=== PATIENT | male | born 1960 | race Caucasian/White ===

== ENCOUNTER → 2018-02-25 07:02 | Outpatient (CLI) | payer OTHER, SELFPAY ==
[2018-02-25 09:12] LABS: ALB/GLOB Ratio 1.3 RATIO (0.9-2.4); AST(SGOT) 16 U/L (15-37); Alanine Aminotransfer ALT/SGPT 35 U/L (16-61); Albumin, Serum 4.1 g/dL (3.2-5.0); Alkaline Phosphatase 63 U/L (45-117); Anion Gap 10 (5-15); BUN 18 mg/dL (7-18); BUN/Creat Ratio 20.6 RATIO (10-20); Calcium,Total 9.1 mg/dL (8.5-10.1); Chloride 106 mmol/L (98-107); Cholesterol 161 mg/dL (200); Creatinine, Serum 0.88 mg/dL (0.70-1.30); EST Glomerular Filtration Rate 96 mL/min (>60); Est Glom Filt Rate - Afr Amer 116 mL/min (>60); Globulin 3.2 g/dL (2.2-4.2); Glucose 109 mg/dL (74-106); High Density Lipoprotein 58 mg/dL; PSA,Total - Annual Screen 0.62 ng/mL (0.00-4.00); Potassium 5.1 mmol/L (3.5-5.1); Protein, Total 7.3 g/dL (6.4-8.2); Sodium Level 142 mmol/L (136-145); Triglycerides 114 mg/dL; Very Low Density Lipoprotein 23 mg/dL (5-40)
[2018-02-25 09:39] LABS: Hemoglobin A1c 5.7 % (4.2-6.3)
== END ==
PROVIDERS: Family Provider Family Medicine; PCP Family Medicine; Visit Provider Family Medicine
DX: Z00.00 Encounter for general adult medical examination without abnormal findings (principal); I10 Essential (primary) hypertension; E78.5 Hyperlipidemia, unspecified; Z12.5 Encounter for screening for malignant neoplasm of prostate
CPT/HCPCS: 36415; 80053; 80061; 83036; 84153; G0103

== ENCOUNTER → 2019-04-07 | Outpatient (CLI) | payer OTHER, SELFPAY ==
[2019-03-20 17:53] VITALS: BMI 33.5
[2019-04-07 08:08] LABS: Hematocrit 45.7 % (40-54); Hemoglobin 15.4 g/dL (13.0-16.5); Mean Corp Hgb Conc 33.7 g/dL (32-36); Mean Corpuscular Hgb 31.1 pg (27.0-32.0); Mean Corpuscular Volume 92.3 fL (80-94); Mean Platelet Vol. 11.2 fl (6.2-12.0); Platelet Count 204 K/mm3 (150-450); RBC Distribution Width CV 11.9 % (11.6-14.6); RBC Distribution Width SD 40.5 fl (35.1-43.9); Red Blood Count 4.95 M/mm3 (4.6-6.2); White Blood Count 7.2 K/mm3 (4.4-11.0)
[2019-04-07 08:38] LABS: Microalbumin,Random Urine 10.6 mg/L (NO RANGE EST.); Microalbumin:Creatinine Ratio 7.9 mg/g CRE (<30 mg/g CRE)
[2019-04-07 08:48] LABS: ALB/GLOB Ratio 1.3 RATIO (0.9-2.4); AST(SGOT) 27 U/L (15-37); Alanine Aminotransfer ALT/SGPT 35 U/L (16-61); Alkaline Phosphatase 69 U/L (45-117); Anion Gap 7 (5-15); BUN 19 mg/dL (7-18); BUN/Creat Ratio 19.2 RATIO (10-20); Calcium,Total 8.6 mg/dL (8.5-10.1); Chloride 108 mmol/L (98-107); Cholesterol 158 mg/dL (200); Creatinine, Serum 0.99 mg/dL (0.70-1.30); EST Glomerular Filtration Rate 83 mL/min (>60); Est Glom Filt Rate - Afr Amer 100 mL/min (>60); Glucose 118 mg/dL (74-106); High Density Lipoprotein 66 mg/dL; Potassium 4.7 mmol/L (3.5-5.1); Sodium Level 142 mmol/L (136-145); Triglycerides 162 mg/dL; Very Low Density Lipoprotein 32 mg/dL (5-40)
== END | disposition home or self-care (01) ==
LOC: LAB 07:10
PROVIDERS: Family Provider Family Medicine; PCP Family Medicine; Referring Provider Nurse Practitioner Family; Visit Provider Nurse Practitioner Family
DX: E11.9 Type 2 diabetes mellitus without complications (principal)
CPT/HCPCS: 36415; 80053; 80061; 82043; 82570; 84153; 84443; 85027; G0103

== ENCOUNTER → 2019-07-18 16:34 | Outpatient (CLI) | payer OTHER, SELFPAY ==
[2019-07-18 16:26] VITALS: BMI 34.7
[2019-07-18 17:34] LABS: Anion Gap 4 (5-15); BUN 19 mg/dL (7-18); Calcium,Total 9.8 mg/dL (8.5-10.1); Chloride 109 mmol/L (98-107); EST Glomerular Filtration Rate 82 mL/min (>60); Est Glom Filt Rate - Afr Amer 99 mL/min (>60); Glucose 89 mg/dL (74-106); Potassium 4.7 mmol/L (3.5-5.1); Sodium Level 141 mmol/L (136-145)
== END ==
PROVIDERS: PCP Family Medicine; Referring Provider Nurse Practitioner Family; Visit Provider Nurse Practitioner Family
DX: I10 Essential (primary) hypertension (principal)
CPT/HCPCS: 36415; 80048

== ENCOUNTER → 2020-08-13 11:33 | Outpatient (CLI) | payer OTHER, SELFPAY ==
[2020-08-13 13:22] LABS: ALB/GLOB Ratio 1.3 RATIO (0.9-2.4); AST(SGOT) 24 U/L (15-37); Alanine Aminotransfer ALT/SGPT 49 U/L (16-61); Albumin, Serum 4.4 g/dL (3.2-5.0); Alkaline Phosphatase 67 U/L (45-117); Anion Gap 6 (5-15); BUN 15 mg/dL (7-18); BUN/Creat Ratio 15.1 RATIO (10-20); Calcium,Total 9.4 mg/dL (8.5-10.1); Chloride 108 mmol/L (98-107); Cholesterol 182 mg/dL (200); Creatinine, Serum 0.99 mg/dL (0.70-1.30); EST Glomerular Filtration Rate 82 mL/min (>60); Est Glom Filt Rate - Afr Amer 100 mL/min (>60); Globulin 3.3 g/dL (2.2-4.2); Glucose 107 mg/dL (74-106); High Density Lipoprotein 68 mg/dL; Potassium 4.9 mmol/L (3.5-5.1); Protein, Total 7.7 g/dL (6.4-8.2); Sodium Level 140 mmol/L (136-145); Triglycerides 150 mg/dL; Very Low Density Lipoprotein 30 mg/dL (5-40)
== END ==
PROVIDERS: PCP Family Medicine; Referring Provider Family Medicine; Visit Provider Family Medicine
DX: E11.9 Type 2 diabetes mellitus without complications (principal); E78.5 Hyperlipidemia, unspecified
CPT/HCPCS: 36415; 80053; 80061

== ENCOUNTER 2021-06-30 12:37 | Outpatient (CLI) | payer OTHER, SELFPAY | END 2021-06-30 23:59 | disposition short-term general hospital (02) | LOC: LABSPEC 12:38 | PROVIDERS: PCP Family Medicine; Referring Provider Physician Assistant Surgical; Visit Provider Physician Assistant Surgical | DX: Z11.52 Encounter for screening for COVID-19 (principal) | CPT/HCPCS: 87635; U0003; U0005 ==

== ENCOUNTER 2021-08-05 09:23 | Outpatient (CLI) | payer OTHER, SELFPAY ==
[2021-08-05 13:07] LABS: ALB/GLOB Ratio 1.3 RATIO (0.9-2.4); AST(SGOT) 55 U/L (15-37); Alanine Aminotransfer ALT/SGPT 103 U/L (16-61); Albumin, Serum 4.1 g/dL (3.2-5.0); Alkaline Phosphatase 78 U/L (45-117); Anion Gap 4 (5-15); BUN 15 mg/dL (7-18); BUN/Creat Ratio 17.1 RATIO (10-20); Calcium,Total 9.3 mg/dL (8.5-10.1); Chloride 108 mmol/L (98-107); Cholesterol 131 mg/dL (200); Creatinine, Serum 0.88 mg/dL (0.70-1.30); EST Glomerular Filtration Rate 94 mL/min (>60); Est Glom Filt Rate - Afr Amer 114 mL/min (>60); Globulin 3.1 g/dL (2.2-4.2); Glucose 156 mg/dL (74-106); High Density Lipoprotein 49 mg/dL; Potassium 4.8 mmol/L (3.5-5.1); Protein, Total 7.2 g/dL (6.4-8.2); Sodium Level 139 mmol/L (136-145); Triglycerides 125 mg/dL
[2021-08-05 13:08] LABS: Very Low Density Lipoprotein 25 mg/dL (5-40)
== END 2021-08-05 23:59 | disposition home or self-care (01) ==
LOC: BIMLAB 09:24
PROVIDERS: PCP Family Medicine; Referring Provider Family Medicine; Visit Provider Family Medicine
DX: E11.9 Type 2 diabetes mellitus without complications (principal)
CPT/HCPCS: 36415; 80053; 80061

== ENCOUNTER 2021-09-16 09:20 | Outpatient (CLI) | payer OTHER, SELFPAY ==
[2021-09-16 13:09] LABS: AST(SGOT) 58 U/L (15-37); Alanine Aminotransfer ALT/SGPT 112 U/L (16-61); Albumin, Serum 4.3 g/dL (3.2-5.0); Alkaline Phosphatase 69 U/L (45-117); Bilirubin, Direct 0.14 mg/dL (0.00-0.30); Globulin 3.1 g/dL (2.2-4.2); Protein, Total 7.4 g/dL (6.4-8.2)
== END 2021-09-16 23:59 | disposition home or self-care (01) ==
LOC: BIMLAB 09:21
PROVIDERS: PCP Family Medicine; Referring Provider Family Medicine; Visit Provider Family Medicine
DX: R74.8 Abnormal levels of other serum enzymes (principal)
CPT/HCPCS: 36415; 80076

== ENCOUNTER 2021-10-07 11:05 | Outpatient (CLI) | payer OTHER, SELFPAY ==
--- NOTE | 2021-10-07 09:31 | US_ITS ---
STUDY: ABDOMINAL ULTRASOUND - RIGHT UPPER QUADRANT REASON FOR VISIT: Male, 61 years old ABN LEVELS OF OTHER SERUM ENZYMES TECHNIQUE: Ultrasound evaluation of the right upper quadrant was performed with real-time and static julian-scale imaging. TECHNICAL QUALITY: Adequate. COMPARISON: None. FINDINGS: Liver: The liver measures 16.8 cm. There is increased echogenicity consistent with fatty infiltration. Focal fatty sparing is seen adjacent to the gallbladder fossa. The bile ducts are within normal limits. There is hepatic color flow. The direction of portal flow is hepatopetal. There is no demonstrated mass lesion. Gallbladder: Normal distended gallbladder. The gallbladder wall measures 2.1 mm. There is a negative sonographic Kathleen''s sign. There is no pericholecystic fluid. There are no gallstones. A small amount of sludge is seen in the gallbladder lumen. Common Bile Duct (C.B.D.): The common bile duct measures 5.7 mm. Pancreas: Normal size of the head, body and tail of the pancreas. There is increased echogenicity of the pancreas. There is no demonstrated pancreatic mass or cyst. Right Kidney: Normal size of the right kidney. The right kidney measures 11.3 cm x 6.6 cm x 6.7 cm. Normal renal cortex. The right cortex measures 1.5 cm. There is no demonstrated renal mass or cyst. There is no right hydronephrosis. US/Abdomen Limited IMPRESSION: Borderline hepatomegaly with fatty infiltration of the liver and focal fatty sparing adjacent to the gallbladder fossa. A small amount of sludge is seen in the gallbladder lumen. Electronically Signed: Viet Roberts MD at 12:28 EDT ,
== END 2021-10-07 23:59 | disposition home or self-care (01) ==
PROVIDERS: PCP Family Medicine; Referring Provider Family Medicine; Visit Provider Family Medicine
DX: R74.9 Abnormal serum enzyme level, unspecified (principal)
CPT/HCPCS: 76705

== ENCOUNTER → 2022-03-04 | Outpatient (CLI) | payer OTHER, SELFPAY ==
[2022-03-04 12:43] LABS: ALB/GLOB Ratio 1.1 RATIO (0.9-2.4); AST(SGOT) 15 U/L (15-37); Alanine Aminotransfer ALT/SGPT 37 U/L (16-61); Alkaline Phosphatase 63 U/L (45-117); Anion Gap 7 (5-15); BUN 17 mg/dL (7-18); BUN/Creat Ratio 16.5 RATIO (10-20); Calcium,Total 9.4 mg/dL (8.5-10.1); Chloride 105 mmol/L (98-107); Cholesterol 202 mg/dL (200); Creatinine, Serum 1.03 mg/dL (0.70-1.30); EST Glomerular Filtration Rate 78 mL/min (>60); Est Glom Filt Rate - Afr Amer 95 mL/min (>60); Globulin 3.5 g/dL (2.2-4.2); Glucose 126 mg/dL (74-106); High Density Lipoprotein 59 mg/dL; Potassium 5.9 mmol/L (3.5-5.1); Protein, Total 7.5 g/dL (6.4-8.2); Sodium Level 139 mmol/L (136-145); Triglycerides 172 mg/dL; Very Low Density Lipoprotein 34 mg/dL (5-40)
== END | disposition home or self-care (01) ==
LOC: BIMLAB 08:53
PROVIDERS: PCP Family Medicine; Referring Provider Family Medicine; Visit Provider Family Medicine
DX: R74.8 Abnormal levels of other serum enzymes (principal)
CPT/HCPCS: 36415; 80053; 80061

== ENCOUNTER → 2023-03-03 | Outpatient (CLI) | payer OTHER, SELFPAY ==
[2023-03-03 12:55] LABS: ALB/GLOB Ratio 1.1 RATIO (0.9-2.4); AST(SGOT) 19 U/L (15-37); Alanine Aminotransfer ALT/SGPT 31 U/L (16-61); Albumin, Serum 3.9 g/dL (3.2-5.0); Alkaline Phosphatase 63 U/L (45-117); Anion Gap 6 (5-15); BUN 20 mg/dL (7-18); BUN/Creat Ratio 21.7 RATIO (10-20); Calcium,Total 9.5 mg/dL (8.5-10.1); Chloride 109 mmol/L (98-107); Creatinine, Serum 0.92 mg/dL (0.70-1.30); EST Glomerular Filtration Rate 89 mL/min (>60); Est Glom Filt Rate - Afr Amer 108 mL/min (>60); Globulin 3.6 g/dL (2.2-4.2); Glucose 118 mg/dL (74-106); Potassium 4.8 mmol/L (3.5-5.1); Protein, Total 7.5 g/dL (6.4-8.2); Sodium Level 141 mmol/L (136-145)
== END | disposition home or self-care (01) ==
LOC: BIMLAB 08:51
PROVIDERS: PCP Family Medicine; Visit Provider Family Medicine
DX: R74.8 Abnormal levels of other serum enzymes (principal)
CPT/HCPCS: 36415; 80053

== ENCOUNTER → 2023-09-09 | Outpatient (CLI) | payer OTHER, SELFPAY ==
--- OUTSIDE RECORDS SUMMARY | 2023-09-09 09:18 | XMS RPT_ITS | CCD ---
Author Name Unknown Address [address] [place] [id number] Organization [facility] Care Team Providers Care Inspector Publications Name Role Phone MIRTHA BOLES R Unavailable Unavailable BROWN, MIRTHA R Unavailable Unavailable BROWN, MIRTHA R Unavailable Unavailable BROWN, MIRTHA R Unavailable Unavailable BROWN, MIRTHA R Unavailable Unavailable Problems Active Problems Problem Classification Problem Date Documented Da te Episodic/Chronic Unclassified (1 source) Unknown / UNK(Unknown) Onset: 01-06-2017 Past or Other Problems Problem Classification Problem Date Documented Da te Episodic/Chronic Unclassified (1 source) E78.5 Onset: 01-06-2017 Results Test Name Value Interpretation Reference Range Facil ity Encounters Encounter Date Encounter Type Care Provider Facility Start: 01-06-2017 End: 01-07-2017 Ambulatory MIRTHA BOLES Facility:[facility] Payers Date Payer Category Payer Private Health Insurance [id number] Summary Purpose Family History No Family History Records FoundNo Family History Records Found Advance Directives No Advanced Directives Records FoundNo Advanced Directives Records Found Additional Source Comments (unrecognized sect ion and content) No Status Records FoundNo Status Records Found INFORMATION SOURCE (unrecogn ized section and content) DATE CREATED AUTHOR AUTHOR'S ORGANIZ ATION 12/21/2017 [facility] [employer] FOR RECORDS PERTAINING TO PATIENTS WHO ARE OR HAVE BEEN ENROLLED IN A CHEMICAL DEPENDENCY/SUBSTANCEABUSE PROGRAM, SOME INFORMATION MAY BE OMITTED. This clinical summary was aggregated from multiple sources. Caution should be exercised in using it in the provision of clinical care. This summary normalizes information from multiple sources, and as a consequence, information in this document may materially change the coding, format and clinical context of patient data. In addition, data may be omitted in some cases. CLINICAL DECISIONS SHOULD BE BASED ON THE PRIMARY CLINICAL RECORDS. [facility] [employer] [facility]. provides no warranty or guarantee of the accuracy or completeness of information in this document.
[2023-09-09 13:04] LABS: Cholesterol 183 mg/dL (200); High Density Lipoprotein 52 mg/dL; PSA,Total - Annual Screen 0.63 ng/mL (0.00-4.00); Triglycerides 169 mg/dL; Very Low Density Lipoprotein 34 mg/dL (5-40)
== END | disposition home or self-care (01) ==
LOC: BIMLAB 08:55
PROVIDERS: PCP Family Medicine; Visit Provider Family Medicine
DX: Z00.00 Encounter for general adult medical examination without abnormal findings (principal); E78.5 Hyperlipidemia, unspecified
CPT/HCPCS: 36415; 80061; 84153; G0103

== ENCOUNTER → 2024-03-09 | Outpatient (CLI) | payer OTHER, SELFPAY ==
[2024-03-09 12:44] LABS: Absolute Neutrophil Count 5.1 X10^3/uL (2.0-7.7); Basophil# 0.09 X10^3/uL; Basophil% 1.1 % (0-1); Eosinophil# 0.15 X10^3/uL; Eosinophils% 1.8 % (0-5); Hematocrit 45.8 % (40-54); Hemoglobin 15.8 g/dL (13.0-16.5); Mean Corp Hgb Conc 34.5 g/dL (32-36); Mean Corpuscular Hgb 31.3 pg (27.0-32.0); Mean Corpuscular Volume 90.7 fL (80-94); Mean Platelet Vol. 12.1 fl (6.2-12.0); Monocyte# 0.77 X10^3/uL; NRBC Flagged by Analyzer 0 % (0-5); Neutrophil # 5.13 X10^3/uL (2.7-7.7); Neutrophil % 59.7 % (47-70); Platelet Count 226 K/mm3 (150-450); RBC Distribution Width CV 11.8 % (11.6-14.6); Red Blood Count 5.05 M/mm3 (4.6-6.2); White Blood Count 8.6 K/mm3 (4.4-11.0)
[2024-03-09 13:09] LABS: ALB/GLOB Ratio 1.1 RATIO (0.9-2.4); AST(SGOT) 34 U/L (15-37); Alanine Aminotransfer ALT/SGPT 79 U/L (16-61); Alkaline Phosphatase 78 U/L (45-117); Anion Gap 7 (5-15); BUN 17 mg/dL (7-18); BUN/Creat Ratio 16.7 RATIO (10-20); Calcium,Total 9.8 mg/dL (8.5-10.1); Chloride 104 mmol/L (98-107); Cholesterol 201 mg/dL (200); Creatinine, Serum 1.02 mg/dL (0.70-1.30); EST Glomerular Filtration Rate 79 mL/min (>60); Est Glom Filt Rate - Afr Amer 95 mL/min (>60); Globulin 3.5 g/dL (2.2-4.2); Glucose 179 mg/dL (74-106); High Density Lipoprotein 53 mg/dL; Potassium 4.5 mmol/L (3.5-5.1); Protein, Total 7.5 g/dL (6.4-8.2); Sodium Level 137 mmol/L (136-145); Triglycerides 271 mg/dL; Very Low Density Lipoprotein 54 mg/dL (5-40)
== END | disposition home or self-care (01) ==
LOC: BIMLAB 08:54
PROVIDERS: PCP Family Medicine; Referring Provider Family Medicine; Visit Provider Family Medicine
DX: E11.9 Type 2 diabetes mellitus without complications (principal)
CPT/HCPCS: 36415; 80053; 80061; 84443; 85025

== ENCOUNTER 2024-06-30 16:39 | Emergency (ER) | payer OTHER, SELFPAY ==
[2024-06-30 16:40] VITALS: BP 151/92; PULSE 115; RESP 16; TEMP 37.1; O2SAT 99; BMI 33.8
--- NOTE | 2024-06-30 16:43 | EKG12_ITS ---
Test Reason : CP Blood Pressure : */* mmHG Vent. Rate : 101 BPM Atrial Rate : 101 BPM P-R Int : 216 ms QRS Dur : 82 ms QT Int : 322 ms P-R-T Axes : 30 -19 13 degrees QTcB Int : 417 ms Sinus tachycardia with 1st degree A-V block Otherwise normal ECG Confirmed by ROSS CASON, JOY ([id number]), non linear editor DAWN LOGAN ([id number]) on 07/02/2024 7:01:31 AM Referred By: Confirmed By: JOY HAWKINS MD
--- NOTE | 2024-06-30 17:08 | ED.VIS.CHEST ---
HPI <REGGIE Calixto - Last Filed: 06/30/24 19:43> History of Present Illness Chief Complaint: Palpitations Narrative Narrative: Patient presenting today due to palpitations and dyspnea on exertion he has had over the past week intermittently. Nothing seems to trigger the palpitations. He reports that he can sometimes feel the palpitations radiate into his neck. He denies having chest pain with this. He denies any history of arrhythmia or a cardiac history. He denies fevers, chills, orthopnea, and lower extremity edema. He has a PMH of T2DM and HTN. PE Risk Factors: Negative for Recent Travel/Surgery, Recent Immobilization, Prior DVT or PE or Cancer PFSH <REGGIE Calixto - Last Filed: 06/30/24 19:43> PFSH Medical History GERD (gastroesophageal reflux disease) Kidney stones Hyperlipidemia Hypertension Hearing problem Diabetes Seasonal allergies Home Medications ?Medication ?Instructions ?Recorded ?Last Taken ?Type lisinopril 40 mg tablet 40 mg PO DAILY #90 TABLETS 05/08/24 Unknown Rx metformin 500 mg tablet,extended 500 mg PO BID 90 days #180 tabs 05/11/24 Unknown Rx release 24 hr Allergy/AdvReac Type Severity Reaction Status Date / Time bee venom protein (honey Allergy Unknown Swelling Verified 06/30/24 16:40 bee) (bee stings) Family History Father Lung cancer Mother Heart disease COPD (chronic obstructive pulmonary disease) Sister Thyroid disorder Surgical History History of tonsillectomy Social History Smoking Status: Former smoker alcohol intake: current alcohol intake frequency: holidays/special occasions only substance use type: does not use what type of physical activity do you participate in: walking ROS <REGGIE Calixto - Last Filed: 06/30/24 19:43> ROS ED Constitutional Constitutional ED: Denies chills or fever(s) Cardiovascular Cardiovascular: Reports palpitations; Denies chest pain Respiratory/Chest Respiratory/Chest: Reports dyspnea on exertion; Denies cough or sputum Gastrointestinal Gastrointestinal: Denies abdominal pain, nausea or vomiting Musculoskeletal Musculoskeletal: Denies arthralgias or myalgias Integumentary Denies rash Neurologic Neurologic: Denies weakness EXAM <REGGIE Calixto - Last Filed: 06/30/24 19:43> Physical Exam Const Vital Signs: 06/30/24 16:40 06/30/24 16:43 06/30/24 17:03 Temperature 98.7 F Temperature Source Oral Pulse Rate 115 H Respiratory Rate 16 Respiratory Effort Normal Blood Pressure 151/92 H Blood Pressure Mean 111 Pulse Ox 99 Oxygen Delivery Method Room Air Room Air 06/30/24 17:40 06/30/24 18:00 06/30/24 19:00 Temperature Temperature Source Pulse Rate 99 104 H 89 Respiratory Rate 16 16 17 Respiratory Effort Blood Pressure 134/95 H 150/98 H 134/95 H Blood Pressure Mean 108 115 108 Pulse Ox 100 100 96 Oxygen Delivery Method Room Air Room Air 06/30/24 19:40 Temperature 97.9 F Temperature Source Pulse Rate 73 Respiratory Rate 16 Respiratory Effort Blood Pressure 134/78 H Blood Pressure Mean 96 Pulse Ox 99 Oxygen Delivery Method Positive well nourished, well developed and no apparent distress General Appearance ED: well developed HEENT Reports normocephalic and head/scalp atraumatic Mouth ED: Yes moist mucous membranes normal Eyes PERRL and EOMs intact bilaterally Neck full ROM and supple Chest Wall inspection of chest normal Resp normal respiratory effort and clear to auscultation bilaterally Cardio regular rate and regular rhythm GI soft to palpation, non-tender, non-distended and no masses Back/Spine normal ROM and normal to inspection Extremity normal to inspection and full ROM General Extremety ED: Negative for edema General Extremity: Negative for edema Neuro oriented x3, CN's II-XII intact bilaterally, moves all extremities, no focal motor deficits and no sensory deficits noted Sensorium / Orientation: awake and alert Psych mental status grossly normal and thought process normal Skin no rashes or lesions noted and no wounds <Dr. Zi Oglesby MD - Last Filed: 06/30/24 22:40> Physical Exam Const Vital Signs: 06/30/24 16:40 06/30/24 16:43 06/30/24 17:03 Temperature 98.7 F Temperature Source Oral Pulse Rate 115 H Respiratory Rate 16 Respiratory Effort Normal Blood Pressure 151/92 H Blood Pressure Mean 111 Pulse Ox 99 Oxygen Delivery Method Room Air Room Air 06/30/24 17:40 06/30/24 18:00 06/30/24 19:00 Temperature Temperature Source Pulse Rate 99 104 H 89 Respiratory Rate 16 16 17 Respiratory Effort Blood Pressure 134/95 H 150/98 H 134/95 H Blood Pressure Mean 108 115 108 Pulse Ox 100 100 96 Oxygen Delivery Method Room Air Room Air 06/30/24 19:40 Temperature 97.9 F Temperature Source Pulse Rate 73 Respiratory Rate 16 Respiratory Effort Blood Pressure 134/78 H Blood Pressure Mean 96 Pulse Ox 99 Oxygen Delivery Method [facility] <REGGIE Calixto - Last Filed: 06/30/24 19:43> [facility] Narrative Medical decision making narrative: Patient presenting today due to intermittent palpitations and dyspnea on exertion he has had over the past week. He is well-appearing and in no acute distress. Initially he was tachycardic but his heart rate did improve. He does not have any history of arrhythmia. He does not appear to be fluid overloaded. Cardiac workup obtained, CBC, BMP, troponin, D-dimer, and BNP unremarkable aside from a glucose of 216. EKG is sinus rhythm. We will give him a Holter monitor here and a referral for cardiology. I recommended close outpatient follow-up. Return instructions discussed and patient discharged home in stable condition. Lab Data Attestation: I reviewed the patient's lab results. Labs: Laboratory Results - last 24 hr 06/30/24 17:00 WBC 11.0 RBC 4.85 Hgb 15.2 Hct 42.6 MCV 87.8 MCH 31.3 MCHC 35.7 RDW Std Deviation 38.3 RDW Coeff of Brent 11.9 Plt Count 233 MPV 11.1 Immature Gran % (Auto) 0.600 Neut % (Auto) 61.3 Lymph % (Auto) 27.2 Leake % (Auto) 8.5 Eos % (Auto) 1.6 Baso % (Auto) 0.8 Absolute Neuts (auto) 6.7 Absolute Lymphs (auto) 3.00 Nucleated RBC % 0 D-Dimer Quant (PE/DVT) 0.27 Sodium 138 Potassium 3.9 Chloride 106 Carbon Dioxide 24.0 Anion Gap 7 BUN 15 Creatinine 0.97 Estim Creat Clear Calc 85.23 Est GFR (MDRD) Af Amer 101 Est GFR (MDRD) Non-Af 83 BUN/Creatinine Ratio 15.4 Glucose 216 H Calcium 9.0 Troponin I High Sens 7 B-Natriuretic Peptide 5.7 Radiography X-Ray: Read by ED Physician Diagnostic Testing: Clinical Impression(s) from Imaging Studies Chest X-Ray 06/30/24 17:10 IMPRESSION: No definite acute or significant abnormality seen. Electronically Signed: Chema Hilliard MD at 18:02 EST , EKG Initial EKG: Comments: 101 bpm, sinus tachycardia, no ST elevation, interpreted by attending ED physician <Dr. Zi Oglesby MD - Last Filed: 06/30/24 22:40> [facility] Lab Data Labs: Laboratory Results - last 24 hr 06/30/24 17:00 WBC 11.0 RBC 4.85 Hgb 15.2 Hct 42.6 MCV 87.8 MCH 31.3 MCHC 35.7 RDW Std Deviation 38.3 RDW Coeff of Brent 11.9 Plt Count 233 MPV 11.1 Immature Gran % (Auto) 0.600 Neut % (Auto) 61.3 Lymph % (Auto) 27.2 Leake % (Auto) 8.5 Eos % (Auto) 1.6 Baso % (Auto) 0.8 Absolute Neuts (auto) 6.7 Absolute Lymphs (auto) 3.00 Nucleated RBC % 0 D-Dimer Quant (PE/DVT) 0.27 Sodium 138 Potassium 3.9 Chloride 106 Carbon Dioxide 24.0 Anion Gap 7 BUN 15 Creatinine 0.97 Estim Creat Clear Calc 85.23 Est GFR (MDRD) Af Amer 101 Est GFR (MDRD) Non-Af 83 BUN/Creatinine Ratio 15.4 Glucose 216 H Calcium 9.0 Troponin I High Sens 7 B-Natriuretic Peptide 5.7 Radiography Diagnostic Testing: Clinical Impression(s) from Imaging Studies Chest X-Ray 06/30/24 17:10 IMPRESSION: No definite acute or significant abnormality seen. Electronically Signed: Chema Hilliard MD at 18:02 EST , Treatment and Re-Evaluation Comments:: I have personally performed a face to face assessment of the patient and have reviewed the STEFANIE Note. I performed a substantive portion of the visit including all aspects of the following. My schmid findings include: History is dyspnea with exertion for weeks, palpitations off and on for about a week, feels like a flutter at its worst, sometimes radiates up to his throat, other times feels less than that. Sometimes associated with lightheadedness no near-syncope or syncope. No chest pain or dyspnea associated with the episodes. Never had this before no history of heart problems that he knows of. Exam is clear to auscultation, heart regular no murmurs, occasional PACs on monitor patient occasionally feels but not always. No calf tenderness or pedal edema. Medical Decison Making patient has no risk factors for DVT or PE nor history of, or known clotting disorder. We did a D-dimer since he has a low Wells score, it is negative ruling out DVT/PE as etiology of this. He had some atrial ectopy on the monitor but no dysrhythmias or major fluttering/lightheadedness symptoms here. His workup otherwise is normal, no anemia, two-view chest x-ray normal, BNP normal ruling out acute decompensated congestive heart failure, and his troponin is normal after having a week of symptoms. Our plan is to discharge him home on a Holter monitor if available and have him follow-up after the weekend. Other additions or changes: [None] Discharge Plan Triage Chief Complaint: Palpitations ED Midlevel Provider: Amparo Drake ED Provider: Zi Oglesby Dx/Rx/DC Orders Clinical Impression: Heart palpitations, HORTON (dyspnea on exertion), Accelerated hypertension Instructions: ED Dyspnea, ED Holter Monitor, ED Palpitations Prescriptions: No Action lisinopril 40 mg tablet 40 mg PO DAILY Qty: 90 3RF metformin 500 mg tablet extended release 24 hr 500 mg PO BID 90 Days Qty: 180 1RF Primary Care Provider: George Galeana Referrals: Sudhakar Quinn MD [Med Staff - Active Staff] - As soon as possible (after holter finished/turned in ) George Galeana, DO [Primary Care Provider] - 5-7 Days Activity Restrictions/Additional Instructions: Please follow-up with cardiology and your PCP. Return for any worsening of your symptoms. Print Language: Citizen Of [place] Disposition Disposition: Home, Self Care Discharge Date/Time: 06/30/24 19:41
--- NOTE | 2024-06-30 17:10 | RAD_ITS ---
STUDY: X-RAY CHEST REASON FOR EXAM: Male, 64 years old. chest pain TECHNIQUE: Frontal and lateral views of the chest. COMPARISON: None. FINDINGS: The lungs are clear and expanded. There is no demonstrated pleural abnormality. Normal size heart. Normal mediastinum and raudel. Normal visualized pulmonary arteries. Normal visualized aortic arch and descending thoracic aorta. There are diffuse degenerative changes of the visualized thoracic spine. Normal visualized ribs, clavicles, and shoulders. There is no demonstrated abnormality of the visualized soft tissue structures of the upper abdomen. RAD/Chest PA and Lateral IMPRESSION: No definite acute or significant abnormality seen. Electronically Signed: Chema Hilliard MD at 18:02 EST ,
[2024-06-30 17:19] LABS: Absolute Neutrophil Count 6.7 X10^3/uL (2.0-7.7); Basophil# 0.09 X10^3/uL; Basophil% 0.8 % (0-1); Eosinophil# 0.18 X10^3/uL; Eosinophils% 1.6 % (0-5); Hematocrit 42.6 % (40-54); Hemoglobin 15.2 g/dL (13.0-16.5); Lymphocyte % 27.2 % (19-41); Mean Corp Hgb Conc 35.7 g/dL (32-36); Mean Corpuscular Hgb 31.3 pg (27.0-32.0); Mean Corpuscular Volume 87.8 fL (80-94); Mean Platelet Vol. 11.1 fl (6.2-12.0); Monocyte# 0.94 X10^3/uL; Monocyte% 8.5 % (0-10); NRBC Flagged by Analyzer 0 % (0-5); Neutrophil # 6.74 X10^3/uL (2.7-7.7); Neutrophil % 61.3 % (47-70); Platelet Count 233 K/mm3 (150-450); RBC Distribution Width CV 11.9 % (11.6-14.6); RBC Distribution Width SD 38.3 fl (35.1-43.9); Red Blood Count 4.85 M/mm3 (4.6-6.2)
[2024-06-30 17:31] LABS: D-Dimer Quantitative (DVT/PE) 0.27 FEU/ug/m (0.27-0.49)
[2024-06-30 17:37] LABS: Anion Gap 7 (5-15); BUN 15 mg/dL (7-18); BUN/Creat Ratio 15.4 RATIO (10-20); Chloride 106 mmol/L (98-107); Creatinine, Serum 0.97 mg/dL (0.70-1.30); EST Glomerular Filtration Rate 83 mL/min (>60); Est Glom Filt Rate - Afr Amer 101 mL/min (>60); Estimated Creatinine Clearance 85.23 ml/min; Glucose 216 mg/dL (74-106); Potassium 3.9 mmol/L (3.5-5.1); Sodium Level 138 mmol/L (136-145); Troponin-I HS (w/2H Reflex) 7 pg/mL (3.0-78.0)
[2024-06-30 17:39] LABS: BNP,B-Type NATRIURETIC PEPTIDE 5.7 pg/mL (0-100)
[2024-06-30 17:40] VITALS: BP 134/95; PULSE 99; RESP 16; O2SAT 100
[2024-06-30 18:00] VITALS: BP 150/98; PULSE 104; RESP 16; O2SAT 100
[2024-06-30 19:00] VITALS: BP 134/95; PULSE 89; RESP 17; O2SAT 96
[2024-06-30 19:15] LABS: Reflex Troponin-HS? (from REC) Y
[2024-06-30 19:40] VITALS: BP 134/78; PULSE 73; RESP 16; TEMP 36.6; O2SAT 99
== END 2024-06-30 19:41 | disposition home or self-care (01) ==
PROVIDERS: Physician Assistant; Emergency Provider Emergency Medicine; PCP Family Medicine; Visit Provider Emergency Medicine
DX: R00.2 Palpitations (principal); E11.9 Type 2 diabetes mellitus without complications; I10 Essential (primary) hypertension; Z87.891 Personal history of nicotine dependence; E78.5 Hyperlipidemia, unspecified; K21.9 Gastro-esophageal reflux disease without esophagitis; R06.09 Other forms of dyspnea
CPT/HCPCS: 71046; 80048; 83880; 84484; 85025; 85379; 93005; 99284; A4216

== ENCOUNTER → 2024-06-30 | Outpatient (CLI) | payer OTHER, SELFPAY | END | disposition home or self-care (01) | LOC: CVS 19:17 | PROVIDERS: PCP Family Medicine; Referring Provider Emergency Medicine; Visit Provider Emergency Medicine | DX: Z00.00 Encounter for general adult medical examination without abnormal findings (principal) ==

== ENCOUNTER → 2024-07-04 | Outpatient (CLI) | payer OTHER, SELFPAY | END | disposition home or self-care (01) | LOC: PSN 07:17 | PROVIDERS: PCP Family Medicine; Referring Provider Emergency Medicine; Visit Provider Emergency Medicine | DX: R00.2 Palpitations (principal) | CPT/HCPCS: 93225; 93226 ==

== ENCOUNTER → 2024-08-17 | Outpatient (CLI) | payer OTHER, SELFPAY ==
--- NOTE | 2024-08-17 07:17 | CT_ITS ---
PROCEDURE: LIMITED CHEST CT CARDIAC ONLY REASON FOR EXAM: Hyperlipidemia. TECHNIQUE: Multiple axial tomographic images were obtained without intravenous contrast administration. Cardiac over-read examination. COMPARISON: None. FINDINGS: CHEST: Lines and tubes: None. Mediastinum: No evidence of mediastinal hemorrhage. Heart: Normal heart size. No pericardial effusion. Coronary artery calcification. 1 Thoracic Aorta: Atherosclerotic plaque formation of the aortic arch. Lungs and Airways: The lungs are normally expanded and clear. Pleura: No pleural effusion. No pneumothorax. Bones: Degenerative changes of the spine. CT/Limited Chest CT Cardiac Only IMPRESSION: Coronary artery calcification. The visualized portions of the lungs are unrema rkable. One or more dose reduction techniques were used (e.g., Automated exposure contr ol, adjustment of the mA and/or kV according to patient size, use of iterative reconstruction technique). Reading Location: [id number]
--- NOTE | 2024-08-23 18:20 | CA.SCORE ---
Calcium Scoring Date of Study:: 08/17/24 Indications Indications: hyperlipidemia Coronary Calcium Scoring: High-resolution Computed Tomographic imaging of the chest was performed on [08/17/24 ], with particular attention paid to the coronary arteries. Images from the examination were analyzed for the presence and extent of coronary artery calcification , using coronary calcium quantification software. The patient tolerated the procedure well and there were no complications. The results of the coronary calcification analysis are provided below. Findings Coronary Artery Left Main (LM): 271 Left Anterior Descending (LAD): 386 Left Circumflex (LCX): 26.8 Right Coronary Artery (RCA): 47.9 Total Agatston Score: 731.7 Percentile Rankin-90th Calcium Scoring Interpretation: Different methods to categorize the overall amount of coronary plaque. Overall amount CAC SIS Visual of coronary plaque P1 Mild -100 <2 1-2 vessels with mild amount of plaque P2 Moderate 101-300 3-4 1-2 vessels with moderate amount, 3 vessels with mild amount of plaque P3 Severe 301-999 5-7 3 vessels with moderate amount, 1 vessel with severe amount of plaque P4 Extensive >1000 >8 2-3 vessels with severe amount of plaque Calcium Score: Extensive: 2-3 vessels w/severe amount of plaque Conclusion: 2 to 3 vessels with significant plaque noted
== END | disposition home or self-care (01) ==
LOC: CT 07:16
PROVIDERS: PCP Family Medicine; Referring Provider Internal Medicine Cardiovascular Disease; Visit Provider Internal Medicine Cardiovascular Disease
DX: E78.5 Hyperlipidemia, unspecified (principal)
CPT/HCPCS: 75571; 76380

== ENCOUNTER → 2024-09-03 | Outpatient (CLI) | payer OTHER, SELFPAY ==
[2024-09-03 07:50] LABS: Absolute Lymphocyte Count 2.36 X10^3/uL (0.83-4.51); Absolute Neutrophil Count 4.5 X10^3/uL (2.0-7.7); Basophil# 0.08 X10^3/uL; Eosinophil# 0.21 X10^3/uL; Eosinophils% 2.7 % (0-5); Hematocrit 45.5 % (40-54); Hemoglobin 16.1 g/dL (13.0-16.5); Lymphocyte # 2.36 X10^3/ul (0.83-4.51); Mean Corp Hgb Conc 35.4 g/dL (32-36); Mean Corpuscular Hgb 31.4 pg (27.0-32.0); Mean Corpuscular Volume 88.9 fL (80-94); Mean Platelet Vol. 11.7 fl (6.2-12.0); Monocyte# 0.71 X10^3/uL; NRBC Flagged by Analyzer 0 % (0-5); Neutrophil # 4.49 X10^3/uL (2.7-7.7); Platelet Count 221 K/mm3 (150-450); RBC Distribution Width CV 11.9 % (11.6-14.6); RBC Distribution Width SD 38.8 fl (35.1-43.9); Red Blood Count 5.12 M/mm3 (4.6-6.2); White Blood Count 7.9 K/mm3 (4.4-11.0)
[2024-09-03 08:31] LABS: Partial Thromboplast Time 24.8 Seconds (24.1-36.2)
[2024-09-03 08:35] LABS: Prothrombin Time (Protime)PT. 13.4 SECONDS (11.7-14.9)
[2024-09-03 08:50] LABS: Anion Gap 13 (5-15); BUN 16 mg/dL (4-19); BUN/Creat Ratio 17.9 RATIO (10-20); Calcium,Total 9.3 mg/dL (7.6-11.0); Carbon Dioxide 22.6 mmol/L (21.0-32.0); Chloride 106 mmol/L (98-108); EST Glomerular Filtration Rate 96 (>60); Glucose 165 mg/dL (70-99); Potassium 4.1 mmol/L (3.3-5.1); Sodium Level 141 mmol/L (133-145)
== END | disposition home or self-care (01) ==
LOC: LAB 07:11
PROVIDERS: PCP Family Medicine; Referring Provider Physician Assistant Medical; Visit Provider Physician Assistant Medical
DX: I20.0 Unstable angina (principal); R93.1 Abnormal findings on diagnostic imaging of heart and coronary circulation
CPT/HCPCS: 36415; 80048; 85025; 85610; 85730

== ENCOUNTER → 2024-09-10 | Outpatient (CLI) | payer OTHER, SELFPAY ==
--- NOTE | 2024-09-10 07:55 | ECHOD_ITS ---
Reason For Study Reason For Study: Arrhythmia Procedure This was a 2D Doppler, Color Flow transthoracic echocardiogram. Exam performed in department. Left Ventricle Normal LV size. The left ventricular ejection fraction is 55 %. No regional wall motion abnormalities noted. Right Ventricle Normal RV size. Normal systolic function. Atria Normal left atrium. Normal right atrium. Mitral Valve Bileaflet diffuse mitral valve thickening. Mild (1+) eccentric mitral valve insufficiency. Tricuspid Valve Normal tricuspid valve. Mild tricuspid valve insufficiency. Pulmonary artery systolic pressure is 20 mmHg. Aortic Valve Trisinus/trileaflet aortic valve. Pulmonic Valve Normal pulmonic valve. Great Vessels Normal aortic root. The pulmonary artery is normal size. Inferior vena cava collapse with respiration. Pericardium/Pleural No pericardial effusion. MMode/2D Measurements & Calculations LVIDd: 4.5 cm IVSd: 0.99 cm Ao root diam: 3.9 cm LVIDs: 3.0 cm LVPWd: 0.99 cm RVDd: 3.8 cm FS: 34.1 % LAV(MOD-bp): 27.5 ml LVAd ap4: 26.2 cm2 SV(MOD-sp4): 37.6 ml LAV(MOD-bp) Indexed: 13.6 ml/m2 LVLd ap4: 8.2 cm SI(MOD-sp4): 18.6 ml/m2 LAV(MOD-sp2): 27.1 ml EDV(MOD-sp4): 71.0 ml LAV(MOD-sp4): 26.4 ml EDV(sp4-el): 71.0 ml LVAs ap4: 16.6 cm2 LVLs ap4: 7.2 cm ESV(MOD-sp4): 33.4 ml ESV(sp4-el): 32.7 ml EF(MOD-sp4): 52.9 % EF(sp4-el): 54.0 % SV(sp4-el): 38.3 ml LA A4 area: 12.4 cm2 LA dimension(2D): 4.2 cm RA A4 area: 13.6 cm2 TAPSE: 2.2 cm Time Measurements MV dec time: 0.23 sec Doppler Measurements & Calculations MV E max montrell: 62.8 cm/sec Lat Peak E' Montrell: 9.3 cm/sec Med Peak E' Montrell: 6.9 cm/sec MV A max montrell: 96.2 cm/sec E/E' lat: 6.8 E/E' med: 9.1 MV E/A: 0.65 MV V2 max: 99.0 cm/sec MV P1/2t max montrell: 63.1 cm/sec Ao V2 max: 97.4 cm/sec MV max P.9 mmHg MV P1/2t: 71.4 msec Ao max P.8 mmHg MV V2 mean: 54.6 cm/sec Ao V2 mean: 63.6 cm/sec MV mean P.4 mmHg MV dec slope: 258.8 cm/sec2 Ao mean P.9 mmHg MV V2 VTI: 17.4 cm MVA(P1/2t): 3.1 cm2 Ao V2 VTI: 18.2 cm AV (velocity ratio): 0.89 LV V1 max: 88.6 cm/sec PA V2 max: 75.9 cm/sec TR max montrell: 210.5 cm/sec LV V1 max P.1 mmHg TR max P.7 mmHg LV V1 mean P.3 mmHg LV V1 mean: 49.6 cm/sec LV V1 VTI: 16.2 cm ECHO/Echo Complete Interpretation Summary The left ventricular ejection fraction is 55 %. No regional wall motion abnormalities noted. Bileaflet diffuse mitral valve thickening. Normal LV size. Pulmonary artery systolic pressure is 20 mmHg. Ordering Physician: Sudhakar Quinn Referring Physician: Sudhakar Quinn Performed By: Jose Wong RCS
== END | disposition home or self-care (01) ==
LOC: CVS 07:55
PROVIDERS: PCP Family Medicine; Referring Provider Internal Medicine Cardiovascular Disease; Visit Provider Internal Medicine Cardiovascular Disease
DX: R00.2 Palpitations (principal); E78.5 Hyperlipidemia, unspecified
CPT/HCPCS: 93306

== ENCOUNTER 2024-09-18 09:24 | Observation (INO) | payer OTHER, SELFPAY ==
--- NOTE | 2024-09-13 13:27 | HP.PCM_ITS ---
History and Physical Date of Admission: 09/18/24 64-year-old man with no previous cardiac history other than hypertension and diabetes mellitus who presents with palpitations. He says that this has been going on for a few weeks. He denies any chest pain no shortness of breath no pedal edema no paroxysmal nocturnal dyspnea. These palpitations occur at a variety of times he presented to the emergency room was evaluated electrolytes were noted to be normal TSH was normal. A 48-hour Holter monitor demonstrated an average heart rate of 94 bpm and maximal heart rate 152 bpm in sinus rhythm with an artery interval of 1.3 seconds. There was 0.3% of the total QRS complexes noted to be PACs. He has otherwise been doing well. His physical exam today is unremarkable his electrocardiogram demonstrates sinus rhythm with a rate of 97 bpm and frequent premature atrial complexes noted. Echocardiogram demonstrated an ejection fraction of 55%. No regional wall motion abnormalities. Patient had a coronary calcium score which did demonstrate significant plaque. Because of the significance of his plaque he is to undergo a diagnostic heart catheterization. [facility] Medical History Palpitations HORTON (dyspnea on exertion) Heart palpitations Fatigue Elevated liver enzymes Headache GERD (gastroesophageal reflux disease) Kidney stones Hyperlipidemia Hypertension Hearing problem Diabetes Seasonal allergies Surgical History History of tonsillectomy Family History Father Lung cancer Mother Heart disease COPD (chronic obstructive pulmonary disease) Sister Thyroid disorder Social History Smoking Status: Former smoker alcohol intake: current alcohol intake frequency: holidays/special occasions only substance use type: does not use what type of physical activity do you participate in: walking ROS Const Const: Negative for fatigue, weakness, headache(s), daytime sleepiness or difficulty sleeping ENT ENT: Negative for headache(s), dizziness or Nosebleed/epistaxis Cardio Chest Pain: No Palpitations: Yes feels like its: fast and pounding Edema: None Resp Respiratory: Negative for SOB with activity, SOB at rest, SOB orthopnea\SOB lying down or Cough GI GI: Negative nausea, vomiting or heartburn Neuro Neuro: Positive for lightheadedness (prior to hospitalization ) and near syncope; Negative for dizziness, headache(s) or weakness Endo Endo: Negative for fatigue Cardiology Exam Const Appearance: cooperative, healthy appearing, no acute distress, well developed and well groomed Nutritional Appearance: average body habitus and well nourished Orientation: alert, awake and oriented x3 Head Head: normal to inspection, normocephalic and atraumatic Ears: hearing grossly normal bilaterally and external ears normal Nose: external nose normal, nares normal, nasal mucous membranes and turbinates normal, septum normal and no nasal discharge Face and Sinus: face symmetric Mouth: oral mucosae normal, tongue normal, oropharynx normal and moist mucous membranes Teeth and gingiva: dentition normal Throat: posterior oropharynx normal, tonsils normal and uvula midline Eyes General: appearance normal, both eyes and all related structures Eyelids: eyelids normal Conjunctivae: conjunctivae normal Pupils: PERRL, normal by confrontation and accommodation normal EOM: EOM intact bilaterally Neck Neck: normal visual inspection, trachea midline and no JVD JVD: +5 Carotids: normal carotid upstroke and bounding pulses Chest Chest inspection: normal inspection of the chest, symmetric chest movement and normal respiratory effort Auscultation: Bilateral: Clear to Auscultation Cardio Palpation: normal PMI Rate: regular rate Rhythm: regular rhythm Heart sounds: S1 normal, S2 normal and normal, physiologic split S2; Negative rub, gallop or murmur GI GI: normal to inspection, soft, no hepatosplenomegaly and bowel sounds present Neuro General: patient alert, patient awake, patient oriented x3, gait normal, moves a ll extremities and no focal sensory deficit Skin Skin: no rashes or lesions noted Extremities Pulses: Normal: Right Femoral Pulse, Left Femoral Pulse, Right Dorsalis Pedis Pulse, Left Dorsalis Pedis Pulse, Right Posterior Tibial Pulse, Left Posterior Tibial Pulse, Right Radial Pulse and Left Radial Pulse Lower Extremity Edema: None: Bilateral Musculoskel Musculoskeletal: No joint tenderness Psych Psychological: normal affect Assessment & Plan Assessment/Plan (1) Abnormal cardiac CT angiography: (2) Palpitations: (3) Hypertension: (4) Hyperlipidemia: PLAN: Plan Patient is scheduled to undergo a diagnostic heart catheterization for his abnormal coronary calcium score. Based on findings further recommendations will be made.
[2024-09-17 10:14] VITALS: BMI 33.2
[2024-09-18] VITALS (11 sets, daily range): BP systolic 101–144; BP diastolic 66–106; PULSE 72–95; RESP 12–20; TEMP 36.6–36.7; O2SAT 96–99; BMI 33.2
--- NOTE | 2024-09-18 08:37 | CL.D_ITS ---
Patient Name: MIRTHA LUCAS Study Date: 09/18/2024 Performing: Sudhakar Quinn MD Ht: 167.64 inches 425.8056 cm : 1960 Wt: 93.44 lbs 42.384 kg Age: 64 Gender: male BSA: 2.85 PROCEDURE(S) PERFORMED DC01-([id number])LHC/COR/LV CLINICAL PROFILE AND INDICATIONS Indications: Suspected CAD Heart Failure: None Stress/Imaging Coronary Calcium Score: Yes Calcium Score: 783Calcium Score: 783 CAD Presentations: Stable angina. CONCLUSIONS Coronary artery calcification with moderately severe disease noted in the proximal right coronary artery RECOMMENDATIONS Referred for immediate PCI DESCRIPTION OF PROCEDURE The patient arrived to the procedure lab. The risks and benefits of the procedure as well as a full description of our services here and current unavailability of surgical backup were fully explained to the patient and/or their significant other prior to the catheterization. The Timeout was completed, verifying the correct patient and procedure. The patient's procedural site was prepped and draped in the usual fashion. Local anesthetic was given subcutaneously to right radial region with Lidocaine 2%. Using a modified Seldinger technique, arterial access was obtained via the right radial artery, a 6Fr sheath was inserted. Right Coronary Artery selective angiography was then performed in multiple views using a 5 Fr. 4.0 [place] catheter. Left Coronary Artery selective angiography was performed in multiple views using a 5 Fr. 4.0 [place] catheter. Left Ventriculography was performed in MORENO projection using a 5 Fr. Pigtail catheter. LV to AO pullback pressures were then recorded. CORONARY ANGIOGRAPHY DOMINANCE: Co- Dominant LEFT HEART ASSESSMENT Left Ventricular Ejection Fraction: by LV Gram 60 % Normal LV wall motion Normal Left Ventricular systolic function LEFT MAIN: Moderate calcification, Mild luminal irregularities LEFT ANTERIOR DESCENDING ARTERY: Mild luminal irregularities less than 30% DIAGONAL 1: Proximal - Mild luminal irregularities CIRCUMFLEX ARTERY: Mild luminal irregularities, Codominant vessel with no significant stenosis present LT PDA: Left PDA: Mid - No significant disease noted RIGHT CORONARY ARTERY: Codominant vessel with proximal 70 to 80% stenosis present COMPLICATIONS PROCEDURE MEDICATIONS Fentanyl 50 mcg IV Versed 1 mg IV Versed 1 mg IV Oxygen: 2 L/min via nasal cannula Brilinta 180 mg PO @ 09/18/2024 08:23:21 Heparin given IA 09/18/2024 08:03:13 Heparin 6000 unit(s) IV 09/18/2024 08:34:34 Verapamil 2.5mg, Ntg 100mcgs, 3000 units of Heparin given IA 09/18/2024 08:03:13 SUMMARY OF HEMODYNAMIC DATA Time AIR REST ECG 07:08:52 AO 111/76 (93) SA 08:10:11 LV 100/7, 12 08:16:40 LV 93/9, 15 08:16:48 LV 104/10, 16 08:17:29 LVp 105/11, 16 08:17:32 AOp 0/0 (85) 08:17:39 08:31:46 Signed By Sudhakar Quinn MD On 09/18/2024 08:36:44 Sudhakar Quinn MD
--- NOTE | 2024-09-18 09:32 | CL.I_ITS ---
Patient Name: MIRTHA GAMEZ Study Date: 09/18/2024 Performing: Joselo Chavira MD Ht: 168 inches 425.8056 cm : 1960 Wt: 93.6 lbs 42.384 kg Age: 64 Gender: male BSA: 2.85 PROCEDURE(S) PERFORMED IC12-(38824/[id number])ANOOP W/WO PTCA, SINGLE CORONARY ARTERY CLINICAL PROFILE AND CO-MORBIDITIES Indications: Suspected CAD Heart Failure: None Stress/Imaging Coronary Calcium Score: Yes Calcium Score: 783 Calcium Score: 783 CAD Presentations: Stable angina. CONCLUSIONS Successful ANOOP Mid RCA using [place] Carney 3.0x15 mm Successful ANOOP prox RCA using [place] Carney 3.0x30 mm, optimized proximally using 4.0 mm balloon RECOMMENDATIONS ASA Indefinitley P2Y12 inhibitors for atleast 6 months DESCRIPTION OF PROCEDURE The patient arrived to the procedure lab. The risks and benefits of the procedure as well as a full description of our services here and current unavailability of surgical backup were fully explained to the patient and/or their significant other prior to the catheterization. The Timeout was completed, verifying the correct patient and procedure. The patient's procedural site was prepped and draped in the usual fashion. Local anesthetic was given subcutaneously to right radial region with Lidocaine 2% Using a modified Seldinger technique,arterial access was obtained via the right radial artery, a 6Fr sheath was inserted. Right Coronary Artery selective angiography was then performed in multiple views using a 5 Fr. 4.0 [place] catheter. Left Coronary Artery selective angiography was performed in multiple views using a 5 Fr. 4.0 [place] catheter. Left Ventriculography was performed in MORENO projection using a 5 Fr. Pigtail catheter. LV to AO pullback pressures were then recorded.The images were reviewed and options discussed. A decision was then made to proceed with an Intervention, IVUS or other adjunct procedure. JR 4.0 Guide catheter was inserted and engaged into the RCA. Runthrough Guide wire was advanced to the RCA. 3 x 15 Marybeth Drug Eluting stent was inserted. Drug Eluting stent was advanced across the lesion in the right coronary, mid. 3 x 12 [place] Balloon catheter was inserted post stent. Angiogram performed post stent deployment. 3 x 30 [place] Drug Eluting stent was inserted. Drug Eluting stent was advanced across the lesion in the right coronary, proximal. Angiogram performed post stent deployment. 3 x 12 [place] Balloon catheter was inserted post stent. 3.5 x 6 NC [place] Balloon catheter was inserted post stent. Angiogram performed post balloon dilatation. 4 x 6 NC [place] Balloon catheter was inserted post stent. Angiogram performed post balloon dilatation. The arterial sheath was pulled and a TR Band was applied for hemostasis. 10cc air INTERVENTION INFORMATION LESION SITE: RCA (Mid) Lesion Complexity: Non-High/Non-C, lesion length: 13 mm Pre Stenosis: 70 % Pre intervention KRUPA flow: 3 PROCEDURE: Drug Eluting Stent with post dilatation Post Stenosis: 0 % Post intervention KRUPA flow: 3 Lesion Devices: Terumo .014 180cm Runthrough Extra Floppy straight Cordis 6 Fr JR4 100cm Guide Catheter Medtronic 3.0 x 15 MARYBETH FRONTIER ANOOP Medtronic NC EUPHORA RX 3.0x12 BALLOON LESION SITE: RCA (Proximal) Lesion Complexity: High/C, lesion length: 28 mm Pre Stenosis: 80 % Pre intervention KRUPA flow: 3 PROCEDURE: Drug Eluting Stent with post dilatation Post Stenosis: 0 % Post intervention KRUPA flow: 3 Lesion Devices: Medtronic NC EUPHORA RX 3.0x12 BALLOON Medtronic 3.0 x 30 MARYBETH FRONTIER ANOOP Medtronic NC EUPHORA RX 3.5x06 BALLOON Medtronic NC EUPHORA RX 4.0x06 BALLOON COMPLICATIONS No Complications PROCEDURE MEDICATIONS Fentanyl 50 mcg IV Versed 1 mg IV Versed 1 mg IV Oxygen: 2 L/min via nasal cannula Brilinta 180 mg PO @ 09/18/2024 08:23:21 Heparin given IA 09/18/2024 08:03:13 Heparin 6000 unit(s) IV 09/18/2024 08:34:34 Heparin 2000 unit(s) IV 09/18/2024 08:40:32 Nitro 200 mcg IC 09/18/2024 08:44:32 Nitro 200 mcg IC 09/18/2024 08:44:32 Nitro 200 mcg IC 09/18/2024 08:59:01 Verapamil 2.5mg, Ntg 100mcgs, 3000 units of Heparin given IA 09/18/2024 08:03:13 SUMMARY OF HEMODYNAMIC DATA Time AIR REST ECG 07:08:52 AO 111/76 (93) SA 08:10:11 LV 100/7, 12 08:16:40 LV 93/9, 15 08:16:48 LV 104/10, 16 08:17:29 LVp 105/11, 16 08:17:32 AOp 0/0 (85) 08:17:39 09:28:19 Signed By Joselo Chavira MD On 09/18/2024 09:32:15 Joselo Chavira MD
--- NOTE | 2024-09-18 10:41 | EKG12_ITS ---
Test Reason : POST PCI Blood Pressure : */* mmHG Vent. Rate : 79 BPM Atrial Rate : 79 BPM P-R Int : 204 ms QRS Dur : 82 ms QT Int : 350 ms P-R-T Axes : 37 -23 32 degrees QTcB Int : 401 ms Normal sinus rhythm Inferior infarct , age undetermined Abnormal ECG Confirmed by SUDHAKAR QUINN MD ([id number]), bilingual executive assistant DAWN LOGAN ([id number]) on 09/19/2024 7:17:40 AM Referred By: Sudhakar Quinn Confirmed By: SUDHAKAR QUINN MD
[2024-09-18] MEDS: 0.9% Normal Saline (1000mL) 1,000 ML 150 ML IV (12:19)
--- NOTE | 2024-09-18 13:31 | CRPHASE1 ---
Patient Communication Patient Information PHII Cardiac Rehab Discussed with Patient:: Yes Guide to Cardiac Rehab Given to Patient:: Yes Communication to Cardiac Rehab Choice Program [facility] CR PHII:: Communication Given to CR Table Machine Operator:: Joselo Chavira Phase II Cardiac Rehab:: Yes Sessions:: 36 sessions - 3 days/wk, 12 weeks Cardiac Rehabilitation Info Program Information Cardiac Rehabilitation Program Information: Cardiac Rehab The cardiac rehab team at [facility] consists of highly skilled exercise physiologists, nurses, respiratory therapists and physicians working together with you. Our purpose is to help you have a full recovery and achieve the goals you set for yourself. Over the years many of our patients have returned to activities they assumed they would never do again! We can help restore your confidence and motivation to make lifestyle changes that can have a significant impact on your health and quality of life! We can help answer questions and concerns you may have about exercise, lifestyle, medications, diet, stress and anxiety which are common following a hospitalization. WE monitor ECG and vital signs during exercise and discuss your progress with you and report to your physician(s). Cardiac Rehab is proven to help reduce readmissions, improve functional capacity and lower recurrence of problems with your heart. Our Cardiac Rehab program is Certified by the [place] [employer] Pulmonary [employer] (AACVPR) and Accredited by the [place] [employer] through our [facility]. You can contact us at . We invite you to call us with your questions or to get started in our program. If you have other questions or concerns be sure to ask your physician/provider during your follow-up visit. WE look forward to seeing you!
--- NOTE | 2024-09-18 13:34 | CRPH1.INSTRU ---
General Education Discussed with Patient CAD and cardiac anatomy and function:: Patient communicates acknowledgment Explanation of diagnoses and procedures:: Patient communicates acknowledgment Sign/Symptoms of DE:: Patient communicates acknowledgment Antiplatelet therapy: Patient communicates acknowledgment Proper use of NTG-SL: Patient communicates acknowledgment Emergency procedures and activation of EMS: Patient communicates acknowledgment Compliance of all prescribed medications: Patient communicates acknowledgment Smoking Recommendations Recommendations Include:: Previous smoker; encourage continued cessation Response Code Nicotine/Smoking Response Code:: Patient communicates acknowledgment Dyslipidemia Risk Factors Patient Dyslipidemia Risk Factors Are:: Total Cholesterol, Triglycerides, HDL and LDL Recommendations Recommendations Include:: Lipid profile provided, Reviewed NCEP/ATP guidelines and Therapeutic Lifestyle Change dietary guidelines Response Code Dyslipidemia Response Code:: Patient communicates acknowledgment Overweight/Obesity Risk Factors Patient Overweight/Obesity Risk Factors Are:: Obesity - > or = 30 Recommendations Recommendations Include:: Weight loss of 5-10%, Reduced calorie diet and Exercise 5-7 times/week Response Code Overweight/Obesity:: Patient communicates acknowledgment Hypertension Recommendations Recommendations Include:: BP <130/80 if diabetic, DASH dietary guidelines, Decrease/maintain normal body weight and Moderation of ETOH Diabetes Risk Factors Patient Diabetes Risk Factors Are:: Elevated blood sugars Recommendations Recommendations Include:: Maintain fasting blood sugars 70-110 md/dL, Maintain HgbA1c of 6% or less, Monitor blood sugar as prescribed, Diabetic dietary guidelines and Decrease/maintain body weight Response Code Diabetes:: Patient communicates acknowledgment Metabolic Syndrome Risk Factors Patient Metabolic Syndrome Risk Factors Are [3 of 5]:: Fasting blood sugar > 100 mg/dL, Waist circumference > 35 [female] or 40 [male], High triglyceride >150, Hypertension and Low HDL <40 [male] or < 50 [female] Recommendations Recommendations Include:: Patient is diabetic Response Code Metabolic Syndrome Response Code:: Patient communicates acknowledgment Sedentary Risk Factors Patient Sedentary Risk Factors Are:: Lack of regular exercise Recommendations Recommendations Include:: Aerobic exercise 5-7 times/week for 20-30 minutes continuously, Benefits of regular exercise, Discussed home walking program and Monitored Outpatient Cardiac Rehab Response Code Sedentary Response Code:: Patient communicates acknowledgment Stress Risk Factors Patient Stress Risk Factors Are:: Patient denies stress as a risk factor Recommendations Recommendations Include:: Identification of stressors, and assessment of coping skills and Stress management techniques Response Code Stress Response Code:: Patient communicates acknowledgment
[2024-09-18] MEDS: Clopidogrel Bisulfate 300 MG Tablet PO (17:02)
[2024-09-18 19:55] LABS: Microalbumin,Random Urine < 12.0 mg/L (NO RANGE EST.)
[2024-09-18 21:48] LABS: ACT Activated Clotting Time 250 sec (74-137)
[2024-09-18 21:49] LABS: ACT Activated Clotting Time 233 sec (74-137)
[2024-09-18 21:51] LABS: Hemoglobin A1c 7.4 % (<=5.6)
[2024-09-19 04:00] VITALS: BP 128/76; PULSE 85; RESP 16; TEMP 36.6; O2SAT 98
[2024-09-19 06:03] LABS: Hematocrit 39.3 % (40-54); Hemoglobin 13.9 g/dL (13.0-16.5); Mean Corp Hgb Conc 35.4 g/dL (32-36); Mean Corpuscular Hgb 31.7 pg (27.0-32.0); Mean Corpuscular Volume 89.5 fL (80-94); Mean Platelet Vol. 11.6 fl (6.2-12.0); Platelet Count 181 K/mm3 (150-450); RBC Distribution Width CV 11.9 % (11.6-14.6); RBC Distribution Width SD 38.8 fl (35.1-43.9); Red Blood Count 4.39 M/mm3 (4.6-6.2); White Blood Count 8.8 K/mm3 (4.4-11.0)
[2024-09-19 06:29] LABS: ALB/GLOB Ratio 1.9 RATIO (0.9-2.4); AST(SGOT) 29 U/L (<=37); Alanine Aminotransfer ALT/SGPT 47 U/L (<=46); Alkaline Phosphatase 66 U/L (40-129); Anion Gap 11 (5-15); BUN 12 mg/dL (4-19); Calcium,Total 8.8 mg/dL (7.6-11.0); Carbon Dioxide 19.7 mmol/L (21.0-32.0); Chloride 107 mmol/L (98-108); Creatinine, Serum 0.73 mg/dL (0.70-1.20); EST Glomerular Filtration Rate 103 (>60); Estimated Creatinine Clearance 112.27 ml/min (50-250); Globulin 2.1 g/dL (2.2-4.2); Glucose 144 mg/dL (70-99); Protein, Total 6.1 g/dL (5.9-8.4); Sodium Level 138 mmol/L (133-145); Total Bilirubin 0.33 mg/dL (0.00-1.30)
--- NOTE | 2024-09-19 07:25 | PN.CARD_ITS ---
Subjective Subjective Patient seen and evaluated Objective Data Vital Signs: Vital Signs Temp Pulse Resp BP Pulse Ox O2 Del Method 98 F 85 16 128/76 H 98 Room Air 09/19/24 04:00 09/19/24 04:00 09/19/24 04:00 09/19/24 04:00 09/19/24 04:00 09/19/24 04:00 Oxygen Delivery Method Room Air Weight: 206 lb Body Mass Index (BMI) 33.2 Intake & Output: Intake and Output for Last 24 Hours 09/17/24 09/18/24 09/19/24 23:59 23:59 23:59 Intake Total 1900 / 2260 360 / 360 Balance 1900 / 2260 360 / 360 Lab / Micro Data 09/19/24 05:26 09/19/24 05:26 Labs: Laboratory Results - last 24 hr 09/18/24 07:43: Activated Clotting Time 250 H 09/18/24 08:21: Activated Clotting Time 233 H 09/18/24 18:09: Ur Random Microalbumin < 12.0 09/18/24 18:29: Hemoglobin A1c 7.4 09/19/24 05:26: WBC 8.8, RBC 4.39 L, Hgb 13.9, Hct 39.3 L, MCV 89.5, MCH 31.7, MCHC 35.4, RDW Std Deviation 38.8, RDW Coeff of Brent 11.9, Plt Count 181, MPV 11.6, Sodium 138, Potassium 4.0, Chloride 107, Carbon Dioxide 19.7 L, Anion Gap 11, BUN 12, Creatinine 0.73, Estim Creat Clear Calc 112.27, Est GFR (MDRD) Non- Af 103, BUN/Creatinine Ratio 17.0, Glucose 144 H, Calcium 8.8, Total Bilirubin 0.33, AST 29, ALT 47, Alkaline Phosphatase 66, Total Protein 6.1, Albumin 4.0, G lobulin 2.1 L, Albumin/Globulin Ratio 1.9 Cardiology Labs/Tests 09/18/24 18:29: Hemoglobin A1c 7.4 09/19/24 05:26: WBC 8.8, RBC 4.39 L, Hgb 13.9, Hct 39.3 L, MCV 89.5, MCH 31.7, MCHC 35.4, Plt Count 181, MPV 11.6, Sodium 138, Potassium 4.0, Chloride 107, C arbon Dioxide 19.7 L, Anion Gap 11, BUN 12, Creatinine 0.73, Est GFR (MDRD) Non- Af 103, BUN/Creatinine Ratio 17.0, Glucose 144 H, Calcium 8.8, Total Bilirubin 0.33 Rhythm: EKG: ECHO: Stress Test: Cardiac Cath: PCI: CT Surgery: Holter monitor: EPS: PPM: CXR: Chest CT Scan: Physical Exam Const alert, oriented x3 and no apparent distress General Appearance: cooperative HEENT hearing grossly normal bilaterally Head and Scalp: atraumatic Eyes EOMs intact bilaterally Neck General: normal visual inspection Chest inspection of chest normal and palpation of chest normal Resp normal respiratory effort Auscultation: clear to auscultation bilaterally Cardio regular rate, regular rhythm, S1 normal heart sound and S2 normal heart sound Jugular Venous Distention: JVD GI normal to inspection, nondistended, normoactive bowel sounds Extremity normal capillary refill and no pedal edema Peripheral Pulses: Yes pulses 2+ throughout and femoral pulses present Skin no rashes or lesions noted Neuro oriented x3 and CN's II-XII intact bilaterally Psych Appearance: grossly normal and appropriate Assessment & Plan Assessment/Plan (1) CAD (coronary artery disease): PLAN: Patient underwent PCI and stenting of the right coronary artery successfully. The plan is to continue current medical therapy and follow-up as an outpatient.
--- NOTE | 2024-09-19 07:30 | DCINST_ITS ---
Discharge Instructions Diet Discharge Diet: No restrictions (You may continue your normal diet.) DC O2, CPAP, BIPAP needs Home O2 Discharge instructions: No Dressing / Incision Discharge Activity: Return to Normal Activity Lifting Restrictions: 10 pounds and also avoid any pushing or pulling for 3 days after your test. Additional Activity Instructions:: You must have someone drive you home. Do not drive until instructed by your doctor. You must have someone stay with you all night after your test. Rest in bed or on the couch until the next morning. Limit the number of times you go up and down stairs the day of your test. Apply pressure to the puncture site if you sneeze or cough. Dressing / Incision Call your doctor if your incision/area has: Increased Pain/ Swelling, Increased Redness, Foul Smelling Discharge and Swelling at the incision site Call your doctor if you observe: Fever of 101 or Higher Additional Dressing/Incision Instructions:: Keep the dressing (bandage) on until the next morning. You may then shower, but do not take a tub bath for 5 days after your test. It is normal to have some tenderness and discomfort at the puncture site. Sometimes bruising also occurs. However, if pain, numbness, or coldness occurs below the puncture site (in your leg, toes, arms or fingers) call your doctor at once. You may have a small, marble sized knot at the puncture site. This is normal. Do not rub it. It will go away in 4-6 weeks. Bleeding can occur from the area where the puncture was done. Blood may spurt or drip from the site. If blood spurts, apply pressure right away to stop bleeding and call 911. Although rare, bleeding into the tissue (hematoma) can also occur. If this happens, a large, firm area goose egg under the skin will appear. If any of these occur, lie down as flat as you can and have someone apply firm pressure to the cath site with a gauze pad or a clean washcloth for 10-15 minutes. Call 911 or go to the Emergency Department. Follow Up Care When: Office visit. They will call you from the office. Test Results: Test results from this visit will be discussed in further detail at your follow- up appointment, if applicable. Discharge Plan Admission Admit Date/Time: 09/18/24 09:24 Attending Provider: Joselo Chavira Primary Care Provider: George Galeana Discharge Orders/Prescriptions Prescriptions: New clopidogrel 75 mg Tablet 75 mg PO DAILY Qty: 90 3RF Continued aspirin 81 mg capsule 81 mg PO DAILY lisinopril 40 mg tablet 40 mg PO DAILY Qty: 90 3RF metformin 500 mg tablet extended release 24 hr 500 mg PO BID 90 Days Qty: 180 1RF metoprolol succinate [Toprol XL] 25 mg tablet extended release 24 hr 25 mg PO QDAY Qty: 60 6RF Referrals / Follow Up: George Galeana DO [Primary Care Provider] - Disposition Disposition (needs filled in before D/C Order can be placed): Home, Self Care
[2024-09-19 08:54] VITALS: BP 135/93; PULSE 81; RESP 16; TEMP 37.1; O2SAT 95
[2024-09-19 08:58] VITALS: PULSE 81
[2024-09-19] MEDS: Metoprolol(XL)Succ 25 MG Tablet PO (08:58)
[2024-09-19] MEDS: Aspirin 81 MG TAB.CHEW PO (08:58)
[2024-09-19] MEDS: Lisinopril 40 MG Tablet PO (08:59)
[2024-09-19] MEDS: Clopidogrel Bisulfate 75 MG Tablet PO (08:59)
--- NOTE | 2024-09-19 09:46 | CASEMGMT ---
Patient has order for discharge. RN CM in to discuss needs at discharge. Patient denies needs or help at discharge. Patient had no further questions or concerns.
--- NOTE | 2024-09-19 11:49 | PHA.DC.MR.R ---
[facility] [place] [facility] has performed discharge medication reconciliation for this patient. Medication education papers prepared, patient discharged when counseling was attempted. The patient's discharge medication list was reviewed for discrepancies and discrepancies were resolved. Medications at Discharge Home Medications lisinopril 40 mg tablet 40 mg PO DAILY #90 TABLETS 05/08/24 metformin 500 mg tablet,extended release 24 hr 500 mg PO BID 90 days #180 tabs 05/11/24 metoprolol succinate 25 mg tablet,extended release 24 hr (Toprol XL) 25 mg PO QDAY #60 tabs 09/17/24 aspirin 81 mg capsule 81 mg PO DAILY 09/18/24 atorvastatin 20 mg tablet (Lipitor) 20 mg PO DAILY #90 tabs 09/19/24 clopidogrel 75 mg tablet 75 mg PO DAILY #90 tabs 09/19/24 dapagliflozin propanediol 10 mg tablet (Farxiga) 10 mg PO DAILY #30 tabs 09/19/24 semaglutide 0.25 mg or 0.5 mg (2 mg/3 mL) subcutaneous pen injector (Ozempic) 0.25 mg (0.368 mL) subcut QWEEK 4 weeks #3 mL 09/19/24
== END 2024-09-19 10:55 | disposition home or self-care (01) ==
LOC: PCU 09:46
PROVIDERS: Admitting Provider Internal Medicine Cardiovascular Disease; PCP Family Medicine; Referring Provider Internal Medicine Cardiovascular Disease; Visit Provider Internal Medicine Cardiovascular Disease
DX: I25.118 Atherosclerotic heart disease of native coronary artery with other forms of angina pectoris (principal); E11.9 Type 2 diabetes mellitus without complications; Z87.891 Personal history of nicotine dependence; E78.5 Hyperlipidemia, unspecified; R00.2 Palpitations; I10 Essential (primary) hypertension; K21.9 Gastro-esophageal reflux disease without esophagitis; R93.1 Abnormal findings on diagnostic imaging of heart and coronary circulation
CPT/HCPCS: 36415; 80053; 82043; 83036; 85027; 85347; 92928; 93005; 93458; 96360; 96361; 99152; 99153; 99221; C1725; Q9967; C1769; C1874; C1887; C1894; C9600; G0378

== ENCOUNTER → 2024-10-08 | Outpatient (CLI) | payer OTHER, SELFPAY ==
[2024-10-08 18:21] LABS: Microalbumin,Random Urine 14.1 mg/L (NO RANGE EST.); Microalbumin:Creatinine Ratio 71.9 mg/g CRE
[2024-10-08 18:26] LABS: AST(SGOT) 35 U/L (<=37); Alanine Aminotransfer ALT/SGPT 56 U/L (<=46); Albumin, Serum 4.7 g/dL (3.4-4.8); Alkaline Phosphatase 70 U/L (40-129); Cholesterol 142 mg/dL (<=200); Globulin 2.6 g/dL (2.2-4.2); High Density Lipoprotein 51 mg/dL; Low Density Lipoprotein Calc. 56 mg/dL; Protein, Total 7.3 g/dL (5.9-8.4); Total Bilirubin 0.49 mg/dL (0.00-1.30); Triglycerides 173 mg/dL; Very Low Density Lipoprotein 35 mg/dL (5-40); cholesterol:hdl ratio screen 2.77
== END | disposition home or self-care (01) ==
LOC: LAB 16:07
PROVIDERS: PCP Family Medicine; Referring Provider Nurse Practitioner Family; Visit Provider Nurse Practitioner Family
DX: E11.9 Type 2 diabetes mellitus without complications (principal); E78.2 Mixed hyperlipidemia; I10 Essential (primary) hypertension; R00.2 Palpitations; Z95.5 Presence of coronary angioplasty implant and graft
CPT/HCPCS: 36415; 80061; 80076; 82043; 82570

== ENCOUNTER → 2025-04-15 | Outpatient (CLI) | payer OTHER, SELFPAY ==
--- OUTSIDE RECORDS SUMMARY | 2025-04-15 07:08 | XMS RPT_ITS | CCD ---
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 Mirtha Galeana Primary Care Provider [phone] Dr. Mirtha Galeana Referring Provider Dr. Brendan Cristina Attending Provider Dr. Mirtha Galeana Attending Provider Dr. Mirtha Galeana Primary Care Provider [phone] Dr. Mirtha Galeana Attending Provider Dr. Mirtha Galeana Referring Provider Dr. Mirtha Galeana Primary Care Provider Dr. Mirtha Galeana Attending Provider Dr. Mirtha Galeana Referring Provider Dr. Mirtha Galeana Primary Care Provider Dr. Mirtha Galeana Attending Provider Dr. Mirtha Galeana Referring Provider Dr. Mirtha Galeana DO Primary Care Provider Mendel CASON, Dr. Pinon Attending Provider Mendel CASON, Dr. Pinon Emergency Provider Mendel CASON, Dr. Pinon Referring Provider Lisbeth CASON, Dr. Mcknight Attending Provider Dr. Mirtha Galeana DO Referring Provider [phone] Cheyenne CASON, Dr. De La Fuente Attending Provider [phone] Cheyenne CASON, Dr. De La Fuente Referring Provider [phone] Cheyenne CASON, Dr. De La Fuente Other Provider Sandra Schwab Attending Provider [phone] Sandra Schwab Referring Provider [phone] Dr. Mirtha Galeana DO Attending Provider [phone] Fan CASON, Dr. Josue Admit Provider [phone] Fan CASON, Dr. Josue Attending Provider [phone] Fan CASON, Dr. Josue Other Provider [phone] Roof COMPREHENSIVE OPHTHALMOLOGIST-C, Federico H Attending Provider [phone] Roof COMPREHENSIVE OPHTHALMOLOGIST-C, Federico H Referring Provider [phone] [phone] BHATT, Dr. Mirtha Alford Primary Care Provider [phone] Dr. Mirtha Galeana DO Attending Provider [phone] Dr. Mirtha Galeana DO Referring Provider [phone] Brown, Mirtha R Primary Care Unavailable Mendel, Zi Attending Unavailable Mendel, Zi Referring Unavailable Brown, Mirtha R Primary Care Unavailable Mendel, Zi Attending Unavailable Brown, Mirtha R Primary Care Unavailable Mendel, Zi Attending Unavailable Mendel, Zi Referring Unavailable Brown, Mirtha R Referring Unavailable Brown, Mirtha R Attending Unavailable Brown, Mirtha R Primary Care Unavailable Roxanna Bob Attending Unavailabl e Brown, Mirtha R Primary Care Unavailable Mendel, Zi Referring Unavailable Roof COMPREHENSIVE OPHTHALMOLOGIST, Federico H Referring Unavailable Roof COMPREHENSIVE OPHTHALMOLOGIST, Federico H Attending Unavailable Brown, Mirtha R Primary Care Unavailable Joselo Chavira Attending Unavailable Joselo Chavira Admitting Unavailable Cheyenne, Sudhakar Referring Unavailable Brown, Mirtha R Primary Care Unavailable Albert COMPREHENSIVE OPHTHALMOLOGIST, Tierney Referring Unavailable Albert COMPREHENSIVE OPHTHALMOLOGIST, Tierney Attending Unavailable Brown, Mirtha R Primary Care Unavailable Cheyenne, [place] Referring Unavailable Brown, Mirtha R Primary Care Unavailable Cheyenne, Sudhakar Attending Unavailable Brown, Mirtha R Primary Care Unavailable Cheyenne, Sudhakar Attending Unavailable Brown, Mirtha R Referring Unavailable Cheyenne, Sudhakar Referring Unavailable Brown, Mirtha R Primary Care Unavailable Cheyenne, Sudhakar Attending Unavailable Brown, Mirtha R Primary Care Unavailable Sandra Schwab Referring Unavail able Sandra Schwab Attending Unavail able Brown, Mirtha R Attending Unavailable Brown, Mirtha R Primary Care Unavailable Brown, Mirtha R Referring Unavailable Brown, Mirtha R Referring Unavailable Federico Martinez NP Attending Unavailable Brown, Mirtha R Primary Care Unavailable Tierney Albert NP Attending Unavailable Brown, Mirtha R Primary Care Unavailable Brown, Mirtha R Referring Unavailable Brown, Mirtha R Primary Care Unavailable Cheyenne, Sudhakar Attending Unavailable FanSheridand Attending Unavailable Brown, Mirtha R Primary Care Unavailable Cheyenne, Sudhakar Referring Unavailable Fan, Joselo Consulting Unavailable Fan, Joselo Admitting Unavailable Cheyenne, Sudhakar Attending Unavailable Cheyenne, Sudhakar Referring Unavailable Brown, Mirtha R Primary Care Unavailable Cheyenne, Sudhakar Attending Unavailable Cheyenne, Sudhakar Consulting Unavailable Cheyenne, [place] Referring Unavailable Brown, Mirtha R Primary Care Unavailable Cheyenne, [place] Consulting Unavailable Sandra Schwab Attending Unavail able FanJoselo kate Attending Unavailable Brown, Mirtha R Primary Care Unavailable Allergies Allergy Classification Reported Allergen(s) Allergy Type Date of Onset Reaction(s) Facility (7 sources) bee venom protein (honey bee) Allergy to substance 03-03-2023 Swelling [facility] (1 source) bee venom protein (honey bee) Drug allergy (disorder) 04-11-2025 [facility] Repository Medications Current Medications Medication Drug Class(es) Dates Sig (Normalized) Sig (Original) aspirin 81 mg oral tablet (4 sources) Platelet Aggregation Inhibitor, Nonsteroidal Anti-inflammatory Drug Start: 09-18-2024 take 1 capsule by mouth once daily Aspirin 81 mg capsule Active 81 mg PO DAILY September 18, 2024 12:00am atorvastatin 20 mg oral tablet (3 sources) HMG-CoA Reductase Inhibitor Start: 09-19-2024 take 1 tablet by mouth once daily Atorvastatin (Lipitor) 20 mg tablet Active 20 mg PO DAILY 90 September 19, 2024 12:00am clopidogrel 75 mg oral tablet (3 sources) P2Y12 Platelet Inhibitor Start: 09-19-2024 take 1 tablet by mouth once daily Clopidogrel 75 mg Tablet Active 75 mg PO DAILY 90 September 19, 2024 12:00am 24 hr metFORMIN hydrochloride 500 mg extended release oral tablet (20 sources) Biguanide Start: 05-11-2024 End: 10-31-2024 take 1 tablet by mouth twice daily Metformin 500 mg tablet extended release 24 hr Active 500 mg PO TWICE A DAY 180 1 October 31, 2024 8:15am Diabetes mellitus Type 2 diabetes mellitus without complications Start: 02-08-2024 End: 05-08-2024 take 1 tablet by mouth twice daily Metformin 500 mg tablet extended release 24 hr Discontinued 500 mg PO TWICE A DAY 180 90 0 February 08, 2024 2:15pm May 07, 2024 1:00am May 08, 2024 1:08am Diabetes mellitus Type 2 diabetes mellitus without complications Start: 08-15-2023 End: 02-06-2024 take 1 tablet by mouth twice daily Metformin 500 mg tablet extended release 24 hr Discontinued 500 mg PO TWICE A DAY 180 90 0 November 08, 2023 8:18am February 05, 2024 12:00am February 06, 2024 12:04am Diabetes mellitus Type 2 diabetes mellitus without complications Start: 08-18-2021 End: 08-15-2023 take 1 tablet by mouth twice daily Metformin 500 mg tablet extended release 24 hr Discontinued 500 mg PO TWICE A DAY 180 August 03, 2023 9:25am August 15, 2023 1:26pm Start: 03-28-2019 End: 06-12-2019 take 1 tablet by mouth once daily Metformin 500 mg tablet Discontinued 500 mg PO DAILY 90 March 28, 2019 12:00am June 12, 2019 1:56pm Start: 10-19-2017 End: 08-18-2021 take 1 tablet by mouth once daily Metformin 500 mg tablet extended release 24hr Discontinued 500 mg PO daily 90 3 June 09, 2021 2:57pm August 18, 2021 12:40pm 24 hr metoprolol succinate 25 mg extended release oral tablet (11 sources) beta-Adrenergic Wily Start: 09-20-2024 Metopr olol Succinate (Toprol Xl) 25 mg tablet extended release 24 hr Active 25 mg PO daily 180 3 September 20, 2024 11:38am Please give 90 day supply Start: 07-27-2024 End: 09-20-2024 take 1 tablet by mouth once daily Metoprolol Succinate (Toprol Xl) 25 mg tablet extended release 24 hr Discontinued 25 mg PO daily 60 September 17, 2024 8:49am September 20, 2024 11:38am Semaglutide (6 sources) Start: 11-05-2024 Semaglutide (O zempic) 0.25 mg or 0.5 mg (2 mg/3 mL) pen injector Active 0.5 mg SC EVERY WEEK 3 24 07November 05, 2024 10:32am for 4 weeks Start: 10-08-2024 End: 11-05-2024 Semaglutide (Ozempic) 0.25 m g or 0.5 mg (2 mg/3 mL) pen injector Discontinued 0.25 mg SC EVERY WEEK 3 23 06October 08, 2024 3:51pm November 05, 2024 10:33am for 4 weeks Start: 10-08-2024 Semaglutide (O zempic) 0.25 mg or 0.5 mg (2 mg/3 mL) pen injector Active 0.25 mg SC EVERY WEEK 3 October 08, 2024 3:51pm for 4 weeks Start: 09-19-2024 End: 10-08-2024 Semaglutide (Ozempic) 0.25 m g or 0.5 mg (2 mg/3 mL) pen injector Discontinued 0.25 mg SC EVERY WEEK 3 23 06September 19, 2024 12:00am October 08, 2024 3:51pm for 4 weeks Start: 09-19-2024 End: 10-08-2024 Semaglutide (Ozempic) 0.25 m g or 0.5 mg (2 mg/3 mL) pen injector Discontinued 0.25 mg SC EVERY WEEK 3 September 19, 2024 12:00am October 08, 2024 3:51pm for 4 weeks Start: 09-19-2024 Semaglutide (O zempic) 0.25 mg or 0.5 mg (2 mg/3 mL) pen injector Active 0.25 mg SC EVERY WEEK 3 September 19, 2024 12:00am for 4 weeks Completed/Discontinued Medications Medication Drug Class(es) Dates Sig (Normalized) Sig (Original) dapagliflozin 10 mg oral tablet (3 sources) Sodium-Glucose Cotransporter 2 Inhibitor Start: 09-19-2024 End: 10-08-2024 take 1 tablet by mouth once daily Dapagliflozin Propanediol (Farxiga) 10 mg tablet Discontinued 10 mg PO DAILY 30 September 19, 2024 12:00am October 08, 2024 3:51pm lisinopril 40 mg oral tablet (20 sources) Angiotensin Converting Enzyme Inhibitor Start: 07-04-2019 End: 05-08-2024 take 1 tablet by mouth once daily Lisinopril 40 mg tablet Discontinued 40 mg PO daily 90 3 May 23, 2023 5:04pm May 08, 2024 9:19am Start: 03-20-2019 End: 07-04-2019 take 1 tablet by mouth once daily Lisinopril 20 mg tablet Discontinued 20 mg PO daily 90 March 20, 2019 5:18pm July 04, 2019 9:26am Start: 01-18-2018 End: 03-20-2019 take 1 tablet by mouth once daily Lisinopril 10 mg tablet Discontinued 10 mg PO daily 90 February 08, 2019 11:40am March 20, 2019 5:20pm Start: 01-18-2018 End: 01-18-2018 take 1 tablet by mouth once daily Lisinopril 20 mg tablet Discontinued 20 mg PO daily January 18, 2018 12:00am January 18, 2018 1:22pm simvastatin 20 mg oral tablet (20 sources) HMG-CoA Reductase Inhibitor Start: 10-19-2017 End: 03-04-2022 take 1 tablet by mouth once daily in the morning Simvastatin (Zocor) 20 mg tablet Discontinued 20 mg PO EVERY MORNING 90 April 20, 2021 8:53am March 04, 2022 8:34am Problems Active Problems Problem Classification Problem Date Documented Date Episodic/Chronic Blindness and vision defects (10 sources) Blurring of visual image; Translations: [Other visual disturbances] 05-22-2018 Episodic Calculus of urinary tract (10 sources) Kidney stone; Translations: [Calculus of kidney] 02-21-2018 Episodic Cardiac dysrhythmias (20 sources) Palpitations; Translations: [Palpitations] Onset: 09-28-2024 07-27-2024 Episodic Coronary atherosclerosis and other heart disease (8 sources) Coronary arteriosclerosis; Translations: [Atherosclerotic heart disease of eek coronary artery without angina pectoris] Onset: 09-13-2024 09-18-2024 Chronic Diabetes mellitus without complication (20 sources) Diabetes mellitus; Translations: [Type 2 diabetes mellitus without complications] Onset: 03-06-2025 Chronic Disorders of lipid metabolism (20 sources) Hyperlipidemia; Translations: [Hyperlipidemia, unspecified] Onset: 09-04-2024 02-21-2018 Chronic Esophageal disorders (10 sources) Gastroesophageal reflux disease; Translations: [Gastro-esophageal reflux disease without esophagitis] 02-21-2018 Chronic Essential hypertension (20 sources) Hypertensive disorder; Translations: [Essential (primary) hypertension] Onset: 07-27-2024 Chronic Comment on above: Blood pressure is we ll controlled. Headache; including migraine (10 sources) Headache; Translations: [Headache] 05-22-2018 Episodic Other ear and sense organ disorders (10 sources) Hearing disorder; Translations: [Unspecified hearing loss, unspecified ear] 02-21-2018 Chronic Other liver diseases (10 sources) Elevated liver enzymes level; Translations: [Abnormal levels of other serum enzymes] 08-05-2021 Episodic Other liver diseases (2 sources) Abnormal levels of other serum enzymes; Translations: [Other nonspecific abnormal serum enzyme levels] Episodic Other lower respiratory disease (5 sources) Dyspnea on exertion; Translations: [Other forms of dyspnea] 07-16-2024 Episodic Other upper respiratory disease (10 sources) Seasonal allergy; Translations: [Other seasonal allergic rhinitis] 02-21-2018 Chronic Unclassified (1 source) Unknown / UNK(Unknown) Onset: 01-06-2017 Unclassified (4 sources) after holter finished/turned in Unclassified (1 source) I25.10 - Atherosclerotic heart disease of eek coronary artery without angina pectoris,R00.2 - Palpitations,R93.1 - Abnormal findings on diagnostic imaging of heart and coronary circulation Past or Other Problems Problem Classification Problem Date Documented Date Episodic/Chronic Malaise and fatigue (6 sources) Fatigue; Translations: [Other fatigue] Onset: 07-27-2024 07-16-2024 Episodic Other screening for suspected conditions (not mental disorders or infectious disease) (9 sources) Coronary arteriography abnormal; Translations: [Abnormal findings on diagnostic imaging of heart and coronary circulation] Onset: 09-28-2024 08-31-2024 Episodic Unclassified (1 source) E78.5 Onset: 01-06-2017 Results Test Name Value Interpretation Reference Range Facility Cardiology Visit Reporton Cardiology Visit Report [facility] [address] [place] [address] OFFICE VISIT Date of Service: 04/11/25 MR#: [id number] Acct: [id number] Name: MIRTHA GAMEZ Rep #: [id number] : 1960 Provider: SUSSY albert Age/Sex: 64/M Location: [facility] Status: Signed HPI HPI History of Present Illness Details: This is a 64-year-old man who presents to the office today for a cardiovascular follow-up visit. He had no previous cardiac history other than hypertension and diabetes mellitus who presented with palpitations. These palpitations occurred at a variety of times; he presented to the emergency room and was evaluated-electrolytes were noted to be normal, TSH was normal. A 48-hour Holter monitor demonstrated an average heart rate of 94 bpm and maximal heart rate 152 bpm in sinus rhythm with an artery interval of 1.3 seconds. There was 0.3% of the total QRS complexes noted to be PACs. Coronary calcium score in July 2024 was noted to be 731.7. Echocardiogram in August 2024 showed LV function 55%. He underwent heart catheterization on 09/18/2024 that resulted in drug-eluting stent to mid and proximal RCA. He has been enrolled in [employer] research trial with randomization to GLP???1 medication. From a cardiac standpoint, the patient is doing well. He denies any palpitations, chest pain, pressure or heaviness. He denies SOB, Orthopnea, and PND. He does not have bleeding issues; no blood in urine, stool, or nosebleeds. He denies any decrease in energy level, myalgias, or claudication. He does not have edema, or sudden weight gain. He denies lightheadedness, dizziness, syncopal or near syncopal episodes, and headaches. He states his palpitations have improved. Intake Vital Signs 10/08/24 14:33 03/06/25 16:22 04/11/25 08:12 Height 5 ft 6 in 5 ft 6 in 5 ft 6 in Weight: 198 lb BMI 31.9 BP 128/88 H Blood Pressure Location Lt brachial Position Sitting Respiration 18 Pulse 103 H Pulse Source Monitor Pulse Oximetry (%) 98 Intake Visit Reasons: 6 M FU Planer Setup Operator Required: No Is patient in pain?: No Allergies bee venom protein (honey bee) (bee stings) Allergy (Unknown, Verified 04/11/25 08:59) Swelling Medications ???Medication ???Instructions ???Recorded ???Confirmed ???Type lisinopril 40 mg tablet 40 mg PO DAILY #90 TABLETS 4 04/11/25 Rx aspirin 81 mg capsule 81 mg PO DAILY 09/18/24 04/11/25 H istory clopidogrel 75 mg tablet 75 mg PO DAILY #90 tabs 09/19/24 1 Rx metoprolol succinate 25 mg 25 mg PO QDAY Please give 90 day 0 09/20/24 04/11/25 Rx tablet,extended release 24 hr supply #180 tabs (Toprol XL) metformin 500 mg tablet,extended 500 mg PO BID #180 TABLETS 5 04/11/25 Rx release 24 hr semaglutide 0.25 mg or 0.5 mg (2 0.5 mg (0.736 mL) subcut QWEEK 4 0 11/05/24 04/11/25 Rx mg/3 mL) subcutaneous pen injector weeks #3 mL (Ozempic) simvastatin 20 mg tablet 20 mg PO QDAY 04/11/25 04/11/25 Hi story Ejection fraction %: 55 Have you fallen in the past year?: No PFSH Medical History (Reviewed 04/14/25 @ 20:36 by Tierney Albert COMPREHENSIVE OPHTHALMOLOGIST, COMPREHENSIVE OPHTHALMOLOGIST-C) Palpitations HORTON (dyspnea on exertion) Heart palpitations Fatigue Elevated liver enzymes Headache GERD (gastroesophageal reflux disease) Kidney stones Hyperlipidemia Hypertension Hearing problem Diabetes Seasonal allergies Surgical History History of coronary artery stent placement (09/18/24) History of tonsillectomy Family History Father Lung cancer Mother Heart disease COPD (chronic obstructive pulmonary disease) Sister Thyroid disorder Social History Smoking Status: Former smoker how long ago did patient quit smokin-20 years ago alcohol intake: current alcohol intake frequency: holidays/special occasions only substance use type: does not use caffeine: Yes Type: coffee Number of servings: 2 what type of physical activity do you participate in: walking ROS Const Const: Negative for fatigue, weakness, headache(s) or frequent falls Eyes Eyes: Negative for blurry vision ENT ENT: Negative for headache(s), dizziness or Nosebleed/epistaxis Cardio Chest Pain: No Palpitations: No Edema: None Muscle aches with walking: None Resp Respiratory: Negative for SOB with activity, SOB at rest or SOB orthopnea SOB lying down GI GI: Negative nausea, vomiting, heartburn, bright, red blood in stools or black,tarry stools : Negative for hematuria Neuro Neuro: Negative for dizziness, lightheadedness, near syncope, syncope, frequent falls, headache(s), weakness or blurry vision Endo Endo: Negative (more content not included)... Normal [facility] Office Vis iton 03-06-2025 Internal Medicine Office Visit [facility] [address] [place] [address] [place] [address] OFFICE VISIT Date of Service: 03/06/25 MR#: [id number] Acct: [id number] Name: MIRTHA GAMEZ Rep #: [id number] : 1960 Provider: Dr. 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 Operator Required: No Accompanied by: Self Is patient in pain?: No Allergies bee venom protein (honey bee) (bee stings) Allergy (Unknown, Verified 03/06/25 16:10) Swelling Medications ???Medication ???Instructions ???Recorded ???Confirmed ???Type lisinopril 40 mg tablet 40 mg PO DAILY #90 TABLETS 11/12/2 4 03/06/25 Rx aspirin 81 mg capsule 81 mg PO DAILY 09/18/24 03/06/25 H istory atorvastatin 20 mg tablet (Lipitor) 20 mg PO DAILY #90 tabs 5 03/06/25 Rx clopidogrel 75 mg tablet 75 mg PO DAILY #90 tabs 09/19/24 0 03/06/25 Rx metoprolol succinate 25 mg 25 mg PO QDAY Please give 90 day 0 09/20/24 03/06/25 Rx tablet,extended release 24 hr supply #180 tabs (Toprol XL) metformin 500 mg tablet,extended 500 mg PO BID #180 TABLETS 5 03/06/25 Rx release 24 hr semaglutide 0.25 mg or 0.5 mg (2 0.5 mg (0.736 mL) subcut QWEEK 4 0 11/05/24 03/06/25 Rx mg/3 mL) subcutaneous pen injector weeks #3 mL (Ozempic) Nurse's Note: check blood sugar [facility] Medical History Palpitations HORTON (dyspnea on exertion) Heart palpitations Fatigue Elevated liver enzymes Headache GERD (gastroesophageal reflux disease) Kidney stones Hyperlipidemia Hypertension Hearing problem Diabetes Seasonal allergies Surgical History History of coronary artery stent placement (09/18/24) History of tonsillectomy Family History Father Lung cancer Mother Heart disease COPD (chronic obstructive pulmonary disease) Sister Thyroid disorder Social History Smoking Status: Former smoker how long ago did patient quit smokin-20 years ago alcohol intake: current alcohol intake frequency: holidays/special occasions only substance use type: does not use caffeine: Yes Type: coffee Number of servings: 2 what type of physical activity do you participate in: walking HPI HPI Chief Complaint: routine diabetic recheck Details: MIRTHA GAMEZ, is a 64 M who presents to the office today for routine check of his diabetes. He says the Ozempic makes him feel like he is full all the time kind of a bloated feeling but not unpleasant. He has lost a few pounds nothing drastic but it is in the right direction. He has not had any trouble with constipation or heartburn ROS Const Constitutional: No body ache, excessive sweating, fatigue, fever(s), frequent falls, headache(s), snoring, weakness, weight change, sleep problems or change in appetite Eyes Eyes: No blurry vision, change in vision, eye pain or Light sensitivity ENT ENT: No abnormal hearing, ear or mastoid pain, tinnitus, nasal congestion, headache(s), neck pain or sore throat Resp Respiratory: No cough, shortness of breath, snoring or wheezing Cardio Cardiology: No chest pain at rest, chest pain with exertion, excessive sweating, shortness of breath, dyspnea on exertion, lightheadedness, orthopnea or palpitations Gastro GI: No abdominal pain, change in bowel habits, constipation, cramping, diarrhea, nausea/dyspepsia or vomiting Genitourinary Male: No burning urination, painful urination, urinary incontinence, urinary frequency or blood in urine Musc Musculoskeletal: No abnormal gait, joint pain, back pain, limited range of motion, neck pain, numbness, stiffness, tingling or Arthritis Skin Skin: No dry skin, redness, lesions, itchy eyes, rash or wounds Neuro Neurology: No abnormal gait, abnormal hearing, abnormal speech, dizziness, weakness, frequent falls, headache(s), memory loss, numbness or tingling Psych Psychiatric: No anxiety, No change in appetite, No depression, No memory loss and No Thoughts of harming yourself/Others Endo Endocrine: No cold intolerance, excessive sweating, fatigue, flushing, heat intolerance, increased thirst/drinking, increased hunger or weight change Aller/Imm Allergy/Immunologic: No itchy eyes, seasonal allergy symptoms (more content not included)... Normal [facility] Microalb:Creat Ratio,Random URon 12-13-2024 MALB:CREAT 7.2 mg/g CRE Normal [facility] Comment on above: Result Comment: AMENDED REPORT 12/13/24 1238 MALB:CREAT previously reported as: 71.9 mg/g CRE Performed By: #### L 502.0250, L500.4100, L500.3400 #### [facility] [address] [place], [address] Albumin DL <= 20 mg/L (U) [M ass/Vol]Ordered By: Federico Martinez on 10-08-2024 Urine Random Microalbumin 14.1 mg/L NO RANGE EST. [facility] Bilirubin directOrdered By: Federico Martinez on 10-08-2024 Bilirubin.direct [Mass/Vol] 0.20 mg/dL 0.00-0.30 [facility] Bilirubin, totalOrdered By: Federico Martinez on 10-08-2024 Bilirubin [Mass/Vol] 0.49 mg/dL 0.00-1.30 [facility] Calculated very low density lipoprotein (VLDL) cholesterol measurementOrdered By: Federico Martinez on 10-08-2024 VLDL Cholesterol 35 mg/dL 5-40 [facility] Cardiology Visit Reporton Cardiology Visit Report [facility] [address] [place] [address] OFFICE VISIT Date of Service: 10/08/24 MR#: [id number] Acct: [id number] Name: MIRTHA GAMEZ Rep #: [id number] : 1960 Provider: SUSSY banuelos Age/Sex: 64/M Location: [facility] Status: Signed HPI HPI History of Present Illness Details: 64-year-old man with no previous cardiac history other than hypertension and diabetes mellitus who presents with palpitations. He says that this has been going on for a few weeks. He denies any chest pain no shortness of breath no pedal edema no paroxysmal nocturnal dyspnea. These palpitations occur at a variety of times he presented to the emergency room was evaluated electrolytes were noted to be normal TSH was normal. A 48-hour Holter monitor demonstrated an average heart rate of 94 bpm and maximal heart rate 152 bpm in sinus rhythm with an artery interval of 1.3 seconds. There was 0.3% of the total QRS complexes noted to be PACs. Coronary calcium score in July 2024 was noted to be 731.7. Echocardiogram in August 2024 showed LV function 55%. He underwent heart catheterization on 09/18/2024 that resulted in drug-eluting stent to mid and proximal RCA. He has been enrolled in [facility] research trial with randomization to GLP???1 medication. He denies chest, arm, jaw, or neck discomfort. He states occasional palpitations that he describes as a flutter. He denies bilateral lower extremity edema. He denies claudication. He denies shortness of breath with activity, shortness of breath at rest, orthopnea, or PND. He denies chronic cough. He denies significant, sudden weight gain. He denies lightheadedness, dizziness, near-syncope, or syncope. He denies blood in urine, blood in stool, or epistaxis. He denies fever with chills. He denies myalgia. He denies fatigue. His exercise level has remained stable. 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 Is patient in pain?: No Allergies bee venom protein (honey bee) (bee stings) Allergy (Unknown, Verified 10/08/24 14:42) Swelling Medications ???Medication ???Instructions ???Recorded ???Confirmed ???Type lisinopril 40 mg tablet 40 mg PO DAILY #90 TABLETS 4 10/08/24 Rx metformin 500 mg tablet,extended 500 mg PO BID 90 days #180 tabs 10/08/24 Rx release 24 hr aspirin 81 mg capsule 81 mg PO DAILY 09/18/24 10/08/24 H istory atorvastatin 20 mg tablet (Lipitor) 20 mg PO DAILY #90 tabs 5 10/08/24 Rx clopidogrel 75 mg tablet 75 mg PO DAILY #90 tabs 09/19/24 0 10/08/24 Rx metoprolol succinate 25 mg 25 mg PO QDAY Please give 90 day 0 09/20/24 10/08/24 Rx tablet,extended release 24 hr supply #180 tabs (Toprol XL) semaglutide 0.25 mg or 0.5 mg (2 0.25 mg (0.368 mL) subcut QWEEK 4 10/08/24 10/08/24 Rx mg/3 mL) subcutaneous pen injector weeks #3 mL (Ozempic) Ejection fraction %: 55 Have you fallen in the past year?: No PFSH Medical History Palpitations HORTON (dyspnea on exertion) Heart palpitations Fatigue Elevated liver enzymes Headache GERD (gastroesophageal reflux disease) Kidney stones Hyperlipidemia Hypertension Hearing problem Diabetes Seasonal allergies Surgical History History of coronary artery stent placement (09/18/24) History of tonsillectomy Family History Father Lung cancer Mother Heart disease COPD (chronic obstructive pulmonary disease) Sister Thyroid disorder Social History Smoking Status: Former smoker how long ago did patient quit smokin-20 years ago alcohol intake: current alcohol intake frequency: holidays/special occasions only substance use type: does not use caffeine: Yes Type: coffee Number of servings: 2 what type of physical activity do you participate in: walking ROS Const Const: Negative for fatigue or weakness Eyes Eyes: Negative for change in vision ENT ENT: Negative for dizziness or balance problems Cardio Chest Pain: No Palpitations: Yes (Occasionally) feels like its: other (Flutter) Edema: None Muscle aches with walking: None Resp Respiratory: Negative for SOB with activity, SOB at rest or SOB orthopnea SOB lying down GI GI: Negative nausea or heartburn : Negative for hematuria or frequent nighttime urination/ nocturia Musc Musc: Negative for balance problems Skin Skin: Negative non-healing lesions or rash Ne (more content not included)... Normal [facility] Creatinine Unsp time (U) [Ma ss/Vol]Ordered By: Federico Martinez on 10-08-2024 Creatinine (U) [Mass/Vol] 196.00 mg/dL 39.00-259.00 [facility] LDL calc ser/plasOrdered By: Federico Martinez on 10-08-2024 LDL Cholesterol, Calculated 56 mg/dL [facility] Comment on above: Okqwzyiche=269-261 m g/dL & Higher Fcek=397 mg/dL or greater Laboratory - Chemistry and C hemistry - challengeOrdered By: Federico Martinez on 10-08-2024 AST [Catalytic activity/Vol] 35 U/L <38 [facility] Lipid Profileon 10-08-2024 CHOL:HDL 2.77 Normal [facility] Comment on above: Performed By: #### L 502.0250, L500.4100, L500.3400 #### [facility] [address] [place], [address] Cholesterol [Mass/Vol] 142 mg/dL Normal <=200 [facility] Comment on above: Result Comment: Chol esterol level, Desirable <200 mg/dL Borderline high cholesterol 200-239 mg/dL High cholesterol >=240 mg/dL Recommendations of the NCEP Adult Treatment Panel for the following risk-cutoff thresholds for the [place] population. Performed By: #### L 502.0250, L500.4100, L500.3400 #### [facility] [address] [place], [address] Cholesterol in HDL [Mass/Vol] 51 mg/dL Normal [facility] Comment on above: Result Comment: Ana Luisa onal Cholesterol Education Program (NCEP) guidelines: <40 mg/dL: Low HDL-cholesterol (major risk factor for CHD) >= 60 mg/dL: High HDL-cholesterol (negative risk factor for CHD) HDL-cholesterol is affected by a number of factors, e.g. smoking, exercise, hormones, sex and age. Performed By: #### L 502.0250, L500.4100, L500.3400 #### [facility] [address] [place], [address] Cholesterol in LDL [Mass/Vol] 56 mg/dL Normal [facility] Comment on above: Result Comment: Bord xknyce=789-537 mg/dL Higher Ibah=081 mg/dL or greater Performed By: #### L 502.0250, L500.4100, L500.3400 #### [facility] [address] [place], [address] Cholesterol in VLDL [Mass/Vol] 35 mg/dL Normal 5-40 [facility] Comment on above: Performed By: #### L 502.0250, L500.4100, L500.3400 #### [facility] [address] [place], [address] Triglyceride [Mass/Vol] 173 mg/dL Normal [facility] Comment on above: Result Comment: The drugs N-Acetylcysteine and Metamizole may falsely depress this assay. Normal range: <150 mg/dL Borderline High: 150-199 mg/dL High: 200-499 mg/dL Very High: >500 mg/dL Performed By: #### L 502.0250, L500.4100, L500.3400 #### [facility] [address] [place], [address] Liver Profileon 10-08-2024 Albumin [Mass/Vol] 4.7 g/dL Normal 3.4-4.8 [facility] Comment on above: Performed By: #### L 502.0250, L500.4100, L500.3400 #### [facility] [address] [place], [address] ALK PHOS 70 U/L Normal 40-129 [facility] Comment on above: Performed By: #### L 502.0250, L500.4100, L500.3400 #### [facility] [address] [place], [address] ALT [Catalytic activity/Vol] 56 U/L High <=46 [facility] Comment on above: Performed By: #### L 502.0250, L500.4100, L500.3400 #### [facility] [address] [place], [address] AST [Catalytic activity/Vol] 35 U/L Normal <=37 [facility] Comment on above: Performed By: #### L 502.0250, L500.4100, L500.3400 #### [facility] [address] [place], [address] Bilirubin [Mass/Vol] 0.49 mg/dL Normal 0.00-1.30 [facility] Comment on above: Performed By: #### L 502.0250, L500.4100, L500.3400 #### [facility] [address] [place], [address] Bilirubin.direct [Mass/Vol] 0.20 mg/dL Normal 0.00-0.30 [facility] Comment on above: Performed By: #### L 502.0250, L500.4100, L500.3400 #### [facility] [address] [place], [address] Globulin (S) [Mass/Vol] 2.6 g/dL Normal 2.2-4.2 [facility] Comment on above: Performed By: #### L 502.0250, L500.4100, L500.3400 #### [facility] [address] [place], [address] T PROT 7.3 g/dL Normal 5.9-8.4 [facility] Comment on above: Performed By: #### L 502.0250, L500.4100, L500.3400 #### [facility] [address] [place], [address] Microalbumin/creat ratio urO rdered By: Federico Martinez on 10-08-2024 Urine Microalbumin/Creatinine Ratio 71.9 mg/g CRE [facility] Screening total cholesterol/ high density lipoprotein (HDL) cholesterol ratioOrdered By: Federico Martinez on 10-08-2024 Cholesterol.total/Lorie sterol in HDL [Mass ratio] 2.77 {ratio} [facility] Serum globulin measurementOr dered By: Federico Martinez on 10-08-2024 Globulin (S) [Mass/Vol] 2.6 g/dL 2.2-4.2 [facility] Serum or plasma alanine ponce otransferase (ALT) measurementOrdered By: Federico Martinez on 10-08-2024 ALT [Catalytic activity/Vol] 56 U/L High <47 [facility] Serum or plasma albumin dillon urement (mass/volume)Ordered By: Federico Martinez on 10-08-2024 Albumin [Mass/Vol] 4.7 g/dL 3.4-4.8 [facility] Serum or plasma alkaline paulette sphatase measurementOrdered By: Federico Martinez on 10-08-2024 ALP [Catalytic activity/Vol] 70 U/L 40-129 [facility] Serum or plasma cholesterol in HDL measurement (mass/volume)Ordered By: Federico Martinez on 10-08-2024 Cholesterol in HDL [Mass/Vol] 51 mg/dL >40 [facility] Comment on above: National Cholesterol Education Program (NCEP) guidelines:<40 mg/dL: Low HDL-cholesterol (major risk factor for CHD)>= 60 mg/dL: High HDL-cholesterol (negative risk factor for CHD)HDL-cholesterol is affected by a number of factors, e.g. smoking, exercise, hormones, sex and age. Serum or plasma cholesterol measurement (mass/volume)Ordered By: Fedeirco Martinez on 10-08-2024 Cholesterol [Mass/Vol] 142 mg/dL <201 [facility] Comment on above: Cholesterol level, D esirable <200 mg/dLBorderline high cholesterol 200-239 mg/dLHigh cholesterol >=240 mg/dLRecommendations of the NCEP Adult Treatment Panel for the following risk-cutoff thresholds for the [place] population. Total proteinOrdered By: Serge Martinez on 10-08-2024 Protein [Mass/Vol] 7.3 g/dL 5.9-8.4 [facility] Triglycerides measurementOrd ered By: Federico Martinez on 10-08-2024 Triglyceride [Mass/Vol] 173 mg/dL <199 [facility] Comment on above: The drugs N-Acetylcy steine and Metamizole may falsely depress this assay. Normal range: <150 mg/dLBorderline High: 150-199 mg/dLHigh: 200-499 mg/dLVery High: >500 mg/dL Anion gap in Serum or Plasma Ordered By: Joselo Chavira on 09-19-2024 Anion gap [Moles/Vol] 11 mmol/L 5-15 [facility] BUN/creatinine ratioOrdered By: Joselo Chavira on 09-19-2024 Urea nitrogen/Creatinine [Mass ratio] 17.0 mg/mg 10-20 [facility] Bilirubin, totalOrdered By: Joselo Chavira on 09-19-2024 Bilirubin [Mass/Vol] 0.33 mg/dL 0.00-1.30 [facility] CBC-Complete Blood Cnt No Di ffon 09-19-2024 Erythrocyte distribution width (RBC) [Ratio] 11.9 % Normal 11.6-14.6 [facility] Comment on above: Performed By: #### L 100.0500, L500.4050 ####[facility] [address] [place], [address] Hematocrit (Bld) [Volume fraction] 39.3 % Low 40-54 [facility] Comment on above: Performed By: #### L 100.0500, L500.4050 ####[facility] [address] [place], [address] Hemoglobin (Bld) [Mass/Vol] 13.9 g/dL Normal 13.0-16.5 [facility] Comment on above: Performed By: #### L 100.0500, L500.4050 ####[facility] [address] [place], [address] MCH (RBC) [Entitic mass] 31.7 pg Normal 27.0-32.0 [facility] Comment on above: Performed By: #### L 100.0500, L500.4050 ####[facility] [address] [place], [address] MCHC (RBC) [Mass/Vol] 35.4 g/dL Normal 32-36 [facility] Comment on above: Performed By: #### L 100.0500, L500.4050 ####[facility] [address] [place], [address] MCV (RBC) [Entitic vol] 89.5 fL Normal 80-94 [facility] Comment on above: Performed By: #### L 100.0500, L500.4050 ####[facility] [address] [place], [address] Platelet mean volume (Bld) [Entitic vol] 11.6 fL Normal 6.2-12.0 [facility] Comment on above: Performed By: #### L 100.0500, L500.4050 ####[facility] [address] [place], [address] Platelets (Bld) [#/Vol] 181 10*3/uL Normal 150-450 [facility] Comment on above: Performed By: #### L 100.0500, L500.4050 ####[facility] [address] [place], [address] RBC (Bld) [#/Vol] 4.39 10*6/uL Low 4.6-6.2 [facility] Comment on above: Performed By: #### L 100.0500, L500.4050 ####[facility] [address] [place], [address] RDW SD 38.8 fl Normal 35.1-43.9 [facility] Comment on above: Performed By: #### L 100.0500, L500.4050 ####[facility] [address] [place], [address] WBC (Bld) [#/Vol] 8.8 10*3/uL Normal 4.4-11.0 [facility] Comment on above: Performed By: #### L 100.0500, L500.4050 ####[facility] [address] [place], [address] Carbon dioxide, total [Moles /volume] in Central venous bloodOrdered By: Joselo Chavira on 09-19-2024 CO2 [Moles/Vol] 19.7 mmol/L Low 21.0-32.0 [facility] Chloride assayOrdered By: Arnulfo Chavira on 09-19-2024 Chloride [Moles/Vol] 107 mmol/L 98-108 [facility] Comprehensive Metabolic Prof ilon 09-19-2024 Albumin [Mass/Vol] 4.0 g/dL Normal 3.4-4.8 [facility] Comment on above: Performed By: #### L 100.0500, L500.4050 ####[facility] [address] [place], [address] Albumin/Globulin [Mass ratio] 1.9 {ratio} Normal 0.9-2.4 [facility] Comment on above: Performed By: #### L 100.0500, L500.4050 ####[facility] [address] [place], [address] ALK PHOS 66 U/L Normal 40-129 [facility] Comment on above: Performed By: #### L 100.0500, L500.4050 ####[facility] [address] [place], [address] ALT [Catalytic activity/Vol] 47 U/L Normal <=46 [facility] Comment on above: Performed By: #### L 100.0500, L500.4050 ####[facility] [address] [place], [address] AST [Catalytic activity/Vol] 29 U/L Normal <=37 [facility] Comment on above: Performed By: #### L 100.0500, L500.4050 ####[facility] [address] [place], [address] Bilirubin [Mass/Vol] 0.33 mg/dL Normal 0.00-1.30 [facility] Comment on above: Performed By: #### L 100.0500, L500.4050 ####[facility] [address] [place], [address] BUN/CRE 17.0 RATIO Normal 10-20 [facility] Comment on above: Performed By: #### L 100.0500, L500.4050 ####[facility] [address] [place], [address] Calcium [Mass/Vol] 8.8 mg/dL Normal 7.6-11.0 [facility] Comment on above: Performed By: #### L 100.0500, L500.4050 ####[facility] [address] [place], [address] Chloride [Moles/Vol] 107 mmol/L Normal 98-108 [facility] Comment on above: Performed By: #### L 100.0500, L500.4050 ####[facility] [address] [place], [address] CO2 [Moles/Vol] 19.7 mmol/L Low 21.0-32.0 [facility] Comment on above: Performed By: #### L 100.0500, L500.4050 ####[facility] [address] [place], [address] Creatinine [Mass/Vol] 0.73 mg/dL Normal 0.70-1.20 [facility] Comment on above: Performed By: #### L 100.0500, L500.4050 ####[facility] [address] [place], [address] ECRCL 112.27 ml/min Normal 50-250 [facility] Comment on above: Performed By: #### L 100.0500, L500.4050 ####[facility] [address] [place], [address] GAP 11 Normal 5-15 [facility] Comment on above: Performed By: #### L 100.0500, L500.4050 ####[facility] [address] [place], [address] GFR/1.73 sq M.predicted among non-blacks MDRD (S/P/Bld) [Vol rate/Area] 103 mL/min/{1.73_m2} Normal >60 [facility] Comment on above: Result Comment: mL/m in/1.73m2 CKD-EPI Creatinine Equation (2020) Performed By: #### L 100.0500, L500.4050 ####[facility] [address] [place], [address] Globulin (S) [Mass/Vol] 2.1 g/dL Low 2.2-4.2 [facility] Comment on above: Performed By: #### L 100.0500, L500.4050 ####[facility] [address] [place], [address] Glucose [Mass/Vol] 144 mg/dL High 70-99 [facility] Comment on above: Performed By: #### L 100.0500, L500.4050 ####[facility] [address] [place], [address] Potassium [Moles/Vol] 4.0 mmol/L Normal 3.3-5.1 [facility] Comment on above: Performed By: #### L 100.0500, L500.4050 ####[facility] [address] [place], [address] Sodium [Moles/Vol] 138 mmol/L Normal 133-145 [facility] Comment on above: Performed By: #### L 100.0500, L500.4050 ####[facility] [address] [place], [address] T PROT 6.1 g/dL Normal 5.9-8.4 [facility] Comment on above: Performed By: #### L 100.0500, L500.4050 ####[facility] [address] [place], [address] Urea nitrogen [Mass/Vol] 12 mg/dL Normal - [facility] Comment on above: Performed By: #### L 100.0500, L500.4050 ####[facility] [address] [place], [address] Discharge Instructionon 08-26 Discharge Instruction [facility] Medical Records Department [address] [place] [address] Instructions for Home/Discharge Instructions 09/19/24 0730 MR#: [id number] Acct: [id number] Name: MIRTHA GAMEZ Rep #: [id number] : 1960 64 From: Sudhakar Quinn MD PCP: Dr. Mirtha Galeana, DO Status:ADM NILSA Discharge Instructions Diet Discharge Diet: No restrictions (You may continue your normal diet.) DC O2, CPAP, BIPAP needs Home O2 Discharge instructions: No Dressing / Incision Discharge Activity: Return to Normal Activity Lifting Restrictions: 10 pounds and also avoid any pushing or pulling for 3 days after your test. Additional Activity Instructions:: You must have someone drive you home. Do not drive until instructed by your doctor. You must have someone stay with you all night after your test. Rest in bed or on the couch until the next morning. Limit the number of times you go up and down stairs the day of your test. Apply pressure to the puncture site if you sneeze or cough. Dressing / Incision Call your doctor if your incision/area has: Increased Pain/ Swelling, Increased Redness, Foul Smelling Discharge and Swelling at the incision site Call your doctor if you observe: Fever of 101 or Higher Additional Dressing/Incision Instructions:: Keep the dressing (bandage) on until the next morning. You may then shower, but do not take a tub bath for 5 days after your test. It is normal to have some tenderness and discomfort at the puncture site. Sometimes bruising also occurs. However, if pain, numbness, or coldness occurs below the puncture site (in your leg, toes, arms or fingers) call your doctor at once. You may have a small, marble sized knot at the puncture site. This is normal. Do not rub it. It will go away in 4-6 weeks. Bleeding can occur from the area where the puncture was done. Blood may spurt or drip from the site. If blood spurts, apply pressure right away to stop bleeding and call 911. Although rare, bleeding into the tissue (hematoma) can also occur. If this happens, a large, firm area goose egg under the skin will appear. If any of these occur, lie down as flat as you can and have someone apply firm pressure to the cath site with a gauze pad or a clean washcloth for 10-15 minutes. Call 911 or go to the Emergency Department. Follow Up Care When: Office visit. They will call you from the office. Test Results: Test results from this visit will be discussed in further detail at your follow-up appointment, if applicable. Discharge Plan Admission Admit Date/Time: 09/18/24 09:24 Attending Provider: Joselo Chavira Primary Care Provider: Mirtha Galeana Discharge Orders/Prescriptions Prescriptions: New clopidogrel 75 mg Tablet 75 mg PO DAILY Qty: 90 3RF Continued aspirin 81 mg capsule 81 mg PO DAILY lisinopril 40 mg tablet 40 mg PO DAILY Qty: 90 3RF metformin 500 mg tablet extended release 24 hr 500 mg PO BID 90 Days Qty: 180 1RF metoprolol succinate [Toprol XL] 25 mg tablet extended release 24 hr 25 mg PO QDAY Qty: 60 6RF Referrals / Follow Up: Mirtha Galeana DO [Primary Care Provider] - Disposition Disposition (needs filled in before D/C Order can be placed): Home, Self Care 09/19/24 0730 Sudhakar Quinn MD CC: Dr. Mirtha Galeana DO Signed Normal [facility] Electrocardiogram reportOrde red By: Sudhakar Quinn on 09-19-2024 EKG study [facility] [address] [place] [address] 12 Lead EKG 09/18/24 1100 MR#: [id number] Acct: [id number] Name: MIRTHA GAMEZ Rep #:[id number] : 1960 64 From: Sudhakar Quinn MD Attending Dr: Dr. Joselo Chavira MD Status: ADM NILSA Ordering Dr: Joselo Chavira MD Date: Location: [facility] Sex: M C Admitted: 09/18/24 Test Reason : POST PCI Blood Pressure : */* mmHG Vent. Rate : 79 BPM Atrial Rate : 79 BPM P-R Int : 204 ms QRS Dur : 82 ms QT Int : 350 ms P-R-T Axes : 37 -23 32 degrees QTcB Int : 401 ms Normal sinus rhythm Inferior infarct , age undetermined Abnormal ECG Confirmed by SUDHAKAR QUINN MD ([id number]), city editor DAWN LOGAN ([id number]) on 09/19/2024 7:17:40 AM Referred By: Sudhakar Quinn Confirmed By: SUDHAKAR QUINN MD 09/19/24 0717 Date _ Sudhakar Quinn MD CC: Dr. Joselo Chavira MD; Dr. Sudhakar Quinn MD; Dr. Mirtha Galeana DO ~ Signed [facility] Work Phone: Erythrocyte distribution wid th ratioOrdered By: Joselo Chavira on 09-19-2024 Erythrocyte distribution width (RBC) [Ratio] 11.9 % 11.6-14.6 [facility] Erythrocyte distribution wid th standard deviationOrdered By: Joselo Chavira on 09-19-2024 Erythrocyte distribution width (RBC) [Entitic vol] 38.8 fL 35.1-43.9 [facility] Estimation of creatinine jacque aranceOrdered By: Joselo Chavira on 09-19-2024 Estimated Creatinine Clearance Calc 112.27 ml/min 50-250 [facility] GFR/1.73 sq M.predicted qign g non-blacks MDRD (S/P/Bld) [Vol rate/Area]Ordered By: Joselo Chavira on 09-19-2024 Estimated GFR (MDRD) Non-Af Amer 103 >60 [facility] Comment on above: mL/min/1.73m2 CKD-EP I Creatinine Equation (2020) Hematocrit Auto (Bld) [Volum e fraction]Ordered By: Joselo Chavira on 09-19-2024 Hematocrit (Bld) [Volume fraction] 39.3 % Low 40-54 [facility] Hemoglobin measurementOrdere d By: Joselo Chavira on 09-19-2024 Hemoglobin (Bld) [Mass/Vol] 13.9 g/dL 13.0-16.5 [facility] Laboratory - Chemistry and C hemistry - challengeOrdered By: Joselo Chavira on 09-19-2024 AST [Catalytic activity/Vol] 29 U/L <38 [facility] MCV (mean corpuscular volume ) determinationOrdered By: Joselo Chavira on 09-19-2024 MCV (RBC) [Entitic vol] 89.5 fL 80-94 [facility] Mean corpuscular hemoglobin (MCH) determinationOrdered By: Joselo Chavira on 09-19-2024 MCH (RBC) [Entitic mass] 31.7 pg 27.0-32.0 [facility] Mean corpuscular hemoglobin concentration (MCHC) determinationOrdered By: Joselo Chavira on 09-19-2024 MCHC (RBC) [Mass/Vol] 35.4 g/dL 32-36 [facility] Mean platelet volume determi nationOrdered By: Joselo Chavira on 09-19-2024 Platelet mean volume (Bld) [Entitic vol] 11.6 fL 6.2-12.0 [facility] Platelet countOrdered By: Arnulfo Chavira on 09-19-2024 Platelets (Bld) [#/Vol] 181 10*3/uL 150-450 [facility] Potassium (Unsp spec) [Mass/ Vol]Ordered By: Joselo Chavira on 09-19-2024 Potassium [Moles/Vol] 4.0 mmol/L 3.3-5.1 [facility] RBC Auto (Bld) [#/Vol]Ordere d By: Joselo Chavira on 09-19-2024 RBC (Bld) [#/Vol] 4.39 10*6/uL Low 4.6-6.2 [facility] Serum creatinine measurement (mass/volume)Ordered By: Joselo Chavira on 09-19-2024 Creatinine [Mass/Vol] 0.73 mg/dL 0.70-1.20 [facility] Serum globulin measurementOr dered By: Joselo Chavira on 09-19-2024 Globulin (S) [Mass/Vol] 2.1 g/dL Low 2.2-4.2 [facility] Serum glucose measurement (m ass/volume)Ordered By: Joselo Chavira on 09-19-2024 Glucose [Mass/Vol] 144 mg/dL High 70-99 [facility] Serum or plasma alanine ponce otransferase (ALT) measurementOrdered By: Joselo Chavira on 09-19-2024 ALT [Catalytic activity/Vol] 47 U/L <47 [facility] Serum or plasma albumin dillon urement (mass/volume)Ordered By: Joselo Chavira on 09-19-2024 Albumin [Mass/Vol] 4.0 g/dL 3.4-4.8 [facility] Serum or plasma albumin/glob ulin mass ratioOrdered By: Joselo Chavira on 09-19-2024 Albumin/Globulin [Mass ratio] 1.9 {ratio} 0.9-2.4 [facility] Serum or plasma alkaline paulette sphatase measurementOrdered By: Joselo Chavira on 09-19-2024 ALP [Catalytic activity/Vol] 66 U/L 40-129 [facility] Serum or plasma calcium dillon urement (mass/volume)Ordered By: Joselo Chavira on 09-19-2024 Calcium [Mass/Vol] 8.8 mg/dL 7.6-11.0 [facility] Serum or plasma urea nitroge n measurement (mass/volume)Ordered By: Joselo Chavira on 09-19-2024 Urea nitrogen [Mass/Vol] 12 mg/dL 4-19 [facility] Sodium levelOrdered By: Charles Chavira on 09-19-2024 Sodium [Moles/Vol] 138 mmol/L 133-145 [facility] Total proteinOrdered By: Clyde Chavira on 09-19-2024 Protein [Mass/Vol] 6.1 g/dL 5.9-8.4 [facility] White blood cell (WBC) count Ordered By: Joselo Chavira on 09-19-2024 WBC (Bld) [#/Vol] 8.8 10*3/uL 4.4-11.0 [facility] 12 Lead EKGon 09-18-2024 12 Lead EKG [facility] Cardi[facility] Services [address] [place] [address] 12 Lead EKG 09/18/24 1100 MR#: [id number] Acct: [id number] Name: MIRTHA GAMEZ Rep #: [id number] : 1960 64 From: Sudhakar Quinn MD Attending Dr: Dr. Joselo Chavira MD Status: ADM NILSA Ordering Dr: Joselo Chavira MD Date: 09/18/24 Location: [facility] Sex: M C Admitted: 09/18/24 Test Reason : POST PCI Blood Pressure : */* mmHG Vent. Rate : 79 BPM Atrial Rate : 79 BPM P-R Int : 204 ms QRS Dur : 82 ms QT Int : 350 ms P-R-T Axes : 37 -23 32 degrees QTcB Int : 401 ms Normal sinus rhythm Inferior infarct , age undetermined Abnormal ECG Confirmed by SUDHAKAR QUINN MD ([id number]), city editor DAWN LOGAN ([id number]) on 09/19/2024 7:17:40 AM Referred By: Sudhakar Quinn Confirmed By: SUDHAKAR QUINN MD 09/19/24 0717 Date Sudhakar Quinn MD CC: Dr. Joselo Chavira MD; Dr. Sudhakar Quinn MD; Dr. Mirtha Galeana DO Signed Normal [facility] ACT Activated Clotting Timeo n 09-18-2024 ACTk CLOT TIME 233 sec High 74-137 [facility] Comment on above: Performed By: #### L 9100.0100 #### [facility] [address] [place], [address] ACTk CLOT TIME 250 sec High 74-137 [facility] Comment on above: Performed By: #### L 9100.0100 #### [facility] [address] [place], [address] Activated clotting timeOrder ed By: Joselo Chavira on 09-18-2024 Activated Clotting Time 233 sec High 74-137 [facility] Albumin DL <= 20 mg/L (U) [M ass/Vol]Ordered By: Sudhakar Quinn on 09-18-2024 Urine Random Microalbumin < 12.0 mg/L NO RANGE EST. [facility] Cardiac Cath Diagnosticon Cardiac Cath Diagnostic [facility] Imaging Services [address] [place] [address] Cardiac Cath Diagnostic MR#: [id number] Acct: [id number] Name: MIRTHA GAMEZ Rep #: [id number] : 1960 64 From: Sudhakar Quinn MD PCP: Dr. Mirtha Galeana, DO Status:[facility] [place] Patient Name: MIRTHA LUCAS Study Date: 09/18/2024 Performing: Sudhakar Quinn MD Ht: 167.64 inches 425.8056 cm : 1960 Wt: 93.44 lbs 42.384 kg Age: 64 Gender: male BSA: 2.85 PROCEDURE(S) PERFORMED DC01-(69445)LHC/COR/LV CLINICAL PROFILE AND INDICATIONS Indications: Suspected CAD Heart Failure: None Stress/Imaging Coronary Calcium Score: Yes Calcium Score: 783Calcium Score: 783 CAD Presentations: Stable angina. CONCLUSIONS Coronary artery calcification with moderately severe disease noted in the proximal right coronary artery RECOMMENDATIONS Referred for immediate PCI DESCRIPTION OF PROCEDURE The patient arrived to the procedure lab. The risks and benefits of the procedure as well as a full description of our services here and current unavailability of surgical backup were fully explained to the patient and/or their significant other prior to the catheterization. The Timeout was completed, verifying the correct patient and procedure. The patient's procedural site was prepped and draped in the usual fashion. Local anesthetic was given subcutaneously to right radial region with Lidocaine 2%. Using a modified Seldinger technique, arterial access was obtained via the right radial artery, a 6Fr sheath was inserted. Right Coronary Artery selective angiography was then performed in multiple views using a 5 Fr. 4.0 [facility] catheter. Left Coronary Artery selective angiography was performed in multiple views using a 5 Fr. 4.0 [facility] catheter. Left Ventriculography was performed in MORENO projection using a 5 Fr. Pigtail catheter. LV to AO pullback pressures were then recorded. CORONARY ANGIOGRAPHY DOMINANCE: Co- Dominant LEFT HEART ASSESSMENT Left Ventricular Ejection Fraction: by LV Gram 60 % Normal LV wall motion Normal Left Ventricular systolic function LEFT MAIN: Moderate calcification, Mild luminal irregularities LEFT ANTERIOR DESCENDING ARTERY: Mild luminal irregularities less than 30% DIAGONAL 1: Proximal - Mild luminal irregularities CIRCUMFLEX ARTERY: Mild luminal irregularities, Codominant vessel with no significant stenosis present LT PDA: Left PDA: Mid - No significant disease noted RIGHT CORONARY ARTERY: Codominant vessel with proximal 70 to 80% stenosis present COMPLICATIONS PROCEDURE MEDICATIONS Fentanyl 50 mcg IV Versed 1 mg IV Versed 1 mg IV Oxygen: 2 L/min via nasal cannula Brilinta 180 mg PO @ 09/18/2024 08:23:21 Heparin given IA 09/18/2024 08:03:13 Heparin 6000 unit(s) IV 09/18/2024 08:34:34 Verapamil 2.5mg, Ntg 100mcgs, 3000 units of Heparin given IA 09/18/2024 08:03:13 SUMMARY OF HEMODYNAMIC DATA Time AIR REST ECG 07:08:52 AO 111/76 (93) SA 08:10:11 LV 100/7, 12 08:16:40 LV 93/9, 15 08:16:48 LV 104/10, 16 08:17:29 LVp 105/11, 16 08:17:32 AOp 0/0 (85) 08:17:39 08:31:46 Signed By Sudhakar Quinn MD On 09/18/2024 08:36:44 Sudhakar Quinn MD 09/18/24 0837 Date [facility] Signature: Date (if indicated) CC: Dr. Sudhakar Quinn MD; Dr. Mirtha Galeana, DO Date Dictated: 09/18/24 0755 Date Transcribed: 09/18/24 0836 Gear Grinder: CO Signed Normal [facility] Cardiac Cath Interventionon 09-18-2024 Cardiac Cath Intervention [facility] Imaging Services [address] [place] [address] Cardiac Cath Intervention MR#: [id number] Acct: [id number] Name: MIRTHA GAMEZ Rep #: [id number] : 1960 64 From: Sudhakar Quinn MD PCP: Dr. Mirtha Galeana, DO Status:[facility] [place] Patient Name: MIRTHA GAMEZ Study Date: 09/18/2024 Performing: Joselo Chavira MD Ht: 168 inches 425.8056 cm : 1960 Wt: 93.6 lbs 42.384 kg Age: 64 Gender: male BSA: 2.85 PROCEDURE(S) PERFORMED IC12-(05722/C9600)ANOOP W/WO PTCA, SINGLE CORONARY ARTERY CLINICAL PROFILE AND CO-MORBIDITIES Indications: Suspected CAD Heart Failure: None Stress/Imaging Coronary Calcium Score: Yes Calcium Score: 783 Calcium Score: 783 CAD Presentations: Stable angina. CONCLUSIONS Successful ANOOP Mid RCA using [place] Radford 3.0x15 mm Successful ANOOP prox RCA using [place] Rad[place] 3.0x30 mm, optimized proximally using 4.0 mm balloon RECOMMENDATIONS ASA Indefinitley P2Y12 inhibitors for atleast 6 months DESCRIPTION OF PROCEDURE The patient arrived to the procedure lab. The risks and benefits of the procedure as well as a full description of our services here and current unavailability of surgical backup were fully explained to the patient and/or their significant other prior to the catheterization. The Timeout was completed, verifying the correct patient and procedure. The patient's procedural site was prepped and draped in the usual fashion. Local anesthetic was given subcutaneously to right radial region with Lidocaine 2% Using a modified Seldinger technique,arterial access was obtained via the right radial artery, a 6Fr sheath was inserted. Right Coronary Artery selective angiography was then performed in multiple views using a 5 Fr. 4.0 [facility] catheter. Left Coronary Artery selective angiography was performed in multiple views using a 5 Fr. 4.0 [facility] catheter. Left Ventriculography was performed in MORENO projection using a 5 Fr. Pigtail catheter. LV to AO pullback pressures were then recorded.The images were reviewed and options discussed. A decision was then made to proceed with an Intervention, IVUS or other adjunct procedure. JR 4.0 Guide catheter was inserted and engaged into the RCA. Runthrough Guide wire was advanced to the RCA. 3 x 15 Michael Drug Eluting stent was inserted. Drug Eluting stent was advanced across the lesion in the right coronary, mid. 3 x 12 NC Euphora Balloon catheter was inserted post stent. Angiogram performed post stent deployment. 3 x 30 Michael Drug Eluting stent was inserted. Drug Eluting stent was advanced across the lesion in the right coronary, proximal. Angiogram performed post stent deployment. 3 x 12 NC Euphora Balloon catheter was inserted post stent. 3.5 x 6 NC Euphora Balloon catheter was inserted post stent. Angiogram performed post balloon dilatation. 4 x 6 NC Euphora Balloon catheter was inserted post stent. Angiogram performed post balloon dilatation. The arterial sheath was pulled and a TR Band was applied for hemostasis. 10cc air INTERVENTION INFORMATION LESION SITE: RCA (Mid) Lesion Complexity: Non-High/Non-C, lesion length: 13 mm Pre Stenosis: 70 % Pre intervention KRUPA flow: 3 PROCEDURE: Drug Eluting Stent with post dilatation Post Stenosis: 0 % Post intervention KRUPA flow: 3 Lesion Devices: Terumo .014 180cm Runthrough Extra Floppy straight Cordis 6 Fr JR4 100cm Guide Catheter Medtronic 3.0 x 15 MICHAEL FRONTIER ANOOP Medtronic NC EUPHORA RX 3.0x12 BALLOON LESION SITE: RCA (Proximal) Lesion Complexity: High/C, lesion length: 28 mm Pre Stenosis: 80 % Pre intervention KRUPA flow: 3 PROCEDURE: Drug Eluting Stent with post dilatation Post Stenosis: 0 % Post intervention KRUPA flow: 3 Lesion Devices: Medtronic NC EUPHORA RX 3.0x12 BALLOON Medtronic 3.0 x 30 MICHAEL FRONTIER ANOOP Medtronic NC EUPHORA RX 3.5x06 BALLOON Medtronic NC EUPHORA RX 4.0x06 BALLOON COMPLICATIONS No Complications PROCEDURE MEDICATIONS Fentanyl 50 mcg IV Versed 1 mg IV Versed 1 mg IV Oxygen: 2 L/min via nasal cannula Brilinta 180 mg PO @ 09/18/2024 08:23:21 Heparin given IA 09/18/2024 08:03:13 Heparin 6000 unit(s) IV 09/18/2024 08:34:34 Heparin 2000 unit(s) IV 09/18/2024 08:40:32 Nitro 200 mcg IC 09/18/2024 08:44:32 Nitro 200 mcg IC 09/18/2024 08:44:32 Nitro 200 mcg IC 09/18/2024 08:59:01 Verapamil 2.5mg, Ntg 100mcgs, 3000 units of Heparin given IA 09/18/2024 08:03:13 SUMMARY OF HEMODYNAMIC DATA Time AIR REST ECG 07:08:52 AO 111/76 (93) SA 08:10:11 LV 100/7, 12 08:16:40 LV 93/9, 15 08:16:48 LV 104/10, 16 08:17:29 LVp 105/11, 16 08:17:32 AOp 0/0 (85) 08:17:39 09:28:19 Signed By Joselo Chavira MD On 09/18/2024 09:32:15 Joselo Chavira MD 09/18/24 0932 Date (more content not included)... Normal [facility] Cardiac catheterization repo rtOrdered By: Sudhakar Quinn on 09-18-2024 Cardiac catheterization study [facility] Imaging Services [address] [place] [address] Cardiac Cath Intervention MR#: [id number] Acct: [id number] Name: MIRTHA GAMEZ Rep #:[id number] : 1960 64 From: Sudhakar Quinn MD PCP: Dr. Mirtha Galeana, DO Status:[facility] [place] Patient Name: MIRTHA GAMEZ Study Date: 09/18/2024 Performing: Joselo Chavira MD Ht: 168 inches 425.8056 cm : 1960 Wt: 93.6 lbs 42.384 kg Age: 64 Gender: male BSA: 2.85 PROCEDURE(S) PERFORMED IC12-(32073/C9600)ANOOP W/WO PTCA, SINGLE CORONARY ARTERY CLINICAL PROFILE AND CO-MORBIDITIES Indications: Suspected CAD Heart Failure: None Stress/Imaging Coronary Calcium Score: Yes Calcium Score: 783 Calcium Score: 783 CAD Presentations: Stable angina. CONCLUSIONS Successful ANOOP Mid RCA using Michael Radford 3.0x15 mm Successful ANOOP prox RCA using Michael Radford 3.0x30 mm, optimized proximally using 4.0 mm balloon RECOMMENDATIONS ASA Indefinitley P2Y12 inhibitors for atleast 6 months DESCRIPTION OF PROCEDURE The patient arrived to the procedure lab. The risks and benefits of the procedure as well as a full description of our services here and current unavailability of surgical backup were fully explained to the patient and/or their significant other prior to the catheterization. The Timeout was completed, verifying the correct patient and procedure. The patient's procedural site was prepped and draped in the usual fashion. Local anesthetic was given subcutaneously to right radial region with Lidocaine 2% Using a modified Seldinger technique,arterial access was obtained via the right radial artery, a 6Fr sheath was inserted. Right Coronary Artery selective angiography was then performed in multiple views using a 5 Fr. 4.0 [facility] catheter. Left Coronary Artery selective angiography was performed in multiple views using a 5 Fr. 4.0 [facility] catheter. Left Ventriculography was performed in MORENO projection using a 5 Fr. Pigtail catheter. LV to AO pullback pressures were then recorded.The images were reviewed and options discussed. A decision was then made to proceed with an Intervention, IVUS or other adjunct procedure. JR 4.0 Guide catheter was inserted and engaged into the RCA. Runthrough Guide wire was advanced to the RCA. 3 x 15 Michael Drug Eluting stent was inserted. Drug Eluting stent was advanced across the lesion in the right coronary, mid. 3 x 12 NC Euphora Balloon catheter was inserted post stent. Angiogram performed post stent deployment. 3 x 30 Michael Drug Eluting stent was inserted. Drug Eluting stent was advanced across the lesion in the right coronary, proximal. Angiogram performed post stent deployment. 3 x 12 NC Euphora Balloon catheter was inserted post stent. 3.5 x 6 NC Euphora Balloon catheter was inserted post stent. Angiogram performed post balloon dilatation. 4 x 6 NC Euphora Balloon catheter was inserted post stent. Angiogram performed post balloon dilatation. The arterial sheath was pulled and a TR Band was applied for hemostasis. 10cc air INTERVENTION INFORMATION LESION SITE: RCA (Mid) Lesion Complexity: Non-High/Non-C, lesion length: 13 mm Pre Stenosis: 70 % Pre intervention KRUPA flow: 3 PROCEDURE: Drug Eluting Stent with post dilatation Post Stenosis: 0 % Post intervention KRUPA flow: 3 Lesion Devices: Terumo .014 180cm Runthrough Extra Floppy straight Cordis 6 Fr JR4 100cm Guide Catheter Medtronic 3.0 x 15 MICHAEL FRONTIER ANOOP Medtronic NC EUPHORA RX 3.0x12 BALLOON LESION SITE: RCA (Proximal) Lesion Complexity: High/C, lesion length: 28 mm Pre Stenosis: 80 % Pre intervention KRUPA flow: 3 PROCEDURE: Drug Eluting Stent with post dilatation Post Stenosis: 0 % Post intervention KRUPA flow: 3 Lesion Devices: Medtronic NC EUPHORA RX 3.0x12 BALLOON Medtronic 3.0 x 30 MICHAEL FRONTIER ANOOP Medtronic NC EUPHORA RX 3.5x06 BALLOON Medtronic NC EUPHORA RX 4.0x06 BALLOON COMPLICATIONS No Complications PROCEDURE MEDICATIONS Fentanyl 50 mcg IV Versed 1 mg IV Versed 1 mg IV Oxygen: 2 L/min via nasal cannula Brilinta 180 mg PO @ 09/18/2024 08:23:21 Heparin given IA 09/18/2024 08:03:13 Heparin 6000 unit(s) IV 09/18/2024 08:34:34 Heparin 2000 unit(s) IV 09/18/2024 08:40:32 Nitro 200 mcg IC 09/18/2024 08:44:32 Nitro 200 mcg IC 09/18/2024 08:44:32 Nitro 200 mcg IC 09/18/2024 08:59:01 Verapamil 2.5mg, Ntg 100mcgs, 3000 units of Heparin given IA 09/18/2024 08:03:13 SUMMARY OF HEMODYNAMIC DATA Time AIR REST ECG 07:08:52 AO 111/76 (93) SA 08:10:11 LV 100/7, 12 08:16:40 LV 93/9, 15 08:16:48 LV 104/10, 16 08:17:29 LVp 105/11, 16 08:17:32 AOp 0/0 (85) 08:17:39 09:28:19 Signed By Joselo Chavira MD On 09/18/2024 09:32:15 Joselo Chavira MD 09/18/24 0932 Date _ [facility]ak[facility] MD [facility] Signature: Date (if indicated) CC: Dr. Sudhakar Quinn MD; Dr. Mirtha Galeana, DO ~ Date Dictated: 09/18/24 3614 (more content not included)... [facility] Work Phone: Cardiac catheterization study [facility] Imaging Services [address] [place] [address] Cardiac Cath Diagnostic MR#: [id number] Acct: [id number] Name: MIRTHA GAMEZ Rep #:[id number] : 1960 64 From: Sudhakar Quinn MD PCP: Dr. Mirtha Galeana, DO Status:[facility] Patient Name: MIRTHA LUCAS Study Date: 09/18/2024 Performing: Sudhakar Quinn MD Ht: 167.64 inches 425.8056 cm : 1960 Wt: 93.44 lbs 42.384 kg Age: 64 Gender: male BSA: 2.85 PROCEDURE(S) PERFORMED DC01-(60949)LHC/COR/LV CLINICAL PROFILE AND INDICATIONS Indications: Suspected CAD Heart Failure: None Stress/Imaging Coronary Calcium Score: Yes Calcium Score: 783Calcium Score: 783 CAD Presentations: Stable angina. CONCLUSIONS Coronary artery calcification with moderately severe disease noted in the proximal right coronary artery RECOMMENDATIONS Referred for immediate PCI DESCRIPTION OF PROCEDURE The patient arrived to the procedure lab. The risks and benefits of the procedure as well as a full description of our services here and current unavailability of surgical backup were fully explained to the patient and/or their significant other prior to the catheterization. The Timeout was completed, verifying the correct patient and procedure. The patient's procedural site was prepped and draped in the usual fashion. Local anesthetic was given subcutaneously to right radial region with Lidocaine 2%. Using a modified Seldinger technique, arterial access was obtained via the right radial artery, a 6Fr sheath was inserted. Right Coronary Artery selective angiography was then performed in multiple views using a 5 Fr. 4.0 [facility] catheter. Left Coronary Artery selective angiography was performed in multiple views using a 5 Fr. 4.0 [facility] catheter. Left Ventriculography was performed in MORENO projection using a 5 Fr. Pigtail catheter. LV to AO pullback pressures were then recorded. CORONARY ANGIOGRAPHY DOMINANCE: Co- Dominant LEFT HEART ASSESSMENT Left Ventricular Ejection Fraction: by LV Gram 60 % Normal LV wall motion Normal Left Ventricular systolic function LEFT MAIN: Moderate calcification, Mild luminal irregularities LEFT ANTERIOR DESCENDING ARTERY: Mild luminal irregularities less than 30% DIAGONAL 1: Proximal - Mild luminal irregularities CIRCUMFLEX ARTERY: Mild luminal irregularities, Codominant vessel with no significant stenosis present LT PDA: Left PDA: Mid - No significant disease noted RIGHT CORONARY ARTERY: Codominant vessel with proximal 70 to 80% stenosis present COMPLICATIONS PROCEDURE MEDICATIONS Fentanyl 50 mcg IV Versed 1 mg IV Versed 1 mg IV Oxygen: 2 L/min via nasal cannula Brilinta 180 mg PO @ 09/18/2024 08:23:21 Heparin given IA 09/18/2024 08:03:13 Heparin 6000 unit(s) IV 09/18/2024 08:34:34 Verapamil 2.5mg, Ntg 100mcgs, 3000 units of Heparin given IA 09/18/2024 08:03:13 SUMMARY OF HEMODYNAMIC DATA Time AIR REST ECG 07:08:52 AO 111/76 (93) SA 08:10:11 LV 100/7, 12 08:16:40 LV 93/9, 15 08:16:48 LV 104/10, 16 08:17:29 LVp 105/11, 16 08:17:32 AOp 0/0 (85) 08:17:39 08:31:46 Signed By Sudhakar Quinn MD On 09/18/2024 08:36:44 Sudhakar Quinn MD 09/18/24 0837 Date _ Sudhakar Quinn MD Cosigner Signature: Date (if indicated) CC: Dr. Sudhakar Quinn MD; Dr. Mirtha Galeana DO ~ Date Dictated: 09/18/245 Date Transcribed: 09/18/24 0836 Gear Grinder: CO Signed [facility] Work Phone: Cardiac rehabilitation repor tOrdered By: Tierney Hoang on 09-18-2024 Study report [facility] Cardiac Rehab [address] [place] [address] CR: Phase I Assessment MR#: [id number] Acct: [id number] Name: MIRTHA GAMEZ Rep #:[id number] : 1960 64 From: Tierney Hoang PCP: Dr. Mirtha Galeana DO DOS: Patient Communication Patient Information PHII Cardiac Rehab Discussed with Patient:: Yes Guide to Cardiac Rehab Given to Patient:: Yes Communication to Cardiac Rehab Choice Program [facility] CR PHII:: Communication Given to CR Physician Vice President:: Fan,Joselo Refer Phase II Cardiac Rehab:: Yes Sessions:: 36 sessions - 3 days/wk, 12 weeks Cardiac Rehabilitation Info Program Information Cardiac Rehabilitation Program Information: Cardiac Rehab The cardiac rehab team at [facility] consists of highly skilled exercise physiologists, nurses, respiratory therapists and physicians working together with you. Our purpose is to help you have a full recovery and achieve the goals you set for yourself. Over the years many of our patients have returned to activities they assumed they would never do again! We can help restore your confidence and motivation to make lifestyle changes that can have a significant impact on your health and quality of life! We can help answer questions and concerns you may have about exercise, lifestyle, medications, diet, stress and anxiety which are common following a hospitalization. WE monitor ECG and vital signs during exercise and discuss your progress with you and report toyour physician(s). Cardiac Rehab is proven to help reduce readmissions, improve functional capacityand lower recurrence of problems with your heart. Our Cardiac Rehab program is Certified by the [place] [employer]-Vascular and Pulmonary [employer] (AACVPR) and Accredited by the [employer] through our [facility]. You can contact us at . We invite you to call us with your questions or to get started in our program. If you have other questions or concerns be sure to ask your physician/provider during your follow-up visit. WE look forward to seeing you! 09/18/24 1332 Date Miguel Hoang Outcome assessment reviewed. Exercise plan approved as documented. Treatment plan and goals support patient needs/abilities. Continue with current plan. I certify the patient demonstrates improvement and remains willing and capable of participation. the patient continues to benefit from cardiac rehab services/training. The patient may continue at current intensity, endurance andmodality and progress per protocol. Gabo Signature: Date CC: ~ Signed [facility] Hemoglobin A1con 09-18-2024 HbA1c (Bld) [Mass fraction] 7.4 % Normal <=5.6 [facility] Comment on above: Performed By: #### L 501.9985 ####[facility] [address] [place], [address] Hemoglobin A1c percentageOrd ered By: Sudhakar Quinn on 09-18-2024 HbA1c (Bld) [Mass fraction] 7.4 % >5.7 [facility] Microalbumin,Random Urineon 09-18-2024 MICROALBUMIN,UR < 12.0 Normal NO RANGE EST. [facility] Comment on above: Performed By: #### L 502.0500 ####[facility] [address] [place], [address] Echo Completeon 09-10-2024 Echo Complete [facility] [address] [place] [address] Echo Complete 09/10/24 0809 MR#: [id number] Acct: [id number] Name: MIRTHA GAMEZ Rep #: [id number] : 1960 64 From: Sudhakar Quinn MD Attending Dr: Dr. Sudhakar Quinn MD Status: [facility] Ordering Dr: Sudhakar Quinn MD Date: 09/10/24 Location: [facility] Sex: M C Admitted: Reason For Study Reason For Study: Arrhythmia Procedure This was a 2D Doppler, Color Flow transthoracic echocardiogram. Exam performed in department. Left Ventricle Normal LV size. The left ventricular ejection fraction is 55 %. No regional wall motion abnormalities noted. Right Ventricle Normal RV size. Normal systolic function. Atria Normal left atrium. Normal right atrium. Mitral Valve Bileaflet diffuse mitral valve thickening. Mild (1+) eccentric mitral valve insufficiency. Tricuspid Valve Normal tricuspid valve. Mild tricuspid valve insufficiency. Pulmonary artery systolic pressure is 20 mmHg. Aortic Valve Trisinus/trileaflet aortic valve. Pulmonic Valve Normal pulmonic valve. Great Vessels Normal aortic root. The pulmonary artery is normal size. Inferior vena cava collapse with respiration. Pericardium/Pleural No pericardial effusion. MMode/2D Measurements Calculations LVIDd: 4.5 cm IVSd: 0.99 cm Ao root diam: 3.9 cm LVIDs: 3.0 cm LVPWd: 0.99 cm RVDd: 3.8 cm FS: 34.1 % LAV(MOD-bp): 27.5 ml LVAd ap4: 26.2 cm2 SV(MOD-sp4): 37.6 ml LAV(MOD-bp) Indexed: 13.6 ml/m2 LVLd ap4: 8.2 cm SI(MOD-sp4): 18.6 ml/m2 LAV(MOD-sp2): 27.1 ml EDV(MOD-sp4): 71.0 ml LAV(MOD-sp4): 26.4 ml EDV(sp4-el): 71.0 ml LVAs ap4: 16.6 cm2 LVLs ap4: 7.2 cm ESV(MOD-sp4): 33.4 ml ESV(sp4-el): 32.7 ml EF(MOD-sp4): 52.9 % EF(sp4-el): 54.0 % SV(sp4-el): 38.3 ml LA A4 area: 12.4 cm2 LA dimension(2D): 4.2 cm RA A4 area: 13.6 cm2 TAPSE: 2.2 cm Time Measurements MV dec time: 0.23 sec Doppler Measurements Calculations MV E max tracy: 62.8 cm/sec Lat Peak E' Tracy: 9.3 cm/sec Med Peak E' Tracy: 6.9 cm/sec MV A max tracy: 96.2 cm/sec E/E' lat: 6.8 E/E' med: 9.1 MV E/A: 0.65 MV V2 max: 99.0 cm/sec MV P1/2t max tracy: 63.1 cm/sec Ao V2 max: 97.4 cm/sec MV max P.9 mmHg MV P1/2t: 71.4 msec Ao max P.8 mmHg MV V2 mean: 54.6 cm/sec Ao V2 mean: 63.6 cm/sec MV mean P.4 mmHg MV dec slope: 258.8 cm/sec2 Ao mean P.9 mmHg MV V2 VTI: 17.4 cm MVA(P1/2t): 3.1 cm2 Ao V2 VTI: 18.2 cm AV (velocity ratio): 0.89 LV V1 max: 88.6 cm/sec PA V2 max: 75.9 cm/sec TR max tracy: 210.5 cm/sec LV V1 max P.1 mmHg TR max P.7 mmHg LV V1 mean P.3 mmHg LV V1 mean: 49.6 cm/sec LV V1 VTI: 16.2 cm ECHO/Echo Complete Interpretation Summary The left ventricular ejection fraction is 55 %. No regional wall motion abnormalities noted. Bileaflet diffuse mitral valve thickening. Normal LV size. Pulmonary artery systolic pressure is 20 mmHg. Ordering Physician: Sudhakar Quinn Referring Physician: Sudhakar Quinn Performed By: Jose Wong RCS 09/10/24 1008 Date Sudhakar Quinn MD CC: Dr. Sudhakar Quinn MD; Dr. Mirtha Galeana DO Date Dictated: 09/10/24 0809 Date Transcribed: 09/10/24 1008 Gear Grinder: Signed Normal [facility] Echocardiogram study reportO rdered By: Sudhakar Quinn on 09-10-2024 Study report [facility] [address] [place] [address] Echo Complete 09/10/24 0809 MR#: [id number] Acct: [id number] Name: VERALEEANNAMIRTHAMYRIAM LANZA Rep #:[id number] 1960 64 From: Sudhakar Nagel Attending Dr: Dr. Sudhakar Quinn MD S tatus: REG CLI Ordering Dr: Sudhakar Quinn MD Date: Location: CVS Sex: M C Admitted: Reason For Study Reason For Study: Arrhythmia Procedure This was a 2D Doppler, Color Flow transthoracic echocardiogram. Exam performed in department. Left Ventricle Normal LV size. The left ventricular ejection fraction is 55 %. No regional wallmotion abnormalities noted. Right Ventricle Normal RV size. Normal systolic function. Atria Normal left atrium. Normal right atrium. Mitral Valve Bileaflet diffuse mitral valve thickening. Mild (1+) eccentric mitral valve insufficiency. Tricuspid Valve Normal tricuspid valve. Mild tricuspid valve insufficiency. Pulmonary artery systolic pressure is 20 mmHg. Aortic Valve Trisinus/trileaflet aortic valve. Pulmonic Valve Normal pulmonic valve. Great Vessels Normal aortic root. The pulmonary artery is normal size. Inferior vena cava collapse with respiration. Pericardium/Pleural No pericardial effusion. MMode/2D Measurements & Calculations LVIDd: 4.5 cm IVSd: 0.99 cm Ao root diam: 3.9 cm LVIDs: 3.0 cm LVPWd: 0.99 cm RVDd: 3.8 cm FS: 34.1 % LAV(MOD-bp): 27.5 ml LVAd ap4: 26.2 cm2 SV(MOD-sp4): 37.6 ml LAV(MOD-bp) Indexed: 13.6 ml/m2 LVLd ap4: 8.2 cm SI(MOD-sp4): 18.6 ml/m2 LAV(MOD-sp2): 27.1 ml EDV(MOD-sp4): 71.0 ml LAV(MOD-sp4): 26.4 ml EDV(sp4-el): 71.0 ml LVAs ap4: 16.6 cm2 LVLs ap4: 7.2 cm ESV(MOD-sp4): 33.4 ml ESV(sp4-el): 32.7 ml EF(MOD-sp4): 52.9 % EF(sp4-el): 54.0 % SV(sp4-el): 38.3 ml LA A4 area: 12.4 cm2 LA dimension(2D): 4.2 cm RA A4 area: 13.6 cm2 TAPSE: 2.2 cm Time Measurements MV dec time: 0.23 sec Doppler Measurements & Calculations MV E max tracy: 62.8 cm/sec Lat Peak E' Tracy: 9.3 cm/sec Med Peak E' Tracy: 6.9 cm/sec MV A max tracy: 96.2 cm/sec E/E' lat: 6.8 E/E' med: 9.1 MV E/A: 0.65 MV V2 max: 99.0 cm/sec MV P1/2t max tracy: 63.1 cm/sec Ao V2 max: 97.4 cm/sec MV max P.9 mmHg MV P1/2t: 71.4 msec Ao max P.8 mmHg MV V2 mean: 54.6 cm/sec Ao V2 mean: 63.6 cm/sec MV mean P.4 mmHg MV dec slope: 258.8 cm/sec2 Ao mean P.9 mmHg MV V2 VTI: 17.4 cm MVA(P1/2t): 3.1 cm2 Ao V2 VTI: 18.2 cm AV (velocity ratio): 0.89 LV V1 max: 88.6 cm/sec PA V2 max: 75.9 cm/sec TR max tracy: 210.5 cm/sec LV V1 max P.1 mmHg TR max P.7 mmHg LV V1 mean P.3 mmHg LV V1 mean: 49.6 cm/sec LV V1 VTI: 16.2 cm ECHO/Echo Complete Interpretation Summary The left ventricular ejection fraction is 55 %. No regional wall motion abnormalities noted. Bileaflet diffuse mitral valve thickening. Normal LV size. Pulmonary artery systolic pressure is 20 mmHg. Ordering Physician: Sudhakar Quinn Referring Physician: Sudhakar Quinn Performed By: Jose Wong RCS 09/10/24 1008 Date _ Sudhakar Quinn MD CC: Dr. Sudhakar Quinn MD; DO Declan Geronimo Date Dictated: 09/10/24 0809 Date Transcribed: 09/10/24 1008 Gear Grinder: Signed [facility] Work Phone: Internal Medicine Office Vis adilene 09-05-2024 Internal Medicine Office Visit [facility] [address] [place] [address] [place] [address] OFFICE VISIT Date of Service: 09/05/24 MR#: [id number] Acct: [id number] Name: MIRTHA GAMEZ Rep #: [id number] : 1960 Provider: Dr. 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 [facility] Medical History Palpitations HORTON (dyspnea on exertion) Heart palpitations Fatigue Elevated liver enzymes Headache GERD (gastroesophageal reflux disease) Kidney stones Hyperlipidemia Hypertension Hearing problem Diabetes Seasonal allergies Surgical History History of tonsillectomy Family History Father Lung cancer Mother Heart disease COPD (chronic obstructive pulmonary disease) Sister Thyroid disorder Social History Smoking Status: Former smoker alcohol intake: current alcohol intake frequency: holidays/special occasions only substance use type: does not use what type of physical activity do you participate in: walking HPI HPI Chief Complaint: routine diabetic recheck Details: MIRTHA GAMEZ, is a 64 M who presents to the office today for a recheck on his diabetes. He has been seen by cardiology for frequent PVCs. He was placed on metoprolol and that is helped to some extent. Because of his history of diabetes even though he has been on a statin they have suggested he gets a cardiac calcium score. That test has not been completed as of yet. ROS Const Constitutional: No body ache, chills, excessive sweating, fatigue, fever(s), frequent falls, headache(s), snoring, weakness, sleep problems or change in appetite Eyes Eyes: No blurry vision, change in vision, eye pain or Light sensitivity ENT ENT: No abnormal hearing, ear or mastoid pain, tinnitus, nasal congestion, headache(s), neck pain or sore throat Resp Respiratory: No cough, shortness of breath, snoring or wheezing Cardio Cardiology: No chest pain at rest, chest pain with exertion, excessive sweating, shortness of breath, dyspnea on exertion, lightheadedness, orthopnea or palpitations Gastro GI: No abdominal pain, change in bowel habits, constipation, cramping, diarrhea, nausea/dyspepsia or vomiting Genitourinary Male: No burning urination, painful urination, urinary incontinence or urinary frequency Musc Musculoskeletal: No abnormal gait, joint pain, back pain, limited range of motion, neck pain or numbness Skin Skin: No dry skin, redness, lesions, itchy eyes, rash or wounds Neuro Neurology: No abnormal gait, abnormal hearing, weakness, frequent falls, headache(s), memory loss or numbness Psych Psychiatric: No anxiety, No change in appetite, No depression, No memory loss and No Thoughts of harming yourself/Others Endo Endocrine: No cold intolerance, excessive sweating, fatigue, flushing, heat intolerance, increased thirst/drinking or increased hunger Aller/Imm Allergy/Immunologic: No itchy eyes, seasonal allergy symptoms, hives or wheezing Mitch/Lymp Hematologic/Lymphatic: No easy bleeding, easy bruising, enlarged lymph nodes or other Exam Const General: cooperative and healthy appearing Nutritional Appearance: average body habitus HENAL Head: normal to inspection Face and sinus: normal facial exam Mouth: oral mucosae normal Teeth and gingiva: dentition normal Eyes General: appearance normal, both eyes and all related structures Neck Neck: normal visual inspection Neck mass: Yes Resp Effort Inspection: normal respiratory effort Auscultation: Bilateral: Clear to Auscultation Cardio Rate: reg (more content not included)... Normal [facility] - Hematology and Cell countsOrdered By: Mirtha Galeana on 09-05-2024 HbA1c (Bld) [Mass fraction] 7.7 % High 4.2-6.3 [facility] Absolute neutrophil countOrd ered By: Sandra Zepeda on 09-03-2024 Neutrophils (Bld) [#/Vol] 4.5 10*3/uL 2.0-7.7 [facility] Anion gap in Serum or Plasma Ordered By: Sandra Zepeda on 09-03-2024 Anion gap [Moles/Vol] 13 mmol/L 11-08 [facility] BUN/creatinine ratioOrdered By: Sandra Zepeda on 09-03-2024 Urea nitrogen/Creatinine [Mass ratio] 17.9 mg/mg 04-15 [facility] Basic Metabolic Profile (BMP )on 09-03-2024 BUN/CRE 17.9 RATIO Normal 04-15 [facility] Comment on above: Performed By: #### L 500.2500, L300.4310, L300.3900, L100.0100 ####[facility] [address] [place], [address] Calcium [Mass/Vol] 9.3 mg/dL Normal 7.6-11.0 [facility] Comment on above: Performed By: #### L 500.2500, L300.4310, L300.3900, L100.0100 ####[facility] [address] [place], [address] Chloride [Moles/Vol] 106 mmol/L Normal 98-108 [facility] Comment on above: Performed By: #### L 500.2500, L300.4310, L300.3900, L100.0100 ####[facility] [address] [place], [address] CO2 [Moles/Vol] 22.6 mmol/L Normal 21.0-32.0 [facility] Comment on above: Performed By: #### L 500.2500, L300.4310, L300.3900, L100.0100 ####[facility] [address] [place], [address] Creatinine [Mass/Vol] 0.90 mg/dL Normal 0.70-1.20 [facility] Comment on above: Performed By: #### L 500.2500, L300.4310, L300.3900, L100.0100 ####[facility] [address] [place], [address] GAP 13 Normal 5-15 [facility] Comment on above: Performed By: #### L 500.2500, L300.4310, L300.3900, L100.0100 ####[facility] [address] [place], [address] GFR/1.73 sq M.predicted among non-blacks MDRD (S/P/Bld) [Vol rate/Area] 96 mL/min/{1.73_m2} Normal >60 [facility] Comment on above: Result Comment: mL/m in/1.73m2 CKD-EPI Creatinine Equation (2020) Performed By: #### L 500.2500, L300.4310, L300.3900, L100.0100 ####[facility] [address] [place], [address] Glucose [Mass/Vol] 165 mg/dL High 70-99 [facility] Comment on above: Performed By: #### L 500.2500, L300.4310, L300.3900, L100.0100 ####[facility] [address] [place], [address] Potassium [Moles/Vol] 4.1 mmol/L Normal 3.3-5.1 [facility] Comment on above: Performed By: #### L 500.2500, L300.4310, L300.3900, L100.0100 ####[facility] [address] [place], [address] Sodium [Moles/Vol] 141 mmol/L Normal 133-145 [facility] Comment on above: Performed By: #### L 500.2500, L300.4310, L300.3900, L100.0100 ####[facility] [address] [place], [address] Urea nitrogen [Mass/Vol] 16 mg/dL Normal 4-19 [facility] Comment on above: Performed By: #### L 500.2500, L300.4310, L300.3900, L100.0100 ####[facility] [address] [place], [address] Basophil percentageOrdered B y: Sandra Zepeda on 09-03-2024 Basophils/100 WBC (Bld) 1.0 % 0-1 [facility] CBC W/Diff, Automatedon 08-25 Absolute Lymph 2.36 X10 3/uL Normal 0.83-4.51 [facility] Comment on above: Performed By: #### L 500.2500, L300.4310, L300.3900, L100.0100 ####[facility] [address] [place], [address] Absolute Neut 4.5 X10 3/uL Normal 2.0-7.7 [facility] Comment on above: Performed By: #### L 500.2500, L300.4310, L300.3900, L100.0100 ####[facility] [address] [place], [address] Basophils/100 WBC (Bld) 1.0 % Normal 0-1 [facility] Comment on above: Performed By: #### L 500.2500, L300.4310, L300.3900, L100.0100 ####[facility] [address] [place], [address] Eosinophils/100 WBC (Bld) 2.7 % Normal 0-5 [facility] Comment on above: Performed By: #### L 500.2500, L300.4310, L300.3900, L100.0100 ####[facility] [address] [place], [address] Erythrocyte distribution width (RBC) [Ratio] 11.9 % Normal 11.6-14.6 [facility] Comment on above: Performed By: #### L 500.2500, L300.4310, L300.3900, L100.0100 ####[facility] [address] [place], [address] Hematocrit (Bld) [Volume fraction] 45.5 % Normal 40-54 [facility] Comment on above: Performed By: #### L 500.2500, L300.4310, L300.3900, L100.0100 ####[facility] [address] [place], [address] Hemoglobin (Bld) [Mass/Vol] 16.1 g/dL Normal 13.0-16.5 [facility] Comment on above: Performed By: #### L 500.2500, L300.4310, L300.3900, L100.0100 ####[facility] [address] [place], [address] IG% 0.300 Normal 0.0-0.9 [facility] Comment on above: Result Comment: IG% - Immature Granulocytes (promyelocytes, myelocytes and metamyelocytes) > 1% indicates that a LEFT SHIFT is Present. Performed By: #### L 500.2500, L300.4310, L300.3900, L100.0100 ####[facility] [address] [place], [address] Lymphocytes/100 WBC (Bld) 30.0 % Normal 19-41 [facility] Comment on above: Performed By: #### L 500.2500, L300.4310, L300.3900, L100.0100 ####[facility] [address] [place], [address] MCH (RBC) [Entitic mass] 31.4 pg Normal 27.0-32.0 [facility] Comment on above: Performed By: #### L 500.2500, L300.4310, L300.3900, L100.0100 ####[facility] [address] [place], [address] MCHC (RBC) [Mass/Vol] 35.4 g/dL Normal 32-36 [facility] Comment on above: Performed By: #### L 500.2500, L300.4310, L300.3900, L100.0100 ####[facility] [address] [place], [address] MCV (RBC) [Entitic vol] 88.9 fL Normal 80-94 [facility] Comment on above: Performed By: #### L 500.2500, L300.4310, L300.3900, L100.0100 ####[facility] [address] [place], [address] Monocytes/100 WBC (Bld) 9.0 % Normal 0-10 [facility] Comment on above: Performed By: #### L 500.2500, L300.4310, L300.3900, L100.0100 ####[facility] [address] [place], [address] Neutrophils/100 WBC (Bld) 57.0 % Normal 47-70 [facility] Comment on above: Performed By: #### L 500.2500, L300.4310, L300.3900, L100.0100 ####[facility] [address] [place], [address] Nucleated RBC (Bld) [#/Vol] 0 10*3/uL Normal 0-5 [facility] Comment on above: Performed By: #### L 500.2500, L300.4310, L300.3900, L100.0100 ####[facility] [address] [place], [address] Platelet mean volume (Bld) [Entitic vol] 11.7 fL Normal 6.2-12.0 [facility] Comment on above: Performed By: #### L 500.2500, L300.4310, L300.3900, L100.0100 ####[facility] [address] [place], [address] Platelets (Bld) [#/Vol] 221 10*3/uL Normal 150-450 [facility] Comment on above: Performed By: #### L 500.2500, L300.4310, L300.3900, L100.0100 ####[facility] [address] [place], [address] RBC (Bld) [#/Vol] 5.12 10*6/uL Normal 4.6-6.2 [facility] Comment on above: Performed By: #### L 500.2500, L300.4310, L300.3900, L100.0100 ####[facility] [address] [place], [address] RDW SD 38.8 fl Normal 35.1-43.9 [facility] Comment on above: Performed By: #### L 500.2500, L300.4310, L300.3900, L100.0100 ####[facility] [address] [place], [address] WBC (Bld) [#/Vol] 7.9 10*3/uL Normal 4.4-11.0 [facility] Comment on above: Performed By: #### L 500.2500, L300.4310, L300.3900, L100.0100 ####[facility] [address] [place], [address] Carbon dioxide, total [Moles /volume] in Central venous bloodOrdered By: Sandra Zepeda on 09-03-2024 CO2 [Moles/Vol] 22.6 mmol/L 21.0-32.0 [facility] Chloride assayOrdered By: Andreea Zepeda on 09-03-2024 Chloride [Moles/Vol] 106 mmol/L 98-108 [facility] Eosinophil percentageOrdered By: Sandra Zepeda on 09-03-2024 Eosinophils/100 WBC (Bld) 2.7 % 0-5 [facility] Erythrocyte distribution wid th ratioOrdered By: Sandra Zepeda on 09-03-2024 Erythrocyte distribution width (RBC) [Ratio] 11.9 % 11.6-14.6 [facility] Erythrocyte distribution wid th standard deviationOrdered By: Sandra Zepeda on 09-03-2024 Erythrocyte distribution width (RBC) [Entitic vol] 38.8 fL 35.1-43.9 [facility] GFR/1.73 sq M.predicted qing g non-blacks MDRD (S/P/Bld) [Vol rate/Area]Ordered By: Sandra Zepeda on 09-03-2024 Estimated GFR (MDRD) Non-Af Amer 96 >60 [facility] Comment on above: mL/min/1.73m2 CKD-EP I Creatinine Equation (2020) Hematocrit Auto (Bld) [Volum e fraction]Ordered By: Sandra Zepeda on 09-03-2024 Hematocrit (Bld) [Volume fraction] 45.5 % 40-54 [facility] Hemoglobin measurementOrdere d By: Sandra Zepeda on 09-03-2024 Hemoglobin (Bld) [Mass/Vol] 16.1 g/dL 13.0-16.5 [facility] Immature granulocytes/100 WB C Auto (Bld)Ordered By: Sandra Zepeda on 09-03-2024 Immature granulocytes/100 WBC (Bld) 0.300 % 0.0-0.9 [facility] Comment on above: IG% - Immature Granu locytes (promyelocytes, myelocytes and metamyelocytes) > 1% indicates that a LEFT SHIFT is Present. International normalized rat io (INR) calculationOrdered By: Sandra Zepeda on 09-03-2024 INR Coag (Bld) [Relative time] 1.0 {INR} [facility] Lymphocytes Auto (Unsp spec) [#/Vol]Ordered By: Sandra Zepeda on 09-03-2024 Lymphocytes (Bld) [#/Vol] 2.36 10*3/uL 0.83-4.51 [facility] Lymphocytes/100 WBC Auto (Un sp spec)Ordered By: Sandra Zepeda on 09-03-2024 Lymphocytes/100 WBC (Bld) 30.0 % 19-41 [facility] MCV (mean corpuscular volume ) determinationOrdered By: Sandra Zepeda on 09-03-2024 MCV (RBC) [Entitic vol] 88.9 fL 80-94 [facility] Mean corpuscular hemoglobin (MCH) determinationOrdered By: Sandra Zepeda on 09-03-2024 MCH (RBC) [Entitic mass] 31.4 pg 27.0-32.0 [facility] Mean corpuscular hemoglobin concentration (MCHC) determinationOrdered By: Sandra Zepeda on 09-03-2024 MCHC (RBC) [Mass/Vol] 35.4 g/dL 32-36 [facility] Mean platelet volume determi nationOrdered By: Sandra Zepeda on 09-03-2024 Platelet mean volume (Bld) [Entitic vol] 11.7 fL 6.2-12.0 [facility] Monocyte percentageOrdered B y: Sandra Zepeda on 09-03-2024 Monocytes/100 WBC (Bld) 9.0 % 0-10 [facility] Neutrophil percentageOrdered By: Sandra Zepeda on 09-03-2024 Neutrophils/100 WBC (Bld) 57.0 % 47-70 [facility] Nucleated red blood cell per centageOrdered By: Sandra Zepeda on 09-03-2024 Nucleated RBC/100 WBC (Bld) [Ratio] 0 % 0-5 [facility] Partial Thromboplast Timeon 09-03-2024 aPTT Coag (Bld) [Time] 24.8 s Normal 24.1-36.2 [facility] Comment on above: Performed By: #### L 500.2500, L300.4310, L300.3900, L100.0100 ####[facility] [address] [place], [address] Platelet countOrdered By: Andreea Zepeda on 09-03-2024 Platelets (Bld) [#/Vol] 221 10*3/uL 150-450 [facility] Potassium (Unsp spec) [Mass/ Vol]Ordered By: Sandra Zepeda on 09-03-2024 Potassium [Moles/Vol] 4.1 mmol/L 3.3-5.1 [facility] Prothrombin Time w/INRon INR Coag (PPP) [Relative time] 1.0 {INR} Normal [facility] Comment on above: Performed By: #### L 500.2500, L300.4310, L300.3900, L100.0100 ####[facility] [address] [place], [address] PT Coag (PPP) [Time] 13.4 s Normal 11.7-14.9 [facility] Comment on above: Performed By: #### L 500.2500, L300.4310, L300.3900, L100.0100 ####[facility] [address] [place], [address] Prothrombin timeOrdered By: Sandra Zepeda on 09-03-2024 PT Coag (PPP) [Time] 13.4 s 11.7-14.9 [facility] RBC Auto (Bld) [#/Vol]Ordere d By: Sandra Zepeda on 09-03-2024 RBC (Bld) [#/Vol] 5.12 10*6/uL 4.6-6.2 [facility] Serum creatinine measurement (mass/volume)Ordered By: Sandra Zepeda on 09-03-2024 Creatinine [Mass/Vol] 0.90 mg/dL 0.70-1.20 [facility] Serum glucose measurement (m ass/volume)Ordered By: Sandra Zepeda on 09-03-2024 Glucose [Mass/Vol] 165 mg/dL High 70-99 [facility] Serum or plasma calcium dillon urement (mass/volume)Ordered By: Sandra Zepeda on 09-03-2024 Calcium [Mass/Vol] 9.3 mg/dL 7.6-11.0 [facility] Serum or plasma urea nitroge n measurement (mass/volume)Ordered By: Sandra Zepeda on 09-03-2024 Urea nitrogen [Mass/Vol] 16 mg/dL 4-19 [facility] Sodium levelOrdered By: Nikolas Zepeda on 09-03-2024 Sodium [Moles/Vol] 141 mmol/L 133-145 [facility] White blood cell (WBC) count Ordered By: Sandra Zepeda on 09-03-2024 WBC (Bld) [#/Vol] 7.9 10*3/uL 4.4-11.0 [facility] aPTT Coag (PPP) [Time]Ordere d By: Sandra Zepeda on 09-03-2024 aPTT Coag (Bld) [Time] 24.8 s 24.1-36.2 [facility] Coronary Angiography CTon Coronary Angiography CT [facility] Imaging Services [address] [place] [address] 08/23/24 1820 MR#: [id number] Acct: [id number] Name: MIRTHA GAMEZ Rep #: [id number] : 1960 64 From: Sudhakar Quinn MD PCP: Dr. Mirtha Galeana DO Status:REG CLI Y Location: CT Calcium Scoring Date of Study:: 08/17/24 Indications Indications: hyperlipidemia Coronary Calcium Scoring: High-resolution Computed Tomographic imaging of the chest was performed on [08/17/24 ], with particular attention paid to the coronary arteries. Images from the examination were analyzed for the presence and extent of coronary artery calcification , using coronary calcium quantification software. The patient tolerated the procedure well and there were no complications. The results of the coronary calcification analysis are provided below. Findings Coronary Artery Left Main (LM): 271 Left Anterior Descending (LAD): 386 Left Circumflex (LCX): 26.8 Right Coronary Artery (RCA): 47.9 Total Agatston Score: 731.7 Percentile Rankin-90th Calcium Scoring Interpretation: Different methods to categorize the overall amount of coronary plaque. Overall amount CAC SIS Visual of coronary plaque P1 Mild -100 <2 1-2 vessels with mild amount of plaque P2 Moderate 101-300 3-4 1-2 vessels with moderate amount, 3 vessels with mild amount of plaque P3 Severe 301-999 5-7 3 vessels with moderate amount, 1 vessel with severe amount of plaque P4 Extensive >1000 >8 2-3 vessels with severe amount of plaque Calcium Score: Extensive: 2-3 vessels w/severe amount of plaque Conclusion: 2 to 3 vessels with significant plaque noted 08/23/24 1824 Date Sudhakar Quinn MD Cosigner Signature (if applicable): Date CC: Dr. Sudhakar Quinn MD; Dr. Mirtha Galaena DO Signed Normal [facility] Limited Chest CT Cardiac Onl yon 08-17-[address] Cardiac Only [facility] Imaging Services [address] [place] [id number] Cardiac Only MR#: [id number] Acct: [id number] Name: MIRTHA GAMEZ Rep #: [id number] : 1960 M 64 From: Viet wu MD PCP: Dr. Mirtha Galeana, DO Status: REG CLI Study: Limited Chest CT Cardiac Only Date of Exam: Exam# [id number] Ordering Dr: Sudhakar Quinn MD PROCEDURE: LIMITED CHEST CT CARDIAC ONLY REASON FOR EXAM: Hyperlipidemia. TECHNIQUE: Multiple axial tomographic images were obtained without intravenous contrast administration. Cardiac over-read examination. COMPARISON: None. FINDINGS: CHEST: Lines and tubes: None. Mediastinum: No evidence of mediastinal hemorrhage. Heart: Normal heart size. No pericardial effusion. Coronary artery calcification. 1 Thoracic Aorta: Atherosclerotic plaque formation of the aortic arch. Lungs and Airways: The lungs are normally expanded and clear. Pleura: No pleural effusion. No pneumothorax. Bones: Degenerative changes of the spine. CT/Limited Chest CT Cardiac Only IMPRESSION: Coronary artery calcification. The visualized portions of the lungs are unremarkable. One or more dose reduction techniques were used (e.g., Automated exposure control, adjustment of the mA and/or kV according to patient size, use of iterative reconstruction technique). Reading Location: [id number] CC: Dr. Sudhakar Quinn MD; Dr. Mirtha Galeana, Gear Grinder: Signed Normal [facility] 12 Lead EKG performed by [facility] [place] 07-27-2024 12 Lead EKG performed by [facility] [address] [place] [address] 12 Lead EKG performed by [facility] 07/27/24 0847 MR#: [id number] Acct: [id number] Name: MIRTHA GAMEZ Rep #: [id number] : 1960 64 From: Sudhakar Quinn MD Attending Dr: Dr. Sudhakar Quinn MD Status: DEP A VARSHA Ordering Dr: Sudhakar Quinn MD Date: 07/27/24 [place] [facility] [place] Sex: M C Admitted: BMS/12 Lead EKG performed by [facility] ECG Report Interpretation ---Sinus Rhythm - frequent PAC s # PACs = 3.WITHIN NORMAL LIMITSElectronically signed on 07/28/2024 at 17:07 by Sudhakar Quinnwood Software Version [id number] 07/28/24 1713 Date Sudhakar Quinn MD CC: Dr. Mirtha Galeana DO Date Dictated: 07/27/24846 Date Transcribed: 07/27/24846 Gear Grinder: CO Signed Normal [facility] Cardiology Visit Reporton Cardiology Visit Report [facility]. [address] [place] [address] OFFICE VISIT Date of Service: 07/27/24 MR#: [id number] Acct: [id number] Name: CASEYMIRTHA FORBES POOL Rep #: [id number] : 1960 Provider: Dr. Sudhakar Quinn MD Age/Sex: 64/M [place] [facility] [place]: Signed HPI HPI History of Present Illness Details: 64-year-old man with no previous cardiac history other than hypertension and diabetes mellitus who presents with palpitations. He says that this has been going on for a few weeks. He denies any chest pain no shortness of breath no pedal edema no paroxysmal nocturnal dyspnea. These palpitations occur at a variety of times he presented to the emergency room was evaluated electrolytes were noted to be normal TSH was normal. A 48-hour Holter monitor demonstrated an average heart rate of 94 bpm and maximal heart rate 152 bpm in sinus rhythm with an artery interval of 1.3 seconds. There was 0.3% of the total QRS complexes noted to be PACs. He has otherwise been doing well. His physical exam today is unremarkable his electrocardiogram demonstrates sinus rhythm with a rate of 97 bpm and frequent premature atrial complexes noted. Intake Vital Signs 06/30/24 16:40 07/27/24 08:46 Height 5 ft 6 in 5 ft 6 in Weight: 206 lb BMI 33.2 BP 122/63 H Blood Pressure Location Lt brachial Position Sitting Respiration 16 Pulse 90 Pulse Source Monitor Intake Visit Reasons: S/P [facility] 06/30 Planer Setup Operator Required: No Accompanied by: Significant Other Is patient in pain?: No Allergies bee venom protein (honey bee) (bee stings) Allergy (Unknown, Verified 07/27/24 08:53) Swelling Medications ???Medication ???Instructions ???Recorded ???Confirmed ???Type lisinopril 40 mg tablet 40 mg PO DAILY #90 TABLETS 4 07/16/24 Rx metformin 500 mg tablet,extended 500 mg PO BID 90 days #180 tabs 07/16/24 Rx release 24 hr metoprolol succinate 25 mg 25 mg PO QDAY #60 tabs 07/27/24 Rx tablet,extended release 24 hr (Toprol XL) Have you fallen in the past year?: No PFSH Medical History Palpitations HORTON (dyspnea on exertion) Heart palpitations Fatigue Elevated liver enzymes Headache GERD (gastroesophageal reflux disease) Kidney stones Hyperlipidemia Hypertension Hearing problem Diabetes Seasonal allergies Surgical History History of tonsillectomy Family History Father Lung cancer Mother Heart disease COPD (chronic obstructive pulmonary disease) Sister Thyroid disorder Social History Smoking Status: Former smoker alcohol intake: current alcohol intake frequency: holidays/special occasions only substance use type: does not use what type of physical activity do you participate in: walking ROS Const Const: Negative for fatigue, weakness, headache(s), daytime sleepiness or difficulty sleeping ENT ENT: Negative for headache(s), dizziness or Nosebleed/epistaxis Cardio Chest Pain: No Palpitations: Yes feels like its: fast and pounding Edema: None Resp Respiratory: Negative for SOB with activity, SOB at rest, SOB orthopnea SOB lying down or Cough GI GI: Negative nausea, vomiting or heartburn Neuro Neuro: Positive for lightheadedness (prior to hospitalization ) and near syncope; Negative for dizziness, headache(s) or weakness Endo Endo: Negative for fatigue Cardiology Exam Const Appearance: cooperative, healthy appearing, no acute distress, well developed and well groomed Nutritional Appearance: average body habitus and well nourished Orientation: alert, awake and oriented x3 Head Head: normal to inspection, normocephalic and atraumatic Ears: hearing grossly normal bilaterally and external ears normal Nose: external nose normal, nares normal, nasal mucous membranes and turbinates normal, septum normal and no nasal discharge Face and Sinus: face symmetric Mouth: oral mucosae normal, tongue normal, oropharynx normal and moist mucous membranes Teeth and gingiva: dentition normal Throat: posterior oropharynx normal, tonsils normal and uvula midline Eyes General: appearance normal, both eyes and all related structures Eyelids: eyelids normal Conjunctivae: conjunctivae normal Pupils: PERRL, normal by confrontation and accommodation normal EOM: EOM intact bilaterally Neck Neck: normal visual inspection, trachea midline and no JVD JVD: +5 Carotids: normal carotid upstroke and bounding pulses Chest Chest inspection: normal inspection of the chest, symmetric chest movement and normal respiratory effort Auscultation: Bilateral: Tiara (more content not included)... Normal [facility] 12 Lead EKGon 06-30-2024 12 Lead EKG [facility] [address] [place] [address] 12 Lead EKG 06/30/24 1649 MR#: [id number] Acct: [id number] Name: MIRTHA GAMEZ Rep #: [id number] : 1960 64 From: Sudhakar Quinn MD Attending Dr: Status: DEP ER Ordering Dr: Zi Oglesby MD Date: 06/30/24 Location: ED Sex: M C Admitted: Test Reason : CP Blood Pressure : */* mmHG Vent. Rate : 101 BPM Atrial Rate : 101 BPM P-R Int : 216 ms QRS Dur : 82 ms QT Int : 322 ms P-R-T Axes : 30 -19 13 degrees QTcB Int : 417 ms Sinus tachycardia with 1st degree A-V block Otherwise normal ECG Confirmed by SUDHAKAR QUINN MD ([id number]), city editor DAWN LOGAN ([id number]) on 07/02/2024 7:01:31 AM Referred By: Confirmed By: SUDHAKAR QUINN MD 07/02/24 0701 Date Sudhakar Quinn MD CC: Dr. Zi Oglesby MD; Dr. Mirtha Galeana DO Signed Normal [facility] Absolute neutrophil countOrd ered By: Zi Oglesby on 06-30-2024 Neutrophils (Bld) [#/Vol] 6.7 10*3/uL 2.0-7.7 [facility] Automated blood erythrocyte countOrdered By: Zi Oglesby on 06-30-2024 RBC (Bld) [#/Vol] 4.85 10*6/uL Normal 4.6-6.2 [facility] Comment on above: Performed By: #### L 500.2500, L100.0100, L501.5425 ####[facility] [address] [place], [address] Automated blood hematocrit ( percentage)Ordered By: Zi Oglesby on 06-30-2024 Hematocrit (Bld) [Volume fraction] 42.6 % Normal 40-54 [facility] Comment on above: Performed By: #### L 500.2500, L100.0100, L501.5425 ####[facility] [address] [place], [address] Automated lymphocyte count a s percentage of total leukocytesOrdered By: Zi Oglesby on 06-30-2024 Lymphocytes/100 WBC (Bld) 27.2 % Normal 19-41 [facility] Comment on above: Performed By: #### L 500.2500, L100.0100, L501.5425 ####[facility] [address] [place], [address] BNP (brain natriuretic pepti de measurement)Ordered By: Amparo Drake on 06-30-2024 Natriuretic peptide B (Bld) [Mass/Vol] 5.7 pg/mL Normal 0-100 [facility] Comment on above: Performed By: #### L 300.8000, L503.6620 #### [facility] [address] [place], [address] Basic Metabolic Profile (BMP )on 06-30-2024 BUN/CRE 15.4 RATIO Normal 10-20 [facility] Comment on above: Order Comment: 1Y Performed By: #### L 500.2500, L100.0100, L501.5425 ####[facility] [address] [place], [address] CA,Total 9.0 mg/dL Normal 8.5-10.1 [facility] Comment on above: Order Comment: 1Y Performed By: #### L 500.2500, L100.0100, L501.5425 ####[facility] [address] [place], [address] ECRCL 85.23 ml/min Normal [facility] Comment on above: Order Comment: 1Y Performed By: #### L 500.2500, L100.0100, L501.5425 ####[facility] [address] [place], [address] EST GFR - AA 101 mL/min Normal >60 [facility] Comment on above: Order Comment: 1Y Result Comment: Afri can Ukrainian GFR Calc Performed By: #### L 500.2500, L100.0100, L501.5425 ####[facility] [address] [place], [address] GAP 7 Normal 5-15 [facility] Comment on above: Order Comment: 1Y Performed By: #### L 500.2500, L100.0100, L501.5425 ####[facility] [address] [place], [address] GFR/1.73 sq M.predicted among non-blacks MDRD (S/P/Bld) [Vol rate/Area] 83 mL/min/{1.73_m2} Normal >60 [facility] Comment on above: Order Comment: 1Y Result Comment: Non- GFR Calc Performed By: #### L 500.2500, L100.0100, L501.5425 ####[facility] [address] [place], [address] Basophil percentageOrdered B y: Zi Oglesby on 06-30-2024 Basophils/100 WBC (Bld) 0.8 % Normal 0-1 [facility] Comment on above: Performed By: #### L 500.2500, L100.0100, L501.5425 ####[facility] [address] [place], [address] Blood urea nitrogen (BUN)/cr eatinine ratioOrdered By: Zi Oglesby on 06-30-2024 Urea nitrogen/Creatinine [Mass ratio] 15.4 mg/mg 10-20 [facility] CBC W/Diff, Automatedon Absolute Lymph 3.00 X10 3/uL Normal 0.83-4.51 [facility] Comment on above: Performed By: #### L 500.2500, L100.0100, L501.5425 ####[facility] [address] [place], [address] Absolute Neut 6.7 X10 3/uL Normal 2.0-7.7 [facility] Comment on above: Performed By: #### L 500.2500, L100.0100, L501.5425 ####[facility] [address] [place], [address] IG% 0.600 Normal 0.0-0.9 [facility] Comment on above: Result Comment: IG% - Immature Granulocytes (promyelocytes, myelocytes and metamyelocytes) > 1% indicates that a LEFT SHIFT is Present. Performed By: #### L 500.2500, L100.0100, L501.5425 ####[facility] [address] [place], [address] Nucleated RBC (Bld) [#/Vol] 0 10*3/uL Normal 0-5 [facility] Comment on above: Performed By: #### L 500.2500, L100.0100, L501.5425 ####[facility] [address] [place], [address] RDW SD 38.3 fl Normal 35.1-43.9 [facility] Comment on above: Performed By: #### L 500.2500, L100.0100, L501.5425 ####[facility] [address] [place], [address] Carbon dioxide measurementOr dered By: Zi Oglesby on 06-30-2024 CO2 [Moles/Vol] 24.0 mmol/L Normal 21.0-32.0 [facility] Comment on above: Order Comment: 1Y Performed By: #### L 500.2500, L100.0100, L501.5425 ####[facility] [address] [place], [address] Chest PA and Lateralon 06-30 Chest PA and Lateral [facility] [address] [place] [address] Chest PA and Lateral MR#: [id number] Acct: [id number] Name: MIRTHA GAMEZ Rep #: [id number] : 1960 M 64 From: Chema danielle MD PCP: Dr. Mirtha Galeana, DO Status: REG ER Study: Chest PA and Lateral Date of Exam: 06/30/24 Exam# [id number] Ordering Dr: Amparo Drake [id number] STUDY: X-RAY CHEST REASON FOR EXAM: Male, 64 years old. chest pain TECHNIQUE: Frontal and lateral views of the chest. COMPARISON: None. FINDINGS: The lungs are clear and expanded. There is no demonstrated pleural abnormality. Normal size heart. Normal mediastinum and raudel. Normal visualized pulmonary arteries. Normal visualized aortic arch and descending thoracic aorta. There are diffuse degenerative changes of the visualized thoracic spine. Normal visualized ribs, clavicles, and shoulders. There is no demonstrated abnormality of the visualized soft tissue structures of the upper abdomen. RAD/Chest PA and Lateral IMPRESSION: No definite acute or significant abnormality seen. Electronically Signed: Chema Hilliard MD at 18:02 EST , CC: Dr. Mirtha Galeana, DO; REGGIE Calixto Gear Grinder: Signed Normal [facility] Chloride measurementOrdered By: Zi Oglesby on 06-30-2024 Chloride [Moles/Vol] 106 mmol/L Normal 98-107 [facility] Comment on above: Order Comment: 1Y Performed By: #### L 500.2500, L100.0100, L501.7546 ####[facility] [address] [place], [address] D-Dimer Quantitative (DVT/PE )on 06-30-2024 D-DIMER QUANT 0.27 FEU/ug/m Normal 0.27-0.49 [facility] Comment on above: Result Comment: NORM AL D-Dimer level (<0.50) indicates no DVT or PE. Performed By: #### L 300.8000, L503.6620 #### [facility] [address] [place], [address] D-dimer measurement for deep venous thrombosisOrdered By: Amparo Drake on 06-30-2024 D-Dimer Quantitative (PE/DVT) 0.27 FEU/ug/m 0.27-0.49 [facility] Comment on above: NORMAL D-Dimer level (<0.50) indicates no DVT or PE. Emergency Department Summary on 06-30-2024 Emergency Department Summary [facility] Medical Records Department [address] [place] [address] Emergency Department Summary 06/30/24 MR#: [id number] Acct: [id number] Name: MIRTHA GAMEZ Rep #: [id number] : 1960 64 From: Amparo PAREDES PCP: Dr. Mirtha Galeana, DO Status:DEP ER Location: ED HPI History of Present Illness Chief Complaint: Palpitations Narrative Narrative: Patient presenting today due to palpitations and dyspnea on exertion he has had over the past week intermittently. Nothing seems to trigger the palpitations. He reports that he can sometimes feel the palpitations radiate into his neck. He denies having chest pain with this. He denies any history of arrhythmia or a cardiac history. He denies fevers, chills, orthopnea, and lower extremity edema. He has a PMH of T2DM and HTN. PE Risk Factors: Negative for Recent Travel/Surgery, Recent Immobilization, Prior DVT or PE or Cancer [facility] Medical History GERD (gastroesophageal reflux disease) Kidney stones Hyperlipidemia Hypertension Hearing problem Diabetes Seasonal allergies Home Medications ???Medication ???Instructions ???Recorded ???Last Taken ???Type lisinopril 40 mg tablet 40 mg PO DAILY #90 TABLETS 05/08/24 Unknown Rx metformin 500 mg tablet,extended 500 mg PO BID 90 days #180 tabs 05/11/24 Unknown Rx release 24 hr Allergy/AdvReac Type Severity Reaction Status Date / Time bee venom protein (honey Allergy Unknown Swelling Verified 06/30/24 16:40 bee) (bee stings) Family History Father Lung cancer Mother Heart disease COPD (chronic obstructive pulmonary disease) Sister Thyroid disorder Surgical History History of tonsillectomy Social History Smoking Status: Former smoker alcohol intake: current alcohol intake frequency: holidays/special occasions only substance use type: does not use what type of physical activity do you participate in: walking ROS ROS ED Constitutional Constitutional ED: Denies chills or fever(s) Cardiovascular Cardiovascular: Reports palpitations; Denies chest pain Respiratory/Chest Respiratory/Chest: Reports dyspnea on exertion; Denies cough or sputum Gastrointestinal Gastrointestinal: Denies abdominal pain, nausea or vomiting Musculoskeletal Musculoskeletal: Denies arthralgias or myalgias Integumentary Denies rash Neurologic Neurologic: Denies weakness EXAM Physical Exam Const Vital Signs: 06/30/24 16:40 06/30/24 16:43 06/30/24 17:03 Temperature 98.7 F Temperature Source Oral Pulse Rate 115 H Respiratory Rate 16 Respiratory Effort Normal Blood Pressure 151/92 H Blood Pressure Mean 111 Pulse Ox 99 Oxygen Delivery Method Room Air Room Air 06/30/24 17:40 06/30/24 18:00 06/30/24 19:00 Temperature Temperature Source Pulse Rate 99 104 H 89 Respiratory Rate 16 16 17 Respiratory Effort Blood Pressure 134/95 H 150/98 H 134/95 H Blood Pressure Mean 108 115 108 Pulse Ox 100 100 96 Oxygen Delivery Method Room Air Room Air 06/30/24 19:40 Temperature 97.9 F Temperature Source Pulse Rate 73 Respiratory Rate 16 Respiratory Effort Blood Pressure 134/78 H Blood Pressure Mean 96 Pulse Ox 99 Oxygen Delivery Method Positive well nourished, well developed and no apparent distress General Appearance ED: well developed HEENT Reports normocephalic and head/scalp atraumatic Mouth ED: Yes moist mucous membranes normal Eyes PERRL and EOMs intact bilaterally Neck full ROM and supple Chest Wall inspection of chest normal Resp normal respiratory effort and clear to auscultation bilaterally Cardio regular rate and regular rhythm GI soft to palpation, non-tender, non-distended and no masses Back/Spine normal ROM and normal to inspection Extremity normal to inspection and full ROM General Extremety ED: Negative for edema General Extremity: Negative for edema Neuro oriented x3, CN's II-XII intact bilaterally, moves all extremities, no focal motor deficits and no sensory deficits noted Sensorium / Orientation: awake and alert Psych mental status grossly normal and thought process normal Skin no rashes or lesions noted and no wounds Physical Exam Const Vital Signs: 06/30/24 16:40 06/30/24 16:43 06/30/24 17:03 Temperature 98.7 F Temperature Source Oral Pulse Rate 115 H Respiratory Rate 16 Respiratory Effort Normal Blood Pressure 151/92 H Blood Pressure Mean 111 Pulse Ox 99 Oxygen Delivery Method Room Air Litzy (more content not included)... Normal [facility] Eosinophil percentageOrdered By: Zi Oglesby on 06-30-2024 Eosinophils/100 WBC (Bld) 1.6 % Normal 0-5 [facility] Comment on above: Performed By: #### L 500.2500, L100.0100, L501.5425 ####[facility] [address] [place], [place], [address] Erythrocyte distribution wid th ratioOrdered By: Zi Oglesby on 06-30-2024 Erythrocyte distribution width (RBC) [Ratio] 11.9 % Normal 11.6-14.6 [facility] Comment on above: Performed By: #### L 500.2500, L100.0100, L501.5425 ####[facility] [address] [place], [place], [address] Erythrocyte distribution wid th standard deviationOrdered By: Zi Oglesby on 06-30-2024 Erythrocyte distribution width (RBC) [Entitic vol] 38.3 fL 35.1-43.9 [facility] Estimated glomerular filtrat ion rate (GFR) AmericanOrdered By: Zi Oglesby on 06-30-2024 Estimated GFR (MDRD) Amer 101 mL/min >60 [facility] Comment on above: GFR Calc Estimation of creatinine jacque aranceOrdered By: Zi Oglesby on 06-30-2024 Estimated Creatinine Clearance Calc 85.23 ml/min [facility] Glomerular filtration rate ( GFR) estimationOrdered By: Zi Oglesby on 06-30-2024 Estimated GFR (MDRD) Non-Af Amer 83 mL/min >60 [facility] Comment on above: Non- GFR Calc Glucose measurementOrdered B y: Zi Oglesby on 06-30-2024 Glucose [Mass/Vol] 216 mg/dL High 74-106 [facility] Comment on above: Glucose result great er than or equal to 200 mg/dLsuggests DIABETES MELLITUS per A.D.A. criteria. Order Comment: 1Y Result Comment: Gluc ose result greater than or equal to 200 mg/dL suggests DIABETES MELLITUS per A.D.A. criteria. Performed By: #### L 500.2500, L100.0100, L501.5425 ####[facility] [address] [place], [address] Hemoglobin measurementOrdere d By: Zi Oglesby on 06-30-2024 Hemoglobin (Bld) [Mass/Vol] 15.2 g/dL Normal 13.0-16.5 [facility] Comment on above: Performed By: #### L 500.2500, L100.0100, L501.5425 ####[facility] [address] [place], [address] Immature granulocytes/100 WB C Auto (Bld)Ordered By: Zi Oglesby on 06-30-2024 Immature granulocytes/100 WBC (Bld) 0.600 % 0.0-0.9 [facility] Comment on above: IG% - Immature Granu locytes (promyelocytes, myelocytes and metamyelocytes) > 1% indicates that a LEFT SHIFT is Present. L501.5425on 06-30-2024 TROPONIN-I HS 7 pg/mL Normal 3.0-78.0 [facility] Comment on above: Order Comment: 1Y Result Comment: Plea se Note: New Test Units and Gender Specific Reference Ranges. For more information see Policy Stat Procedure [place] High Sensitivity Troponin (TNIH) and attachments. Performed By: #### L 500.2500, L100.0100, L501.5425 ####[facility] [address] [place], [address] Lymphocytes Auto (Unsp spec) [#/Vol]Ordered By: Zi Oglesby on 06-30-2024 Lymphocytes (Bld) [#/Vol] 3.00 10*3/uL 0.83-4.51 [facility] MCV (mean corpuscular volume ) determinationOrdered By: Zi Oglesby on 06-30-2024 MCV (RBC) [Entitic vol] 87.8 fL Normal 80-94 [facility] Comment on above: Performed By: #### L 500.2500, L100.0100, L501.5425 ####[facility] [address] [place], [address] Mean corpuscular hemoglobin (MCH) determinationOrdered By: Zi Oglesby on 06-30-2024 MCH (RBC) [Entitic mass] 31.3 pg Normal 27.0-32.0 [facility] Comment on above: Performed By: #### L 500.2500, L100.0100, L501.5425 ####[facility] [address] [place], [address] Mean corpuscular hemoglobin concentration (MCHC) determinationOrdered By: Zi Oglesby on 06-30-2024 MCHC (RBC) [Mass/Vol] 35.7 g/dL Normal 32-36 [facility] Comment on above: Performed By: #### L 500.2500, L100.0100, L501.5425 ####[facility] [address] [place], [address] Mean platelet volume determi nationOrdered By: Zi Oglesby on 06-30-2024 Platelet mean volume (Bld) [Entitic vol] 11.1 fL Normal 6.2-12.0 [facility] Comment on above: Performed By: #### L 500.2500, L100.0100, L501.5425 ####[facility] [address] [place], [address] Monocyte percentageOrdered B y: Zi Oglesby on 06-30-2024 Monocytes/100 WBC (Bld) 8.5 % Normal 0-10 [facility] Comment on above: Performed By: #### L 500.2500, L100.0100, L501.5425 ####[facility] [address] [place], [address] Neutrophil percentageOrdered By: Zi Oglesby on 06-30-2024 Neutrophils/100 WBC (Bld) 61.3 % Normal 47-70 [facility] Comment on above: Performed By: #### L 500.2500, L100.0100, L501.5425 ####[facility] [address] [place], [address] Nucleated red blood cell per centageOrdered By: Zi Oglesby on 06-30-2024 Nucleated RBC/100 WBC (Bld) [Ratio] 0 % 0-5 [facility] Platelet countOrdered By: Jone Oglesby on 06-30-2024 Platelets (Bld) [#/Vol] 233 10*3/uL Normal 150-450 [facility] Comment on above: Performed By: #### L 500.2500, L100.0100, L501.5425 ####[facility] [address] [place], [address] Potassium measurementOrdered By: Zi Oglesby on 06-30-2024 Potassium [Moles/Vol] 3.9 mmol/L Normal 3.5-5.1 [facility] Comment on above: Order Comment: 1Y Performed By: #### L 500.2500, L100.0100, L501.5425 ####[facility] [address] [place], [address] Serum anion gap measurementO rdered By: Zi Oglesby on 06-30-2024 Anion gap [Moles/Vol] 7 mmol/L 5-15 [facility] Serum or plasma calcium dillon urement (mass/volume)Ordered By: Zi Oglesby on 06-30-2024 Calcium [Mass/Vol] 9.0 mg/dL 8.5-10.1 [facility] Serum or plasma creatinine m easurement (mass/volume)Ordered By: Zi Oglesby on 06-30-2024 Creatinine [Mass/Vol] 0.97 mg/dL Normal 0.70-1.30 [facility] Comment on above: The validity of the calculated GFR & GFRAA in patients over 70 years has not been determined. Clinical correlation is essential. Order Comment: 1Y Result Comment: The validity of the calculated GFR GFRAA in patients over 70 years has not been determined. Clinical correlation is essential. Performed By: #### L 500.2500, L100.0100, L501.5425 ####[facility] [id number] [place], [address] Serum or plasma urea nitroge n measurement (mass/volume)Ordered By: Zi Oglesby on 06-30-2024 Urea nitrogen [Mass/Vol] 15 mg/dL Normal 7-18 [facility] Comment on above: Order Comment: 1Y Performed By: #### L 500.2500, L100.0100, L501.5425 ####[facility] [id number] [place], [address] Sodium levelOrdered By: Klever Oglesby on 06-30-2024 Sodium [Moles/Vol] 138 mmol/L Normal 136-145 [facility] Comment on above: Order Comment: 1Y Performed By: #### L 500.2500, L100.0100, L501.5425 ####[facility] [id number] [place], [place], [id number] Tropinin I.cardiac panel Hig h sensitivity methodOrdered By: Zi Oglesby on 06-30-2024 Troponin I High Sensitivity 7 pg/mL 3.0-78.0 [facility] Comment on above: Please Note: [place] t Units and Gender Specific Reference Ranges. For more information see Policy Stat Procedure [place] High Sensitivity Troponin (TNIH) and attachments. White blood cell (WBC) count Ordered By: Zi Oglesby on 06-30-2024 WBC (Bld) [#/Vol] 11.0 10*3/uL Normal 4.4-11.0 [facility] Comment on above: Performed By: #### L 500.2500, L100.0100, L501.5425 ####[facility] [address] [place], [address] Basophil percentageOrdered B y: Mirtha Galeana on 09-09-2023 Cholesterol [Mass/Vol] 183 mg/dL <200 [facility] Comment on above: <200 mg/dL Desirable 200-240 mg/dL Borderline >240 mg/dL High Risk Triglyceride [Mass/Vol] 169 mg/dL <199 [facility] Comment on above: The drugs N-Acetylcy steine and Metamizole may falsely depress this assay.Serum Triglycerides Reference Interval Normal <150 mg/dL Borderline high 150 - 199 mg/dL High 200 - 499 mg/dL Very High > or = 500 mg/dL Laboratory - Chemistry and C hemistry - challengeOrdered By: Mirtha Galeana on 09-09-2023 Cholesterol in HDL [Mass/Vol] 52 mg/dL >40 [facility] Comment on above: The drugs N-Acetylcy steine and Metamizole may falsely depress this assay. Reference Range HDL <40 mg/dL Low HDL Cholesterol HDL >or= 60 mg/dL High HDL Cholesterol Cholesterol in LDL [Mass/Vol] 97 mg/dL 0-130 [facility] No Panel InformationOrdered By: Mirtha Galeana on 09-09-2023 Prostate Specific Antigen Screen 0.63 ng/mL 0.00-4.00 [facility] Comment on above: This test was perfor med using the TPSA assay method for themension chemistry system. Values obtained with differentassay methods cannot be used interchangably.When changing PSA assays in the course of monitoring apatient, additional sequential testing should be carriedout to confirm baseline values. VLDL Cholesterol 34 mg/dL 5-40 [facility] Laboratory - Hematology and Cell countson 09-06-2023 HbA1c (Bld) [Mass fraction] 6.1 % 4.2-6.3 [facility] Basophil percentageOrdered B y: Mirtha Galeana on 03-03-2023 Bilirubin [Mass/Vol] 0.40 mg/dL 0.20-1.00 [facility] Comment on above: For patients on eltr ombopag therapy, use of Dimension [place] TBIL is not recommended. Chloride [Moles/Vol] 109 mmol/L 98-107 [facility] Glucose [Mass/Vol] 118 mg/dL 74-106 [facility] Comment on above: Fasting Glucose resu lt from 100 to 125 mg/dL suggests IMPAIRED HOMEOSTASIS per A.D.A. criteria. Potassium [Moles/Vol] 4.8 mmol/L 3.5-5.1 [facility] Protein [Mass/Vol] 7.5 g/dL 6.4-8.2 [facility] Sodium [Moles/Vol] 141 mmol/L 136-145 [facility] Laboratory - Chemistry and C hemistry - challengeOrdered By: Mirtha Galeana on 03-03-2023 ALP [Catalytic activity/Vol] 63 U/L 45-117 [facility] ALT [Catalytic activity/Vol] 31 U/L 16-61 [facility] CO2 [Moles/Vol] 26.0 mmol/L 21.0-32.0 [facility] Globulin (S) [Mass/Vol] 3.6 g/dL 2.2-4.2 [facility] Urea nitrogen/Creatinine [Mass ratio] 21.7 mg/mg 10-20 [facility] - Hematology and Cell countson 03-03-2023 HbA1c (Bld) [Mass fraction] 5.9 % 4.2-6.3 [facility] No Panel InformationOrdered By: Mirtha Galeana on 03-03-2023 Estimated GFR (MDRD) Amer 108 mL/min >60 [facility] Comment on above: GFR Calc Estimated GFR (MDRD) Non-Af Amer 89 mL/min >60 [facility] Comment on above: Non- GFR Calc Serum or plasma albumin dillon urement (mass/volume)Ordered By: Mirtha Galeana on 03-03-2023 Albumin [Mass/Vol] 3.9 g/dL 3.2-5.0 [facility] Serum or plasma albumin/glob ulin mass ratioOrdered By: Mirtha Galeana on 03-03-2023 Albumin/Globulin [Mass ratio] 1.1 {ratio} 0.9-2.4 [facility] Serum or plasma calcium dillon urement (mass/volume)Ordered By: Mirtha Galeana on 03-03-2023 Calcium [Mass/Vol] 9.5 mg/dL 8.5-10.1 [facility] Serum or plasma creatinine m easurement (mass/volume)Ordered By: Mirtha Galeana on 03-03-2023 Creatinine [Mass/Vol] 0.92 mg/dL 0.70-1.30 [facility] Comment on above: The validity of the calculated GFR & GFRAA in patients over 70 years has not been determined. Clinical correlation is essential. Serum or plasma urea nitroge n measurement (mass/volume)Ordered By: Mirtha Galeana on 03-03-2023 Urea nitrogen [Mass/Vol] 20 mg/dL 7-18 [facility] Thin prep Papanicolaou smear with manual screeningOrdered By: Mirtha Galeana on 03-03-2023 Thin prep Papanicolaou smear with manual screening 19 U/L 15-37 [facility] Thin prep Papanicolaou smear with manual screening 6 5-15 [facility] Basophil percentageon 2021 Bilirubin [Mass/Vol] 0.50 mg/dL 0.20-1.00 [facility] Work Phone: Comment on above: For patients on eltr ombopag therapy, use of Dimension [place] TBIL is not recommended. Chloride [Moles/Vol] 105 mmol/L 98-107 [facility] Work Phone: Cholesterol [Mass/Vol] 202 mg/dL <200 [facility] Work Phone: Comment on above: <200 mg/dL Desirable 200-240 mg/dL Borderline >240 mg/dL High Risk Glucose [Mass/Vol] 126 mg/dL 74-106 [facility] Work Phone: Comment on above: Fasting Glucose resu lt greater than or equal to 126 mg/dL suggests DIABETES MELLITUS per A.D.A. criteria. Potassium [Moles/Vol] 5.9 mmol/L 3.5-5.1 [facility] Work Phone: Protein [Mass/Vol] 7.5 g/dL 6.4-8.2 [facility] Work Phone: Sodium [Moles/Vol] 139 mmol/L 136-145 [facility] Work Phone: [phone] Triglyceride [Mass/Vol] 172 mg/dL <199 [facility] Work Phone: [phone] Comment on above: The drugs N-Acetylcy steine and Metamizole may falsely depress this assay.Serum Triglycerides Reference Interval Normal <150 mg/dL Borderline high 150 - 199 mg/dL High 200 - 499 mg/dL Very High > or = 500 mg/dL Laboratory - Chemistry and C hemistry - challengeon 03-04-2022 ALP [Catalytic activity/Vol] 63 U/L 45-117 [facility] Work Phone: [phone] ALT [Catalytic activity/Vol] 37 U/L 16-61 [facility] Work Phone: [phone] CO2 [Moles/Vol] 27.0 mmol/L 21.0-32.0 [facility] Work Phone: [phone] Globulin (S) [Mass/Vol] 3.5 g/dL 2.2-4.2 [facility] Work Phone: [phone] Urea nitrogen/Creatinine [Mass ratio] 16.5 mg/mg 10-20 [facility] Work Phone: [phone] Laboratory - Hematology and Cell countson 03-04-2022 HbA1c (Bld) [Mass fraction] 5.9 % 4.2-6.3 [facility] Work Phone: No Panel Informationon 03-04 Estimated GFR (MDRD) Amer 95 mL/min >60 [facility] Work Phone: [phone] Comment on above: GFR Calc Estimated GFR (MDRD) Non-Af Amer 78 mL/min >60 [facility] Work Phone: [phone] Comment on above: Non- GFR Calc Serum or plasma albumin dillon urement (mass/volume)on 03-04-2022 Albumin [Mass/Vol] 4.0 g/dL 3.2-5.0 [facility] Work Phone: [phone] Serum or plasma albumin/glob ulin mass ratioon 03-04-2022 Albumin/Globulin [Mass ratio] 1.1 {ratio} 0.9-2.4 [facility] Work Phone: Serum or plasma calcium dillon urement (mass/volume)on 03-04-2022 Calcium [Mass/Vol] 9.4 mg/dL 8.5-10.1 [facility] Work Phone: Serum or plasma cholesterol in HDL measurement (mass/volume)on 03-04-2022 Cholesterol in HDL [Mass/Vol] 59 mg/dL >40 [facility] Work Phone: Comment on above: The drugs N-Acetylcy steine and Metamizole may falsely depress this assay. Reference Range HDL <40 mg/dL Low HDL Cholesterol HDL >or= 60 mg/dL High HDL Cholesterol Serum or plasma cholesterol in VLDL measurement (mass/volume)on 03-04-2022 Cholesterol in VLDL [Mass/Vol] 34 mg/dL 5-40 [facility] Work Phone: [phone] Serum or plasma creatinine m easurement (mass/volume)on 03-04-2022 Creatinine [Mass/Vol] 1.03 mg/dL 0.70-1.30 [facility] Work Phone: Comment on above: The validity of the calculated GFR & GFRAA in patients over 70 years has not been determined. Clinical correlation is essential. Serum or plasma low density lipoprotein (LDL) cholesterol measurement (mass/volume)on 03-04-2022 Cholesterol in LDL [Mass/Vol] 109 mg/dL 0-130 [facility] Work Phone: [phone] Serum or plasma urea nitroge n measurement (mass/volume)on 03-04-2022 Urea nitrogen [Mass/Vol] 17 mg/dL 7-18 [facility] Work Phone: [phone] Thin prep Papanicolaou smear with manual screeningon 03-04-2022 Thin prep Papanicolaou smear with manual screening 15 U/L 15-37 [facility] Work Phone: [phone] Thin prep Papanicolaou smear with manual screening 7 5-15 [facility] Work Phone: [phone] Basophil percentageon 2021 Bilirubin [Mass/Vol] 0.60 mg/dL 0.20-1.00 [facility] Work Phone: [phone] Comment on above: For patients on eltr ombopag therapy, use of Dimension [place] TBIL is not recommended. Protein [Mass/Vol] 7.4 g/dL 6.4-8.2 [facility] Work Phone: [phone] Direct bilirubinon Bilirubin.direct [Mass/Vol] 0.14 mg/dL 0.00-0.30 [facility] Work Phone: [phone] Laboratory - Chemistry and C hemistry - challengeon 09-16-2021 ALP [Catalytic activity/Vol] 69 U/L 45-117 [facility] Work Phone: [phone] ALT [Catalytic activity/Vol] 112 U/L 16-61 [facility] Work Phone: [phone] Globulin (S) [Mass/Vol] 3.1 g/dL 2.2-4.2 [facility] Work Phone: [phone] Serum or plasma albumin dillon urement (mass/volume)on 09-16-2021 Albumin [Mass/Vol] 4.3 g/dL 3.2-5.0 [facility] Work Phone: Thin prep Papanicolaou smear with manual screeningon 09-16-2021 Thin prep Papanicolaou smear with manual screening 58 U/L 15-37 [facility] Work Phone: Basophil percentageon 2021 Bilirubin [Mass/Vol] 0.40 mg/dL 0.20-1.00 [facility] Work Phone: [phone] Comment on above: For patients on eltr ombopag therapy, use of Dimension [place] TBIL is not recommended. Chloride [Moles/Vol] 108 mmol/L 98-107 [facility] Work Phone: [phone] Cholesterol [Mass/Vol] 131 mg/dL <200 [facility] Work Phone: [phone] Comment on above: <200 mg/dL Desirable 200-240 mg/dL Borderline >240 mg/dL High Risk Glucose [Mass/Vol] 156 mg/dL 74-106 [facility] Work Phone: Comment on above: Fasting Glucose resu lt greater than or equal to 126 mg/dL suggests DIABETES MELLITUS per A.D.A. criteria. Potassium [Moles/Vol] 4.8 mmol/L 3.5-5.1 [facility] Work Phone: [phone] Protein [Mass/Vol] 7.2 g/dL 6.4-8.2 [facility] Work Phone: [phone] Sodium [Moles/Vol] 139 mmol/L 136-145 [facility] Work Phone: [phone] Triglyceride [Mass/Vol] 125 mg/dL [facility] Work Phone: Comment on above: The drugs N-Acetylcy steine and Metamizole may falsely depress this assay.Serum Triglycerides Reference Interval Normal <150 mg/dL Borderline high 150 - 199 mg/dL High 200 - 499 mg/dL Very High > or = 500 mg/dL Laboratory - Chemistry and C hemistry - challengeon 08-05-2021 ALP [Catalytic activity/Vol] 78 U/L 45-117 [facility] Work Phone: ALT [Catalytic activity/Vol] 103 U/L 16-61 [facility] Work Phone: [phone] CO2 [Moles/Vol] 27.0 mmol/L 21.0-32.0 [facility] Work Phone: [phone] Globulin (S) [Mass/Vol] 3.1 g/dL 2.2-4.2 [facility] Work Phone: [phone] Urea nitrogen/Creatinine [Mass ratio] 17.1 mg/mg 10-20 [facility] Work Phone: [phone] Laboratory - Hematology and Cell countson 08-05-2021 HbA1c (Bld) [Mass fraction] 7.4 % [facility] Work Phone: No Panel Informationon 08-05 Estimated GFR (MDRD) Amer 114 mL/min >60 [facility] Work Phone: Comment on above: GFR Calc Estimated GFR (MDRD) Non-Af Amer 94 mL/min >60 [facility] Work Phone: Comment on above: Non- GFR Calc Serum or plasma albumin dillon urement (mass/volume)on 08-05-2021 Albumin [Mass/Vol] 4.1 g/dL 3.2-5.0 [facility] Work Phone: Serum or plasma albumin/glob ulin mass ratioon 08-05-2021 Albumin/Globulin [Mass ratio] 1.3 {ratio} 0.9-2.4 [facility] Work Phone: Serum or plasma calcium dillon urement (mass/volume)on 08-05-2021 Calcium [Mass/Vol] 9.3 mg/dL 8.5-10.1 [facility] Work Phone: Serum or plasma cholesterol in HDL measurement (mass/volume)on 08-05-2021 Cholesterol in HDL [Mass/Vol] 49 mg/dL [facility] Work Phone: Comment on above: The drugs N-Acetylcy steine and Metamizole may falsely depress this assay. Reference Range HDL <40 mg/dL Low HDL Cholesterol HDL >or= 60 mg/dL High HDL Cholesterol Serum or plasma cholesterol in VLDL measurement (mass/volume)on 08-05-2021 Cholesterol in VLDL [Mass/Vol] 25 mg/dL 5-40 [facility] Work Phone: Serum or plasma creatinine m easurement (mass/volume)on 08-05-2021 Creatinine [Mass/Vol] 0.88 mg/dL 0.70-1.30 [facility] Work Phone: Comment on above: The validity of the calculated GFR & GFRAA in patients over 70 years has not been determined. Clinical correlation is essential. Serum or plasma low density lipoprotein (LDL) cholesterol measurement (mass/volume)on 08-05-2021 Cholesterol in LDL [Mass/Vol] 57 mg/dL 0-130 [facility] Work Phone: Serum or plasma urea nitroge n measurement (mass/volume)on 08-05-2021 Urea nitrogen [Mass/Vol] 15 mg/dL 7-18 [facility] Work Phone: Thin prep Papanicolaou smear with manual screeningon 08-05-2021 Thin prep Papanicolaou smear with manual screening 55 U/L 15-37 [facility] Work Phone: Thin prep Papanicolaou smear with manual screening 4 5-15 [facility] Work Phone: SARS coronavirus RNA [Presen ce] in Unspecified specimen by MARTHA with probe detectionon 06-30-2021 SARS-CoV RNA MARTHA+probe Ql (Unsp spec) Not detected Not Detected [facility] Work Phone: Comment on above: This nucleic acid am plification test was developed and itsperformance characteristics determined by [facility]. Nucleic acid amplification tests include RT-PCR and TMA. This test has not been FDA cleared orapproved. This test has been authorized by FDA under anEmergency Use Authorization (EUA). This test is onlyauthorized for the duration of time the declaration thatcircumstances exist justifying the authorization of theemergency use of in vitro diagnostic tests for detection [id number] virus and/or diagnosis of COVID-19 infectionunder section 564(b)(1) of the Act, 21 U.S.C. 360bbb-3(b)(1), unless the authorization is terminated or revokedsooner.When diagnostic testing is negative, the possibility of afalse negative result should be considered in the contextof a patient's recent exposures and the presence ofclinical signs and symptoms consistent with COVID-19. Anindividual without symptoms of COVID-19 and who is notshedding SARS-CoV-2 virus would expect to have a negative(not detected) result in this assay. Comp. Metabolic Panelon 12-25 Alanine aminotransferase (ALT) 16 U/L Normal 10-35 [facility] Comment on above: Performed By: #### C ####[address] [address] Albumin/Globulin Ratio 2.2 {ratio} Normal 1.1-2.5 [facility] Comment on above: Performed By: #### C MP ####[place] [address] Alk. Phosphatase 61 IU/L Normal 40-135 [facility] Comment on above: Performed By: #### C MP ####[place] [id number] Aspartate aminotransferase (AST) 14 U/L Normal 10-40 [facility] Comment on above: Performed By: #### C MP ####[place] [id number] Globulin 2.2 G/dL Normal [facility] Comment on above: Performed By: #### C MP ####[place] [id number] T. Protein 7.0 G/dL Normal 6.0-8.3 [facility] Comment on above: Performed By: #### C MP ####[place] [id number] Bilirubin (direct) 0.5 mg/dL Normal 0.2-1.0 [facility] Comment on above: Performed By: #### C MP ####[place] [id number] Glucose mass conc 109 mg/dL High 70-105 [facility] Comment on above: Performed By: #### C MP ####[place] [id number] Calcium 10.2 mg/dL Normal 8.4-10.2 [facility] Comment on above: Performed By: #### C MP ####[place] [id number] Albumin 4.8 G/dL Normal 3.5-5.0 [facility] Comment on above: Performed By: #### C MP ####[place] [id number] BUN/Creatinine Ratio 16 mg/mg Normal 7-27 [facility] Comment on above: Performed By: #### C MP ####[address] [address] CO2 29 mmol/L Normal 22-29 [facility] Comment on above: Performed By: #### C MP ####[address] [address] Creatinine 1.0 mg/dL Normal 0.6-1.2 [facility] Comment on above: Performed By: #### C MP ####[address] [address] Electrolyte Balance 6.0 mEq/L Normal [facility] Comment on above: Performed By: #### C MP ####[address] [address] Urea nitrogen 16 mg/dL Normal 7-18 [facility] Comment on above: Performed By: #### C MP ####[place] [id number] Chloride 104 mmol/L Normal 98-107 [facility] Comment on above: Performed By: #### C MP ####[address] [address] Potassium molar conc 5.1 mmol/L Normal 3.5-5.1 [facility] Comment on above: Performed By: #### C MP ####[address] [address] Sodium 139 mmol/L Normal 136-146 [facility] Comment on above: Performed By: #### C MP ####[address] [address] Glomerular Filtration Rate E stimateon 01-06-2017 eGFR (non-black) mL/min/{1.73_m2} Normal [facility] Comment on above: Performed By: #### G FR ####[address] [address] Result Comment: Esau lation mean GFR = 93 mL/min/1.73 sq.m. for ages 50-59 years. Chronic Kidney Disease: Less than 60 mL/min/1.73 square metersEnd Stage Renal Disease: Less than 15 mL/min/1.73 square meters HDL Cholesterol Profileon Cholesterol 155 mg/dL Normal 131-200 [facility] Comment on above: Result Comment: Chol esterol Reference Interval: Less than 200 Desirable 200-239 Borderline high risk 240 and above High risk ------ Performed By: #### L IPID ####[place] [address] [address] LDL Cholesterol 64 mg/dL Normal 0-130 [facility] Comment on above: Result Comment: LDL is a calculated result and requires a 12-hr fast. LDL Reference Interval: Less than 100 Optimal 100-129 Near or above optimal 130-159 Borderline high risk 160-189 High risk 190 and above Very high risk ------- Performed By: #### L IPID ####[place] [address] [address] HDL Cholesterol 65 mg/dL Normal 35-90 [facility] Comment on above: Result Comment: HDL Reference Interval: Less than 40 Low - high risk 60 or above Optimal/lowers risk ------ Performed By: #### L IPID ####[place] [address] [address] Triglyceride 132 mg/dL Normal 40-150 [facility] Comment on above: Result Comment: Trig lyceride Reference Interval: Less than 150 Normal 150-199 Borderline high risk 200-499 High risk 500 or higher Very high risk ------ Performed By: #### L IPID ####[address] [address] Vital Signs Date Time Vital Sign Value Performing Clinician Estefany vincent 03-06-2025 16:22-0400 Body height 167.[address] Mirtha Galeana DO Work Phone: [facility] 03-06-2025 16:22-0400 Body mass index (BMI) [Ratio] 32.8 kg/m2 Dr. Mirtha Galeana DO Work Phone: [facility] 03-06-2025 16:22-0400 Body temperature 97 [degF] Dr. Mirtha Galeana DO Work Phone: [facility] 03-06-2025 16:22-0400 Body weight 92.[address] Mirtha Galeana DO Work Phone: [facility] 03-06-2025 16:22-0400 Diastolic blood pressure 76 mm[Hg] Dr. Mirtha Galeana DO Work Phone: [facility] 03-06-2025 16:22-0400 Heart rate 112 /min Dr. Mirtha Galeana DO Work Phone: [facility] 03-06-2025 16:22-0400 Respiratory rate 16 /min Dr. Mirtha Galeana DO Work Phone: [facility] 03-06-2025 16:22-0400 SaO2% (BldA) [Mass fraction] 96 % Dr. Mirtha Galeana DO Work Phone: [facility] 03-06-2025 16:22-0400 Systolic blood pressure 136 mm[Hg] Dr. Mirtha Galeana DO Work Phone: [facility] 10-08-2024 14:33-0400 Body height 167.[address] Mirtha Galeana DO Work Phone: [facility] 10-08-2024 14:33-0400 Body mass index (BMI) [Ratio] 33 kg/m2 Dr. Mirtha Galeana DO Work Phone: [facility] 10-08-2024 14:33-0400 Body weight 92.[address] Mirtha Galeana DO Work Phone: [facility] 10-08-2024 14:33-0400 Diastolic blood pressure 82 mm[Hg] Dr. Mirtha Galeana DO Work Phone: [facility] 10-08-2024 14:33-0400 Heart rate 100 /min Dr. Mirtha Galeana DO Work Phone: [facility] 10-08-2024 14:33-0400 Respiratory rate 18 /min Dr. Mirtha Galeana DO Work Phone: [facility] 10-08-2024 14:33-0400 Systolic blood pressure 117 mm[Hg] Dr. Mirtha Galeana DO Work Phone: [facility] 09-19-2024 08:58-0400 Heart rate 81 /min Dr. Mirtha Galeana DO Work Phone: [facility] 09-19-2024 08:54-0400 Body temperature 98.8 [degF] Dr. Mirtha Galeana DO Work Phone: [facility] 09-19-2024 08:54-0400 Diastolic blood pressure 93 mm[Hg] Dr. Mirtha Galeana DO Work Phone: [facility] 09-19-2024 08:54-0400 Respiratory rate 16 /min Dr. Mirtha Galeana DO Work Phone: [facility] 09-19-2024 08:54-0400 SaO2% (BldA) [Mass fraction] 95 % Dr. Mirtha Galeana DO Work Phone: [facility] 09-19-2024 08:54-0400 Systolic blood pressure 135 mm[Hg] Dr. Mirtha Galeana DO Work Phone: [facility] 09-18-2024 17:44-0400 Body temperature 98 [degF] Dr. Mirtha Galeana DO Work Phone: [facility] 09-18-2024 17:44-0400 Diastolic blood pressure 83 mm[Hg] Dr. Mirtha Galeana DO Work Phone: [facility] 09-18-2024 17:44-0400 Heart rate 95 /min Dr. Mirtha Galeana DO Work Phone: [facility] 09-18-2024 17:44-0400 Respiratory rate 20 /min Dr. Mirtha Galeana DO Work Phone: [facility] 09-18-2024 17:44-0400 SaO2% (BldA) [Mass fraction] 96 % Dr. Mirtha Galeana DO Work Phone: [facility] 09-18-2024 17:44-0400 Systolic blood pressure 142 mm[Hg] Dr. Mirtha Galeana DO Work Phone: [facility] 09-18-2024 10:43-0400 Body height 167.[address] Mirtha Galeana DO Work Phone: [facility] 09-18-2024 10:43-0400 Body mass index (BMI) [Ratio] 33.2 kg/m2 Dr. Mirtha Galeana DO Work Phone: [facility] 09-18-2024 10:43-0400 Body weight 93.[address] Mirtha Galeana DO Work Phone: [facility] 09-05-2024 16:05-0400 Body height 167.[address] Mirtha Galeana DO Work Phone: [facility] 09-05-2024 16:05-0400 Body mass index (BMI) [Ratio] 32.9 kg/m2 Dr. Mirtha Galeana DO Work Phone: [facility] 09-05-2024 16:05-0400 Body temperature 97.6 [degF] Dr. Mirtha Galeana DO Work Phone: [facility] 09-05-2024 16:05-0400 Body weight 92.[address] Mirtha Galeana DO Work Phone: [facility] 09-05-2024 16:05-0400 Diastolic blood pressure 80 mm[Hg] Dr. Mirtha Galeana DO Work Phone: [facility] 09-05-2024 16:05-0400 Heart rate 98 /min Dr. Mirtha Galeana DO Work Phone: [facility] 09-05-2024 16:05-0400 Respiratory rate 16 /min Dr. Mirtha Galeana DO Work Phone: [facility] 09-05-2024 16:05-0400 SaO2% (BldA) [Mass fraction] 98 % Dr. Mirtha Galeana DO Work Phone: [facility] 09-05-2024 16:05-0400 Systolic blood pressure 120 mm[Hg] Dr. Mirtha Galeana DO Work Phone: [facility] 07-27-2024 08:46-0500 Body mass index (BMI) [Ratio] 33.2 kg/m2 Dr. Mirtha Galeana DO Work Phone: [facility] 07-27-2024 08:46-0500 Body weight 93.[address] Mirtha Galeana DO Work Phone: [facility] 07-27-2024 08:46-0500 Diastolic blood pressure 63 mm[Hg] Dr. Mirtha Galeana DO Work Phone: [facility] 07-27-2024 08:46-0500 Heart rate 90 /min Dr. Mirtha Galeana DO Work Phone: [facility] [facility] 07-27-2024 08:46-0500 Respiratory rate 16 /min Dr. Mirtha Galeana DO Work Phone: [facility] 07-27-2024 08:46-0500 Systolic blood pressure 122 mm[Hg] Dr. Mirtha Galeana DO Work Phone: [facility] 06-30-2024 19:40-0500 Body temperature 97.9 [degF] Dr. Mirtha Galeana DO Work Phone: [facility] 06-30-2024 19:40-0500 Diastolic blood pressure 78 mm[Hg] Dr. Mirtha Galeana DO Work Phone: [facility] 06-30-2024 19:40-0500 Heart rate 73 /min Dr. Mirtha Galeana DO Work Phone: [facility] 06-30-2024 19:40-0500 Respiratory rate 16 /min Dr. Mirtha Galeana DO Work Phone: [facility] 06-30-2024 19:40-0500 SaO2% (BldA) [Mass fraction] 99 % Dr. Mirtha Galeana DO Work Phone: [facility] 06-30-2024 19:40-0500 Systolic blood pressure 134 mm[Hg] Dr. Mirtha Galeana DO Work Phone: [facility] 06-30-2024 16:40-0500 Body mass index (BMI) [Ratio] 33.8 kg/m2 Dr. Mirtha Galeana DO Work Phone: [facility] 06-30-2024 16:40-0500 Body weight 95.[address] Mirtha Galeana DO Work Phone: [facility] 09-06-2023 16:19-0400 Body height 167.[address] Mirtha Galeana Work Phone: [facility] 09-06-2023 16:19-0400 Body mass index (BMI) [Ratio] 32.9 kg/m2 Dr. Mirtha Galeana Work Phone: [facility] 09-06-2023 16:19-0400 Body temperature 97.6 [degF] Dr. Mirtha Galeana Work Phone: [facility] 09-06-2023 16:19-0400 Body weight 92.[address] Mirtha Galeana Work Phone: [facility] 09-06-2023 16:19-0400 Diastolic blood pressure 86 mm[Hg] Dr. Mirtha Galeana Work Phone: [facility] 09-06-2023 16:19-0400 Heart rate 112 /min Dr. Mirtha Galeana Work Phone: [facility] 09-06-2023 16:19-0400 Respiratory rate 16 /min Dr. Mirtha Galeana Work Phone: [facility] 09-06-2023 16:19-0400 SaO2% (BldA) [Mass fraction] 96 % Dr. Mirtha Galeana Work Phone: [facility] 09-06-2023 16:19-0400 Systolic blood pressure 126 mm[Hg] Dr. Mirtha Galeana Work Phone: [facility] 03-03-2023 08:32-0400 Body height 167.[address] Mirtha Galeana Work Phone: [facility] 03-03-2023 08:32-0400 Body mass index (BMI) [Ratio] 31.4 kg/m2 Dr. Mirtha Galeana Work Phone: [facility] 03-03-2023 08:32-0400 Body temperature 95.9 [degF] Dr. Mirtha Galeana Work Phone: [facility] 03-03-2023 08:32-0400 Body weight 88.[address] Mirtha Galeana Work Phone: [facility] 03-03-2023 08:32-0400 Diastolic blood pressure 84 mm[Hg] Dr. Mirtha Galeana Work Phone: [facility] 03-03-2023 08:32-0400 Heart rate 94 /min Dr. Mirtha Galeana Work Phone: [facility] 03-03-2023 08:32-0400 Respiratory rate 18 /min Dr. Mirtha Galeana Work Phone: [facility] 03-03-2023 08:32-0400 SaO2% (BldA) [Mass fraction] 97 % Dr. Mirtha Galeana Work Phone: [facility] 03-03-2023 08:32-0400 Systolic blood pressure 122 mm[Hg] Dr. Mirtha Galeana Work Phone: [facility] 03-04-2022 08:29-0400 Body height 167.[address] Mirtha Galeana Work Phone: [facility] Work Phone: 03-04-2022 08:29-0400 Body mass index (BMI) [Ratio] 31.4 kg/m2 Dr. Mirtha Galeana Work Phone: [facility] Work Phone: 03-04-2022 08:29-0400 Body temperature 97.4 [degF] Dr. Mirtha Galeana Work Phone: [facility] Work Phone: 03-04-2022 08:29-0400 Body weight 88.[address] Mirtha Galeana Work Phone: [facility] Work Phone: 03-04-2022 08:29-0400 Diastolic blood pressure 76 mm[Hg] Dr. Mirtha aGleana Work Phone: [facility] Work Phone: 03-04-2022 08:29-0400 Heart rate 94 /min Dr. Mirtha Galeana Work Phone: [facility] Work Phone: 03-04-2022 08:29-0400 Respiratory rate 16 /min Dr. Mirtha Galeana Work Phone: [facility] Work Phone: 03-04-2022 08:29-0400 SaO2% (BldA) [Mass fraction] 97 % Dr. Mirtha Galeana Work Phone: [facility] Work Phone: 03-04-2022 08:29-0400 Systolic blood pressure 140 mm[Hg] Dr. Mirtha Galeana Work Phone: [facility] Work Phone: 08-05-2021 08:01-0500 Body height 167.[address] Mirtha Galeana Work Phone: [facility] Work Phone: 08-05-2021 08:01-0500 Body mass index (BMI) [Ratio] 35 kg/m2 Dr. Mirtha Galeana Work Phone: [facility] Work Phone: 08-05-2021 08:01-0500 Body temperature 96.9 [degF] Dr. Mirtha Galeana Work Phone: [facility] Work Phone: 08-05-2021 08:01-0500 Body weight 98.[address] Mirtha Galeana Work Phone: [facility] Work Phone: 08-05-2021 08:01-0500 Diastolic blood pressure 82 mm[Hg] Dr. Mirtha Galeana Work Phone: [facility] Work Phone: 08-05-2021 08:01-0500 Heart rate 94 /min Dr. Mirtha Galeana Work Phone: [facility] Work Phone: 08-05-2021 08:01-0500 Respiratory rate 16 /min Dr. Mirtha Galeana Work Phone: [facility] Work Phone: 08-05-2021 08:01-0500 SaO2% (BldA) [Mass fraction] 98 % Dr. Mirtha Galeana Work Phone: [facility] Work Phone: 08-05-2021 08:01-0500 Systolic blood pressure 128 mm[Hg] Dr. Mirtha Galeana Work Phone: [facility] Work Phone: Encounters Encounter Date Encounter Type Care Provider Facility Start: 04-15-2025 ambulatory Tierney Albert COMPREHENSIVE OPHTHALMOLOGIST Facili ty:[facility] Start: 04-11-2025 End: 04-11-2025 ambulatory Tierney Albert COMPREHENSIVE OPHTHALMOLOGIST Facility[place] Start: 03-06-2025 End: 03-06-[address] Mirtha Alford DO -[facility] Work Phone: Start: 03-06-2025 End: 03-06-[address] Mirtha Galeana DO Work Phone: -[facility] Start: 10-08-2024 End: 10-08-[address] Mirtha Galeana DO Work Phone: [facility] Work Phone: Start: 10-08-2024 End: 10-08-2024 Patient encounter procedure Federico Martinez COMPREHENSIVE OPHTHALMOLOGIST-C -Laboratory Work Phone: Start: 10-08-2024 End: 10-08-2024 Patient encounter procedure Federico Martinez COMPREHENSIVE OPHTHALMOLOGIST-C -[facility] Work Phone: Start: 10-08-2024 End: 10-08-2024 ambulatory Mirtha Galeana Facility:[facility] Start: 10-08-2024 End: 10-08-2024 ambulatory Federico Martinez NP Facility:[facility] Start: 09-21-2024 Non-patient / Non-visit Dr. Joselo hendrix MD -[facility] Start: 09-21-2024 [facility] Start: 09-19-2024 Non-patient / Non-visit Dr. Gatito CASON -[facility] Start: 09-18-2024 End: 09-19-2024 ambulatory Joselo Fan Facility:[facility] Start: 09-18-2024 End: 09-19-2024 Evaluation and management of inpatient Dr. Joselo Chavira MD -[facility] Work Phone: Start: 09-18-2024 End: 09-19-[address] Mirtha Galeana DO Work Phone: [facility] Work Phone: Start: 09-13-2024 ambulatory Sudhakar Quinn Facility:[facility] Start: 09-13-2024 Non-patient / Non-visit Anthony Ponce -[facility] Start: 09-10-2024 Non-patient / Non-visit Dr. Gatito CASON [facility] Start: 09-10-2024 End: 09-10-[address] Mirtha Galeana DO Work Phone: [facility] Work Phone: Start: 09-10-2024 End: 09-10-[address] Sudhakar Quinn MD -Cardiovascular Services Work Phone: Start: 09-10-2024 End: 09-10-2024 ambulatory Sudhakar Quinn Facility:[facility] Start: 09-05-2024 End: 09-05-[address] Mirtha Alford DO -[facility] Work Phone: Start: 09-05-2024 End: 09-05-2024 ambulatory Mirtha Galeana Facility:[facility] Start: 09-03-2024 End: 09-03-[address] Mirtha Galeana DO Work Phone: [facility] Work Phone: Start: 09-03-2024 End: 09-03-2024 Patient encounter procedure Sandra Zepeda PA -Laboratory Work Phone: Start: 09-03-2024 End: 09-03-2024 ambulatory Mirtha Galeana Facility:[facility] Start: 08-23-2024 ambulatory Sudhakar Quinn Facility:[facility] Start: 08-23-2024 Non-patient / Non-visit Dr. Gatito CASON [facility] Start: 08-17-2024 End: 08-17-[address] Sudhakar Quinn MD -[facility] Work Phone: Start: 08-17-2024 End: 08-17-2024 ambulatory Sudhakar Quinn Facility:[facility] Start: 07-27-2024 End: 07-27-[address] Sudhakar Quinn MD -[facility] Work Phone: Start: 07-27-2024 End: 07-27-2024 ambulatory Mirtha Alford [facility] Facility:[facility] Start: 07-23-2024 Encounter for genera l adult medical examination without abnormal findings Zi Oglesby [facility] Start: 07-04-2024 ambulatory Roxanna Bob Fa cility:[facility] Start: 07-04-2024 Non-patient / Non-visit Dr. Donna Bob MD -[facility] Work Phone: Start: 07-04-2024 End: 07-04-[address] Zi Oglesby MD -Pulmonary Services/Neurology Work Phone: Start: 07-04-2024 End: 07-04-2024 ambulatory Mirtha Galeana Facility:[facility] Start: 06-30-2024 End: 06-30-[address] Zi Oglesby MD -Cardiovascular Services Work Phone: Start: 06-30-2024 End: 06-30-2024 Emergency department patient visit Dr. Zi Oglesby MD -Emergency Department Work Phone: Start: 06-30-2024 End: 06-30-2024 ambulatory Mirtha Galeana Facility:[facility] Start: 09-09-2023 End: 09-09-[address] Mirtha Galeana Work Phone: [facility] Work Phone: Start: 09-09-2023 End: 09-09-[address] Mirtha Galeana Work Phone: [facility], [facility] Start: 09-06-2023 End: 09-06-[address] Mirtha Galeana Work Phone: [facility] Work Phone: Start: 03-03-2023 End: 03-03-[address] Mirtha Galeana Work Phone: [facility] Work Phone: Start: 03-03-2023 End: 03-03-[address] Mirtha Galeana Work Phone: [facility] Work Phone: Start: 03-04-2022 End: 03-04-[address] Mirtha Galeana Work Phone: [facility] Work Phone: Start: 03-04-2022 End: 03-04-[address] Mirtha Galeana Work Phone: [facility] Start: 10-07-2021 End: 10-07-[address] Mirtha Galeana Work Phone: [facility]-Ultrasound, [facility] Start: 09-16-2021 End: 09-16-[address] Mirtha Galeana Work Phone: [facility], [facility] Start: 08-05-2021 End: 08-05-[address] [facility] Start: 06-30-2021 End: 06-30-[address] [facility] Start: 06-30-2021 End: 06-30-[address] Mirtha Galeana Work Phone: [facility] Start: 01-06-2017 End: 01-07-2017 Ambulatory MIRTHA GALEANA Facility:[facility] Procedures Date Procedure Procedure Detail Performing Clinician Start: 09-18-2024 History of placement of stent for coronary artery disease History of coronary artery stent placement Federico Martinez COMPREHENSIVE OPHTHALMOLOGISTVeritoC Comment on above: Successful ANOOP Mid R CA using Michael Radford 3.0x15 mmSuccessful ANOOP prox RCA using Michael Radford 3.0x30 mm, optimized proximallyusing 4.0 mm balloon Start: 08-17-2024 CT angiography of co ronary arteries Dr. Mirtha Galeana DO Work Phone: Start: 07-27-2024 Evaluation of diagno stic study results Dr. Mirtha Galeana DO Work Phone: Start: 06-30-2024 X-ray of chest, PA a nd lateral views Dr. Mirtha Galeana DO Work Phone: Start: 10-07-[address] Mirtha Galeana Work Phone: Plan of Treatment Date Care Activity Detail Author Start: 09-24-2024 Patient referral [facility] Work Phone: Start: 09-19-2024 Patient discharge [facility] Start: 09-19-2024 Complete blood count [facility] Start: 09-18-2024 Following clinical pathway protocol [facility] Start: 09-18-2024 Ambulation without limitation [facility] Start: 09-18-2024 Admission procedure [facility] Start: 09-18-2024 Cardiac monitoring [facility] Start: 09-18-2024 Cardiac rehabilitation - phase 1 [facility] Start: 09-18-2024 Cardiac rehabilitation - phase 2 [facility] Start: 09-18-2024 Notification of physician [facility] Start: 09-18-2024 Oxygen therapy [facility] Start: 09-18-2024 Patient discharge [facility] Start: 09-18-2024 Systemic arterial pressure monitoring [facility] Start: 09-18-2024 Taking patient vital signs [facility] Start: 09-18-2024 Vascular disease risk assessment [facility] Start: 09-18-2024 Vital signs measurements [facility] Start: 09-18-2024 End: 09-18-2024 [facility] Start: 06-30-2024 [facility] Start: 06-30-2024 [facility] Alanine aminotransfe rase [Enzymatic activity/volume] in Serum or Plasma [facility] Albumin [Mass/volume ] in Serum or Plasma [facility] Alkaline phosphatase [Enzymatic activity/volume] in Serum or Plasma [facility] Anion gap in Serum o r Plasma [facility] Bilirubin, total measurement [facility] BUN/Creatinine ratio [facility] Calcium [Mass/volume ] in Serum or Plasma [facility] Carbon dioxide, tota l [Moles/volume] in Central venous blood [facility] Creatinine [Mass/vol ume] in Serum or Plasma [facility] Erythrocyte mean corpuscular volume determination [facility] Glucose [Mass/volume ] in Serum or Plasma [facility] Hematocrit [Volume Fraction] of Blood [facility] Hemoglobin [Mass/vol ume] in Blood [facility] Hemoglobin A1c/Hemoglobin.total in Blood [facility] Leukocytes [#/volume ] in Blood [facility] Mean corpuscular hem oglobin concentration determination [facility] Mean corpuscular hem oglobin determination [facility] Measurement of renal function [facility] Microalbumin [Mass/v olume] in Urine [facility] Patient Education ED Dyspnea ED Holter Monitor ED Palpitations [facility] Work Phone: Patient referral [facility] Work Phone: Platelets [#/volume] in Blood [facility] Potassium measurement [facility] Red blood cell count [facility] Red cell distributio n width determination [facility] Serum chloride measurement [facility] Sodium measurement [facility] Total protein measurement [facility] Urea nitrogen [Mass/ volume] in Serum or Plasma [facility] Immunizations Immunization Date Immunization Notes Care Provider Fa [facility] 03-24-2024 influenza, seasonal, injectable, preservative free Dr. Mirtha Galeana DO Work Phone: [facility] 02-03-2024 tetanus toxoid, redu wilfredo diphtheria toxoid, and acellular pertussis vaccine, adsorbed Dr. Mirtha Galeana DO Work Phone: [facility] 03-26-2023 influenza, injectabl e, quadrivalent, preservative free Dr. Mirtha Galeana DO Work Phone: [facility] 06-04-2021 Covid (Moderna) Dr. Mirtha Galeana DO Work Phone: [facility] 10-16-2020 Jonathanid (Moderna) Dr. Mirtha Galeana DO Work Phone: [facility] 09-18-2020 Covid (Moderna) Dr. iMrtha Galeana DO Work Phone: [facility] 08-13-2020 pneumococcal conjuga te vaccine, [address] Mirtha Galeana Work Phone: [facility] 08-13-2020 pneumococcal vaccine , unspecified formulation Dr. Mirtha Galeana Work Phone: [facility] Work Phone: 03-27-2017 influenza, injectabl e, quadrivalent, preservative free Dr. Mirtha Galeana DO Work Phone: [facility] 04-13-2016 influenza, high dose seasonal, preservative-free Dr. Mirtha Galeana DO Work Phone: [facility] Payers Date Payer Category Payer Unknown [id number] 2024 Self-pay [id number] 2024 Private Health Insurance [id number] 2015 Private Health Insurance [id number] Private Health Insurance [id number] Unknown [id number] 2.16.8 [id number] Unknown [id number] 2.16.8 [id number] Unknown [id number] 2.16.8 40.1.171205.3.579.2.462 Unknown [id number] 2.16.8 40.1.616273.3.579.2.462 Unknown [id number] 2.16.8 40.1.782353.3.579.2.462 Unknown [id number] 2.16.8 40.1.554824.3.579.2.462 Unknown [id number] 2.16.8 40.1.201109.3.579.2.462 Unknown [id number] 2.16.8 40.1.466346.3.579.2.462 Unknown [id number] 2.16.8 40.1.557714.3.579.2.462 Unknown [id number] 2.16.8 40.1.900743.3.579.2.462 Unknown [id number] 2.16.8 40.1.981304.3.579.2.462 Unknown [id number] 2.16.8 40.1.363618.3.579.2.462 Unknown [id number] 2.16.8 40.1.898518.3.579.2.462 Unknown [id number] 2.16.8 40.1.138008.3.579.2.462 Unknown [id number] 2.16.8 40.1.631265.3.579.2.462 Unknown [id number] 2.16.8 40.1.428959.3.579.2.462 Unknown [id number] 2.16.8 40.1.369398.3.579.2.462 Unknown [id number] 2.16.8 40.1.115141.3.579.2.462 Unknown [id number] 2.16.8 40.1.193372.3.579.2.462 Unknown [id number] 2.16.8 40.1.322804.3.579.2.462 Unknown [id number] 2.16.8 40.1.672504.3.579.2.462 Unknown [id number] 2.16.8 [id number] Social History Date Type Detail Facility Start: 08-05-2021 End: 09-06-2023 Tobacco smoking status NHIS Unknown if ever smoked [facility] Start: 1960 Sex Assigned At Male [facility] Start: 06-30-2024 End: 10-08-2024 Tobacco smoking status NHIS Ex-smoker (finding) [facility] Start: 09-13-2024 End: 10-11-2024 Sex Male (finding) [facility] Medical Equipment Procedure Code Equipment Code Equipment Origin al Text Equipment Identifier Dates Drug-eluting coronary artery stent, axk-[id number]-on lymer-coated ()[id number] FDA Start: 09-18-2024 Drug-eluting coronary artery stent, bod-hjaqukhtnnhlo-qu lymer-coated ()[id number] FDA Start: 09-18-2024 Goals Date Patient Goal Desired Activity /State Functional Status Date Assessment Result Facility 09-19-2024 Functional status Ambulates [facility] Work Phone: 09-18-2024 Functional status Ambulates;Bath room Privilege;Back to bed [facility] Work Phone: Mental Status Date Assessment Result Facility 09-19-2024 Cognitive function Voice/Name [facility] Work Phone: 09-18-2024 Cognitive function Voice/Name [facility] Work Phone: 06-30-2024 Cognitive function Voice/Name [facility] Work Phone: Clinical Notes 07-27-2024 to 09-19-2024 Note Date & Type Note Facility 09-19-2024 Discharge summary [facility] 09-19-2024 Discharge summary Note Date/Time September 19, 2024 10:55am [facility] Medical Records Department [address] [place] [address] Instructions for Home/Discharge Instructions 09/19/24 0730 MR#: [id number] Acct: [id number] Name: MIRTHA GAMEZ Rep #:[id number] : 1960 64 From: Sudhakar Quinn MD PCP: Dr. Mirtha Galeana, DO Status:AD M NILSA Discharge Instructions Diet Discharge Diet: No restrictions (You may continue your normal diet.) DC O2, CPAP, BIPAP needs Home O2 Discharge instructions: No Dressing / Incision Discharge Activity: Return to Normal Activity Lifting Restrictions: 10 pounds and also avoid any pushing or pulling for 3 daysafter your test. Additional Activity Instructions:: You must have someone drive you home. Do not drive until instructed by your doctor. You must have someone stay with you all night after your test. Rest in bed or onthe couch until the next morning. Limit the number of times you go up and down stairs the day of your test. Apply pressure to the puncture site if you sneeze or cough. Dressing / Incision Call your doctor if your incision/area has: Increased Pain/ Swelling, Increased Redness, Foul Smelling Discharge and Swelling at the incision site Call your doctor if you observe: Fever of 101 or Higher Additional Dressing/Incision Instructions:: Keep the dressing (bandage) on untilthe next morning. You may then shower, but do not take a tub bath for 5 days after your test. It is normal to have some tenderness and discomfort at the puncture site. Sometimes bruising also occurs. However, if pain, numbness, or coldness occurs below the puncture site (in your leg, toes, arms or fingers) call your doctor atonce. You may have a small, marble sized knot at the puncture site. This is normal. Donot rub it. It will go away in 4-6 weeks. Bleeding can occur from the area where the puncture was done. Blood may spurt ordrip from the site. If blood spurts, apply pressure right away to stop bleeding and call 911. Although rare, bleeding into the tissue (hematoma) can also occur.If this happens, a large, firm area goose egg under the skin will appear. If any of these occur, lie down as flat as you can and have someone apply firm pressure to the cath site with a gauze pad or a clean washcloth for 10-15 minutes. Call 911 or go to the Emergency Department. Follow Up Care When: Office visit. They will call you from the office. Test Results: Test results from this visit will be discussed in further detail at your follow-up appointment, if applicable. Discharge Plan Admission Admit Date/Time: 09/18/24 09:24 Attending Provider: Joselo Chavira Primary Care Provider: Mirtha Galeana Discharge Orders/Prescriptions Prescriptions: New clopidogrel 75 mg Tablet 75 mg PO DAILY Qty: 90 3RF Continued aspirin 81 mg capsule 81 mg PO DAILY lisinopril 40 mg tablet 40 mg PO DAILY Qty: 90 3RF metformin 500 mg tablet extended release 24 hr 500 mg PO BID 90 Days Qty: 180 1RF metoprolol succinate [Toprol XL] 25 mg tablet extended release 24 hr 25 mg PO QDAY Qty: 60 6RF Referrals / Follow Up: Mirtha Galeana DO [Primary Care Provider] - Disposition Disposition (needs filled in before D/C Order can be placed): Home, Self Care 09/19/24729<Electronically signed by Sudhakar Quinn MD>Sudhakar Quinn MD CC: Dr. Mirtha Galeana DO ~ Signed [facility] Work Phone: 1(937) 185-221303-26-2025 Progress note Author Sudhakar Quinn [facility] Note Date/Time September 19, 2024 7:2 6am [facility] Medical Records Department [address] [place] [id number] Progress Note - Cardiology 09/19/24724 MR#: [id number] Acct: [id number] Name: MIRTHA GAMEZ Rep #:[id number] : 1960 64 From: Sudhakar Quinn MD PCP: Dr. Mirtha Galeana DO Status:[facility] Location: [place] [address] Subjective Subjective Patient seen and evaluated Objective Data Vital Signs: Vital Signs Temp Pulse Resp BP Pulse Ox O2 Del Method 98 F 85 16 128/76 H 98 Room Air 09/19/24 04:00 09/19/24 04:00 09/19/24 04:00 09/19/24 04:00 09/19/24 04:00 09/19/24 04:00 Oxygen Delivery Method Room Air Weight: 206 lb Body Mass Index (BMI) 33.2 Intake & Output: Intake and Output for Last 24 Hours 09/17/24 09/18/24 09/19/24 23:59 23:59 23:59 Intake Total 1900 / 2260 360 / 360 Balance 1900 / 2260 360 / 360 Lab / Micro Data 09/19/24 05:26 09/19/24 05:26 Labs: Laboratory Results - last 24 hr 09/18/24 07:43: Activated Clotting Time 250 H 09/18/24 08:21: Activated Clotting Time 233 H 09/18/24 18:09: Ur Random Microalbumin < 12.0 09/18/24 18:29: Hemoglobin A1c 7.4 09/19/24 05:26: WBC 8.8, RBC 4.39 L, Hgb 13.9, Hct 39.3 L, MCV 89.5, MCH 31.7, MCHC 35.4, RDW Std Deviation 38.8, RDW Coeff of Brent 11.9, Plt Count 181, MPV 11.6, Sodium 138, Potassium 4.0, Chloride 107, Carbon Dioxide 19.7 L, Anion Gap 11, BUN 12, Creatinine 0.73, Estim Creat Clear Calc 112.27, Est GFR (MDRD) Non-Af 103, BUN/Creatinine Ratio 17.0, Glucose 144 H, Calcium 8.8, Total Bilirubin 0.33, AST 29, ALT 47, Alkaline Phosphatase 66, Total Protein 6.1, Albumin 4.0, Globulin 2.1 L, Albumin/Globulin Ratio 1.9 Cardiology Labs/Tests 09/18/24 18:29: Hemoglobin A1c 7.4 09/19/24 05:26: WBC 8.8, RBC 4.39 L, Hgb 13.9, Hct 39.3 L, MCV 89.5, MCH 31.7, MCHC 35.4, Plt Count 181, MPV 11.6, Sodium 138, Potassium 4.0, Chloride 107, Carbon Dioxide 19.7 L, Anion Gap 11, BUN 12, Creatinine 0.73, Est GFR (MDRD) Non-Af 103, BUN/Creatinine Ratio 17.0, Glucose 144 H, Calcium 8.8, Total Bilirubin 0.33 Rhythm: EKG: ECHO: Stress Test: Cardiac Cath: PCI: CT Surgery: Holter monitor: EPS: PPM: CXR: Chest CT Scan: Physical Exam Const alert, oriented x3 and no apparent distress General Appearance: cooperative HEENT hearing grossly normal bilaterally Head and Scalp: atraumatic Eyes EOMs intact bilaterally Neck General: normal visual inspection Chest inspection of chest normal and palpation of chest normal Resp normal respiratory effort Auscultation: clear to auscultation bilaterally Cardio regular rate, regular rhythm, S1 normal heart sound and S2 normal heart sound Jugular Venous Distention: JVD GI normal to inspection, nondistended, normoactive bowel sounds Extremity normal capillary refill and no pedal edema Peripheral Pulses: Yes pulses 2+ throughout and femoral pulses present Skin no rashes or lesions noted Neuro oriented x3 and CN's II-XII intact bilaterally Psych Appearance: grossly normal and appropriate Assessment & Plan Assessment/Plan (1) CAD (coronary artery disease): PLAN: Patient underwent PCI and stenting of the right coronary artery successfully. The plan is to continue current medical therapy and follow-up as an outpatient. 09/19/24725 <Electronically signed by Sudhakar Quinn MD> Cosigner Signature (if applicable): CC: ~ Signed [facility] Work Phone: 1(527) 309-647603-26-2025 Progress note [facility] Medical Records Department [address] [place] [address] Progress Note - Cardiology 09/19/24724 MR#: [id number] Acct: [id number] Name: MIRTHA GAMEZ Rep #:[id number] : 1960 64 From: Sudhakar Quinn MD PCP: Dr. Mirtha Galeana, DO Status:[facility] Location: [place] [address] Subjective Subjective Patient seen and evaluated Objective Data Vital Signs: Vital Signs Temp Pulse Resp BP Pulse Ox O2 Del Method 98 F 85 16 128/76 H 98 Room Air 09/19/24 04:00 09/19/24 04:00 09/19/24 04:00 09/19/24 04:00 09/19/24 04:00 09/19/24 04:00 Oxygen Delivery Method Room Air Weight: 206 lb Body Mass Index (BMI) 33.2 Intake & Output: Intake and Output for Last 24 Hours 09/17/24 09/18/24 09/19/24 23:59 23:59 23:59 Intake Total 1900 / 2260 360 / 360 Balance 1900 / 2260 360 / 360 Lab / Micro Data 09/19/24 05:26 09/19/24 05:26 Labs: Laboratory Results - last 24 hr 09/18/24 07:43: Activated Clotting Time 250 H 09/18/24 08:21: Activated Clotting Time 233 H 09/18/24 18:09: Ur Random Microalbumin < 12.0 09/18/24 18:29: Hemoglobin A1c 7.4 09/19/24 05:26: WBC 8.8, RBC 4.39 L, Hgb 13.9, Hct 39.3 L, MCV 89.5, MCH 31.7, MCHC 35.4, RDW Std Deviation 38.8, RDW Coeff of Brent 11.9, Plt Count 181, MPV 11.6, Sodium 138, Potassium 4.0, Chloride 107, Carbon Dioxide 19.7 L, Anion Gap 11, BUN 12, Creatinine 0.73, Estim Creat Clear Calc 112.27, EstGFR (MDRD) Non-Af 103, BUN/Creatinine Ratio 17.0, Glucose 144 H, Calcium 8.8, Total Bilirubin 0.33,AST 29, ALT 47, Alkaline Phosphatase 66, Total Protein 6.1, Albumin 4.0, Globulin 2.1 L, Albumin/Globulin Ratio 1.9 Cardiology Labs/Tests 09/18/24 18:29: Hemoglobin A1c 7.4 09/19/24 05:26: WBC 8.8, RBC 4.39 L, Hgb 13.9, Hct 39.3 L, MCV 89.5, MCH 31.7, MCHC 35.4, Plt [id number], MPV 11.6, Sodium 138, Potassium 4.0, Chloride 107, Carbon Dioxide 19.7 L, Anion Gap 11, BUN 12, Creatinine 0.73, Est GFR (MDRD) Non-Af 103, BUN/Creatinine Ratio 17.0, Glucose 144 H, Calcium 8.8,Total Bilirubin 0.33 Rhythm: EKG: ECHO: Stress Test: Cardiac Cath: PCI: CT Surgery: Holter monitor: EPS: PPM: CXR: Chest CT Scan: Physical Exam Const alert, oriented x3 and no apparent distress General Appearance: cooperative HEENT hearing grossly normal bilaterally Head and Scalp: atraumatic Eyes EOMs intact bilaterally Neck General: normal visual inspection Chest inspection of chest normal and palpation of chest normal Resp normal respiratory effort Auscultation: clear to auscultation bilaterally Cardio regular rate, regular rhythm, S1 normal heart sound and S2 normal heart sound Jugular Venous Distention: JVD GI normal to inspection, nondistended, normoactive bowel sounds Extremity normal capillary refill and no pedal edema Peripheral Pulses: Yes pulses 2+ throughout and femoral pulses present Skin no rashes or lesions noted Neuro oriented x3 and CN's II-XII intact bilaterally Psych Appearance: grossly normal and appropriate Assessment & Plan Assessment/Plan (1) CAD (coronary artery disease): PLAN: Patient underwent PCI and stenting of the right coronary artery successfully. The plan is to continue current medical therapy and follow-up as an outpatient. 09/19/24 0726 Cosigner Signature (if applicable): CC: ~ Signed [facility]03-25-2025 Evaluation note* Diagnosis Onset Date Resolution Status Admit Date Diabetes chronic February 4:06pm History of coronary artery stent placement September 18, 2024 chronic March 06, 2025 4:06pm Hyperlipidemia chronic March 06, 2025 4:06pm Hypertension chronic March 062024 4:06pm [place] [employer] Work Phone: 1(262) 136-985703-25-2025 Study report [facility] [address] [place] [address] CR: Phase I Education Summary MR#: [id number] Acct: [id number] Name: MIRTHA GAMEZ Rep #:[id number] : 1960 64 From: Tierney Hoang PCP: Dr. Mirtha Galeana, DO DOS: General Education Discussed with Patient CAD and cardiac anatomy and function:: Patient communicates acknowledgment Explanation of diagnoses and procedures:: Patient communicates acknowledgment Sign/Symptoms of FL:: Patient communicates acknowledgment Antiplatelet therapy: Patient communicates acknowledgment Proper use of NTG-SL: Patient communicates acknowledgment Emergency procedures and activation of EMS: Patient communicates acknowledgment Compliance of all prescribed medications: Patient communicates acknowledgment Smoking Recommendations Recommendations Include:: Previous smoker; encourage continued cessation Response Code Nicotine/Smoking Response Code:: Patient communicates acknowledgment Dyslipidemia Risk Factors Patient Dyslipidemia Risk Factors Are:: Total Cholesterol, Triglycerides, HDL and LDL Recommendations Recommendations Include:: Lipid profile provided, Reviewed NCEP/ATP guidelines and Therapeutic Lifestyle Change dietary guidelines Response Code Dyslipidemia Response Code:: Patient communicates acknowledgment Overweight/Obesity Risk Factors Patient Overweight/Obesity Risk Factors Are:: Obesity - > or = 30 Recommendations Recommendations Include:: Weight loss of 5-10%, Reduced calorie diet and Exercise 5-7 times/week Response Code Overweight/Obesity:: Patient communicates acknowledgment Hypertension Recommendations Recommendations Include:: BP <130/80 if diabetic, DASH dietary guidelines, Decrease/maintain normal body weight and Moderation of ETOH Diabetes Risk Factors Patient Diabetes Risk Factors Are:: Elevated blood sugars Recommendations Recommendations Include:: Maintain fasting blood sugars 70-110 md/dL, Maintain HgbA1c of 6% or less, Monitor blood sugar as prescribed, Diabetic dietary guidelines and Decrease/maintain body weight Response Code Diabetes:: Patient communicates acknowledgment Metabolic Syndrome Risk Factors Patient Metabolic Syndrome Risk Factors Are [3 of 5]:: Fasting blood sugar > 100mg/dL, Waist circumference > 35 [female] or 40 [male], High triglyceride >150, Hypertension and Low HDL <40 [male] or < 50 [female] Recommendations Recommendations Include:: Patient is diabetic Response Code Metabolic Syndrome Response Code:: Patient communicates acknowledgment Sedentary Risk Factors Patient Sedentary Risk Factors Are:: Lack of regular exercise Recommendations Recommendations Include:: Aerobic exercise 5-7 times/week for 20-30 minutes continuously, Benefits of regular exercise, Discussed home walking program and Monitored Outpatient Cardiac Rehab Response Code Sedentary Response Code:: Patient communicates acknowledgment Stress Risk Factors Patient Stress Risk Factors Are:: Patient denies stress as a risk factor Recommendations Recommendations Include:: Identification of stressors, and assessment of coping skills and Stress management techniques Response Code Stress Response Code:: Patient communicates acknowledgment 09/18/24 1336 Date Tierney Hoang Outcome assessment reviewed. Exercise plan approved as documented. Treatment plan and goals support patient needs/abilities. Continue with current plan. I certify the patient demonstrates improvement and remains willing and capable of participation. the patient continues to benefit from cardiac rehab services/training. The patient may continue at current intensity, endurance and modality and progress per protocol. Cosigner Signature: Date CC: ~ Signed [facility]03-20-2025 History and physical note Author Sandra Zepeda [facility] Note Date/Time September 13, 2024 1:3 0pm [facility] Medical Records Department [address] [place] [address] History & Physical Exam 09/13/24 1327 MR#: [id number] Acct: [id number] Name: MIRTHA GAMEZ Rep #:[id number] : 1960 64 From: Sandra PAREDES [place] PCP: Dr. Mirtha Galeana, DO Status:[facility] E [facility]C Location: [facility] History and Physical Date of Admission: 09/18/24 64-year-old man with no previous cardiac history other than hypertension and diabetes mellitus who presents with palpitations. He says that this has been going on for a few weeks. He denies any chest pain no shortness of breath no pedal edema no paroxysmal nocturnal dyspnea. These palpitations occur at a variety of times he presented to the emergency room was evaluated electrolytes were noted to be normal TSH was normal. A 48-hour Holter monitor demonstrated an average heart rate of 94 bpm and maximal heart rate 152 bpm in sinus rhythm with an artery interval of 1.3 seconds. There was 0.3% of the total QRS complexes noted to be PACs. He has otherwise been doing well. His physical exam today is unremarkable his electrocardiogram demonstrates sinus rhythm with a rate of 97 bpm and frequent premature atrial complexes noted. Echocardiogram demonstrated an ejection fraction of 55%. No regional wall motion abnormalities. Patient had a coronary calcium score which did demonstrate significant plaque. Because of the significance of his plaque he isto undergo a diagnostic heart catheterization. [facility] Medical History Palpitations HORTON (dyspnea on exertion) Heart palpitations Fatigue Elevated liver enzymes Headache GERD (gastroesophageal reflux disease) Kidney stones Hyperlipidemia Hypertension Hearing problem Diabetes Seasonal allergies Surgical History History of tonsillectomy Family History Father Lung cancer Mother Heart disease COPD (chronic obstructive pulmonary disease) Sister Thyroid disorder Social History Smoking Status: Former smoker alcohol intake: current alcohol intake frequency: holidays/special occasions only substance use type: does not use what type of physical activity do you participate in: walking ROS Const Const: Negative for fatigue, weakness, headache(s), daytime sleepiness or difficulty sleeping ENT ENT: Negative for headache(s), dizziness or Nosebleed/epistaxis Cardio Chest Pain: No Palpitations: Yes feels like its: fast and pounding Edema: None Resp Respiratory: Negative for SOB with activity, SOB at rest, SOB orthopneaundefinedSOB lying down or Cough GI GI: Negative nausea, vomiting or heartburn Neuro Neuro: Positive for lightheadedness (prior to hospitalization ) and near syncope; Negative for dizziness, headache(s) or weakness Endo Endo: Negative for fatigue Cardiology Exam Const Appearance: cooperative, healthy appearing, no acute distress, well developed and well groomed Nutritional Appearance: average body habitus and well nourished Orientation: alert, awake and oriented x3 Head Head: normal to inspection, normocephalic and atraumatic Ears: hearing grossly normal bilaterally and external ears normal Nose: external nose normal, nares normal, nasal mucous membranes and turbinates normal, septum normal and no nasal discharge Face and Sinus: face symmetric Mouth: oral mucosae normal, tongue normal, oropharynx normal and moist mucous membranes Teeth and gingiva: dentition normal Throat: posterior oropharynx normal, tonsils normal and uvula midline Eyes General: appearance normal, both eyes and all related structures Eyelids: eyelids normal Conjunctivae: conjunctivae normal Pupils: PERRL, normal by confrontation and accommodation normal EOM: EOM intact bilaterally Neck Neck: normal visual inspection, trachea midline and no JVD JVD: +5 Carotids: normal carotid upstroke and bounding pulses Chest Chest inspection: normal inspection of the chest, symmetric chest movement and normal respiratory effort Auscultation: Bilateral: Clear to Auscultation Cardio Palpation: normal PMI Rate: regular rate Rhythm: regular rhythm Heart sounds: S1 normal, S2 normal and normal, physiologic split S2; Negative rub, gallop or murmur GI GI: normal to inspection, soft, no hepatosplenomegaly and bowel sounds present Neuro General: patient alert, patient awake, patient oriented x3, gait normal, moves all extremities and no focal sensory deficit Skin Skin: no rashes or lesions noted Extremities Pulses: Normal: Right Femoral Pulse, Left Femoral Pulse, Right Dorsalis Pedis Pulse, Left Dorsalis Pedis Pulse, Right Posterior Tibial Pulse, Left Posterior Tibial Pulse, Right Radial Pulse and Left Radial Pulse Lower Extremity Edema: None: Bilateral Musculoskel Musculoskeletal: No joint tenderness Psych Psychological: normal affect Assessment & Plan Assessment/Plan (1) Abnormal cardiac CT angiography: (2) Palpitations: (3) Hypertension: (4) Hyperlipidemia: PLAN: Plan Patient is scheduled to undergo a diagnostic heart catheterization for his abnormal coronary calcium score. Based on findings further recommendations willbe made. 09/13/24 1330 <Electronically signed by Sandra PAREDES> Cosigner Signature (if applicable): CC: Dr. Mirtha Galeana, ; REGGIE Camejo~ Signed [facility] Work Phone: 1([phone]) 198-627703-20-2025 History and physical note [facility] Medical Records Department [address] [place] [address] History & Physical Exam 09/13/24 1327 MR#: [id number] Acct: [id number] Name: MIRTHA GAMEZ Rep #:[id number] : 1960 64 From: Sandra PAREDES PCP: Dr. Mirtha Galeana DO Status:[facility] Location: [facility] History and Physical Date of Admission: 09/18/24 64-year-old man with no previous cardiac history other than hypertension and diabetes mellitus who presents with palpitations. He says that this has been going on for a few weeks. He denies any chestpain no shortness of breath no pedal edema no paroxysmal nocturnal dyspnea. These palpitations occur at a variety of times he presented to the emergency room was evaluated electrolytes were noted to be normal TSH was normal. A 48-hour Holter monitor demonstrated an average heart rate of 94 bpm and maximal heart rate 152 bpm in sinus rhythm with an artery interval of 1.3 seconds. There was 0.3% ofthe total QRS complexes noted to be PACs. He has otherwise been doing well. His physical exam todayis unremarkable his electrocardiogram demonstrates sinus rhythm with a rate of 97 bpm and frequent premature atrial complexes noted. Echocardiogram demonstrated an ejection fraction of 55%. No regional wall motion abnormalities. Patient had a coronary calcium score which did demonstrate significant plaque. Because of the significance of his plaque he isto undergo a diagnostic heart catheterization. [facility] Medical History Palpitations HORTON (dyspnea on exertion) Heart palpitations Fatigue Elevated liver enzymes Headache GERD (gastroesophageal reflux disease) Kidney stones Hyperlipidemia Hypertension Hearing problem Diabetes Seasonal allergies Surgical History History of tonsillectomy Family History Father Lung cancer Mother Heart disease COPD (chronic obstructive pulmonary disease) Sister Thyroid disorder Social History Smoking Status: Former smoker alcohol intake: current alcohol intake frequency: holidays/special occasions only substance use type: does not use what type of physical activity do you participate in: walking ROS Const Const: Negative for fatigue, weakness, headache(s), daytime sleepiness or difficulty sleeping ENT ENT: Negative for headache(s), dizziness or Nosebleed/epistaxis Cardio Chest Pain: No Palpitations: Yes feels like its: fast and pounding Edema: None Resp Respiratory: Negative for SOB with activity, SOB at rest, SOB orthopneaundefinedSOB lying down or Cough GI GI: Negative nausea, vomiting or heartburn Neuro Neuro: Positive for lightheadedness (prior to hospitalization ) and near syncope; Negative for dizziness, headache(s) or weakness Endo Endo: Negative for fatigue Cardiology Exam Const Appearance: cooperative, healthy appearing, no acute distress, well developed and well groomed Nutritional Appearance: average body habitus and well nourished Orientation: alert, awake and oriented x3 Head Head: normal to inspection, normocephalic and atraumatic Ears: hearing grossly normal bilaterally and external ears normal Nose: external nose normal, nares normal, nasal mucous membranes and turbinates normal, septum normal and no nasal discharge Face and Sinus: face symmetric Mouth: oral mucosae normal, tongue normal, oropharynx normal and moist mucous membranes Teeth and gingiva: dentition normal Throat: posterior oropharynx normal, tonsils normal and uvula midline Eyes General: appearance normal, both eyes and all related structures Eyelids: eyelids normal Conjunctivae: conjunctivae normal Pupils: PERRL, normal by confrontation and accommodation normal EOM: EOM intact bilaterally Neck Neck: normal visual inspection, trachea midline and no JVD JVD: +5 Carotids: normal carotid upstroke and bounding pulses Chest Chest inspection: normal inspection of the chest, symmetric chest movement and normal respiratory effort Auscultation: Bilateral: Clear to Auscultation Cardio Palpation: normal PMI Rate: regular rate Rhythm: regular rhythm Heart sounds: S1 normal, S2 normal and normal, physiologic split S2; Negative rub, gallop or murmur GI GI: normal to inspection, soft, no hepatosplenomegaly and bowel sounds present Neuro General: patient alert, patient awake, patient oriented x3, gait normal, moves all extremities and no focal sensory deficit Skin Skin: no rashes or lesions noted Extremities Pulses: Normal: Right Femoral Pulse, Left Femoral Pulse, Right Dorsalis Pedis Pulse, Left Dorsalis Pedis Pulse, Right Posterior Tibial Pulse, Left Posterior Tibial Pulse, Right Radial Pulse and Left Radial Pulse Lower Extremity Edema: None: Bilateral Musculoskel Musculoskeletal: No joint tenderness Psych Psychological: normal affect Assessment & Plan Assessment/Plan (1) Abnormal cardiac CT angiography: (2) Palpitations: (3) Hypertension: (4) Hyperlipidemia: PLAN: Plan Patient is scheduled to undergo a diagnostic heart catheterization for his abnormal coronary calcium score. Based on findings further recommendations willbe made. 09/13/24 1330 Cosigner Signature (if applicable): CC: Dr. Mirtha Galeana DO; REGGIE Camejo~ [facility]03-20-2025 [facility] Medical Records Department [address] [place] [address] History Physical Exam 09/13/24 1327 MR#: [id number] Acct: [id number] Name: MIRTHA GAMEZ Rep #: [id number] : 1960 64 From: Sandra PAREDES PCP: Dr. Mirtha Galeana DO Status:PRE [facility] Location: [facility] History and Physical Date of Admission: 09/18/24 64-year-old man with no previous cardiac history other than hypertension and diabetes mellitus who presents with palpitations. He says that this has been going on for a few weeks. He denies any chest pain no shortness of breath no pedal edema no paroxysmal nocturnal dyspnea. These palpitations occur at a variety of times he presented to the emergency room was evaluated electrolytes were noted to be normal TSH was normal. A 48-hour Holter monitor demonstrated an average heart rate of 94 bpm and maximal heart rate 152 bpm in sinus rhythm with an artery interval of 1.3 seconds. There was 0.3% of the total QRS complexes noted to be PACs. He has otherwise been doing well. His physical exam today is unremarkable his electrocardiogram demonstrates sinus rhythm with a rate of 97 bpm and frequent premature atrial complexes noted. Echocardiogram demonstrated an ejection fraction of 55%. No regional wall motion abnormalities. Patient had a coronary calcium score which did demonstrate significant plaque. Because of the significance of his plaque he is to undergo a diagnostic heart catheterization. [facility] Medical History Palpitations HORTON (dyspnea on exertion) Heart palpitations Fatigue Elevated liver enzymes Headache GERD (gastroesophageal reflux disease) Kidney stones Hyperlipidemia Hypertension Hearing problem Diabetes Seasonal allergies Surgical History History of tonsillectomy Family History Father Lung cancer Mother Heart disease COPD (chronic obstructive pulmonary disease) Sister Thyroid disorder Social History Smoking Status: Former smoker alcohol intake: current alcohol intake frequency: holidays/special occasions only substance use type: does not use what type of physical activity do you participate in: walking ROS Const Const: Negative for fatigue, weakness, headache(s), daytime sleepiness or difficulty sleeping ENT ENT: Negative for headache(s), dizziness or Nosebleed/epistaxis Cardio Chest Pain: No Palpitations: Yes feels like its: fast and pounding Edema: None Resp Respiratory: Negative for SOB with activity, SOB at rest, SOB orthopnea SOB lying down or Cough GI GI: Negative nausea, vomiting or heartburn Neuro Neuro: Positive for lightheadedness (prior to hospitalization ) and near syncope; Negative for dizziness, headache(s) or weakness Endo Endo: Negative for fatigue Cardiology Exam Const Appearance: cooperative, healthy appearing, no acute distress, well developed and well groomed Nutritional Appearance: average body habitus and well nourished Orientation: alert, awake and oriented x3 Head Head: normal to inspection, normocephalic and atraumatic Ears: hearing grossly normal bilaterally and external ears normal Nose: external nose normal, nares normal, nasal mucous membranes and turbinates normal, septum normal and no nasal discharge Face and Sinus: face symmetric Mouth: oral mucosae normal, tongue normal, oropharynx normal and moist mucous membranes Teeth and gingiva: dentition normal Throat: posterior oropharynx normal, tonsils normal and uvula midline Eyes General: appearance normal, both eyes and all related structures Eyelids: eyelids normal Conjunctivae: conjunctivae normal Pupils: PERRL, normal by confrontation and accommodation normal EOM: EOM intact bilaterally Neck Neck: normal visual inspection, trachea midline and no JVD JVD: +5 Carotids: normal carotid upstroke and bounding pulses Chest Chest inspection: normal inspection of the chest, symmetric chest movement and normal respiratory effort Auscultation: Bilateral: Clear to Auscultation Cardio Palpation: normal PMI Rate: regular rate Rhythm: regular rhythm Heart sounds: S1 normal, S2 normal and normal, physiologic split S2; Negative rub, gallop or murmur GI GI: normal to inspection, soft, no hepatosplenomegaly and bowel sounds present Neuro General: patient alert, patient awake, patient oriented x3, gait normal, moves all extremities and no focal sensory deficit Skin Skin: no rashes or lesions noted Extremities Pulses: Normal: Right Femoral Pulse, Left Femoral Pulse, Right Dorsalis Pedis Pulse, Left Dorsalis Pedis Pulse, Right Posterior Tibial Pulse, Left Posterior Tibial Pulse, Right Radial Pulse and Left (more content not included)...[facility]01-31-2025 Evaluation note* Diagnosis Onset Date Resolution Status Admit Date Palpitations acute June 8:45am Hyperlipidemia chronic July 272024 8:45am Hypertension chronic June 8:45am Diabetes chronic September 05 3:52pm Heart palpitations chronic September 05, 2024 3:52pm Hyperlipidemia chronic August 3:52pm Hypertension chronic September 05, 2024 3:52pm [facility] Work Phone: [phone]) 766-824301-31-2025 Evaluation note* Diagnosis Onset Date Resolution Status Admit Date Palpitations acute June 8:45am Hyperlipidemia chronic July 272024 8:45am Hypertension chronic June 8:45am Diabetes chronic September 05 3:52pm Heart palpitations chronic September 05, 2024 3:52pm Hyperlipidemia chronic August 3:52pm Hypertension chronic September 05, 2024 3:52pm Abnormal cardiac CT angiography acut e September 18, 2024 9:24am Palpitations acute September 18, 2024 9:24am Hyperlipidemia chronic August 9:24am Hypertension chronic September 18, 2024 9:24am [facility] Work Phone: 1([phone] 268-355101-31-2025 Evaluation note* Diagnosis Onset Date Resolution Status Admit Date Palpitations acute June 8:45am Hyperlipidemia chronic July 272024 8:45am Hypertension chronic June 8:45am Diabetes chronic September 05 3:52pm Heart palpitations chronic September 05, 2024 3:52pm Hyperlipidemia chronic August 3:52pm Hypertension chronic September 05, 2024 3:52pm Abnormal cardiac CT angiography acut e September 18, 2024 9:24am CAD (coronary artery disease) acute September 18, 2024 9:24am Palpitations acute September 18, 2024 9:24am Hyperlipidemia chronic August 9:24am Hypertension chronic September 18, 2024 9:24am [facility] Work Phone: [phone] 251-326701-31-2025 Evaluation note* Diagnosis Onset Date Resolution Status Admit Date Hyperlipidemia chronic July 272024 8:45am Hypertension chronic June 8:45am Palpitations chronic June 8:45am Diabetes chronic September 05 3:52pm Heart palpitations chronic September 05, 2024 3:52pm Hyperlipidemia chronic August 3:52pm Hypertension chronic September 05, 2024 3:52pm Abnormal cardiac CT angiography acute September 18, 2024 9:24am CAD (coronary artery disease) acute September 18, 2024 9:24am Hyperlipidemia chronic August 9:24am Hypertension chronic September 18, 2024 9:24am Palpitations chronic September 18, 2024 9:24am Diabetes chronic October 08 2:31pm History of coronary artery stent placement September 18, 2024 chronic October 08 2:31pm Hyperlipidemia chronic September 2:31pm Hypertension chronic October 08, 2024 2:31pm Palpitations chronic October 08, 2024 2:31pm [facility] Work Phone: Evaluation note* Diagnosis Onset Date Resolution Status Diabetes chronic Hypertension [facility] Work Phone: Evaluation note* Diagnosis Onset Date Resolution Status Elevated liver enzymes acute Diabetes chronic Hypertension [facility] Work Phone: Evaluation note* Diagnosis Onset Date Resolution Status Physical exam, annual acute Diabetes chronic Hyperlipidemia [facility] Work Phone: Reason for referral (narrative)No reason [facility] Summary Purpose Family History No Family History Records Found Relationship Condition Age at Onset Recorded Date/T ulises father Malignant neoplasm of lung Unknown mother Cardiac disease Unknown Chronic obstructive pulmonary disease Unk nown sister Disorder of thyroid Unknown Advance Directives No Advanced Directives Records Found Advance Directive Response Recorded Date/ Time Living Will No June 30 6:03pm Do you have a Healthcare Power of Fraternity Adviser? No June 30, 2024 6:03pm Advance Directive Response Recorded Date/ Time Living Will No September 18, 2024 11:16am Do you have a Healthcare Power of Fraternity Adviser? No September 18, 2024 11:16am Advance Directives No September 18 7:09am Living Will No June 30 6:03pm Do you have a Healthcare Power of Fraternity Adviser? No June 30, 2024 6:03pm Advance Directive Response Recorded Date/ Time Advance Directives No September 18 7:09am Chief Complaint and Reason for Visit Chief Complaint COVID TEST 6 mo fu Reason for Visit Diabetes Hypertension Chief Complaint COVID TEST 6 mo fu Abnormal levels of other serum enzymes Reason for Visit Diabetes Hypertension Chief Complaint 6 M FU Reason for Visit Elevated liver enzym es Diabetes Hypertension Chief Complaint 6 M FU Reason for Visit Physical exam, tito brink Diabetes Hyperlipidemia Chief Complaint Admit Date PALPITATIONS June 30, 2024 4: 39pm 24 OR 48 HOURS June 30, 2024 7: 15pm PALPITATIONS July 04, 2024 7: 16am PALPITATIONS July 04, 2024 7: 39am S/P [facility] 06/30July 27, 2024 8 :45am HYPERLIPIDEMIA August 17, 2024 7:13am HYPERLIPIDEMIA August 23, 2024 6:20pm INT LAB ORDERS September 03, 2024 7:1 0am 6 M FU September 05, 2024 3:5 2pm ARRYHTHMIA September 10, 2024 7:5 2am CHEST PAIN ABN AILEEN SCORING September 13, 2 025 1:27pm Reason for Visit Admit Date Palpitations July 27, 2024 8 :45am Hyperlipidemia July 27, 2024 8 :45am Hypertension July 27, 2024 8 :45am Diabetes September 05, 2024 3:5 2pm Heart palpitations September 05, 2024 3:5 2pm Hyperlipidemia September 05, 2024 3:5 2pm Hypertension September 05, 2024 3:5 2pm Chief Complaint Admit Date PALPITATIONS June 30, 2024 4: 39pm 24 OR 48 HOURS June 30, 2024 7: 15pm PALPITATIONS July 04, 2024 7: 16am PALPITATIONS July 04, 2024 7: 39am S/P [facility] 06/30July 27, 2024 8 :45am HYPERLIPIDEMIA August 17, 2024 7:13am HYPERLIPIDEMIA August 23, 2024 6:20pm INT LAB ORDERS September 03, 2024 7:1 0am 6 M FU September 05, 2024 3:5 2pm ARRYHTHMIA September 10, 2024 7:5 2am CHEST PAIN ABN AILEEN SCORING September 13, 2 025 1:27pm CHEST PAIN ABN AILEEN SCORING September 18, 2 025 9:24am Reason for Visit Admit Date Palpitations July 27, 2024 8 :45am Hyperlipidemia July 27, 2024 8 :45am Hypertension July 27, 2024 8 :45am Diabetes September 05, 2024 3:5 2pm Heart palpitations September 05, 2024 3:5 2pm Hyperlipidemia September 05, 2024 3:5 2pm Hypertension September 05, 2024 3:[address] angiography September 182024 9:24am Palpitations September 18, 2024 9:2 4am Hyperlipidemia September 18, 2024 9:2 4am Hypertension September 18, 2024 9:2 4am Chief Complaint Admit Date PALPITATIONS June 30, 2024 4: 39pm 24 OR 48 HOURS June 30, 2024 7: 15pm PALPITATIONS July 04, 2024 7: 16am PALPITATIONS July 04, 2024 7: 39am S/P [facility] 06/30July 27, 2024 8 :45am HYPERLIPIDEMIA August 17, 2024 7:13am HYPERLIPIDEMIA August 23, 2024 6:20pm INT LAB ORDERS September 03, 2024 7:1 0am 6 M FU September 05, 2024 3:5 2pm ARRYHTHMIA September 10, 2024 7:5 2am CHEST PAIN ABN AILEEN SCORING September 13, 2 025 1:27pm CHEST PAIN ABN AILEEN SCORING September 18, 2 025 9:24am CHEST PAIN ABN AILEEN SCORING September 19, 025 7:25am Reason for Visit Admit Date Palpitations July 27, 2024 8 :45am Hyperlipidemia July 27, 2024 8 :45am Hypertension July 27, 2024 8 :45am Diabetes September 05, 2024 3:5 2pm Heart palpitations September 05, 2024 3:5 2pm Hyperlipidemia September 05, 2024 3:5 2pm Hypertension September 05, 2024 3:[address] angiography September 182024 9:24am CAD (coronary artery disease) August 9:24am Palpitations September 18, 2024 9:2 4am Hyperlipidemia September 18, 2024 9:2 4am Hypertension September 18, 2024 9:2 4am Chief Complaint Admit Date PALPITATIONS June 30, 2024 4: 39pm 24 OR 48 HOURS June 30, 2024 7: 15pm PALPITATIONS July 04, 2024 7: 16am PALPITATIONS July 04, 2024 7: 39am S/P [facility] 06/30July 27, 2024 8 :45am HYPERLIPIDEMIA August 17, 2024 7:13am HYPERLIPIDEMIA August 23, 2024 6:20pm INT LAB ORDERS September 03, 2024 7:1 0am 6 M FU September 05, 2024 3:5 2pm ARRYHTHMIA September 10, 2024 7:5 2am CHEST PAIN ABN AILEEN SCORING September 13, 2 025 1:27pm CHEST PAIN ABN AILEEN SCORING September 18 025 9:24am CHEST PAIN ABN AILEEN SCORING September 19 025 7:25am Referral Order September 21, 2024 4:2 6pm S/P [facility] 09/19October 08, 2024 2:3 1pm Reason for Visit Admit Date Hyperlipidemia July 27, 2024 8 :45am Hypertension July 27, 2024 8 :45am Palpitations July 27, 2024 8 :45am Diabetes September 05, 2024 3:5 2pm Heart palpitations September 05, 2024 3:5 2pm Hyperlipidemia September 05, 2024 3:5 2pm Hypertension September 05, 2024 3:[address] angiography September 182024 9:24am CAD (coronary artery disease) August 9:24am Hyperlipidemia September 18, 2024 9:2 4am Hypertension September 18, 2024 9:2 4am Palpitations September 18, 2024 9:2 4am Diabetes October 08, 2024 2:3 1pm History of coronary artery stent placeme nt October 08, 2024 2:31pm Hyperlipidemia October 08, 2024 2:3 1pm Hypertension October 08, 2024 2:3 1pm Palpitations October 08, 2024 2:3 1pm Chief Complaint Admit Date 6 M FU March 06, 2025 4:06pm Reason for Visit Admit Date Diabetes March 06, 2025 4:06pm History of coronary artery stent placeme nt March 06, 2025 4:06pm Hyperlipidemia March 06, 2025 4:06pm Hypertension March 06, 2025 4:06pm Additional Source Comments (unrecognized sect ion and content) No Status Records FoundNo Status Records FoundNo Status Records Found INFORMATION SOURCE (unrecogn ized section and content) DATE CREATED AUTHOR 12/21/2017 [employer] [facility] ([place]) DATE CREATED AUTHOR AUTHOR'S ORGANIZ ATION 12/21/2017 [facility] [facility] [facility] DATE CREATED AUTHOR AUTHOR'S ORGANIZ ATION 04/15/2025 [facility] Goals (unrecognized section and content) Goals may be documented in a n alternate sectionGoals may be documented in an alternate sectionGoals may be documented in an alternate sectionGoals may be documented in an alternate sectionGoals may be documented in an alternate sectionGoals may be documented in an alternate sectionGoals may be documented in an alternate section Care Teams (unrecognized sec tion and content) Team Status: Active Member Role Status Dates Dr. Mirtha Galeana DO Family Provider Active Dr. Mirtha Galeana DO Primary Care Provider Active Team Status: Inactive Member Role Status Dates Dr. Mirtha Galeana DO Primary Care Pr ovider, Attending Provider, Referring Provider Active Team Status: Inactive Member Role Status Dates Dr. Mirtha Galeana DO Primary Care Provider, Attend ing Provider Active Team Status: Active Member Role Status Dates Dr. Mirtha Galeana DO Primary Care Provider Active Team Status: Inactive Member Role Status Dates Dr. Mirtha Galeana DO Primary Care Provider Active Start: June 30, 2024 End: June 30, 2024 Dr. Zi Oglesby MD Attending Provider Active Start: June 30, 2024 End: June 30, 2024 Dr. Zi Oglesby MD Emergency Provider Active Start: June 30, 2024 End: June 30, 2024 Team Status: Inactive Member Role Status Dates Dr. Mirtha Galeana DO Primary Care Provider Active Start: June 30, 2024 End: June 30, 2024 Dr. Zi Oglesby MD Attending Provider Active Start: June 30, 2024 End: June 30, 2024 Dr. Zi Oglesby MD Referring Provider Active Start: June 30, 2024 End: June 30, 2024 Team Status: Inactive Member Role Status Dates Dr. Mirtha Galeana DO Primary Care Provider Active Start: July 04, 2024 End: July 04, 2024 Dr. Zi Oglesby MD Attending Provider Active Start: July 04, 2024 End: July 04, 2024 Dr. Zi Oglesby MD Referring Provider Active Start: July 04, 2024 End: July 04, 2024 Team Status: Active Member Role Status Dates Dr. Mirtha Galeana DO Primary Care Provider Active Start: July 04, 2024 Dr. Roxanna Bob MD Attending Provider Activ e Start: July 04, 2024 Dr. Zi Oglesby MD Referring Provider Active Start: July 04, 2024 Team Status: Inactive Member Role Status Dates Dr. Mirtha Galeana DO Primary Care Provider Active Start: July 27, 2024 End: July 27, 2024 Dr. Mirtha Galeana DO Referring Provider Active Start: July 27, 2024 End: July 27, 2024 Dr. Sudhakar Quinn MD Attending Provider Active S tart: July 27, 2024 End: July 27, 2024 Team Status: Inactive Member Role Status Dates Dr. Mirtha Galeana DO Primary Care Provider Active Start: August 17, 2024 End: August 17, 2024 Dr. Sudhakar Quinn MD Attending Provider Active S tart: August 17, 2024 End: August 17, 2024 Dr. Sudhakar Quinn MD Referring Provider Active S tart: August 17, 2024 End: August 17, 2024 Team Status: Active Member Role Status Dates Dr. Mirtha Galeana DO Primary Care Provider Active Start: August 23, 2024 Dr. Sudhakar Quinn MD Attending Provider Active S tart: August 23, 2024 Dr. Sudhakar Quinn MD Referring Provider Active S tart: August 23, 2024 Dr. Sudhakar Quinn MD Other Provider Active Start : August 23, 2024 Team Status: Inactive Member Role Status Dates Dr. Mirtha Galeana DO Primary Care Provider Active Start: September 03, 2024 End: September 03, 2024 Sandra PAREDES, PA Attending Provider Active Start: September 03, 2024 End: September 03, 2024 Sandra Zepeda PA, PA Referring Provider Active Start: September 03, 2024 End: September 03, 2024 Team Status: Inactive Member Role Status Dates Dr. Mirtha Galeana DO Primary Care Provider Active Start: September 05, 2024 End: September 05, 2024 Dr. Mirtha Galeana DO Attending Provider Active Start: September 05, 2024 End: September 05, 2024 Dr. Mirtha Galeana DO Referring Provider Active Start: September 05, 2024 End: September 05, 2024 Team Status: Active Member Role Status Dates Dr. Mirtha Galeana DO Primary Care Provider Active Start: September 10, 2024 Dr. Sudhakar Quinn MD Attending Provider Active S tart: September 10, 2024 Dr. Sudhakar Quinn MD Referring Provider Active S tart: September 10, 2024 Team Status: Active Member Role Status Dates Dr. Mirtha Galeana DO Primary Care Provider Active Start: September 10, 2024 Dr. Sudhakar Quinn MD Attending Provider Active S tart: September 10, 2024 Team Status: Active Member Role Status Dates Dr. Mirtha Galeana DO Primary Care Provider Active Start: September 13, 2024 Dr. Sudhakar Quinn MD Referring Provider Active S tart: September 13, 2024 Dr. Sudhakar Quinn MD Other Provider Active Start : September 13, 2024 Sandra Zepeda PA, PA Attending Provider Active Start: September 13, 2024 Team Status: Inactive Member Role Status Dates Dr. Mirtha Galeana DO Primary Care Provider Active Start: September 10, 2024 End: September 10, 2024 Dr. Sudhakar Quinn MD Attending Provider Active S tart: September 10, 2024 End: September 10, 2024 Dr. Sudhakar Quinn MD Referring Provider Active S tart: September 10, 2024 End: September 10, 2024 Team Status: Active Member Role Status Dates Dr. Mirtha Galeana DO Primary Care Provider Active Start: September 18, 2024 Dr. Sudhakar Quinn MD Referring Provider Active S tart: September 18, 2024 Dr. Joselo Chavira MD Admit Provider Active Star t: September 18, 2024 Dr. Joselo Chavira MD Attending Provider Active Start: September 18, 2024 Team Status: Inactive Member Role Status Dates Dr. Mirtha Galeana DO Primary Care Provider Active Start: September 18, 2024 End: September 19, 2024 Dr. Sudhakar Quinn MD Referring Provider Active S tart: September 18, 2024 End: September 19, 2024 Dr. Joselo Chavira MD Admit Provider Active Star t: September 18, 2024 End: September 19, 2024 Dr. Joselo Chavira MD Attending Provider Active Start: September 18, 2024 End: September 19, 2024 Team Status: Active Member Role Status Dates Dr. Mirtha Galeana DO Primary Care Provider Active Start: September 19, 2024 Dr. Sudhakar Quinn MD Attending Provider Active S tart: September 19, 2024 Dr. Sudhakar Quinn MD Referring Provider Active S tart: September 19, 2024 Dr. Joselo Chavira MD Admit Provider Active Star t: September 19, 2024 Dr. Joselo Chavira MD Other Provider Active Star t: September 19, 2024 Team Status: Active Member Role Status Dates Dr. Mirtha Galeana DO Primary Care Provider Active Start: September 21, 2024 Dr. Joselo Chavira MD Attending Provider Active Start: September 21, 2024 Team Status: Inactive Member Role Status Dates Dr. Mirtha Galeana DO Primary Care Provider Active Start: October 08, 2024 End: October 08, 2024 Dr. Mirtha Galeana DO Referring Provider Active Start: October 08, 2024 End: October 08, 2024 Federico Martinez COMPREHENSIVE OPHTHALMOLOGIST, COMPREHENSIVE OPHTHALMOLOGIST-C Attending Provider Active S tart: October 08, 2024 End: October 08, 2024 Team Status: Inactive Member Role Status Dates Dr. Mirtha Galeana DO Primary Care Provider Active Start: October 08, 2024 End: October 08, 2024 Federico Martinez COMPREHENSIVE OPHTHALMOLOGIST, COMPREHENSIVE OPHTHALMOLOGIST-C Attending Provider Active S tart: October 08, 2024 End: October 08, 2024 Federico Martinez COMPREHENSIVE OPHTHALMOLOGIST, COMPREHENSIVE OPHTHALMOLOGIST-C Referring Provider Active S tart: October 08, 2024 End: October 08, 2024 Team Status: Active Member Role/Relationship Status Dates Dr. Mirtha Galeana DO Primary Care Provider Active Team Status: Inactive Member Role/Relationship Status Dates Dr. Mirtha Galeana DO Primary Care Provider Active Start: March 06, 2025 End: March 06, 2025 Dr. Mirtha Galeana DO Attending Provider Active Start: March 06, 2025 End: March 06, 2025 Dr. Mirtha Galeana DO Referring Provider Active Start: March 06, 2025 End: March 06, 2025 FOR RECORDS PERTAINING TO PATIENTS WHO ARE [...] BE BASED ON THE PRIMARY CLINICAL RECORDS. [facility] [employer] [facility] provides no warranty or guarantee of the accuracy or completeness of information in this document.
--- OUTSIDE RECORDS SUMMARY | 2025-04-15 07:08 | XMS RPT_ITS | CCD ---
Author Organization [facility] Care Team Providers Care Cut Out Stitcher Name Role Phone BROWN, MIRTHA Alford Unavailable [...] Mirtha Galeana Primary Care Provider Dr. Mirtha Galaena Attending Provider Dr. Mirtha Galeana Referring Provider [...] De La Fuente Attending Provider [phone]) Cheyenne ACSON, Dr. De La Fuente Referring Provider 1(330) Cheyenne CASON, Dr. De La Fuente Other Provider Sandra Schwab Attending Provider [phone]) Sandra Schwab Referring Provider [phone]) Dr. Mirtha Galeana DO Attending Provider 1(330 ) Fan CASON, Dr. Josue Admit Provider [phone] Fan CASON, Dr. Josue Attending Provider [phone] aFn CASON, Dr. Josue Other Provider [phone] Roof CONTENT WRITER-C, Federico H Attending Provider [phone] Roof CONTENT WRITER-C, Federico H Referring Provider [phone])- Elvi BHATT, Dr. Mirtha Alford Primary Care Provider Dr. Mirtha Galeana DO Attending Provider 1(330 [...] Care Unavailable Mendel, Zi Referring Unavailable Roof CONTENT WRITER, Federico H Referring Unavailable Roof CONTENT WRITER, Federico H Attending Unavailable Brown, Mirtha R Primary Care Unavailable Joselo Chavira Attending Unavailable Joselo Chavira Admitting Unavailable Cheyenne, Sudhakar Referring Unavailable Brown, Mirtha R Primary Care Unavailable Albert CONTENT WRITER, Tierney Referring Unavailable Albert CONTENT WRITER, Tierney Attending Unavailable Brown, Mirtha R Primary Care Unavailable Cheyenne, Etna Referring Unavailable Brown, Mirtha R Primary Care [...] Attending Unavailable Cheyenne, Sudhakar Consulting Unavailable Cheyenne, Etna Referring Unavailable Brown, Mirtha R Primary Care Unavailable Cheyenne, Etna Consulting Unavailable Sandra Schwab Attending Unavail able FanJoselo kate Attending Unavailable Brown, Mirtha R Primary Care Unavailable Allergies Allergy Classification Reported Allergen(s) Allergy Type Date of Onset Reaction(s) Facility (7 sources) bee venom protein (honey bee) Allergy to substance 03-03-2023 Swelling [facility] (1 source) bee venom protein (honey bee) Drug allergy (disorder) 04-11-2025 [facility] Repository Medications Current Medications Medication Drug Class(es) [...] Coronary arteriosclerosis; Translations: [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 [address] [place] [address] OFFICE VISIT Date of Service: 04/11/25 MR#: [id number] Acct: [id number] Name: MIRTHA GAMEZ Rep #: [id number] : 1960 Provider: SUSSY albert Age/Sex: 64/M Location: [facility] Status: Signed HPI HPI History of [...] 98 Intake Visit Reasons: 6 M FU Automatic Lathe Tender Required: No Is patient in pain?: No [...] Endo: Negative (more content not included)... Normal [facility] Internal Medicine Office Vis iton 03-06-2025 Internal Medicine Office Visit [facility] [address] [place] [address] [place] [address] OFFICE VISIT Date of Service: 03/06/25 MR#: [id number] Acct: [id number] Name: MIRTHA GAMEZ Rep #: [id number] : 1960 Provider: Dr. Mirtha choudhury, DO Age/Sex: 64/M Location: [facility] Status: Signed Intake Vital Signs 09/05/24 16:05 [...] M FU Chief Complaint: routine diabetic recheck Automatic Lathe Tender Required: No Accompanied by: Self Is patient [...] mL (Ozempic) Nurse's Note: check blood sugar [facility] Medical History Palpitations HORTON (dyspnea on exertion) [...] allergy symptoms (more content not included)... Normal [facility] Microalb:Creat Ratio,Random URon 12-13-2024 MALB:CREAT 7.2 mg/g CRE Normal [facility] Comment on above: Result Comment: AMENDED REPORT 12/13/24 1238 MALB:CREAT previously reported as: 71.9 mg/g CRE Performed By: #### L 502.0250, L500.4100, L500.3400 #### [facility] [address] [place], [address] Albumin DL <= 20 mg/L (U) [M ass/Vol]Ordered By: Federico Martinez on 10-08-2024 Urine Random Microalbumin 14.1 mg/L NO RANGE EST. [facility] Bilirubin directOrdered By: Federico Martinez on 10-08-2024 Bilirubin.direct [Mass/Vol] 0.20 mg/dL 0.00-0.30 [facility] Bilirubin, totalOrdered By: Federico Martinez on 10-08-2024 Bilirubin [Mass/Vol] 0.49 mg/dL 0.00-1.30 [facility] Calculated very low density lipoprotein (VLDL) cholesterol measurementOrdered By: Federico Martinez on 10-08-2024 VLDL Cholesterol 35 mg/dL 5-40 [facility] Cardiology Visit Reporton Cardiology Visit Report [facility] [address] [place] [address] OFFICE VISIT Date of Service: 10/08/24 MR#: [id number] Acct: [id number] Name: MIRTHA GAMEZ Rep #: [id number] : 1960 Provider: SUSSY banuelos Age/Sex: 64/M Location: [facility] Status: Signed HPI HPI History of [...] proximal RCA. He has been [facility] with randomization to GLP???1 medication. [...] Pulse Source NIBP Intake Visit Reasons: S/P [facility] 09/19 Automatic Lathe Tender Required: No Is patient in pain?: No [...] rash Ne (more content not included)... Normal [facility] Creatinine Unsp time (U) [Ma ss/Vol]Ordered By: Federico Martinez on 10-08-2024 Creatinine (U) [Mass/Vol] 196.00 mg/dL 39.00-259.00 [facility] LDL calc ser/plasOrdered By: Federico Martinez on 10-08-2024 LDL Cholesterol, Calculated 56 mg/dL [facility] Comment on above: Btaqqxgxkn=954-062 m g/dL & Higher Ykds=396 mg/dL or greater Laboratory - Chemistry and C hemistry - challengeOrdered By: Federico Martinez on 10-08-2024 AST [Catalytic activity/Vol] 35 U/L <38 [facility] Lipid Profileon 10-08-2024 CHOL:HDL 2.77 Normal [facility] Comment on above: Performed By: #### L 502.0250, L500.4100, L500.3400 #### [facility] [address] [place], [address] Cholesterol [Mass/Vol] 142 mg/dL Normal <=200 [facility] Comment on above: Result Comment: Chol esterol level, Desirable <200 mg/dL Borderline high cholesterol 200-239 mg/dL High cholesterol >=240 mg/dL Recommendations of the NCEP Adult Treatment Panel for the following risk-cutoff thresholds for the [place] population. Performed By: #### L 502.0250, L500.4100, L500.3400 #### [facility] [address] [place], [address] Cholesterol in HDL [Mass/Vol] 51 mg/dL Normal [facility] Comment on above: Result Comment: Ana Luisa onal Cholesterol Education Program (NCEP) guidelines: <40 mg/dL: Low HDL-cholesterol (major risk factor for CHD) >= 60 mg/dL: High HDL-cholesterol (negative risk factor for CHD) HDL-cholesterol is affected by a number of factors, e.g. smoking, exercise, hormones, sex and age. Performed By: #### L 502.0250, L500.4100, L500.3400 #### [facility] [address] [place], [address] Cholesterol in LDL [Mass/Vol] 56 mg/dL Normal [facility] Comment on above: Result Comment: Bord mpypav=311-492 mg/dL Higher Oped=540 mg/dL or greater Performed By: #### L 502.0250, L500.4100, L500.3400 #### [facility] [address] [place], [address] Cholesterol in VLDL [Mass/Vol] 35 mg/dL Normal 5-40 [facility] Comment on above: Performed By: #### L 502.0250, L500.4100, L500.3400 #### [facility] [address] [place], [address] Triglyceride [Mass/Vol] 173 mg/dL Normal [facility] Comment on above: Result Comment: The drugs N-Acetylcysteine and Metamizole may falsely depress this assay. Normal range: <150 mg/dL Borderline High: 150-199 mg/dL High: 200-499 mg/dL Very High: >500 mg/dL Performed By: #### L 502.0250, L500.4100, L500.3400 #### [facility] [address] [place], [address] Liver Profileon 10-08-2024 Albumin [Mass/Vol] 4.7 g/dL Normal 3.4-4.8 [facility] Comment on above: Performed By: #### L 502.0250, L500.4100, L500.3400 #### [facility] [address] [place], [address] ALK PHOS 70 U/L Normal 40-129 [facility] Comment on above: Performed By: #### L 502.0250, L500.4100, L500.3400 #### [facility] [address] [place], [address] ALT [Catalytic activity/Vol] 56 U/L High <=46 [facility] Comment on above: Performed By: #### L 502.0250, L500.4100, L500.3400 #### [facility] [address] [place], [address] AST [Catalytic activity/Vol] 35 U/L Normal <=37 [facility] Comment on above: Performed By: #### L 502.0250, L500.4100, L500.3400 #### [facility] [address] [place], [address] Bilirubin [Mass/Vol] 0.49 mg/dL Normal 0.00-1.30 [facility] Comment on above: Performed By: #### L 502.0250, L500.4100, L500.3400 #### [facility] [address] [place], [address] Bilirubin.direct [Mass/Vol] 0.20 mg/dL Normal 0.00-0.30 [facility] Comment on above: Performed By: #### L 502.0250, L500.4100, L500.3400 #### [facility] [address] [place], [address] Globulin (S) [Mass/Vol] 2.6 g/dL Normal 2.2-4.2 [facility] Comment on above: Performed By: #### L 502.0250, L500.4100, L500.3400 #### [facility] [address] [place], [address] T PROT 7.3 g/dL Normal 5.9-8.4 [facility] Comment on above: Performed By: #### L 502.0250, L500.4100, L500.3400 #### [facility] [address] [place], [address] Microalbumin/creat ratio urO rdered By: Federico Martinez on 10-08-2024 Urine Microalbumin/Creatinine Ratio 71.9 mg/g CRE [facility] Screening total cholesterol/ high density lipoprotein (HDL) cholesterol ratioOrdered By: Federico Martinez on 10-08-2024 Cholesterol.total/Lorie sterol in HDL [Mass ratio] 2.77 {ratio} [facility] Serum globulin measurementOr dered By: Federico Martinez on 10-08-2024 Globulin (S) [Mass/Vol] 2.6 g/dL 2.2-4.2 [facility] Serum or plasma alanine ponce otransferase (ALT) measurementOrdered By: Federico Martinez on 10-08-2024 ALT [Catalytic activity/Vol] 56 U/L High <47 [facility] Serum or plasma albumin dillon urement (mass/volume)Ordered By: Federico Martinez on 10-08-2024 Albumin [Mass/Vol] 4.7 g/dL 3.4-4.8 [facility] Serum or plasma alkaline paulette sphatase measurementOrdered By: Federico Martinez on 10-08-2024 ALP [Catalytic activity/Vol] 70 U/L 40-129 [facility] Serum or plasma cholesterol in HDL measurement (mass/volume)Ordered By: Federico Martinez on 10-08-2024 Cholesterol in HDL [Mass/Vol] 51 mg/dL >40 [facility] Comment on above: National Cholesterol Education Program (NCEP) guidelines:<40 mg/dL: Low HDL-cholesterol (major risk factor for CHD)>= 60 mg/dL: High HDL-cholesterol (negative risk factor for CHD)HDL-cholesterol is affected by a number of factors, e.g. smoking, exercise, hormones, sex and age. Serum or plasma cholesterol measurement (mass/volume)Ordered By: Federico Martinez on 10-08-2024 Cholesterol [Mass/Vol] 142 mg/dL <201 [facility] Comment on above: Cholesterol level, D esirable <200 mg/dLBorderline high cholesterol 200-239 mg/dLHigh cholesterol >=240 mg/dLRecommendations of the NCEP Adult Treatment Panel for the following risk-cutoff thresholds for the [place] population. Total proteinOrdered By: Serge Martinez on 10-08-2024 Protein [Mass/Vol] 7.3 g/dL 5.9-8.4 [facility] Triglycerides measurementOrd ered By: Federico Martinez on 10-08-2024 Triglyceride [Mass/Vol] 173 mg/dL <199 [facility] Comment on above: The drugs N-Acetylcy steine and Metamizole may falsely depress this assay. Normal range: <150 mg/dLBorderline High: 150-199 mg/dLHigh: 200-499 mg/dLVery High: >500 mg/dL Anion gap in Serum or Plasma Ordered By: Joselo Chavira on 09-19-2024 Anion gap [Moles/Vol] 11 mmol/L 5-15 [facility] BUN/creatinine ratioOrdered By: Joselo Chavira on 09-19-2024 Urea nitrogen/Creatinine [Mass ratio] 17.0 mg/mg 10-20 [facility] Bilirubin, totalOrdered By: Joselo Chavira on 09-19-2024 Bilirubin [Mass/Vol] 0.33 mg/dL 0.00-1.30 [facility] CBC-Complete Blood Cnt No Di ffon 09-19-2024 Erythrocyte distribution width (RBC) [Ratio] 11.9 % Normal 11.6-14.6 [facility] Comment on above: Performed By: #### L 100.0500, L500.4050 ####[facility] [address] [place], [address] Hematocrit (Bld) [Volume fraction] 39.3 % Low 40-54 [facility] Comment on above: Performed By: #### L 100.0500, L500.4050 ####[facility] [address] [place], [address] Hemoglobin (Bld) [Mass/Vol] 13.9 g/dL Normal 13.0-16.5 [facility] Comment on above: Performed By: #### L 100.0500, L500.4050 ####[facility] [address] [place], [address] MCH (RBC) [Entitic mass] 31.7 pg Normal 27.0-32.0 [facility] Comment on above: Performed By: #### L 100.0500, L500.4050 ####[facility] [address] [place], [address] MCHC (RBC) [Mass/Vol] 35.4 g/dL Normal 32-36 [facility] Comment on above: Performed By: #### L 100.0500, L500.4050 ####[facility] [address] [place], [address] MCV (RBC) [Entitic vol] 89.5 fL Normal 80-94 [facility] Comment on above: Performed By: #### L 100.0500, L500.4050 ####[facility] [address] [place], [address] Platelet mean volume (Bld) [Entitic vol] 11.6 fL Normal 6.2-12.0 [facility] Comment on above: Performed By: #### L 100.0500, L500.4050 ####[facility] [address] [place], [address] Platelets (Bld) [#/Vol] 181 10*3/uL Normal 150-450 [facility] Comment on above: Performed By: #### L 100.0500, L500.4050 ####[facility] [address] [place], [address] RBC (Bld) [#/Vol] 4.39 10*6/uL Low 4.6-6.2 [facility] Comment on above: Performed By: #### L 100.0500, L500.4050 ####[facility] [address] [place], [address] RDW SD 38.8 fl Normal 35.1-43.9 [facility] Comment on above: Performed By: #### L 100.0500, L500.4050 ####[facility] [address] [place], [address] WBC (Bld) [#/Vol] 8.8 10*3/uL Normal 4.4-11.0 [facility] Comment on above: Performed By: #### L 100.0500, L500.4050 ####[facility] [address] [place], [address] Carbon dioxide, total [Moles /volume] in Central venous bloodOrdered By: Joselo Chavira on 09-19-2024 CO2 [Moles/Vol] 19.7 mmol/L Low 21.0-32.0 [facility] Chloride assayOrdered By: Arnulfo Chavira on 09-19-2024 Chloride [Moles/Vol] 107 mmol/L 98-108 [facility] Comprehensive Metabolic Prof ilon 09-19-2024 Albumin [Mass/Vol] 4.0 g/dL Normal 3.4-4.8 [facility] Comment on above: Performed By: #### L 100.0500, L500.4050 ####[facility] [address] [place], [address] Albumin/Globulin [Mass ratio] 1.9 {ratio} Normal 0.9-2.4 [facility] Comment on above: Performed By: #### L 100.0500, L500.4050 ####[facility] [address] [place], [address] ALK PHOS 66 U/L Normal 40-129 [facility] Comment on above: Performed By: #### L 100.0500, L500.4050 ####[facility] [address] [place], [address] ALT [Catalytic activity/Vol] 47 U/L Normal <=46 [facility] Comment on above: Performed By: #### L 100.0500, L500.4050 ####[facility] [address] [place], [address] AST [Catalytic activity/Vol] 29 U/L Normal <=37 [facility] Comment on above: Performed By: #### L 100.0500, L500.4050 ####[facility] [address] [place], [address] Bilirubin [Mass/Vol] 0.33 mg/dL Normal 0.00-1.30 [facility] Comment on above: Performed By: #### L 100.0500, L500.4050 ####[facility] [address] [place], [address] BUN/CRE 17.0 RATIO Normal 10-20 [facility] Comment on above: Performed By: #### L 100.0500, L500.4050 ####[facility] [address] [place], [address] Calcium [Mass/Vol] 8.8 mg/dL Normal 7.6-11.0 [facility] Comment on above: Performed By: #### L 100.0500, L500.4050 ####[facility] [address] [place], [address] Chloride [Moles/Vol] 107 mmol/L Normal 98-108 [facility] Comment on above: Performed By: #### L 100.0500, L500.4050 ####[facility] [address] [place], [address] CO2 [Moles/Vol] 19.7 mmol/L Low 21.0-32.0 [facility] Comment on above: Performed By: #### L 100.0500, L500.4050 ####[facility] [address] [place], [address] Creatinine [Mass/Vol] 0.73 mg/dL Normal 0.70-1.20 [facility] Comment on above: Performed By: #### L 100.0500, L500.4050 ####[facility] [address] [place], [address] ECRCL 112.27 ml/min Normal 50-250 [facility] Comment on above: Performed By: #### L 100.0500, L500.4050 ####[facility] [address] [place], [address] GAP 11 Normal 5-15 [facility] Comment on above: Performed By: #### L 100.0500, L500.4050 ####[facility] [address] [place], [address] GFR/1.73 sq M.predicted among non-blacks MDRD (S/P/Bld) [Vol rate/Area] 103 mL/min/{1.73_m2} Normal >60 [facility] Comment on above: Result Comment: mL/m in/1.73m2 CKD-EPI Creatinine Equation (2020) Performed By: #### L 100.0500, L500.4050 ####[facility] [address] [place], [address] Globulin (S) [Mass/Vol] 2.1 g/dL Low 2.2-4.2 [facility] Comment on above: Performed By: #### L 100.0500, L500.4050 ####[facility] [address] [place], [address] Glucose [Mass/Vol] 144 mg/dL High 70-99 [facility] Comment on above: Performed By: #### L 100.0500, L500.4050 ####[facility] [address] [place], [address] Potassium [Moles/Vol] 4.0 mmol/L Normal 3.3-5.1 [facility] Comment on above: Performed By: #### L 100.0500, L500.4050 ####[facility] [address] [place], [address] Sodium [Moles/Vol] 138 mmol/L Normal 133-145 [facility] Comment on above: Performed By: #### L 100.0500, L500.4050 ####[facility] [address] [place], [address] T PROT 6.1 g/dL Normal 5.9-8.4 [facility] Comment on above: Performed By: #### L 100.0500, L500.4050 ####[facility] [address] [place], [address] Urea nitrogen [Mass/Vol] 12 mg/dL Normal - [facility] Comment on above: Performed By: #### L 100.0500, L500.4050 ####[facility] [address] [place], [address] Discharge Instructionon 08-26 Discharge Instruction [facility] Medical Records Department [address] [place] [address] Instructions for Home/Discharge Instructions 09/19/24 0730 MR#: [id number] Acct: [id number] Name: MIRTHA GAMEZ Rep #: [id number] : 1960 64 From: Sudhakar Quinn MD [...] CC: Dr. Mirtha Galeana DO Signed Normal [facility] Electrocardiogram reportOrde red By: Sudhakar Quinn on 09-19-2024 EKG study [facility] Cardiovascular Services [address] [place] [address] 12 Lead EKG 09/18/24 1100 MR#: [id number] Acct: [id number] Name: MIRTHA GAMEZ Rep #:[id number] : 1960 64 From: Sudhakar Quinn MD Attending Dr: Dr. Joselo Chavira MD Status: ADM NILSA Ordering Dr: Joselo Chavira MD Date: Location: [facility] Sex: M C Admitted: 09/18/24 Test [...] ECG Confirmed by SUDHAKAR QUINN MD ([id number]), order editor DAWN LOGAN ([id number]) on 09/19/2024 7:17:40 AM Referred By: Sudhakar Quinn Confirmed By: SUDHAKAR QUINN MD 09/19/24 0717 Date _ Sudhakar Quinn MD CC: Dr. Joselo Chavira MD; Dr. Sudhakar Quinn MD; Dr. Mirtha Galeana DO ~ Signed [facility] Work Phone: Erythrocyte distribution wid th ratioOrdered By: Joselo Chavira on 09-19-2024 Erythrocyte distribution width (RBC) [Ratio] 11.9 % 11.6-14.6 [facility] Erythrocyte distribution wid th standard deviationOrdered By: Joselo Chavira on 09-19-2024 Erythrocyte distribution width (RBC) [Entitic vol] 38.8 fL 35.1-43.9 [facility] Estimation of creatinine jacque aranceOrdered By: Joselo Chavira on 09-19-2024 Estimated Creatinine Clearance Calc 112.27 ml/min 50-250 [facility] GFR/1.73 sq M.predicted qing g non-blacks MDRD (S/P/Bld) [Vol rate/Area]Ordered By: Joselo Chavira on 09-19-2024 Estimated GFR (MDRD) Non-Af Amer 103 >60 [facility] Comment on above: mL/min/1.73m2 CKD-EP I Creatinine Equation (2020) Hematocrit Auto (Bld) [Volum e fraction]Ordered By: Joselo Chavira on 09-19-2024 Hematocrit (Bld) [Volume fraction] 39.3 % Low 40-54 [facility] Hemoglobin measurementOrdere d By: Joselo Chavira on 09-19-2024 Hemoglobin (Bld) [Mass/Vol] 13.9 g/dL 13.0-16.5 [facility] - Chemistry and C hemistry - challengeOrdered By: Joselo Chavira on 09-19-2024 AST [Catalytic activity/Vol] 29 U/L <38 [facility] MCV (mean corpuscular volume ) determinationOrdered By: Joselo Chavira on 09-19-2024 MCV (RBC) [Entitic vol] 89.5 fL 80-94 [facility] Mean corpuscular hemoglobin (MCH) determinationOrdered By: Joselo Chavira on 09-19-2024 MCH (RBC) [Entitic mass] 31.7 pg 27.0-32.0 [facility] Mean corpuscular hemoglobin concentration (MCHC) determinationOrdered By: Joselo Chavira on 09-19-2024 MCHC (RBC) [Mass/Vol] 35.4 g/dL 32-36 [facility] Mean platelet volume determi nationOrdered By: Joselo Chavira on 09-19-2024 Platelet mean volume (Bld) [Entitic vol] 11.6 fL 6.2-12.0 [facility] Platelet countOrdered By: Arnulfo Chavira on 09-19-2024 Platelets (Bld) [#/Vol] 181 10*3/uL 150-450 [facility] Potassium (Unsp spec) [Mass/ Vol]Ordered By: Joselo Chavira on 09-19-2024 Potassium [Moles/Vol] 4.0 mmol/L 3.3-5.1 [facility] RBC Auto (Bld) [#/Vol]Ordere d By: Joselo Chavira on 09-19-2024 RBC (Bld) [#/Vol] 4.39 10*6/uL Low 4.6-6.2 [facility] Serum creatinine measurement (mass/volume)Ordered By: Joselo Chavira on 09-19-2024 Creatinine [Mass/Vol] 0.73 mg/dL 0.70-1.20 [facility] Serum globulin measurementOr dered By: Joselo Chavira on 09-19-2024 Globulin (S) [Mass/Vol] 2.1 g/dL Low 2.2-4.2 [facility] Serum glucose measurement (m ass/volume)Ordered By: Joselo Chavira on 09-19-2024 Glucose [Mass/Vol] 144 mg/dL High 70-99 [facility] Serum or plasma alanine ponce otransferase (ALT) measurementOrdered By: Joselo Chavira on 09-19-2024 ALT [Catalytic activity/Vol] 47 U/L <47 [facility] Serum or plasma albumin dillon urement (mass/volume)Ordered By: Joselo Chavira on 09-19-2024 Albumin [Mass/Vol] 4.0 g/dL 3.4-4.8 [facility] Serum or plasma albumin/glob ulin mass ratioOrdered By: Joselo Chavira on 09-19-2024 Albumin/Globulin [Mass ratio] 1.9 {ratio} 0.9-2.4 [facility] Serum or plasma alkaline paulette sphatase measurementOrdered By: Joselo Chavira on 09-19-2024 ALP [Catalytic activity/Vol] 66 U/L 40-129 [facility] Serum or plasma calcium dillon urement (mass/volume)Ordered By: Joselo Chavira on 09-19-2024 Calcium [Mass/Vol] 8.8 mg/dL 7.6-11.0 [facility] Serum or plasma urea nitroge n measurement (mass/volume)Ordered By: Joselo Chavira on 09-19-2024 Urea nitrogen [Mass/Vol] 12 mg/dL 4-19 [facility] Sodium levelOrdered By: Charles Chavira on 09-19-2024 Sodium [Moles/Vol] 138 mmol/L 133-145 [facility] Total proteinOrdered By: Clyde Chavira on 09-19-2024 Protein [Mass/Vol] 6.1 g/dL 5.9-8.4 [facility] White blood cell (WBC) count Ordered By: Joselo Chavira on 09-19-2024 WBC (Bld) [#/Vol] 8.8 10*3/uL 4.4-11.0 [facility] 12 Lead EKGon 09-18-2024 12 Lead EKG [facility] Cardiovascular Services [address] [place] [address] 12 Lead EKG 09/18/24 1100 MR#: [id number] Acct: [id number] Name: MIRTHA GAMEZ Rep #: [id number] : 1960 64 From: Sudhakar Quinn MD Attending Dr: Dr. Joselo Chavira MD Status: ADM NILSA Ordering Dr: Joselo Chavira MD Date: 09/18/24 Location: [facility] Sex: M C Admitted: 09/18/24 Test [...] ECG Confirmed by SUDHAKAR QUINN MD ([id number]), order editor DAWN LOGAN ([id number]) on 09/19/2024 7:17:40 AM Referred By: Sudhakar Quinn Confirmed By: SUDHAKAR QUINN MD 09/19/24 0717 Date Sudhakar Quinn MD CC: Dr. Joselo Chavira MD; Dr. Sudhakar Quinn MD; Dr. Mirtha Galeana DO Signed Normal [facility] ACT Activated Clotting Timeo n 09-18-2024 ACTk CLOT TIME 233 sec High 74-137 [facility] Comment on above: Performed By: #### L 9100.0100 #### [facility] [address] [place], [address] ACTk CLOT TIME 250 sec High 74-137 [facility] Comment on above: Performed By: #### L 9100.0100 #### [facility] [address] [place], [address] Activated clotting timeOrder ed By: Joselo Chavira on 09-18-2024 Activated Clotting Time 233 sec High 74-137 [facility] Albumin DL <= 20 mg/L (U) [M ass/Vol]Ordered By: Sudhakar Quinn on 09-18-2024 Urine Random Microalbumin < 12.0 mg/L NO RANGE EST. [facility] Cardiac Cath Diagnosticon Cardiac Cath Diagnostic [facility] Imaging Services [address] [place] [address] Cardiac Cath Diagnostic MR#: [id number] Acct: [id number] Name: MIRTHA GAMEZ Rep #: [id number] : 1960 64 From: Sudhakar Quinn MD PCP: Dr. Mirtha Galeana, DO Status:REG [facility] Patient Name: MIRTHA LUCAS Study Date: 09/18/2024 Performing: Sudhakar Quinn MD Ht: 167.64 inches 425.8056 cm : 1960 Wt: 93.44 lbs 42.384 kg Age: 64 Gender: male BSA: 2.85 PROCEDURE(S) PERFORMED DC01-(74124)LHC/COR/LV CLINICAL PROFILE AND INDICATIONS Indications: Suspected CAD [...] multiple views using a 5 Fr. 4.0 Farnham catheter. Left Coronary Artery selective angiography was performed in multiple views using a 5 Fr. 4.0 Farnham catheter. Left Ventriculography was performed in [place] [...] MD 09/18/24 0837 Date Sudhakar Quinn MD [facility] Signature: Date (if indicated) CC: Dr. Sudhakar Quinn MD; Dr. Mirtha Galeana, DO Date Dictated: 09/18/24 0755 Date Transcribed: 09/18/24 0836 House Principal: [place] Signed Normal [facility] Cardiac Cath Interventionon 09-18-2024 Cardiac Cath Intervention [facility] Imaging Services [address] [place] [address] Cardiac Cath Intervention MR#: [id number] Acct: [id number] Name: MIRTHA GAMEZ Rep #: [id number] : 1960 64 From: Sudhakar Quinn MD PCP: Dr. Mirtha Galeana, DO Status:REG [facility] Patient Name: MIRTHA GAMEZ Study Date: 09/18/2024 Performing: Joselo Chavira MD Ht: 168 inches 425.8056 cm : 1960 Wt: 93.6 lbs 42.384 kg Age: 64 Gender: male BSA: 2.85 PROCEDURE(S) PERFORMED IC12-(11747/C9600)ANOOP W/WO PTCA, SINGLE CORONARY ARTERY CLINICAL PROFILE AND CO-MORBIDITIES Indications: Suspected CAD Heart Failure: None Stress/Imaging Coronary Calcium Score: Yes Calcium Score: 783 Calcium Score: 783 CAD Presentations: Stable angina. CONCLUSIONS Successful ANOOP Mid RCA using [place] Tift 3.0x15 mm Successful ANOOP prox RCA using [place] Tift 3.0x30 mm, optimized proximally using 4.0 mm [...] multiple views using a 5 Fr. 4.0 Farnham catheter. Left Coronary Artery selective angiography was performed in multiple views using a 5 Fr. 4.0 Farnham catheter. Left Ventriculography was performed in [place] [...] 0932 Date (more content not included)... Normal [facility] Cardiac catheterization repo rtOrdered By: Sudhakar Quinn on 09-18-2024 Cardiac catheterization study [facility] Imaging Services [address] [place] [address] Cardiac Cath Intervention MR#: [id number] Acct: [id number] Name: MIRTHA GAMEZ Rep #:[id number] : 1960 64 From: Sudhakar Quinn MD PCP: Dr. Mirtha Galeana, DO Status:RE G [facility] Patient Name: MIRTHA GAMEZ Study Date: 09/18/2024 Performing: Joselo Chavira MD Ht: 168 inches 425.8056 cm : 1960 Wt: 93.6 lbs 42.384 kg Age: 64 Gender: male BSA: 2.85 PROCEDURE(S) PERFORMED IC12-(53692/C9600)ANOOP W/WO PTCA, SINGLE CORONARY ARTERY CLINICAL PROFILE AND CO-MORBIDITIES Indications: Suspected CAD Heart Failure: None Stress/Imaging Coronary Calcium Score: Yes Calcium Score: 783 Calcium Score: 783 CAD Presentations: Stable angina. CONCLUSIONS Successful ANOOP Mid RCA using [place] Tift 3.0x15 mm Successful ANOOP prox RCA using [place] Tift 3.0x30 mm, optimized proximally using 4.0 mm [...] multiple views using a 5 Fr. 4.0 Farnham catheter. Left Coronary Artery selective angiography was performed in multiple views using a 5 Fr. 4.0 Farnham catheter. Left Ventriculography was performed in [place] [...] 09/18/24 0932 Date _ Sudhakar Quinn MD [facility] Signature: Date (if indicated) CC: Dr. Sudhakar Quinn MD; Dr. Mirtha Galeana, DO ~ Date Dictated: 09/18/24 3282 (more content not included)... [facility] Work Phone: Cardiac catheterization study [facility] Imaging Services [address] [place] [address] Cardiac Cath Diagnostic MR#: [id number] Acct: [id number] Name: MIRTHA GAMEZ Rep #:[id number] : 1960 64 From: Sudhakar Quinn MD PCP: Dr. Mirtha Galeana, DO Status:[facility] Patient Name: MIRTHA LUCAS Study Date: 09/18/2024 Performing: Sudhakar Quinn MD Ht: 167.64 inches 425.8056 cm : 1960 Wt: 93.44 lbs 42.384 kg Age: 64 Gender: male BSA: 2.85 PROCEDURE(S) PERFORMED DC01-(72230)LHC/COR/LV CLINICAL PROFILE AND INDICATIONS Indications: Suspected CAD [...] multiple views using a 5 Fr. 4.0 Farnham catheter. Left Coronary Artery selective angiography was performed in multiple views using a 5 Fr. 4.0 Farnham catheter. Left Ventriculography was performed in [place] [...] Date Dictated: 09/18/245 Date Transcribed: 09/18/24 0836 House Principal: [place] Signed [facility] Work Phone: Cardiac rehabilitation repor tOrdered By: Tierney Hoang on 09-18-2024 Study report [facility] Cardiac Rehab [address] [place] [address] CR: Phase I Assessment MR#: [id number] Acct: [id number] Name: MIRTHA GAMEZ Rep #:[id number] : 1960 64 From: Tierney Hoang PCP: Dr. Mirtha Galeana DO DOS: Patient Communication Patient Information PHII Cardiac Rehab Discussed with Patient:: Yes Guide to Cardiac Rehab Given to Patient:: Yes Communication to Cardiac Rehab Choice Program [facility] CR PHII:: Communication Given to CR Veneer Glue Spreader:: Fan,Joselo Refer Phase II Cardiac Rehab:: Yes Sessions:: 36 sessions - 3 days/wk, 12 weeks Cardiac Rehabilitation Info Program Information Cardiac Rehabilitation Program Information: Cardiac Rehab The cardiac rehab team at [facility] consists of highly skilled exercise physiologists, nurses, [...] Cardiac Rehab program is Certified by the [employer]-Vascular and Pulmonary [employer] (AACVPR) and Accredited by the [employer] through our Chest Pain [...] protocol. Gabo Signature: Date CC: ~ Signed [facility] Hemoglobin A1con 09-18-2024 HbA1c (Bld) [Mass fraction] 7.4 % Normal <=5.6 [facility] Comment on above: Performed By: #### L 501.9985 ####[facility] [address] [place], [address] Hemoglobin A1c percentageOrd ered By: Sudhakar Quinn on 09-18-2024 HbA1c (Bld) [Mass fraction] 7.4 % >5.7 [facility] Microalbumin,Random Urineon 09-18-2024 MICROALBUMIN,UR < 12.0 Normal NO RANGE EST. [facility] Comment on above: Performed By: #### L 502.0500 ####[facility] [address] [place], [address] Echo Completeon 09-10-2024 Echo Complete [facility] Cardiovascular Services [address] [place] [address] Echo Complete 09/10/24 0809 MR#: [id number] Acct: [id number] Name: MIRTHA GAMEZ Rep #: [id number] : 1960 64 From: Sudhakar Quinn MD Attending Dr: Dr. Sudhakar Quinn MD Status: KALA CAO Ordering Dr: Sudhakar Quinn MD Date: 09/10/24 Location: [facility] Sex: M C Admitted: Reason [...] Dictated: 09/10/24 0809 Date Transcribed: 09/10/24 1008 House Principal: Signed Normal [facility] Echocardiogram study reportO rdered By: Sudhakar Quinn on 09-10-2024 Study report [facility] Cardiovascular Services [address] [place] [address] Echo Complete 09/10/24 0809 MR#: [id number] Acct: [id number] Name: VERALEEANNAMIRTHAMYRIAM LANZA Rep #:[id number] : [...] Dictated: 09/10/24 0809 Date Transcribed: 09/10/24 1008 House Principal: Signed [facility] Work Phone: Internal Medicine Office Vis adilene 09-05-2024 Internal Medicine Office Visit [facility] [address] [place] [address] [place] [address] OFFICE VISIT Date of Service: 09/05/24 MR#: [id number] Acct: [id number] Name: MIRTHA GAMEZ Rep #: [id number] : 1960 Provider: Dr. Mirtha choudhury, DO Age/Sex: 64/M Location: [facility] Status: Signed Intake Vital Signs 03/07/24 16:29 [...] M FU Chief Complaint: routine diabetic recheck Automatic Lathe Tender Required: No Is patient in pain?: No [...] Nurse's Note: Had labs drawn on tuesday. [facility] Medical History Palpitations HORTON (dyspnea on exertion) [...] healthy appearing Nutritional Appearance: average body habitus HENWI Head: normal to inspection Face and sinus: normal facial exam Mouth: oral mucosae normal Teeth and gingiva: dentition normal Eyes General: appearance normal, both eyes and all related structures Neck Neck: normal visual inspection Neck mass: Yes Resp Effort Inspection: normal respiratory effort Auscultation: Bilateral: Clear to Auscultation Cardio Rate: reg (more content not included)... Normal [facility] Laboratory - Hematology and Cell countsOrdered By: Mirtha Galeana on 09-05-2024 HbA1c (Bld) [Mass fraction] 7.7 % High 4.2-6.3 [facility] Absolute neutrophil countOrd ered By: Sandra Zepeda on 09-03-2024 Neutrophils (Bld) [#/Vol] 4.5 10*3/uL 2.0-7.7 [facility] Anion gap in Serum or Plasma Ordered By: Sandra Zepeda on 09-03-2024 Anion gap [Moles/Vol] 13 mmol/L 11-08 [facility] BUN/creatinine ratioOrdered By: Sandra Zepeda on 09-03-2024 Urea nitrogen/Creatinine [Mass ratio] 17.9 mg/mg 04-15 [facility] Basic Metabolic Profile (BMP )on 09-03-2024 BUN/CRE 17.9 RATIO Normal 04-15 [facility] Comment on above: Performed By: #### L 500.2500, L300.4310, L300.3900, L100.0100 ####[facility] [address] [place], [address] Calcium [Mass/Vol] 9.3 mg/dL Normal 7.6-11.0 [facility] Comment on above: Performed By: #### L 500.2500, L300.4310, L300.3900, L100.0100 ####[facility] [address] [place], [address] Chloride [Moles/Vol] 106 mmol/L Normal 98-108 [facility] Comment on above: Performed By: #### L 500.2500, L300.4310, L300.3900, L100.0100 ####[facility] [address] [place], [address] CO2 [Moles/Vol] 22.6 mmol/L Normal 21.0-32.0 [facility] Comment on above: Performed By: #### L 500.2500, L300.4310, L300.3900, L100.0100 ####[facility] [address] [place], [address] Creatinine [Mass/Vol] 0.90 mg/dL Normal 0.70-1.20 [facility] Comment on above: Performed By: #### L 500.2500, L300.4310, L300.3900, L100.0100 ####[facility] [address] [place], [address] GAP 13 Normal 5-15 [facility] Comment on above: Performed By: #### L 500.2500, L300.4310, L300.3900, L100.0100 ####[facility] [address] [place], [address] GFR/1.73 sq M.predicted among non-blacks MDRD (S/P/Bld) [Vol rate/Area] 96 mL/min/{1.73_m2} Normal >60 [facility] Comment on above: Result Comment: mL/m in/1.73m2 CKD-EPI Creatinine Equation (2020) Performed By: #### L 500.2500, L300.4310, L300.3900, L100.0100 ####[facility] [address] [place], [address] Glucose [Mass/Vol] 165 mg/dL High 70-99 [facility] Comment on above: Performed By: #### L 500.2500, L300.4310, L300.3900, L100.0100 ####[facility] [address] [place], [address] Potassium [Moles/Vol] 4.1 mmol/L Normal 3.3-5.1 [facility] Comment on above: Performed By: #### L 500.2500, L300.4310, L300.3900, L100.0100 ####[facility] [address] [place], [address] Sodium [Moles/Vol] 141 mmol/L Normal 133-145 [facility] Comment on above: Performed By: #### L 500.2500, L300.4310, L300.3900, L100.0100 ####[facility] [address] [place], [address] Urea nitrogen [Mass/Vol] 16 mg/dL Normal 4-19 [facility] Comment on above: Performed By: #### L 500.2500, L300.4310, L300.3900, L100.0100 ####[facility] [address] [place], [address] Basophil percentageOrdered B y: Sandra Zepeda on 09-03-2024 Basophils/100 WBC (Bld) 1.0 % 0-1 [facility] CBC W/Diff, Automatedon 08-25 Absolute Lymph 2.36 X10 3/uL Normal 0.83-4.51 [facility] Comment on above: Performed By: #### L 500.2500, L300.4310, L300.3900, L100.0100 ####[facility] [address] [place], [address] Absolute Neut 4.5 X10 3/uL Normal 2.0-7.7 [facility] Comment on above: Performed By: #### L 500.2500, L300.4310, L300.3900, L100.0100 ####[facility] [address] [place], [address] Basophils/100 WBC (Bld) 1.0 % Normal 0-1 [facility] Comment on above: Performed By: #### L 500.2500, L300.4310, L300.3900, L100.0100 ####[facility] [address] [place], [address] Eosinophils/100 WBC (Bld) 2.7 % Normal 0-5 [facility] Comment on above: Performed By: #### L 500.2500, L300.4310, L300.3900, L100.0100 ####[facility] [address] [place], [address] Erythrocyte distribution width (RBC) [Ratio] 11.9 % Normal 11.6-14.6 [facility] Comment on above: Performed By: #### L 500.2500, L300.4310, L300.3900, L100.0100 ####[facility] [address] [place], [address] Hematocrit (Bld) [Volume fraction] 45.5 % Normal 40-54 [facility] Comment on above: Performed By: #### L 500.2500, L300.4310, L300.3900, L100.0100 ####[facility] [address] [place], [address] Hemoglobin (Bld) [Mass/Vol] 16.1 g/dL Normal 13.0-16.5 [facility] Comment on above: Performed By: #### L 500.2500, L300.4310, L300.3900, L100.0100 ####[facility] [address] [place], [address] IG% 0.300 Normal 0.0-0.9 [facility] Comment on above: Result Comment: IG% - Immature Granulocytes (promyelocytes, myelocytes and metamyelocytes) > 1% indicates that a LEFT SHIFT is Present. Performed By: #### L 500.2500, L300.4310, L300.3900, L100.0100 ####[facility] [address] [place], [address] Lymphocytes/100 WBC (Bld) 30.0 % Normal 19-41 [facility] Comment on above: Performed By: #### L 500.2500, L300.4310, L300.3900, L100.0100 ####[facility] [address] [place], [address] MCH (RBC) [Entitic mass] 31.4 pg Normal 27.0-32.0 [facility] Comment on above: Performed By: #### L 500.2500, L300.4310, L300.3900, L100.0100 ####[facility] [address] [place], [address] MCHC (RBC) [Mass/Vol] 35.4 g/dL Normal 32-36 [facility] Comment on above: Performed By: #### L 500.2500, L300.4310, L300.3900, L100.0100 ####[facility] [address] [place], [address] MCV (RBC) [Entitic vol] 88.9 fL Normal 80-94 [facility] Comment on above: Performed By: #### L 500.2500, L300.4310, L300.3900, L100.0100 ####[facility] [address] [place], [address] Monocytes/100 WBC (Bld) 9.0 % Normal 0-10 [facility] Comment on above: Performed By: #### L 500.2500, L300.4310, L300.3900, L100.0100 ####[facility] [address] [place], [address] Neutrophils/100 WBC (Bld) 57.0 % Normal 47-70 [facility] Comment on above: Performed By: #### L 500.2500, L300.4310, L300.3900, L100.0100 ####[facility] [address] [place], [address] Nucleated RBC (Bld) [#/Vol] 0 10*3/uL Normal 0-5 [facility] Comment on above: Performed By: #### L 500.2500, L300.4310, L300.3900, L100.0100 ####[facility] [address] [place], [address] Platelet mean volume (Bld) [Entitic vol] 11.7 fL Normal 6.2-12.0 [facility] Comment on above: Performed By: #### L 500.2500, L300.4310, L300.3900, L100.0100 ####[facility] [address] [place], [address] Platelets (Bld) [#/Vol] 221 10*3/uL Normal 150-450 [facility] Comment on above: Performed By: #### L 500.2500, L300.4310, L300.3900, L100.0100 ####[facility] [address] [place], [address] RBC (Bld) [#/Vol] 5.12 10*6/uL Normal 4.6-6.2 [facility] Comment on above: Performed By: #### L 500.2500, L300.4310, L300.3900, L100.0100 ####[facility] [address] [place], [address] RDW SD 38.8 fl Normal 35.1-43.9 [facility] Comment on above: Performed By: #### L 500.2500, L300.4310, L300.3900, L100.0100 ####[facility] [address] [place], [address] WBC (Bld) [#/Vol] 7.9 10*3/uL Normal 4.4-11.0 [facility] Comment on above: Performed By: #### L 500.2500, L300.4310, L300.3900, L100.0100 ####[facility] [address] [place], [address] Carbon dioxide, total [Moles /volume] in Central venous bloodOrdered By: Sandra Zepeda on 09-03-2024 CO2 [Moles/Vol] 22.6 mmol/L 21.0-32.0 [facility] Chloride assayOrdered By: Andreea Zepeda on 09-03-2024 Chloride [Moles/Vol] 106 mmol/L 98-108 [facility] Eosinophil percentageOrdered By: Sandra Zepeda on 09-03-2024 Eosinophils/100 WBC (Bld) 2.7 % 0-5 [facility] Erythrocyte distribution wid th ratioOrdered By: Sandra Zepeda on 09-03-2024 Erythrocyte distribution width (RBC) [Ratio] 11.9 % 11.6-14.6 [facility] Erythrocyte distribution wid th standard deviationOrdered By: Sandra Zepeda on 09-03-2024 Erythrocyte distribution width (RBC) [Entitic vol] 38.8 fL 35.1-43.9 [facility] GFR/1.73 sq M.predicted qing g non-blacks MDRD (S/P/Bld) [Vol rate/Area]Ordered By: Sandra Zepeda on 09-03-2024 Estimated GFR (MDRD) Non-Af Amer 96 >60 [facility] Comment on above: mL/min/1.73m2 CKD-EP I Creatinine Equation (2020) Hematocrit Auto (Bld) [Volum e fraction]Ordered By: Sandra Zepeda on 09-03-2024 Hematocrit (Bld) [Volume fraction] 45.5 % 40-54 [facility] Hemoglobin measurementOrdere d By: Sandra Zepeda on 09-03-2024 Hemoglobin (Bld) [Mass/Vol] 16.1 g/dL 13.0-16.5 [facility] Immature granulocytes/100 WB C Auto (Bld)Ordered By: Sandra Zepeda on 09-03-2024 Immature granulocytes/100 WBC (Bld) 0.300 % 0.0-0.9 [facility] Comment on above: IG% - Immature Granu locytes (promyelocytes, myelocytes and metamyelocytes) > 1% indicates that a LEFT SHIFT is Present. International normalized rat io (INR) calculationOrdered By: Sandra Zepeda on 09-03-2024 INR Coag (Bld) [Relative time] 1.0 {INR} [facility] Lymphocytes Auto (Unsp spec) [#/Vol]Ordered By: Sandra Zepeda on 09-03-2024 Lymphocytes (Bld) [#/Vol] 2.36 10*3/uL 0.83-4.51 [facility] Lymphocytes/100 WBC Auto (Un sp spec)Ordered By: Sandra Zepeda on 09-03-2024 Lymphocytes/100 WBC (Bld) 30.0 % 19-41 [facility] MCV (mean corpuscular volume ) determinationOrdered By: Sandra Zepeda on 09-03-2024 MCV (RBC) [Entitic vol] 88.9 fL 80-94 [facility] Mean corpuscular hemoglobin (MCH) determinationOrdered By: Sandra Zepeda on 09-03-2024 MCH (RBC) [Entitic mass] 31.4 pg 27.0-32.0 [facility] Mean corpuscular hemoglobin concentration (MCHC) determinationOrdered By: Sandra Zepeda on 09-03-2024 MCHC (RBC) [Mass/Vol] 35.4 g/dL 32-36 [facility] Mean platelet volume determi nationOrdered By: Sandra Zepeda on 09-03-2024 Platelet mean volume (Bld) [Entitic vol] 11.7 fL 6.2-12.0 [facility] Monocyte percentageOrdered B y: Sandra Zepeda on 09-03-2024 Monocytes/100 WBC (Bld) 9.0 % 0-10 [facility] Neutrophil percentageOrdered By: Sandra Zepeda on 09-03-2024 Neutrophils/100 WBC (Bld) 57.0 % 47-70 [facility] Nucleated red blood cell per centageOrdered By: Sandra Zpeeda on 09-03-2024 Nucleated RBC/100 WBC (Bld) [Ratio] 0 % 0-5 [facility] Partial Thromboplast Timeon 09-03-2024 aPTT Coag (Bld) [Time] 24.8 s Normal 24.1-36.2 [facility] Comment on above: Performed By: #### L 500.2500, L300.4310, L300.3900, L100.0100 ####[facility] [address] [place], [address] Platelet countOrdered By: Andreea Zepeda on 09-03-2024 Platelets (Bld) [#/Vol] 221 10*3/uL 150-450 [facility] Potassium (Unsp spec) [Mass/ Vol]Ordered By: Sandra Zepeda on 09-03-2024 Potassium [Moles/Vol] 4.1 mmol/L 3.3-5.1 [facility] Prothrombin Time w/INRon INR Coag (PPP) [Relative time] 1.0 {INR} Normal [facility] Comment on above: Performed By: #### L 500.2500, L300.4310, L300.3900, L100.0100 ####[facility] [address] [place], [address] PT Coag (PPP) [Time] 13.4 s Normal 11.7-14.9 [facility] Comment on above: Performed By: #### L 500.2500, L300.4310, L300.3900, L100.0100 ####[facility] [address] [place], [address] Prothrombin timeOrdered By: Sandra Zepeda on 09-03-2024 PT Coag (PPP) [Time] 13.4 s 11.7-14.9 [facility] RBC Auto (Bld) [#/Vol]Ordere d By: Sandra Zepeda on 09-03-2024 RBC (Bld) [#/Vol] 5.12 10*6/uL 4.6-6.2 [facility] Serum creatinine measurement (mass/volume)Ordered By: Sandra Zepeda on 09-03-2024 Creatinine [Mass/Vol] 0.90 mg/dL 0.70-1.20 [facility] Serum glucose measurement (m ass/volume)Ordered By: Sandra Zepeda on 09-03-2024 Glucose [Mass/Vol] 165 mg/dL High 70-99 [facility] Serum or plasma calcium dillon urement (mass/volume)Ordered By: Sandra Zepeda on 09-03-2024 Calcium [Mass/Vol] 9.3 mg/dL 7.6-11.0 [facility] Serum or plasma urea nitroge n measurement (mass/volume)Ordered By: Sandra Zepeda on 09-03-2024 Urea nitrogen [Mass/Vol] 16 mg/dL 4-19 [facility] Sodium levelOrdered By: Nikolas Zepeda on 09-03-2024 Sodium [Moles/Vol] 141 mmol/L 133-145 [facility] White blood cell (WBC) count Ordered By: Sandra Zepeda on 09-03-2024 WBC (Bld) [#/Vol] 7.9 10*3/uL 4.4-11.0 [facility] aPTT Coag (PPP) [Time]Ordere d By: Sandra Zepeda on 09-03-2024 aPTT Coag (Bld) [Time] 24.8 s 24.1-36.2 [facility] Coronary Angiography CTon Coronary Angiography CT [facility] Imaging Services [address] [place] [address] 08/23/24 1820 MR#: [id number] Acct: [id number] Name: MIRTHA GAMEZ Rep #: [id number] : 1960 64 From: Sudhakar Quinn MD [...] MD; Dr. Mirtha Galeana DO Signed Normal [facility] Limited Chest CT Cardiac Onl yon 08-17-[address] Cardiac Only [facility] Imaging Services [address] [place] [address] Cardiac Only MR#: [id number] Acct: [id number] Name: MIRTHA GAMEZ Rep #: [id number] : 1960 M 64 From: Viet wu MD PCP: Dr. Mirtha Galeana, DO Status: REG CLI Study: Limited Chest CT Cardiac Only Date of Exam: Exam# [id number] Ordering Dr: Sudhakar Quinn MD PROCEDURE: LIMITED [...] use of iterative reconstruction technique). Reading Location: [id number] CC: Dr. Sudhakar Quinn MD; Dr. Mirtha Galeana, House Principal: Signed Normal [facility] 12 Lead EKG performed by [facility] on 07-27-2024 12 Lead EKG performed by [facility] [address] [place] [address] 12 Lead EKG performed by [facility] 07/27/24 0847 MR#: [id number] Acct: [id number] Name: MIRTHA GAMEZ Rep #: [id number] : 1960 64 From: Sudhakar Quinn MD Attending Dr: Dr. Sudhakar Quinn MD Status: DEP A VARSHA Ordering Dr: Sudhakar Quinn MD Date: 07/27/24 Location: [facility] Sex: M C Admitted: BMS/12 Lead EKG performed by [facility] ECG Report Interpretation ---Sinus Rhythm - frequent PAC s # PACs = 3.WITHIN NORMAL LIMITSElectronically signed on 07/28/2024 at 17:07 by Sudhakar Quinnwood Software Version 8610 07/28/24 1713 Date Sudhakar Quinn MD CC: Dr. Mirtha Galeana DO Date Dictated: 07/27/24846 Date Transcribed: 07/27/24846 House Principal: [place] Signed Normal [facility] Cardiology Visit Reporton Cardiology Visit Report [facility] [place] [address] OFFICE VISIT Date of Service: 07/27/24 MR#: [id number] Acct: [id number] Name: CASEYMIRTHA FORBES POOL Rep #: [id number] : 1960 Provider: Dr. Sudhakar Quinn MD Age/Sex: 64/M [place] [facility] [place]: Signed HPI HPI History of [...] Pulse Source Monitor Intake Visit Reasons: S/P [facility] 06/30 Automatic Lathe Tender Required: No Accompanied by: Significant Other Is [...] Bilateral: Tiara (more content not included)... Normal [facility] 12 Lead EKGon 06-30-2024 12 Lead EKG [facility] Cardiovascular Services [address] [place] [address] 12 Lead EKG 06/30/24 1649 MR#: [id number] Acct: [id number] Name: MIRTHA GAMEZ Rep #: [id number] : 1960 64 From: Sudhakar Quinn MD [...] ECG Confirmed by SUDHAKAR QUINN MD ([id number]), order editor DAWN LOGAN ([id number]) on 07/02/2024 7:01:31 AM Referred By: Confirmed By: SUDHAKAR QUINN MD 07/02/24 0701 Date Sudhakar Quinn MD CC: Dr. Zi Oglesby MD; Dr. Mirtha Galeana DO Signed Normal [facility] Absolute neutrophil countOrd ered By: Zi Oglesby on 06-30-2024 Neutrophils (Bld) [#/Vol] 6.7 10*3/uL 2.0-7.7 [facility] Automated blood erythrocyte countOrdered By: Zi Oglesby on 06-30-2024 RBC (Bld) [#/Vol] 4.85 10*6/uL Normal 4.6-6.2 [facility] Comment on above: Performed By: #### L 500.2500, L100.0100, L501.5425 ####[facility] [address] [place], [address] Automated blood hematocrit ( percentage)Ordered By: Zi Oglesby on 06-30-2024 Hematocrit (Bld) [Volume fraction] 42.6 % Normal 40-54 [facility] Comment on above: Performed By: #### L 500.2500, L100.0100, L501.5425 ####[facility] [address] [place], [address] Automated lymphocyte count a s percentage of total leukocytesOrdered By: Zi Oglesby on 06-30-2024 Lymphocytes/100 WBC (Bld) 27.2 % Normal 19-41 [facility] Comment on above: Performed By: #### L 500.2500, L100.0100, L501.5425 ####[facility] [address] [place], [address] BNP (brain natriuretic pepti de measurement)Ordered By: Amparo Drake on 06-30-2024 Natriuretic peptide B (Bld) [Mass/Vol] 5.7 pg/mL Normal 0-100 [facility] Comment on above: Performed By: #### L 300.8000, L503.6620 #### [facility] [address] [place], [address] Basic Metabolic Profile (BMP )on 06-30-2024 BUN/CRE 15.4 RATIO Normal 10-20 [facility] Comment on above: Order Comment: 1Y Performed By: #### L 500.2500, L100.0100, L501.5425 ####[facility] [address] [place], [address] CA,Total 9.0 mg/dL Normal 8.5-10.1 [facility] Comment on above: Order Comment: 1Y Performed By: #### L 500.2500, L100.0100, L501.5425 ####[facility] [address] [place], [address] ECRCL 85.23 ml/min Normal [facility] Comment on above: Order Comment: 1Y Performed By: #### L 500.2500, L100.0100, L501.5425 ####[facility] [address] [place], [address] EST GFR - AA 101 mL/min Normal >60 [facility] Comment on above: Order Comment: 1Y Result Comment: Afri can Haitian GFR Calc Performed By: #### L 500.2500, L100.0100, L501.5425 ####[facility] [address] [place], [address] GAP 7 Normal 5-15 [facility] Comment on above: Order Comment: 1Y Performed By: #### L 500.2500, L100.0100, L501.5425 ####[facility] [address] [place], [address] GFR/1.73 sq M.predicted among non-blacks MDRD (S/P/Bld) [Vol rate/Area] 83 mL/min/{1.73_m2} Normal >60 [facility] Comment on above: Order Comment: 1Y Result Comment: Non- GFR Calc Performed By: #### L 500.2500, L100.0100, L501.5425 ####[facility] [address] [place], [address] Basophil percentageOrdered B y: Zi Oglesby on 06-30-2024 Basophils/100 WBC (Bld) 0.8 % Normal 0-1 [facility] Comment on above: Performed By: #### L 500.2500, L100.0100, L501.5425 ####[facility] [address] [place], [address] Blood urea nitrogen (BUN)/cr eatinine ratioOrdered By: Zi Oglesby on 06-30-2024 Urea nitrogen/Creatinine [Mass ratio] 15.4 mg/mg 10-20 [facility] CBC W/Diff, Automatedon Absolute Lymph 3.00 X10 3/uL Normal 0.83-4.51 [facility] Comment on above: Performed By: #### L 500.2500, L100.0100, L501.5425 ####[facility] [address] [place], [address] Absolute Neut 6.7 X10 3/uL Normal 2.0-7.7 [facility] Comment on above: Performed By: #### L 500.2500, L100.0100, L501.5425 ####[facility] [address] [place], [address] IG% 0.600 Normal 0.0-0.9 [facility] Comment on above: Result Comment: IG% - Immature Granulocytes (promyelocytes, myelocytes and metamyelocytes) > 1% indicates that a LEFT SHIFT is Present. Performed By: #### L 500.2500, L100.0100, L501.5425 ####[facility] [address] [place], [address] Nucleated RBC (Bld) [#/Vol] 0 10*3/uL Normal 0-5 [facility] Comment on above: Performed By: #### L 500.2500, L100.0100, L501.5425 ####[facility] [address] [place], [address] RDW SD 38.3 fl Normal 35.1-43.9 [facility] Comment on above: Performed By: #### L 500.2500, L100.0100, L501.5425 ####[facility] [address] [place], [address] Carbon dioxide measurementOr dered By: Zi Oglesby on 06-30-2024 CO2 [Moles/Vol] 24.0 mmol/L Normal 21.0-32.0 [facility] Comment on above: Order Comment: 1Y Performed By: #### L 500.2500, L100.0100, L501.5425 ####[facility] [address] [place], [address] Chest PA and Lateralon 06-30 Chest PA and Lateral [facility] Imaging Services [address] [place] [address] Chest PA and Lateral MR#: [id number] Acct: [id number] Name: MIRTHA GAMEZ Rep #: [id number] : 1960 M 64 From: Chema danielle MD PCP: Dr. Mirtha Galeana, DO Status: REG ER Study: Chest PA and Lateral Date of Exam: 06/30/24 Exam# [id number] Ordering Dr: Amparo Drake [id number] STUDY: X-RAY CHEST REASON FOR EXAM: Male, [...] CC: Dr. Mirtha Galeana, DO; REGGIE Calixto House Principal: Signed Normal [facility] Chloride measurementOrdered By: Zi Oglesby on 06-30-2024 Chloride [Moles/Vol] 106 mmol/L Normal 98-107 [facility] Comment on above: Order Comment: 1Y Performed By: #### L 500.2500, L100.0100, L501.3878 ####[facility] [address] [place], [address] D-Dimer Quantitative (DVT/PE )on 06-30-2024 D-DIMER QUANT 0.27 FEU/ug/m Normal 0.27-0.49 [facility] Comment on above: Result Comment: NORM AL D-Dimer level (<0.50) indicates no DVT or PE. Performed By: #### L 300.8000, L503.6620 #### [facility] [address] [place], [address] D-dimer measurement for deep venous thrombosisOrdered By: Amparo Drake on 06-30-2024 D-Dimer Quantitative (PE/DVT) 0.27 FEU/ug/m 0.27-0.49 [facility] Comment on above: NORMAL D-Dimer level (<0.50) indicates no DVT or PE. Emergency Department Summary on 06-30-2024 Emergency Department Summary [facility] Medical Records Department [address] [place] [address] Emergency Department Summary 06/30/24 MR#: [id number] Acct: [id number] Name: MIRTHA GAMEZ Rep #: [id number] : 1960 64 From: Amparo PAREDES PCP: [...] Immobilization, Prior DVT or PE or Cancer [facility] Medical History GERD (gastroesophageal reflux disease) Kidney [...] Air Litzy (more content not included)... Normal [facility] Eosinophil percentageOrdered By: Zi Oglesby on 06-30-2024 Eosinophils/100 WBC (Bld) 1.6 % Normal 0-5 [facility] Comment on above: Performed By: #### L 500.2500, L100.0100, L501.5425 ####[facility] [address] [place], [place], [address] Erythrocyte distribution wid th ratioOrdered By: Zi Oglesby on 06-30-2024 Erythrocyte distribution width (RBC) [Ratio] 11.9 % Normal 11.6-14.6 [facility] Comment on above: Performed By: #### L 500.2500, L100.0100, L501.5425 ####[facility] [address] [place], [place], [address] Erythrocyte distribution wid th standard deviationOrdered By: Zi Oglesby on 06-30-2024 Erythrocyte distribution width (RBC) [Entitic vol] 38.3 fL 35.1-43.9 [facility] Estimated glomerular filtrat ion rate (GFR) AmericanOrdered By: Zi Oglesby on 06-30-2024 Estimated GFR (MDRD) Amer 101 mL/min >60 [facility] Comment on above: GFR Calc Estimation of creatinine jacque aranceOrdered By: Zi Oglesby on 06-30-2024 Estimated Creatinine Clearance Calc 85.23 ml/min [facility] Glomerular filtration rate ( GFR) estimationOrdered By: Zi Oglesby on 06-30-2024 Estimated GFR (MDRD) Non-Af Amer 83 mL/min >60 [facility] Comment on above: Non- GFR Calc Glucose measurementOrdered B y: Zi Oglesby on 06-30-2024 Glucose [Mass/Vol] 216 mg/dL High 74-106 [facility] Comment on above: Glucose result great er than or equal to 200 mg/dLsuggests DIABETES MELLITUS per A.D.A. criteria. Order Comment: 1Y Result Comment: Gluc ose result greater than or equal to 200 mg/dL suggests DIABETES MELLITUS per A.D.A. criteria. Performed By: #### L 500.2500, L100.0100, L501.5425 ####[facility] [address] [place], [address] Hemoglobin measurementOrdere d By: Zi Oglesby on 06-30-2024 Hemoglobin (Bld) [Mass/Vol] 15.2 g/dL Normal 13.0-16.5 [facility] Comment on above: Performed By: #### L 500.2500, L100.0100, L501.5425 ####[facility] [address] [place], [address] Immature granulocytes/100 WB C Auto (Bld)Ordered By: Zi Oglesby on 06-30-2024 Immature granulocytes/100 WBC (Bld) 0.600 % 0.0-0.9 [facility] Comment on above: IG% - Immature Granu locytes (promyelocytes, myelocytes and metamyelocytes) > 1% indicates that a LEFT SHIFT is Present. L501.5425on 06-30-2024 TROPONIN-I HS 7 pg/mL Normal 3.0-78.0 [facility] Comment on above: Order Comment: 1Y Result Comment: Plea se Note: New Test Units and Gender Specific Reference Ranges. For more information see Policy Stat Procedure [facility] High Sensitivity Troponin (TNIH) and attachments. Performed By: #### L 500.2500, L100.0100, L501.5425 ####[facility] [address] [place], [address] Lymphocytes Auto (Unsp spec) [#/Vol]Ordered By: Zi Oglesby on 06-30-2024 Lymphocytes (Bld) [#/Vol] 3.00 10*3/uL 0.83-4.51 [facility] MCV (mean corpuscular volume ) determinationOrdered By: Zi Oglesby on 06-30-2024 MCV (RBC) [Entitic vol] 87.8 fL Normal 80-94 [facility] Comment on above: Performed By: #### L 500.2500, L100.0100, L501.5425 ####[facility] [address] [place], [address] Mean corpuscular hemoglobin (MCH) determinationOrdered By: Zi Oglesby on 06-30-2024 MCH (RBC) [Entitic mass] 31.3 pg Normal 27.0-32.0 [facility] Comment on above: Performed By: #### L 500.2500, L100.0100, L501.5425 ####[facility] [address] [place], [address] Mean corpuscular hemoglobin concentration (MCHC) determinationOrdered By: Zi Oglesby on 06-30-2024 MCHC (RBC) [Mass/Vol] 35.7 g/dL Normal 32-36 [facility] Comment on above: Performed By: #### L 500.2500, L100.0100, L501.5425 ####[facility] [address] [place], [address] Mean platelet volume determi nationOrdered By: Zi Oglesby on 06-30-2024 Platelet mean volume (Bld) [Entitic vol] 11.1 fL Normal 6.2-12.0 [facility] Comment on above: Performed By: #### L 500.2500, L100.0100, L501.5425 ####[facility] [address] [place], [address] Monocyte percentageOrdered B y: Zi Oglesby on 06-30-2024 Monocytes/100 WBC (Bld) 8.5 % Normal 0-10 [facility] Comment on above: Performed By: #### L 500.2500, L100.0100, L501.5425 ####[facility] [address] [place], [address] Neutrophil percentageOrdered By: Zi Oglesby on 06-30-2024 Neutrophils/100 WBC (Bld) 61.3 % Normal 47-70 [facility] Comment on above: Performed By: #### L 500.2500, L100.0100, L501.5425 ####[facility] [address] [place], [address] Nucleated red blood cell per centageOrdered By: Zi Oglesby on 06-30-2024 Nucleated RBC/100 WBC (Bld) [Ratio] 0 % 0-5 [facility] Platelet countOrdered By: Jone Oglesby on 06-30-2024 Platelets (Bld) [#/Vol] 233 10*3/uL Normal 150-450 [facility] Comment on above: Performed By: #### L 500.2500, L100.0100, L501.5425 ####[facility] [address] [place], [address] Potassium measurementOrdered By: Zi Oglesby on 06-30-2024 Potassium [Moles/Vol] 3.9 mmol/L Normal 3.5-5.1 [facility] Comment on above: Order Comment: 1Y Performed By: #### L 500.2500, L100.0100, L501.5425 ####[facility] [address] [place], [address] Serum anion gap measurementO rdered By: Zi Oglesby on 06-30-2024 Anion gap [Moles/Vol] 7 mmol/L 5-15 [facility] Serum or plasma calcium dillon urement (mass/volume)Ordered By: Zi Oglesby on 06-30-2024 Calcium [Mass/Vol] 9.0 mg/dL 8.5-10.1 [facility] Serum or plasma creatinine m easurement (mass/volume)Ordered By: Zi Oglesby on 06-30-2024 Creatinine [Mass/Vol] 0.97 mg/dL Normal 0.70-1.30 [facility] Comment on above: The validity of the calculated GFR & GFRAA in patients over 70 years has not been determined. Clinical correlation is essential. Order Comment: 1Y Result Comment: The validity of the calculated GFR GFRAA in patients over 70 years has not been determined. Clinical correlation is essential. Performed By: #### L 500.2500, L100.0100, L501.5425 ####[facility] [address] [place], [address] Serum or plasma urea nitroge n measurement (mass/volume)Ordered By: iZ Oglesby on 06-30-2024 Urea nitrogen [Mass/Vol] 15 mg/dL Normal 7-18 [facility] Comment on above: Order Comment: 1Y Performed By: #### L 500.2500, L100.0100, L501.5425 ####[facility] [address] [place], [address] Sodium levelOrdered By: Klever Oglesby on 06-30-2024 Sodium [Moles/Vol] 138 mmol/L Normal 136-145 [facility] Comment on above: Order Comment: 1Y Performed By: #### L 500.2500, L100.0100, L501.5425 ####[facility] [address] [place], [place], [address] Tropinin I.cardiac panel Hig h sensitivity methodOrdered By: Zi Oglesby on 06-30-2024 Troponin I High Sensitivity 7 pg/mL 3.0-78.0 [facility] Comment on above: Please Note: New [place] t Units and Gender Specific Reference Ranges. For more information see Policy Stat Procedure [facility] High Sensitivity Troponin (TNIH) and attachments. White blood cell (WBC) count Ordered By: Zi Oglesby on 06-30-2024 WBC (Bld) [#/Vol] 11.0 10*3/uL Normal 4.4-11.0 [facility] Comment on above: Performed By: #### L 500.2500, L100.0100, L501.5425 ####[facility] [address] [place], [address] Basophil percentageOrdered B y: Mirtha Galeana on 09-09-2023 Cholesterol [Mass/Vol] 183 mg/dL <200 [facility] Comment on above: <200 mg/dL Desirable 200-240 mg/dL Borderline >240 mg/dL High Risk Triglyceride [Mass/Vol] 169 mg/dL <199 [facility] Comment on above: The drugs N-Acetylcy steine and Metamizole may falsely depress this assay.Serum Triglycerides Reference Interval Normal <150 mg/dL Borderline high 150 - 199 mg/dL High 200 - 499 mg/dL Very High > or = 500 mg/dL Laboratory - Chemistry and C hemistry - challengeOrdered By: Mirtha Galeana on 09-09-2023 Cholesterol in HDL [Mass/Vol] 52 mg/dL >40 [facility] Comment on above: The drugs N-Acetylcy steine and Metamizole may falsely depress this assay. Reference Range HDL <40 mg/dL Low HDL Cholesterol HDL >or= 60 mg/dL High HDL Cholesterol Cholesterol in LDL [Mass/Vol] 97 mg/dL 0-130 [facility] No Panel InformationOrdered By: Mirtha Galeana on 09-09-2023 Prostate Specific Antigen Screen 0.63 ng/mL 0.00-4.00 [facility] Comment on above: This test was perfor med using the TPSA assay method for themension chemistry system. Values obtained with differentassay methods cannot be used interchangably.When changing PSA assays in the course of monitoring apatient, additional sequential testing should be carriedout to confirm baseline values. VLDL Cholesterol 34 mg/dL 5-40 [facility] Laboratory - Hematology and Cell countson 09-06-2023 HbA1c (Bld) [Mass fraction] 6.1 % 4.2-6.3 [facility] Basophil percentageOrdered B y: Mirtha Galeana on 03-03-2023 Bilirubin [Mass/Vol] 0.40 mg/dL 0.20-1.00 [facility] Comment on above: For patients on eltr ombopag therapy, use of Dimension Whitakers TBIL is not recommended. Chloride [Moles/Vol] 109 mmol/L 98-107 [facility] Glucose [Mass/Vol] 118 mg/dL 74-106 [facility] Comment on above: Fasting Glucose resu lt from 100 to 125 mg/dL suggests IMPAIRED HOMEOSTASIS per A.D.A. criteria. Potassium [Moles/Vol] 4.8 mmol/L 3.5-5.1 [facility] Protein [Mass/Vol] 7.5 g/dL 6.4-8.2 [facility] Sodium [Moles/Vol] 141 mmol/L 136-145 [facility] Laboratory - Chemistry and C hemistry - challengeOrdered By: Mirtha Galeana on 03-03-2023 ALP [Catalytic activity/Vol] 63 U/L 45-117 [facility] ALT [Catalytic activity/Vol] 31 U/L 16-61 [facility] CO2 [Moles/Vol] 26.0 mmol/L 21.0-32.0 [facility] Globulin (S) [Mass/Vol] 3.6 g/dL 2.2-4.2 [facility] Urea nitrogen/Creatinine [Mass ratio] 21.7 mg/mg 10-20 [facility] - Hematology and Cell countson 03-03-2023 HbA1c (Bld) [Mass fraction] 5.9 % 4.2-6.3 [facility] No Panel InformationOrdered By: Mirtha Galeana on 03-03-2023 Estimated GFR (MDRD) Amer 108 mL/min >60 [facility] Comment on above: GFR Calc Estimated GFR (MDRD) Non-Af Amer 89 mL/min >60 [facility] Comment on above: Non- GFR Calc Serum or plasma albumin dillon urement (mass/volume)Ordered By: Mirtha Galeana on 03-03-2023 Albumin [Mass/Vol] 3.9 g/dL 3.2-5.0 [facility] Serum or plasma albumin/glob ulin mass ratioOrdered By: Mirtha Galeana on 03-03-2023 Albumin/Globulin [Mass ratio] 1.1 {ratio} 0.9-2.4 [facility] Serum or plasma calcium dillon urement (mass/volume)Ordered By: Mirtha Galeana on 03-03-2023 Calcium [Mass/Vol] 9.5 mg/dL 8.5-10.1 [facility] Serum or plasma creatinine m easurement (mass/volume)Ordered By: Mirtha Galeana on 03-03-2023 Creatinine [Mass/Vol] 0.92 mg/dL 0.70-1.30 [facility] Comment on above: The validity of the calculated GFR & GFRAA in patients over 70 years has not been determined. Clinical correlation is essential. Serum or plasma urea nitroge n measurement (mass/volume)Ordered By: Mirtha Galeana on 03-03-2023 Urea nitrogen [Mass/Vol] 20 mg/dL 7-18 [facility] Thin prep Papanicolaou smear with manual screeningOrdered By: Mirtha Galeana on 03-03-2023 Thin prep Papanicolaou smear with manual screening 19 U/L 15-37 [facility] Thin prep Papanicolaou smear with manual screening 6 5-15 [facility] Basophil percentageon 2021 Bilirubin [Mass/Vol] 0.50 mg/dL 0.20-1.00 [facility] Work Phone: Comment on above: For patients on eltr ombopag therapy, use of Dimension [facility]akers TBIL is not recommended. Chloride [Moles/Vol] 105 mmol/L 98-107 [facility] Work Phone: Cholesterol [Mass/Vol] 202 mg/dL <200 [facility] Work Phone: Comment on above: <200 mg/dL Desirable 200-240 mg/dL Borderline >240 mg/dL High Risk Glucose [Mass/Vol] 126 mg/dL 74-106 [facility] Work Phone: Comment on above: Fasting Glucose resu lt greater than or equal to 126 mg/dL suggests DIABETES MELLITUS per A.D.A. criteria. Potassium [Moles/Vol] 5.9 mmol/L 3.5-5.1 [facility] Work Phone: Protein [Mass/Vol] 7.5 g/dL 6.4-8.2 [facility] Work Phone: Sodium [Moles/Vol] 139 mmol/L 136-145 [facility] Work Phone: [phone] Triglyceride [Mass/Vol] 172 mg/dL <199 [facility] Work Phone: [phone] Comment on above: The drugs N-Acetylcy steine and Metamizole may falsely depress this assay.Serum Triglycerides Reference Interval Normal <150 mg/dL Borderline high 150 - 199 mg/dL High 200 - 499 mg/dL Very High > or = 500 mg/dL Laboratory - Chemistry and C hemistry - challengeon 03-04-2022 ALP [Catalytic activity/Vol] 63 U/L 45-117 [facility] Work Phone: [phone] ALT [Catalytic activity/Vol] 37 U/L 16-61 [facility] Work Phone: [phone] CO2 [Moles/Vol] 27.0 mmol/L 21.0-32.0 [facility] Work Phone: [phone] Globulin (S) [Mass/Vol] 3.5 g/dL 2.2-4.2 [facility] Work Phone: [phone] Urea nitrogen/Creatinine [Mass ratio] 16.5 mg/mg 10-20 [facility] Work Phone: [phone] Laboratory - Hematology and Cell countson 03-04-2022 HbA1c (Bld) [Mass fraction] 5.9 % 4.2-6.3 [facility] Work Phone: No Panel Informationon 03-04 Estimated GFR (MDRD) Amer 95 mL/min >60 [facility] Work Phone: [phone] Comment on above: GFR Calc Estimated GFR (MDRD) Non-Af Amer 78 mL/min >60 [facility] Work Phone: [phone] Comment on above: Non- GFR Calc Serum or plasma albumin dillon urement (mass/volume)on 03-04-2022 Albumin [Mass/Vol] 4.0 g/dL 3.2-5.0 [facility] Work Phone: [phone] Serum or plasma albumin/glob ulin mass ratioon 03-04-2022 Albumin/Globulin [Mass ratio] 1.1 {ratio} 0.9-2.4 [facility] Work Phone: Serum or plasma calcium dillon urement (mass/volume)on 03-04-2022 Calcium [Mass/Vol] 9.4 mg/dL 8.5-10.1 [facility] Work Phone: Serum or plasma cholesterol in HDL measurement (mass/volume)on 03-04-2022 Cholesterol in HDL [Mass/Vol] 59 mg/dL >40 [facility] Work Phone: Comment on above: The drugs N-Acetylcy steine and Metamizole may falsely depress this assay. Reference Range HDL <40 mg/dL Low HDL Cholesterol HDL >or= 60 mg/dL High HDL Cholesterol Serum or plasma cholesterol in VLDL measurement (mass/volume)on 03-04-2022 Cholesterol in VLDL [Mass/Vol] 34 mg/dL 5-40 [facility] Work Phone: [phone] Serum or plasma creatinine m easurement (mass/volume)on 03-04-2022 Creatinine [Mass/Vol] 1.03 mg/dL 0.70-1.30 [facility] Work Phone: Comment on above: The validity of the calculated GFR & GFRAA in patients over 70 years has not been determined. Clinical correlation is essential. Serum or plasma low density lipoprotein (LDL) cholesterol measurement (mass/volume)on 03-04-2022 Cholesterol in LDL [Mass/Vol] 109 mg/dL 0-130 [facility] Work Phone: [phone] Serum or plasma urea nitroge n measurement (mass/volume)on 03-04-2022 Urea nitrogen [Mass/Vol] 17 mg/dL 7-18 [facility] Work Phone: [phone] Thin prep Papanicolaou smear with manual screeningon 03-04-2022 Thin prep Papanicolaou smear with manual screening 15 U/L 15-37 [facility] Work Phone: [phone] Thin prep Papanicolaou smear with manual screening 7 5-15 [facility] Work Phone: [phone] Basophil percentageon 2021 Bilirubin [Mass/Vol] 0.60 mg/dL 0.20-1.00 [facility] Work Phone: [phone] Comment on above: For patients on eltr ombopag therapy, use of Dimension Whitakers TBIL is not recommended. Protein [Mass/Vol] 7.4 g/dL 6.4-8.2 [facility] Work Phone: [phone] Direct bilirubinon Bilirubin.direct [Mass/Vol] 0.14 mg/dL 0.00-0.30 [facility] Work Phone: [phone] Laboratory - Chemistry and C hemistry - challengeon 09-16-2021 ALP [Catalytic activity/Vol] 69 U/L 45-117 [facility] Work Phone: [phone] ALT [Catalytic activity/Vol] 112 U/L 16-61 [facility] Work Phone: [phone] Globulin (S) [Mass/Vol] 3.1 g/dL 2.2-4.2 [facility] Work Phone: [phone] Serum or plasma albumin dillon urement (mass/volume)on 09-16-2021 Albumin [Mass/Vol] 4.3 g/dL 3.2-5.0 [facility] Work Phone: Thin prep Papanicolaou smear with manual screeningon 09-16-2021 Thin prep Papanicolaou smear with manual screening 58 U/L 15-37 [facility] Work Phone: Basophil percentageon 2021 Bilirubin [Mass/Vol] 0.40 mg/dL 0.20-1.00 [facility] Work Phone: [phone] Comment on above: For patients on eltr ombopag therapy, use of Dimension Whitakers TBIL is not recommended. Chloride [Moles/Vol] 108 mmol/L 98-107 [facility] Work Phone: [phone] Cholesterol [Mass/Vol] 131 mg/dL <200 [facility] Work Phone: [phone] Comment on above: <200 mg/dL Desirable 200-240 mg/dL Borderline >240 mg/dL High Risk Glucose [Mass/Vol] 156 mg/dL 74-106 [facility] Work Phone: Comment on above: Fasting Glucose resu lt greater than or equal to 126 mg/dL suggests DIABETES MELLITUS per A.D.A. criteria. Potassium [Moles/Vol] 4.8 mmol/L 3.5-5.1 [facility] Work Phone: [phone] Protein [Mass/Vol] 7.2 g/dL 6.4-8.2 [facility] Work Phone: [phone] Sodium [Moles/Vol] 139 mmol/L 136-145 [facility] Work Phone: [phone] Triglyceride [Mass/Vol] 125 mg/dL [facility] Work Phone: Comment on above: The drugs N-Acetylcy steine and Metamizole may falsely depress this assay.Serum Triglycerides Reference Interval Normal <150 mg/dL Borderline high 150 - 199 mg/dL High 200 - 499 mg/dL Very High > or = 500 mg/dL Laboratory - Chemistry and C hemistry - challengeon 08-05-2021 ALP [Catalytic activity/Vol] 78 U/L 45-117 [facility] Work Phone: ALT [Catalytic activity/Vol] 103 U/L 16-61 [facility] Work Phone: [phone] CO2 [Moles/Vol] 27.0 mmol/L 21.0-32.0 [facility] Work Phone: [phone] Globulin (S) [Mass/Vol] 3.1 g/dL 2.2-4.2 [facility] Work Phone: [phone] Urea nitrogen/Creatinine [Mass ratio] 17.1 mg/mg 10-20 [facility] Work Phone: [phone] Laboratory - Hematology and Cell countson 08-05-2021 HbA1c (Bld) [Mass fraction] 7.4 % [facility] Work Phone: No Panel Informationon 08-05 Estimated GFR (MDRD) Amer 114 mL/min >60 [facility] Work Phone: Comment on above: GFR Calc Estimated GFR (MDRD) Non-Af Amer 94 mL/min >60 [facility] Work Phone: Comment on above: Non- GFR Calc Serum or plasma albumin dillon urement (mass/volume)on 08-05-2021 Albumin [Mass/Vol] 4.1 g/dL 3.2-5.0 [facility] Work Phone: Serum or plasma albumin/glob ulin mass ratioon 08-05-2021 Albumin/Globulin [Mass ratio] 1.3 {ratio} 0.9-2.4 [facility] Work Phone: Serum or plasma calcium dillon urement (mass/volume)on 08-05-2021 Calcium [Mass/Vol] 9.3 mg/dL 8.5-10.1 [facility] Work Phone: Serum or plasma cholesterol in HDL measurement (mass/volume)on 08-05-2021 Cholesterol in HDL [Mass/Vol] 49 mg/dL [facility] Work Phone: Comment on above: The drugs N-Acetylcy steine and Metamizole may falsely depress this assay. Reference Range HDL <40 mg/dL Low HDL Cholesterol HDL >or= 60 mg/dL High HDL Cholesterol Serum or plasma cholesterol in VLDL measurement (mass/volume)on 08-05-2021 Cholesterol in VLDL [Mass/Vol] 25 mg/dL 5-40 [facility] Work Phone: Serum or plasma creatinine m easurement (mass/volume)on 08-05-2021 Creatinine [Mass/Vol] 0.88 mg/dL 0.70-1.30 [facility] Work Phone: Comment on above: The validity of the calculated GFR & GFRAA in patients over 70 years has not been determined. Clinical correlation is essential. Serum or plasma low density lipoprotein (LDL) cholesterol measurement (mass/volume)on 08-05-2021 Cholesterol in LDL [Mass/Vol] 57 mg/dL 0-130 [facility] Work Phone: Serum or plasma urea nitroge n measurement (mass/volume)on 08-05-2021 Urea nitrogen [Mass/Vol] 15 mg/dL 7-18 [facility] Work Phone: Thin prep Papanicolaou smear with manual screeningon 08-05-2021 Thin prep Papanicolaou smear with manual screening 55 U/L 15-37 [facility] Work Phone: Thin prep Papanicolaou smear with manual screening 4 5-15 [facility] Work Phone: SARS coronavirus RNA [Presen ce] in Unspecified specimen by MARTHA with probe detectionon 06-30-2021 SARS-CoV RNA MARTHA+probe Ql (Unsp spec) Not detected Not Detected [facility] Work Phone: Comment on above: This nucleic [...] of in vitro diagnostic tests for detection [id number] virus and/or diagnosis of COVID-19 infectionunder section [...] Alanine aminotransferase (ALT) 16 U/L Normal 10-35 [facility] Comment on above: Performed By: #### C ####[address] [address] Albumin/Globulin Ratio 2.2 {ratio} Normal 1.1-2.5 A [facility] Comment on above: Performed By: #### C MP ####[place] [id number] Alk. Phosphatase 61 IU/L Normal 40-135 [facility] Comment on above: Performed By: #### C MP ####[place] [id number] Aspartate aminotransferase (AST) 14 U/L Normal 10-40 [facility] Comment on above: Performed By: #### C MP ####[place] [id number] Globulin 2.2 G/dL Normal [facility] Comment on above: Performed By: #### C MP ####[place] [id number] T. Protein 7.0 G/dL Normal 6.0-8.3 [facility] Comment on above: Performed By: #### C MP ####[place] [id number] Bilirubin (direct) 0.5 mg/dL Normal 0.2-1.0 [facility] Comment on above: Performed By: #### C MP ####[place] [id number] Glucose mass conc 109 mg/dL High 70-105 [facility] Comment on above: Performed By: #### C MP ####[place] [id number] Calcium 10.2 mg/dL Normal 8.4-10.2 [facility] Comment on above: Performed By: #### C MP ####[place] [id number] Albumin 4.8 G/dL Normal 3.5-5.0 [facility] Comment on above: Performed By: #### C MP ####[place] [id number] BUN/Creatinine Ratio 16 mg/mg Normal 7-27 [facility] Comment on above: Performed By: #### C MP ####[address] [address] CO2 29 mmol/L Normal 22-29 [facility] Comment on above: Performed By: #### C MP ####[address] [address] Creatinine 1.0 mg/dL Normal 0.6-1.2 [facility] Comment on above: Performed By: #### C MP ####[address] [address] Electrolyte Balance 6.0 mEq/L Normal [facility] Comment on above: Performed By: #### C MP ####[address] [address] Urea nitrogen 16 mg/dL Normal 7-18 [facility] Comment on above: Performed By: #### C MP ####[place] [id number] Chloride 104 mmol/L Normal 98-107 [facility] Comment on above: Performed By: #### C MP ####[address] [address] Potassium molar conc 5.1 mmol/L Normal 3.5-5.1 [facility] Comment on above: Performed By: #### C MP ####[address] [address] Sodium 139 mmol/L Normal 136-146 [facility] Comment on above: Performed By: #### C MP ####[address] [address] Glomerular Filtration Rate E stimateon 01-06-2017 eGFR (non-black) mL/min/{1.73_m2} Normal [facility] Comment on above: Performed By: #### G FR ####[address] [address] Result Comment: Esau lation mean GFR = 93 mL/min/1.73 sq.m. for ages 50-59 years. Chronic Kidney Disease: Less than 60 mL/min/1.73 square metersEnd Stage Renal Disease: Less than 15 mL/min/1.73 square meters HDL Cholesterol Profileon Cholesterol 155 mg/dL Normal 131-200 [facility] Comment on above: Result Comment: Chol esterol Reference Interval: Less than 200 Desirable 200-239 Borderline high risk 240 and above High risk ------ Performed By: #### L IPID ####[place] [address] [address] LDL Cholesterol 64 mg/dL Normal 0-130 [facility] Comment on above: Result Comment: LDL is a calculated result and requires a 12-hr fast. LDL Reference Interval: Less than 100 Optimal 100-129 Near or above optimal 130-159 Borderline high risk 160-189 High risk 190 and above Very high risk ------- Performed By: #### L IPID ####[place] [address] [address] HDL Cholesterol 65 mg/dL Normal 35-90 [facility] Comment on above: Result Comment: HDL Reference Interval: Less than 40 Low - high risk 60 or above Optimal/lowers risk ------ Performed By: #### L IPID ####[place] [address] [address] Triglyceride 132 mg/dL Normal 40-150 [facility] Comment on above: Result Comment: Trig lyceride Reference Interval: Less than 150 Normal 150-199 Borderline high risk 200-499 High risk 500 or higher Very high risk ------ Performed By: #### L IPID ####[address] [address] Vital Signs Date Time Vital Sign Value Performing Clinician Estefany vincent 03-06-2025 16:22-0400 Body height 167.[address] Mirtha Galeana DO Work Phone: [facility] 03-06-2025 16:22-0400 Body mass index (BMI) [Ratio] 32.8 kg/m2 Dr. Mirtha Galeana DO Work Phone: [facility] 03-06-2025 16:22-0400 Body temperature 97 [degF] Dr. Mirtha Galeana DO Work Phone: [facility] 03-06-2025 16:22-0400 Body weight 92.[address] Mirtha Galeana DO Work Phone: [facility] 03-06-2025 16:22-0400 Diastolic blood pressure 76 mm[Hg] Dr. Mirhta Galeana DO Work Phone: [facility] 03-06-2025 16:22-0400 Heart rate 112 /min Dr. Mirtha Galeana DO Work Phone: [facility] 03-06-2025 16:22-0400 Respiratory rate 16 /min Dr. Mirtha Galeana DO Work Phone: [facility] 03-06-2025 16:22-0400 SaO2% (BldA) [Mass fraction] 96 % Dr. Mirtha Galeana DO Work Phone: [facility] 03-06-2025 16:22-0400 Systolic blood pressure 136 mm[Hg] Dr. Mirtha Galeana DO Work Phone: [facility] 10-08-2024 14:33-0400 Body height 167.[address] Mirtha Galeana DO Work Phone: [facility] 10-08-2024 14:33-0400 Body mass index (BMI) [Ratio] 33 kg/m2 Dr. Mirtha Galeana DO Work Phone: [facility] 10-08-2024 14:33-0400 Body weight 92.[address] Mirtha Galeana DO Work Phone: [facility] 10-08-2024 14:33-0400 Diastolic blood pressure 82 mm[Hg] Dr. Mirtha Galeana DO Work Phone: [facility] 10-08-2024 14:33-0400 Heart rate 100 /min Dr. Mirtha Galeana DO Work Phone: [facility] 10-08-2024 14:33-0400 Respiratory rate 18 /min Dr. Mirtha Galeana DO Work Phone: [facility] 10-08-2024 14:33-0400 Systolic blood pressure 117 mm[Hg] Dr. Mirtha Galeana DO Work Phone: [facility] 09-19-2024 08:58-0400 Heart rate 81 /min Dr. Mirtha Galeana DO Work Phone: [facility] 09-19-2024 08:54-0400 Body temperature 98.8 [degF] Dr. Mirtha Galeana DO Work Phone: [facility] 09-19-2024 08:54-0400 Diastolic blood pressure 93 mm[Hg] Dr. Mirtha Galeana DO Work Phone: [facility] 09-19-2024 08:54-0400 Respiratory rate 16 /min Dr. Mirtha Galeana DO Work Phone: [facility] 09-19-2024 08:54-0400 SaO2% (BldA) [Mass fraction] 95 % Dr. Mirtha Galeana DO Work Phone: [facility] 09-19-2024 08:54-0400 Systolic blood pressure 135 mm[Hg] Dr. Mirtha Galeana DO Work Phone: [facility] 09-18-2024 17:44-0400 Body temperature 98 [degF] Dr. Mirtha Galeana DO Work Phone: [facility] 09-18-2024 17:44-0400 Diastolic blood pressure 83 mm[Hg] Dr. Mirtha Galeana DO Work Phone: [facility] 09-18-2024 17:44-0400 Heart rate 95 /min Dr. Mirtha Galeana DO Work Phone: [facility] 09-18-2024 17:44-0400 Respiratory rate 20 /min Dr. Mirtha Galeana DO Work Phone: [facility] 09-18-2024 17:44-0400 SaO2% (BldA) [Mass fraction] 96 % Dr. Mirtha Galeana DO Work Phone: [facility] 09-18-2024 17:44-0400 Systolic blood pressure 142 mm[Hg] Dr. Mirtha Galeana DO Work Phone: [facility] 09-18-2024 10:43-0400 Body height 167.[address] Mirtha Galeana DO Work Phone: [facility] 09-18-2024 10:43-0400 Body mass index (BMI) [Ratio] 33.2 kg/m2 Dr. Mirtha Galeana DO Work Phone: [facility] 09-18-2024 10:43-0400 Body weight 93.[address] Mirtha Galeana DO Work Phone: [facility] 09-05-2024 16:05-0400 Body height 167.[address] Mirtha Galeana DO Work Phone: [facility] 09-05-2024 16:05-0400 Body mass index (BMI) [Ratio] 32.9 kg/m2 Dr. Mirtha Galeana DO Work Phone: [facility] 09-05-2024 16:05-0400 Body temperature 97.6 [degF] Dr. Mirtha Galeana DO Work Phone: [facility] 09-05-2024 16:05-0400 Body weight 92.[address] Mirtha Galeana DO Work Phone: [facility] 09-05-2024 16:05-0400 Diastolic blood pressure 80 mm[Hg] Dr. Mirtha Galeana DO Work Phone: [facility] 09-05-2024 16:05-0400 Heart rate 98 /min Dr. Mirtha Galeana DO Work Phone: [facility] 09-05-2024 16:05-0400 Respiratory rate 16 /min Dr. Mirtha Galeana DO Work Phone: [facility] 09-05-2024 16:05-0400 SaO2% (BldA) [Mass fraction] 98 % Dr. Mirtha Galeana DO Work Phone: [facility] 09-05-2024 16:05-0400 Systolic blood pressure 120 mm[Hg] Dr. Mirtha Galeana DO Work Phone: [facility] 07-27-2024 08:46-0500 Body mass index (BMI) [Ratio] 33.2 kg/m2 Dr. Mirtha Galeana DO Work Phone: [facility] 07-27-2024 08:46-0500 Body weight 93.[address] Mirtha Galeana DO Work Phone: [facility] 07-27-2024 08:46-0500 Diastolic blood pressure 63 mm[Hg] Dr. Mirtha Galeana DO Work Phone: [facility] 07-27-2024 08:46-0500 Heart rate 90 /min Dr. Mirtha Galeana DO Work Phone: [facility] 07-27-2024 08:46-0500 Respiratory rate 16 /min Dr. Mirtha Galeana DO Work Phone: [facility] 07-27-2024 08:46-0500 Systolic blood pressure 122 mm[Hg] Dr. Mirtha Galeana DO Work Phone: [facility] 06-30-2024 19:40-0500 Body temperature 97.9 [degF] Dr. Mirtha Galeana DO Work Phone: [facility] 06-30-2024 19:40-0500 Diastolic blood pressure 78 mm[Hg] Dr. Mirtha Galeana DO Work Phone: [facility] 06-30-2024 19:40-0500 Heart rate 73 /min Dr. Mirtha Galeana DO Work Phone: [facility] 06-30-2024 19:40-0500 Respiratory rate 16 /min Dr. Mirtha Galeana DO Work Phone: [facility] 06-30-2024 19:40-0500 SaO2% (BldA) [Mass fraction] 99 % Dr. Mirtha Galeana DO Work Phone: [facility] 06-30-2024 19:40-0500 Systolic blood pressure 134 mm[Hg] Dr. Mirtha Galeana DO Work Phone: [facility] 06-30-2024 16:40-0500 Body mass index (BMI) [Ratio] 33.8 kg/m2 Dr. Mirtha Galeana DO Work Phone: [facility] 06-30-2024 16:40-0500 Body weight 95.[address] Mirtha Galeana DO Work Phone: [facility] 09-06-2023 16:19-0400 Body height 167.[address] Mirtha Galeana Work Phone: [facility] 09-06-2023 16:19-0400 Body mass index (BMI) [Ratio] 32.9 kg/m2 Dr. Mirtha Galeana Work Phone: [facility] 09-06-2023 16:19-0400 Body temperature 97.6 [degF] Dr. Mirtha Galeana Work Phone: [facility] 09-06-2023 16:19-0400 Body weight 92.[address] Mirtha Galeana Work Phone: [facility] 09-06-2023 16:19-0400 Diastolic blood pressure 86 mm[Hg] Dr. Mirtha Galeana Work Phone: [facility] 09-06-2023 16:19-0400 Heart rate 112 /min Dr. Mirtha Galeana Work Phone: [facility] 09-06-2023 16:19-0400 Respiratory rate 16 /min Dr. Mirtha Galeana Work Phone: [facility] 09-06-2023 16:19-0400 SaO2% (BldA) [Mass fraction] 96 % Dr. Mirtha Glaeana Work Phone: [facility] 09-06-2023 16:19-0400 Systolic blood pressure 126 mm[Hg] Dr. Mirtha Galeana Work Phone: [facility] 03-03-2023 08:32-0400 Body height 167.[address] Mirtha Galeana Work Phone: [facility] 03-03-2023 08:32-0400 Body mass index (BMI) [Ratio] 31.4 kg/m2 Dr. Mirtha Galeana Work Phone: [facility] 03-03-2023 08:32-0400 Body temperature 95.9 [degF] Dr. Mirtha Galeana Work Phone: [facility] 03-03-2023 08:32-0400 Body weight 88.[address] Mirtha Galeana Work Phone: [facility] 03-03-2023 08:32-0400 Diastolic blood pressure 84 mm[Hg] Dr. Mirtha Galeana Work Phone: [facility] 03-03-2023 08:32-0400 Heart rate 94 /min Dr. Mirtha Galeana Work Phone: [facility] 03-03-2023 08:32-0400 Respiratory rate 18 /min Dr. Mirtha Galeana Work Phone: [facility] 03-03-2023 08:32-0400 SaO2% (BldA) [Mass fraction] 97 % Dr. Mirtha Galeana Work Phone: [facility] 03-03-2023 08:32-0400 Systolic blood pressure 122 mm[Hg] Dr. Mirtha Galeana Work Phone: [facility] 03-04-2022 08:29-0400 Body height 167.[address] Mirtha Galeana Work Phone: [facility] Work Phone: 03-04-2022 08:29-0400 Body mass index (BMI) [Ratio] 31.4 kg/m2 Dr. Mirtha Galeana Work Phone: [facility] Work Phone: 03-04-2022 08:29-0400 Body temperature 97.4 [degF] Dr. Mirtha Galeana Work Phone: [facility] Work Phone: 03-04-2022 08:29-0400 Body weight 88.[address] Mirtha Galeana Work Phone: [facility] Work Phone: 03-04-2022 08:29-0400 Diastolic blood pressure 76 mm[Hg] Dr. Mirtha Galeana Work Phone: [facility] Work Phone: 03-04-2022 08:29-0400 Heart rate 94 /min Dr. Mirtha Galeana Work Phone: [facility] Work Phone: 03-04-2022 08:29-0400 Respiratory rate 16 /min Dr. Mirtha Galeana Work Phone: [facility] Work Phone: 03-04-2022 08:29-0400 SaO2% (BldA) [Mass fraction] 97 % Dr. Mirtha Galeana Work Phone: [facility] Work Phone: 03-04-2022 08:29-0400 Systolic blood pressure 140 mm[Hg] Dr. Mirtha Galeana Work Phone: [facility] Work Phone: 08-05-2021 08:01-0500 Body height 167.[address] Mirtha Galeana Work Phone: [facility] Work Phone: 08-05-2021 08:01-0500 Body mass index (BMI) [Ratio] 35 kg/m2 Dr. Mirtha Galeana Work Phone: [facility] Work Phone: 08-05-2021 08:01-0500 Body temperature 96.9 [degF] Dr. Mirtha Galeana Work Phone: [facility] Work Phone: 08-05-2021 08:01-0500 Body weight 98.[address] Mirtha Galeana Work Phone: [facility] Work Phone: 08-05-2021 08:01-0500 Diastolic blood pressure 82 mm[Hg] Dr. Mirtha Galeana Work Phone: [facility] Work Phone: 08-05-2021 08:01-0500 Heart rate 94 /min Dr. Mirtha Galeana Work Phone: [facility] Work Phone: 08-05-2021 08:01-0500 Respiratory rate 16 /min Dr. Mirtha Galeana Work Phone: [facility] Work Phone: 08-05-2021 08:01-0500 SaO2% (BldA) [Mass fraction] 98 % Dr. Mirtha Galeana Work Phone: [facility] Work Phone: 08-05-2021 08:01-0500 Systolic blood pressure 128 mm[Hg] Dr. Mirtha Galeana Work Phone: [facility] Work Phone: Encounters Encounter Date Encounter Type Care Provider Facility Start: 04-15-2025 ambulatory Tierney Albert CONTENT WRITER Facili ty:[facility] Start: 04-11-2025 End: 04-11-2025 ambulatory Tierney Albert CONTENT WRITER [facility] Start: 03-06-2025 End: 03-06-[address] Mirtha Alford DO -[facility] Work Phone: Start: 03-06-2025 End: 03-06-[address] Mirtha Galeana DO Work Phone: -[facility] Start: 10-08-2024 End: 10-08-[address] Mirtha Galeana DO Work Phone: [facility] Work Phone: Start: 10-08-2024 End: 10-08-2024 Patient encounter procedure Federico Martinez CONTENT WRITER-C -Laboratory Work Phone: Start: 10-08-2024 End: 10-08-2024 Patient encounter procedure Federico Martinez CONTENT WRITER-C -[facility] Work Phone: Start: 10-08-2024 End: 10-08-2024 ambulatory Mirtha Galeana Facility[facility] Start: 10-08-2024 End: 10-08-2024 ambulatory Federico Martinez NP Facility:[facility] Start: 09-21-2024 Non-patient / Non-visit Dr. Joselo hendrix MD -[facility] Start: 09-21-2024 ambulatory [facility] Start: 09-19-2024 Non-patient / Non-visit Dr. Gatito CASON -[facility] Start: 09-18-2024 End: 09-19-2024 ambulatory Joselo Fan Facility:[facility] Start: 09-18-2024 End: 09-19-2024 Evaluation and management of inpatient Dr. Joselo Chavira MD -Progressive Care Unit Work Phone: Start: 09-18-2024 End: 09-19-[address] Mirtha Galeana DO Work Phone: [facility] Work Phone: Start: 09-13-2024 ambulatory Sudhakar Quinn Facility:[facility] Start: 09-13-2024 Non-patient / Non-visit Anthony Ponce -[facility] Start: 09-10-2024 Non-patient / Non-visit Dr. Gatito [facility]ON [facility] Start: 09-10-2024 End: 09-10-[address] Mirtha Galeana DO Work Phone: [facility] Work Phone: Start: 09-10-2024 End: 09-10-[address] Sudhakar Quinn MD -Cardiovascular Services Work Phone: Start: 09-10-2024 End: 09-10-2024 ambulatory Sudhakar Quinn Facility:[facility] Start: 09-05-2024 End: 09-05-[address] Mirtha Alford DO -[facility] Work Phone: Start: 09-05-2024 End: 09-05-2024 ambulatory Mirtha Galeana Facility:[facility] Start: 09-03-2024 End: 09-03-[address] Mirtha Galeana DO Work Phone: [facility] Work Phone: Start: 09-03-2024 End: 09-03-2024 Patient encounter procedure Sandra Zepeda PA -Laboratory Work Phone: Start: 09-03-2024 End: 09-03-2024 ambulatory Mirtha Galeana Facility:[facility] Start: 08-23-2024 ambulatory Sudhakar Quinn [facility] Start: 08-23-2024 Non-patient / Non-visit Dr. Gatito CASON [facility] Start: 08-17-2024 End: 08-17-[address] Sudhakar Quinn MD -[facility] Work Phone: Start: 08-17-2024 End: 08-17-2024 ambulatory Sudhakar Quinn Facility:[facility] Start: 07-27-2024 End: 07-27-[address] Sudhakar Quinn MD -[facility] Work Phone: Start: 07-27-2024 End: 07-27-2024 ambulatory Mirtha Alford [facility] Start: 07-23-2024 Encounter for genera l adult medical examination without abnormal findings Zi Oglesby [facility] Start: 07-04-2024 ambulatory Roxanna Bob Fa cility:[facility] Start: 07-04-2024 Non-patient / Non-visit Dr. Donna Bob MD -[facility] Work Phone: Start: 07-04-2024 End: 07-04-[address] Zi Oglesby MD -Pulmonary Services/Neurology Work Phone: Start: 07-04-2024 End: 07-04-2024 ambulatory Mirtha Galeana Facility:[facility] Start: 06-30-2024 End: 06-30-[address] Zi Oglesby MD -Cardiovascular Services Work Phone: Start: 06-30-2024 End: 06-30-2024 Emergency department patient visit Dr. Zi Oglesby MD -Emergency Department Work Phone: Start: 06-30-2024 End: 06-30-2024 ambulatory Mirtha Galeana Facility:[facility] Start: 09-09-2023 End: 09-09-[address] Mirtha Galeana Work Phone: [facility] Work Phone: Start: 09-09-2023 End: 09-09-[address] Mirtha Galeana Work Phone: [facility] Start: 09-06-2023 End: 09-06-[address] Mirtha Galeana Work Phone: [facility] Work Phone: Start: 03-03-2023 End: 03-03-[address] Mirtha Galeana Work Phone: [facility] Work Phone: Start: 03-03-2023 End: 03-03-[address] Mirtha Galeana Work Phone: [facility] Work Phone: Start: 03-04-2022 End: 03-04-[address] Mirtha Galeana Work Phone: [facility] Work Phone: Start: 03-04-2022 End: 03-04-[address] Mirtha Galeana Work Phone: [facility] Start: 10-07-2021 End: 10-07-[address] Mirtha Galeana Work Phone: [facility]-Ultrasound, [facility] Start: 09-16-2021 End: 09-16-[address] Mirtha Galeana Work Phone: [facility] Start: 08-05-2021 End: 08-05-[address] [facility] Start: 06-30-2021 End: 06-30-[address] [facility] Start: 06-30-2021 End: 06-30-[address] Mirtha Galeana Work Phone: [facility] Start: 01-06-2017 End: 01-07-2017 Ambulatory MIRTHA GALEANA Facility:[facility] Procedures Date Procedure Procedure Detail Performing Clinician Start: 09-18-2024 History of placement of stent for coronary artery disease History of coronary artery stent placement Federico Martinez CONTENT WRITERVeritoC Comment on above: Successful ANOOP Mid R CA using Michael Tift 3.0x15 mmSuccessful ANOOP prox RCA using Michael Tift 3.0x30 mm, optimized proximallyusing 4.0 mm balloon [...] Activity Detail Author Start: 09-24-2024 Patient referral [facility] Work Phone: Start: 09-19-2024 Patient discharge [facility] Start: 09-19-2024 Complete blood count [facility] Start: 09-18-2024 Following clinical pathway protocol [facility] Start: 09-18-2024 Ambulation without limitation [facility] Start: 09-18-2024 Admission procedure [facility] Start: 09-18-2024 Cardiac monitoring [facility] Start: 09-18-2024 Cardiac rehabilitation - phase 1 [facility] Start: 09-18-2024 Cardiac rehabilitation - phase 2 [facility] Start: 09-18-2024 Notification of physician [facility] Start: 09-18-2024 Oxygen therapy [facility] Start: 09-18-2024 Patient discharge [facility] Start: 09-18-2024 Systemic arterial pressure monitoring [facility] Start: 09-18-2024 Taking patient vital signs [facility] Start: 09-18-2024 Vascular disease risk assessment [facility] Start: 09-18-2024 Vital signs measurements [facility] Start: 09-18-2024 End: 09-18-2024 [facility] Start: 06-30-2024 [facility] Start: 06-30-2024 [facility] Alanine aminotransfe rase [Enzymatic activity/volume] in Serum or Plasma [facility] Albumin [Mass/volume ] in Serum or Plasma [facility] Alkaline phosphatase [Enzymatic activity/volume] in Serum or Plasma [facility] Anion gap in Serum o r Plasma [facility] Bilirubin, total measurement [facility] BUN/Creatinine ratio [facility] Calcium [Mass/volume ] in Serum or Plasma [facility] Carbon dioxide, tota l [Moles/volume] in Central venous blood [facility] Creatinine [Mass/vol ume] in Serum or Plasma [facility] Erythrocyte mean corpuscular volume determination [facility] Glucose [Mass/volume ] in Serum or Plasma [facility] Hematocrit [Volume Fraction] of Blood [facility] Hemoglobin [Mass/vol ume] in Blood [facility] Hemoglobin A1c/Hemoglobin.total in Blood [facility] Leukocytes [#/volume ] in Blood [facility] Mean corpuscular hem oglobin concentration determination [facility] Mean corpuscular hem oglobin determination [facility] Measurement of renal function [facility] Microalbumin [Mass/v olume] in Urine [facility] Patient Education ED Dyspnea ED Holter Monitor ED Palpitations [facility] Work Phone: Patient referral [facility] Work Phone: Platelets [#/volume] in Blood [facility] Potassium measurement [facility] Red blood cell count [facility] Red cell distributio n width determination [facility] Serum chloride measurement [facility] Sodium measurement [facility] Total protein measurement [facility] Urea nitrogen [Mass/ volume] in Serum or Plasma [facility] Immunizations Immunization Date Immunization Notes Care Provider Fa [facility]3]loni 03-24-2024 influenza, seasonal, injectable, preservative free Dr. Mirtha Galeana DO Work Phone: [facility] 02-03-2024 tetanus toxoid, redu wilfredo diphtheria toxoid, and acellular pertussis vaccine, adsorbed Dr. Mirtha Galeana DO Work Phone: [facility] 03-26-2023 influenza, injectabl e, quadrivalent, preservative free Dr. Mirtha Galeana DO Work Phone: [facility] 06-04-2021 Covid (Moderna) Dr. Mirtha Galeana DO Work Phone: [facility] 10-16-2020 Jonathanid (Moderna) Dr. Mirtha Galeana DO Work Phone: [facility] 09-18-2020 Covid (Moderna) Dr. Mirtha Galeana DO Work Phone: [facility] 08-13-2020 pneumococcal conjuga te vaccine, [address] Mirtha Galeana Work Phone: [facility] 08-13-2020 pneumococcal vaccine , unspecified formulation Dr. Mirtha Galeana Work Phone: [facility] Work Phone: 03-27-2017 influenza, injectabl e, quadrivalent, preservative free Dr. Mirtha Galeana DO Work Phone: [facility] 04-13-2016 influenza, high dose seasonal, preservative-free Dr. Mirtha Galeana DO Work Phone: [facility] Payers Date Payer Category Payer Unknown [id number] 2024 Self-pay [id number] 2024 Private Health Insurance [id number] 2015 Private Health Insurance [id number] Private Health Insurance [id number] Unknown [id number] 2.16.8 [id number] Unknown [id number] 2.16.8 40.1.772665.3.579.2.462 Unknown [id number] 2.16.8 40.1.322041.3.579.2.462 Unknown [id number] 2.16.8 40.1.907129.3.579.2.462 Unknown [id number] 2.16.8 40.1.059093.3.579.2.462 Unknown [id number] 2.16.8 40.1.833428.3.579.2.462 Unknown [id number] 2.16.8 40.1.579036.3.579.2.462 Unknown [id number] 2.16.8 40.1.263027.3.579.2.462 Unknown [id number] 2.16.8 40.1.470491.3.579.2.462 Unknown [id number] 2.16.8 40.1.865271.3.579.2.462 Unknown [id number] 2.16.8 40.1.548084.3.579.2.462 Unknown [id number] 2.16.8 40.1.518793.3.579.2.462 Unknown [id number] 2.16.8 40.1.478825.3.579.2.462 Unknown [id number] 2.16.8 40.1.668332.3.579.2.462 Unknown [id number] 2.16.8 40.1.929297.3.579.2.462 Unknown [id number] 2.16.8 40.1.402295.3.579.2.462 Unknown [id number] 2.16.8 40.1.462304.3.579.2.462 Unknown [id number] 2.16.8 40.1.545426.3.579.2.462 Unknown [id number] 2.16.8 40.1.499959.3.579.2.462 Unknown [id number] 2.16.8 40.1.462077.3.579.2.462 Unknown [id number] 2.16.8 40.1.765714.3.579.2.462 Unknown [id number] 2.16.8 40.1.821811.3.579.2.462 Social History Date Type Detail Facility Start: 08-05-2021 End: 09-06-2023 Tobacco smoking status NHIS Unknown if ever smoked [facility] Start: 1960 Sex Assigned At Male [facility] Start: 06-30-2024 End: 10-08-2024 Tobacco smoking status NHIS Ex-smoker (finding) [facility] Start: 09-13-2024 End: 10-11-2024 Sex Male (finding) [facility] Medical Equipment Procedure Code Equipment Code Equipment Origin al Text Equipment Identifier Dates Drug-eluting coronary artery stent, [id number]-sr lymer-coated ()[id number] FDA Start: 09-18-2024 Drug-eluting coronary artery stent, [id number]-[id number] lymer-coated ()[id number] FDA Start: 09-18-2024 Goals Date Patient Goal Desired Activity /State Functional Status Date Assessment Result Facility 09-19-2024 Functional status Ambulates [facility] Work Phone: 09-18-2024 Functional status Ambulates;Bath room Privilege;Back to bed [facility] Work Phone: Mental Status Date Assessment Result Facility 09-19-2024 Cognitive function Voice/Name [facility] Work Phone: 09-18-2024 Cognitive function Voice/Name [facility] Work Phone: 06-30-2024 Cognitive function Voice/Name [facility] Work Phone: Clinical Notes 07-27-2024 to 09-19-2024 Note Date & Type Note Facility 09-19-2024 Discharge summary [facility] 09-19-2024 Discharge summary Note Date/Time September 19, 2024 10:55am [facility] Medical Records Department [address] [place] [address] Instructions for Home/Discharge Instructions 09/19/24 0730 MR#: [id number] Acct: [id number] Name: MIRTHA GAMEZ Rep #:[id number] : [...] CC: Dr. Mirtha Galeana DO ~ Signed [facility] Work Phone: 1(756) 508-313903-26-2025 Progress note Author Sudhakar Quinn [facility] Note Date/Time September 19, 2024 7:2 6am [facility] Medical Records Department [address] [place] [address] Progress Note - Cardiology 09/19/24724 MR#: [id number] Acct: [id number] Name: MIRTHA GAMEZ Rep #:[id number] : 1960 64 From: Sudhakar Quinn MD PCP: Dr. Mirtha Galeaan DO Status:[facility] Location: [place] [address] Subjective Subjective Patient seen and evaluated Objective [...] Cosigner Signature (if applicable): CC: ~ Signed [facility] Work Phone: 1(564) 526-825903-26-2025 Progress note [facility] Medical Records Department [address] [place] [address] Progress Note - Cardiology 09/19/24724 MR#: [id number] Acct: [id number] Name: MIRTHA GAMEZ Rep #:[id number] : 1960 64 From: Sudhakar Quinn MD PCP: Dr. Mirtha Galeana, DO Status:[facility] Location: [place] [address] Subjective Subjective Patient seen and evaluated Objective [...] MCV 89.5, MCH 31.7, MCHC 35.4, Plt Weohj949, MPV 11.6, Sodium 138, Potassium 4.0, Chloride [...] Cosigner Signature (if applicable): CC: ~ Signed [facility]03-25-2025 Evaluation note* Diagnosis Onset Date Resolution Status Admit Date Diabetes chronic February 4:06pm History of coronary artery stent placement September 18, 2024 chronic March 06, 2025 4:06pm Hyperlipidemia chronic March 06, 2025 4:06pm Hypertension chronic March 062024 4:06pm [facility] Work Phone: 1(496) 444-870203-25-2025 Study report [facility] Card[facility] Re[facility] [address] [place] [address] CR: Phase I Education Summary MR#: [id number] Acct: [id number] Name: MIRTHA GAMEZ Rep #:[id number] : 1960 64 From: Tierney Hoang PCP: Dr. Mirtha Galeana, DO DOS: General Education Discussed with Patient CAD and cardiac anatomy and function:: Patient communicates acknowledgment Explanation of diagnoses and procedures:: Patient communicates acknowledgment Sign/Symptoms of AR:: Patient communicates acknowledgment Antiplatelet therapy: Patient communicates [...] protocol. Cosigner Signature: Date CC: ~ Signed [facility]03-20-2025 History and physical note Author Sandra Zepeda [facility] Note Date/Time September 13, 2024 1:3 0pm [facility] Medical Records Department [address] [place] [address] History & Physical Exam 09/13/24 1327 MR#: [id number] Acct: [id number] Name: MIRTHA GAMEZ Rep #:[id number] : 1960 64 From: Sandra PAREDES PA PCP: Dr. Mirtha Galeana, DO Status:CT E SDC Location: [facility] History and Physical Date of Admission: [...] he isto undergo a diagnostic heart catheterization. [facility] Medical History Palpitations HORTON (dyspnea on exertion) [...] Dr. Mirtha Galeana, ; REGGIE Camejo~ Signed [facility] Work Phone: 1(778) 990-286303-20-2025 History and physical note [facility] Medical Records Department [address] [place] [address] History & Physical Exam 09/13/24 1327 MR#: [id number] Acct: [id number] Name: MIRTHA GAMEZ Rep #:[id number] : 1960 64 From: Sandra PAREDES PCP: Dr. Mirtha Galeana DO Status:CT E [facility] Location: [facility] History and Physical Date of Admission: [...] he isto undergo a diagnostic heart catheterization. [facility] Medical History Palpitations HORTON (dyspnea on exertion) [...] CC: Dr. Mirtha Galeana DO; REGGIE Camejo~ [facility]03-20-2025 [facility] Medical Records Department [address] [place] [address] History Physical Exam 09/13/24 1327 MR#: [id number] Acct: [id number] Name: MIRTHA GAMEZ Rep #: [id number] : 1960 64 From: Sandra PAREDES PCP: Dr. Mirtha Galeana DO Status:PRE [facility] Location: [facility] History and Physical Date of Admission: [...] is to undergo a diagnostic heart catheterization. [facility] Medical History Palpitations HORTON (dyspnea on exertion) [...] Radial Pulse and Left (more content not included)...[facility]01-31-2025 Evaluation note* Diagnosis Onset Date Resolution Status Admit Date Palpitations acute June 8:45am Hyperlipidemia chronic July 272024 8:45am Hypertension chronic June 8:45am Diabetes chronic September 05 3:52pm Heart palpitations chronic September 05, 2024 3:52pm Hyperlipidemia chronic August 3:52pm Hypertension chronic September 05, 2024 3:52pm [facility] Work Phone: [phone]) [phone] Evaluation note* Diagnosis Onset Date Resolution Status [...] 9:24am Hypertension chronic September 18, 2024 9:24am [facility] Work Phone: [phone]) [phone] Evaluation note* Diagnosis Onset Date Resolution Status [...] 9:24am Hypertension chronic September 18, 2024 9:24am [facility] Work Phone: 1([phone]) [phone] Evaluation note* Diagnosis Onset Date Resolution Status [...] 2:31pm Palpitations chronic October 08, 2024 2:31pm [facility] Work Phone: Evaluation note* Diagnosis Onset Date Resolution Status Diabetes chronic Hypertension [facility] Work Phone: Evaluation note* Diagnosis Onset Date Resolution Status Elevated liver enzymes acute Diabetes chronic Hypertension [facility] Work Phone: Evaluation note* Diagnosis Onset Date Resolution Status Physical exam, annual acute Diabetes chronic Hyperlipidemia [facility] Work Phone: Reason for referral (narrative)No reason [...] Do you have a Healthcare Power of Industrial Boilermaker? No June 30, 2024 6:03pm Advance Directive Response Recorded Date/ Time Living Will No September 18, 2024 11:16am Do you have a Healthcare Power of Industrial Boilermaker? No September 18, 2024 11:16am Advance Directives No September 18 7:09am Living Will No June 30 6:03pm Do you have a Healthcare Power of Industrial Boilermaker? No June 30, 2024 6:03pm Advance Directive [...] section and content) DATE CREATED AUTHOR 12/21/2017 [employer] ([place]) DATE CREATED AUTHOR AUTHOR'S ORGANIZ ATION 12/21/2017 [employer] DATE CREATED AUTHOR AUTHOR'S ORGANIZ [...] 2024 End: October 08, 2024 Federico Martinez CONTENT WRITER, CONTENT WRITER-C Attending Provider Active S tart: October 08, 2024 End: October 08, 2024 Team Status: Inactive Member Role Status Dates Dr. Mirtha Galeana DO Primary Care Provider Active Start: October 08, 2024 End: October 08, 2024 Federico Martinez CONTENT WRITER, CONTENT WRITER-C Attending Provider Active S tart: October 08, 2024 End: October 08, 2024 Federico Martinez CONTENT WRITER, CONTENT WRITER-C Referring Provider Active S tart: October 08, [...] BE BASED ON THE PRIMARY CLINICAL RECORDS. [facility]. provides no warranty or guarantee of the accuracy or completeness of information in this document.
== END | disposition home or self-care (01) ==
LOC: PSN 07:04
PROVIDERS: PCP Family Medicine; Referring Provider Nurse Practitioner Gerontology; Visit Provider Nurse Practitioner Gerontology
DX: R00.0 Tachycardia, unspecified (principal)
CPT/HCPCS: 93225; 93226